=== PATIENT | female | born 1950 | race Caucasian/White ===

== ENCOUNTER 2022-09-24 15:40 | Emergency (ER) | payer OTHER, BC ==
--- OUTSIDE RECORDS SUMMARY | 2022-09-24 15:47 | XMS REPORT | Continuity of Care Document ---
:[address] [facility] t Address [address] [place] [address] [place] [id number] Care Team Providers Name Role Phone Asked, No Pcp Primary Care Physician Unavailable Lupis Mitchell Attending Clinician Unavailable LUPIS BECKMAN Attending Clinician Unavailable RADIOLOGY Attending Clinician Unavailable Radiology Attending Clinician Unavailable Doctor Unassigned, [place] Attending Clinician Unavailable Joel Donald Attending Clinician Unavailable Pancho Thompson MD Attending Clinician [phone] Katia Palomino RN Attending Clinician Unavailable Unknown, Attending Attending Clinician Unavailable Only, Ang Db Test Attending Clinician Unavailable JUAN SHAFER Attending Clinician Unavailable Lupis Beckman MD Attending Clinician Only, Adc Test Attending Clinician Unavailable Pob, Adc Lab Main Attending Clinician Unavailable Lab, Adc Fam Pob I Attending Clinician Unavailable Finn Owusu Attending Clinician FINN MAKI Attending Clinician Unavailable Pcp, Patient Does Not Have A Attending Clinician Gunner Marcos Admitting Clinician Unavailable LUPIS BECKMAN Admitting Clinician Unavailable GUNNER MARCOS Admitting Clinician Unavailable Joel Donald Admitting Clinician Unavailable Lupis Beckman MD Admitting Clinician Payers Payer Name Policy Type Policy Number Effective Date Expiration Date S ource MEDICARE PART A [id number] 2010 \\T\\ B 00:00:00 BCBS FED SELECT [id number] 2002 00:00:00 Problems Condition Condition Condition Status Onset Resolution Last Treating Co mments Source Name Details Category Date Date Treatment Clinician Date No known No known Disease Metho di active active st problems problems Hospit a l Allergies, Adverse Reactions, Alerts Allergy Allergy Status Severity Reaction(s) Onset Inactive Treating Comm ents Source Name Type Date Date Clinician pregabal DA Active NM RASH [facility] in 12-27 Clear 00:00: [place] 00 [facility] morphine DA Active U UNKNOWN 2021-0 [facility] 12-27 Clear 00:00: [place] 00 [facility] Pregabal Propensi Active Unknown - 2020-0 Uni vers in ty to See comments 3-10 ity of adverse 00:00: [place] reaction 00 [facility] Morphine Propensi Active Unknown - 2020-0 Uni vers ty to See comments 3-10 ity of adverse 00:00: [place] reaction 00 [facility] PREGABAL DRUG Active Unknown-Cmnt 2020-0 Un [facility]ilibeth IN INGREDI 3-10 ity of 00:00: [place] 00 [facility] [place] MORPHINE DRUG Active Unknown-Cmnt 2020-0 Un lilibeth INGREDI 3-10 ity of 00:00: [place] [address] [facility] NO KNOWN Drug Active Univers ALLERGIE Class ity of S [facility] Family History Family Member Diagnosis Comments Start Date Stop Date Source Natural father Cancer [facility] Natural father Diabetes [facility] Natural father Heart disease [facility] Natural mother Cancer [facility] Natural sister Blood Clots [facility] Natural sister Diabetes [facility] Social History Social Habit Start Date Stop Date Quantity Comments Source Gender identity 2021-12-19 Identifies as [facility] ist 16:32:01 female gender Hospital (finding) History of tobacco 1971-04-08 Cigarette Smoker [facility] use 00:00:00 Hospital Exposure to Not sure University of SARS-CoV-2 (event) [facility] Sexual orientation [facility] Hospital Tobacco use and 2020-11-11 2020-11-11 Smokeless tobacco Me thodist exposure 00:00:00 00:00:00 non-user Hospital Cigarettes smoked 2020-11-11 2020-11-[address] current (pack per 00:00:00 00:00:00 Hospita l day) - Reported Cigarette 2020-11-11 2020-11-11 [facility] pack-years 00:00:00 00:00:00 Hospital Alcohol intake 2020-11-11 2020-11-11 Current drinker Metho dist 00:00:00 00:00:00 of alcohol Hospital (finding) History of Social 2020-11-11 2020-11-[address] [facility] st function 00:00:00 00:00:00 Hospital Tobacco Comment 2020-11-11 2020-11-11 quit a few times Met hodist 00:00:00 00:00:00 last start Hospital Sex Assigned At [birth year] F [facility]ism 00:00:00 00:00:00 Hospital Smoking Status Start Date Stop Date Source Unknown if ever smoked [facility] Smokes tobacco daily 2020-11-11 00:00:00 [facility] Medications Ordered Filled Start Stop Current Ordering Indication Dosage Frequency Signature Comments Components Source Medication Medication Date Date Medication? Clinician (SIG) Name Name diclofenac Yes TAKE 1 Metho di (VOLTAREN) 8-24 TABLET(75 st 75 MG EC 00:00: MG) BY Hospita tablet 00 MOUTH l TWICE DAILY diclofenac Yes TAKE 1 Metho di (VOLTAREN) 8-24 TABLET(75 st 75 MG EC 00:00: MG) BY Hospita tablet 00 MOUTH l TWICE DAILY diclofenac Yes TAKE 1 Metho di (VOLTAREN) 8-24 TABLET(75 st 75 MG EC 00:00: MG) BY Hospita tablet 00 MOUTH l TWICE DAILY diclofenac 2021- No TAKE 1 Meth augie (VOLTAREN) 2-15 08-24 TABLET(75 st 75 MG EC 00:00: 00:00 MG) BY Hospit a tablet 00 :00 MOUTH l TWICE DAILY diclofenac 2021- No TAKE 1 Meth augie (VOLTAREN) 2-15 08-24 TABLET(75 st 75 MG EC 00:00: 00:00 MG) BY Hospit a tablet 00 :00 MOUTH l TWICE DAILY diclofenac 2021- No TAKE 1 Meth augie (VOLTAREN) 2-15 08-24 TABLET(75 st 75 MG EC 00:00: 00:00 MG) BY Hospit a tablet 00 :00 MOUTH l TWICE DAILY diclofenac 2020-04- No TAKE 1 Meth augie (VOLTAREN) 04-23-15 TABLET(75 st 75 MG EC 00:00: 00:00 MG) BY Hospit a tablet 00 :00 MOUTH l TWICE DAILY diclofenac 2020-04- No TAKE 1 Meth augie (VOLTAREN) 04-23-15 TABLET(75 st 75 MG EC 00:00: 00:00 MG) BY Hospit a tablet 00 :00 MOUTH l TWICE DAILY diclofenac 2020- No 75mg Q.5D Take 1 Meth augie (VOLTAREN) 11-11 tablet (75 st 75 MG EC 00:00: 00:00 mg total) Hos foster tablet 00 :00 by mouth 2 l (two) times a day for 30 days. diclofenac No 75mg Q.5D Take 1 Meth augie (VOLTAREN) 11-11 tablet (75 st 75 MG EC 00:00: 00:00 mg total) Hos foster tablet 00 :00 by mouth 2 l (two) times a day for 30 days. tiZANidine Yes 2mg Take 2 mg Un l[facility] 2 mg 3-25 by mouth ity of capsule 19:06: every 6 [place] 30 (six) Medical hours as Branch needed for Muscle Spasms. traZODone Yes 50mg Take 50 mg Un [facility] 50 mg 3-25 by mouth ity of tablet 19:06: at [place] 30 bedtime. Medical Branch pantoprazol Yes 40mg Take 40 mg Univers e 40 mg EC 3-25 by mouth ity o f tablet 19:06: daily. [place] 30 Medical Branch DULoxetine Yes 1{capsu Take 1 Un l[facility] 30 mg CDRS 3-25 le} capsule by ity of 19:06: mouth [place] 30 every Medical morning. Branch fexofenadin Yes 180mg Take 180 U nivers e 180 mg 3-25 mg by ity of tablet 19:06: mouth [place] 30 daily. Medical Branch furosemide Yes 20mg Take 20 mg U nivers 20 mg 3-25 by mouth ity of tablet 19:06: once daily [place] 30 as needed Medical for Other Branch (edema). gabapentin Yes 600mg Take 600 Un [facility] 600 mg 3-25 mg by ity of tablet 19:06: mouth [place] 30 every Medical morning. Branch gabapentin Yes 1200mg Take 1,200 Univers 600 mg 3-25 mg by ity of tablet 19:06: mouth 2 [place] 30 (two) Medical times Branch daily. 1 tab Qam; 2 600mg tabs afternoon; 2 600mg tabs QHS ferrous Yes 325mg Take 325 Unive rs sulfate 3-25 mg by ity of (IRON) 325 19:06: mouth [place] mg (65 mg 30 daily. Medical iron) Branch tablet vitamin Yes 1{capsu Take 1 Unive rs D3-folic 3-25 le} capsule by ity o f acid 500 19:06: mouth [place] unit- 1 mg 30 daily. Medical Tab Branch foLIC acid Yes 1mg Take 1 mg Un [place] 1 mg tablet 3-25 by mouth ity of 19:06: daily. [place] [address] Medical Branch MAGNESIUM Yes 400mg Take 400 Uni vers OXIDE ORAL 3-25 mg by ity of 19:06: mouth 2 [place] 30 (two) Medical times Branch daily. OXYBUTYNIN Yes 15mg Take 15 mg U nivers CHLORIDE 3-25 by mouth ity of ORAL 19:06: daily. [place] [address] Medical Branch teriparatid Yes 20ug inject 20 U nivers e (FORTEO) 3-25 mcg under ity of 20 mcg/dose 19:06: the skin [place] - 600 30 daily. Medical mcg/2.4 mL Branch injection tiZANidine Yes 2mg Take 2 mg Un [place] 2 mg 3-25 by mouth ity of capsule 19:06: every 6 [place] 30 (six) Medical hours as Branch needed for Muscle Spasms. traZODone Yes 50mg Take 50 mg Un [place] 50 mg 3-25 by mouth ity of tablet 19:06: at [place] 30 bedtime. Medical Branch pantoprazol Yes 40mg Take 40 mg Univers e 40 mg EC 3-25 by mouth ity o f tablet 19:06: daily. [place] [address] Medical Branch DULoxetine Yes 1{capsu Take 1 Un l[place] 30 mg CDRS 3-25 le} capsule by ity of 19:06: mouth [place] 30 every Medical morning. Branch fexofenadin Yes 180mg Take 180 U nivers e 180 mg 3-25 mg by ity of tablet 19:06: mouth [place] 30 daily. Medical Branch furosemide Yes 20mg Take 20 mg U nivers 20 mg 3-25 by mouth ity of tablet 19:06: once daily [place] 30 as needed Medical for Other Branch (edema). gabapentin Yes 600mg Take 600 Un [place] 600 mg 3-25 mg by ity of tablet 19:06: mouth [place] 30 every Medical morning. Branch gabapentin Yes 1200mg Take 1,200 Univers 600 mg 3-25 mg by ity of tablet 19:06: mouth 2 [place] 30 (two) Medical times Branch daily. 1 tab Qam; 2 600mg tabs afternoon; 2 600mg tabs QHS ferrous Yes 325mg Take 325 Unive rs sulfate 3-25 mg by ity of (IRON) 325 19:06: mouth [place] mg (65 mg 30 daily. Medical iron) Branch tablet vitamin Yes 1{capsu Take 1 Unive rs D3-folic 3-25 le} capsule by ity o f acid 500 19:06: mouth [place] unit- 1 mg 30 daily. Medical Tab Branch foLIC acid Yes 1mg Take 1 mg Un [place] 1 mg tablet 3-25 by mouth ity of 19:06: daily. [place] 30 Medical Branch MAGNESIUM Yes 400mg Take 400 Uni vers OXIDE ORAL 3-25 mg by ity of 19:06: mouth 2 [place] 30 (two) Medical times Branch daily. OXYBUTYNIN Yes 15mg Take 15 mg U nivers CHLORIDE 3-25 by mouth ity of ORAL 19:06: daily. [place] 30 Medical Branch teriparatid Yes 20ug inject 20 U nivers e (FORTEO) 3-25 mcg under ity of 20 mcg/dose 19:06: the skin [place] - 600 30 daily. Medical mcg/2.4 mL Branch injection tiZANidine Yes 2mg Take 2 mg Un [place] 2 mg 3-25 by mouth ity of capsule 19:06: every 6 [place] 30 (six) Medical hours as Branch needed for Muscle Spasms. traZODone Yes 50mg Take 50 mg Un [place] 50 mg 3-25 by mouth ity of tablet 19:06: at [place] 30 bedtime. Medical Branch pantoprazol Yes 40mg Take 40 mg Univers e 40 mg EC 3-25 by mouth ity o f tablet 19:06: daily. [place] [address] Medical Branch DULoxetine Yes 1{capsu Take 1 Un [place] 30 mg CDRS 3-25 le} capsule by ity of 19:06: mouth [place] 30 every Medical morning. Branch fexofenadin Yes 180mg Take 180 U nivers e 180 mg 3-25 mg by ity of tablet 19:06: mouth [place] 30 daily. Medical Branch furosemide Yes 20mg Take 20 mg U nivers 20 mg 3-25 by mouth ity of tablet 19:06: once daily [place] 30 as needed Medical for Other Branch (edema). gabapentin Yes 600mg Take 600 Un [place] 600 mg 3-25 mg by ity of tablet 19:06: mouth [place] 30 every Medical morning. Branch gabapentin Yes 1200mg Take 1,200 Univers 600 mg 3-25 mg by ity of tablet 19:06: mouth 2 [place] 30 (two) Medical times Branch daily. 1 tab Qam; 2 600mg tabs afternoon; 2 600mg tabs QHS ferrous Yes 325mg Take 325 Unive rs sulfate 3-25 mg by ity of (IRON) 325 19:06: mouth [place] mg (65 mg 30 daily. Medical iron) Branch tablet vitamin Yes 1{capsu Take 1 Unive rs D3-folic 3-25 le} capsule by ity o f acid 500 19:06: mouth [place] unit- 1 mg 30 daily. Medical Tab Branch foLIC acid Yes 1mg Take 1 mg Un [place] 1 mg tablet 3-25 by mouth ity of 19:06: daily. [place] [address] Medical Branch MAGNESIUM Yes 400mg Take 400 Uni vers OXIDE ORAL 3-25 mg by ity of 19:06: mouth 2 [place] 30 (two) Medical times Branch daily. OXYBUTYNIN Yes 15mg Take 15 mg U nivers CHLORIDE 3-25 by mouth ity of ORAL 19:06: daily. [place] [address] Medical Branch teriparatid Yes 20ug inject 20 U nivers e (FORTEO) 3-25 mcg under ity of 20 mcg/dose 19:06: the skin [place] - 600 30 daily. Medical mcg/2.4 mL Branch injection tiZANidine Yes 2mg Take 2 mg Un [place] 2 mg 3-25 by mouth ity of capsule 19:06: every 6 [place] 30 (six) Medical hours as Branch needed for Muscle Spasms. traZODone Yes 50mg Take 50 mg Un [place] 50 mg 3-25 by mouth ity of tablet 19:06: at [place] 30 bedtime. Medical Branch pantoprazol Yes 40mg Take 40 mg Univers e 40 mg EC 3-25 by mouth ity o f tablet 19:06: daily. [place] 30 Medical Branch DULoxetine Yes 1{capsu Take 1 Un [place] 30 mg CDRS 3-25 le} capsule by ity of 19:06: mouth [place] 30 every Medical morning. Branch fexofenadin Yes 180mg Take 180 U nivers e 180 mg 3-25 mg by ity of tablet 19:06: mouth [place] 30 daily. Medical Branch furosemide Yes 20mg Take 20 mg U nivers 20 mg 3-25 by mouth ity of tablet 19:06: once daily [place] 30 as needed Medical for Other Branch (edema). gabapentin Yes 600mg Take 600 Un [place] 600 mg 3-25 mg by ity of tablet 19:06: mouth [place] 30 every Medical morning. Branch gabapentin Yes 1200mg Take 1,200 Univers 600 mg 3-25 mg by ity of tablet 19:06: mouth 2 [place] 30 (two) Medical times Branch daily. 1 tab Qam; 2 600mg tabs afternoon; 2 600mg tabs QHS ferrous Yes 325mg Take 325 Unive rs sulfate 3-25 mg by ity of (IRON) 325 19:06: mouth [place] mg (65 mg 30 daily. Medical iron) Branch tablet vitamin Yes 1{capsu Take 1 Unive rs D3-folic 3-25 le} capsule by ity o f acid 500 19:06: mouth [place] unit- 1 mg 30 daily. Medical Tab Branch foLIC acid 2021-0 Yes 1mg Take 1 mg Un [place] 1 mg tablet 3-25 by mouth ity of 19:06: daily. [place] 30 Medical Branch MAGNESIUM Yes 400mg Take 400 Uni vers OXIDE ORAL 3-25 mg by ity of 19:06: mouth 2 [place] 30 (two) Medical times Branch daily. OXYBUTYNIN Yes 15mg Take 15 mg U nivers CHLORIDE 3-25 by mouth ity of ORAL 19:06: daily. [place] 30 Medical Branch teriparatid Yes 20ug inject 20 U nivers e (FORTEO) 3-25 mcg under ity of 20 mcg/dose 19:06: the skin [place] - 600 30 daily. Medical mcg/2.4 mL Branch injection tiZANidine Yes 2mg Take 2 mg Un [place] 2 mg 3-25 by mouth ity of capsule 19:06: every 6 [place] 30 (six) Medical hours as Branch needed for Muscle Spasms. traZODone Yes 50mg Take 50 mg Un [place] 50 mg 3-25 by mouth ity of tablet 19:06: at [place] 30 bedtime. Medical Branch pantoprazol Yes 40mg Take 40 mg Univers e 40 mg EC 3-25 by mouth ity o f tablet 19:06: daily. [place] 30 Medical Branch DULoxetine Yes 1{capsu Take 1 Un [facility] 30 mg CDRS 3-25 le} capsule by ity of 19:06: mouth [place] 30 every Medical morning. Branch fexofenadin Yes 180mg Take 180 U nivers e 180 mg 3-25 mg by ity of tablet 19:06: mouth [place] 30 daily. Medical Branch furosemide Yes 20mg Take 20 mg U nivers 20 mg 3-25 by mouth ity of tablet 19:06: once daily [place] 30 as needed Medical for Other Branch (edema). gabapentin Yes 600mg Take 600 Un [place] 600 mg 3-25 mg by ity of tablet 19:06: mouth [place] 30 every Medical morning. Branch gabapentin Yes 1200mg Take 1,200 Univers 600 mg 3-25 mg by ity of tablet 19:06: mouth 2 [place] 30 (two) Medical times Branch daily. 1 tab Qam; 2 600mg tabs afternoon; 2 600mg tabs QHS ferrous Yes 325mg Take 325 Unive rs sulfate 3-25 mg by ity of (IRON) 325 19:06: mouth [place] mg (65 mg 30 daily. Medical iron) Branch tablet vitamin Yes 1{capsu Take 1 Unive rs D3-folic 3-25 le} capsule by ity o f acid 500 19:06: mouth [place] unit- 1 mg 30 daily. Medical Tab Branch foLIC acid Yes 1mg Take 1 mg Un [place] 1 mg tablet 3-25 by mouth ity of 19:06: daily. [place] 30 Medical Branch MAGNESIUM Yes 400mg Take 400 Uni vers OXIDE ORAL 3-25 mg by ity of 19:06: mouth 2 [place] 30 (two) Medical times Branch daily. OXYBUTYNIN Yes 15mg Take 15 mg U nivers CHLORIDE 3-25 by mouth ity of ORAL 19:06: daily. [place] 30 Medical Branch teriparatid Yes 20ug inject 20 U nivers e (FORTEO) 3-25 mcg under ity of 20 mcg/dose 19:06: the skin [place] - 600 30 daily. Medical mcg/2.4 mL Branch injection tiZANidine Yes 2mg Take 2 mg Un [place] 2 mg 3-25 by mouth ity of capsule 19:06: every 6 [place] 30 (six) Medical hours as Branch needed for Muscle Spasms. traZODone Yes 50mg Take 50 mg [facility] [place] 50 mg 3-25 by mouth ity of tablet 19:06: at [place] 30 bedtime. Medical Branch pantoprazol Yes 40mg Take 40 mg Univers e 40 mg EC 3-25 by mouth ity o f tablet 19:06: daily. [place] 30 Medical Branch DULoxetine Yes 1{capsu Take 1 Un [place] 30 mg CDRS 3-25 le} capsule by ity of 19:06: mouth [place] 30 every Medical morning. Branch fexofenadin Yes 180mg Take 180 U nivers e 180 mg 3-25 mg by ity of tablet 19:06: mouth [place] 30 daily. Medical Branch furosemide Yes 20mg Take 20 mg U nivers 20 mg 3-25 by mouth ity of tablet 19:06: once daily [place] 30 as needed Medical for Other Branch (edema). gabapentin Yes 600mg Take 600 Un [place] 600 mg 3-25 mg by ity of tablet 19:06: mouth [place] 30 every Medical morning. Branch gabapentin 0 Yes 1200mg Take 1,200 Univers 600 mg 3-25 mg by ity of tablet 19:06: mouth 2 [place] 30 (two) Medical times Branch daily. 1 tab Qam; 2 600mg tabs afternoon; 2 600mg tabs QHS ferrous 0 Yes 325mg Take 325 Unive rs sulfate 3-25 mg by ity of (IRON) 325 19:06: mouth [place] mg (65 mg 30 daily. Medical iron) Branch tablet vitamin Yes 1{capsu Take 1 Unive rs D3-folic 3-25 le} capsule by ity o f acid 500 19:06: mouth [place] unit- 1 mg 30 daily. Medical Tab Branch foLIC acid Yes 1mg Take 1 mg Un [place] 1 mg tablet 3-25 by mouth ity of 19:06: daily. [place] [address] Medical Branch MAGNESIUM Yes 400mg Take 400 Uni vers OXIDE ORAL 3-25 mg by ity of 19:06: mouth 2 [place] 30 (two) Medical times Branch daily. OXYBUTYNIN Yes 15mg Take 15 mg U nivers CHLORIDE 3-25 by mouth ity of ORAL 19:06: daily. [place] [address] Medical Branch teriparatid Yes 20ug inject 20 U nivers e (FORTEO) 3-25 mcg under ity of 20 mcg/dose 19:06: the skin [place] - 600 30 daily. Medical mcg/2.4 mL Branch injection lactated Yes 1000mL at 75 Univer s ringers IV 3-25 mL/hr, ity of infusion 18:30: 1,000 mL, [place] 1,000 mL 00 IV Medical Infusion, Branch CONTINUOUS , Starting [place] 06/30/20 at 1330, Until Discontinu ed, Routine, PACU FENTanyl PF Yes 25ug 25 mcg, Uni vers (SUBLIMAZE 3-25 Slow IV ity of (PF)) 18:25: Push, [place] injection 08 Q5MIN PRN, Medi jorge 25 mcg 4 doses, Branch Starting [place] 06/30/20 at 1325, Until Discontinu ed, Routine, Pain (scale 4-6), PACU ondansetron Yes 4mg 4 mg, Slow Univers (ZOFRAN 3-25 IV Push, ity of (PF)) 18:25: PRN, 1 [place] injection 4 08 dose, Medical mg Starting Branch [place] 06/30/20 at 1325, Until Discontinu ed, Routine, Nausea and Vomiting (N/V), PACU tetracaine Yes PRN, Univers (PONTOCAINE -25 Starting ity of ) 0.5 % 18:05: [place] ophthalmic 00 06/30/20 at [facility] ica drops 1305, [place] Until Discontinu ed, Routine, Intra-op water for Yes PRN, Univers irrigation 06-30 Starting ity o f irrigation 18:05: [place] solution 06/30/[address] [facility] al 1305, [place] Until Discontinu ed, Routine, Intra-op NaCl 0.9% Yes PRN, Univers (NS) 06-30 Starting ity of injection 18:04: [place] 06/30/20 at [facility] 1304, Branch Until Discontinu ed, Routine, Intra-op neomycin-po Yes PRN, Univer s lymyxin-dex 06-30 Starting ity of amethasone 18:04: [place] (MAXITROL) 06/30/20 at [facility] 3.5 1304, [place] mg/g-10,000 Until unit/g-0.1 Discontinu % ed, ophthalmic Routine, ointment Intra-op gentamicin Yes PRN, Univers injection 06-30 Starting ity of 18:03: [place] 06/30/20 at [facility] 1303, [place] Until Discontinu ed, RADHA, Intra-op eye block 0 Yes PRN, Univers syringe 11 06-30 Starting ity o f mL 18:02: [place] 06/30/20 at [facility] 1302, Branch Until Discontinu ed, Intra-op EPINEPHrine 2020- Yes PRN, Univer s (PF) - Starting ity of 1:1,000 (1 18:02: [place] mg/mL) 00 06/30/20 at [facility] (ADRENALIN 1302, Branch (PF)) Until injection Discontinu ed, Routine, Intra-op DUOVISC Yes PRN, Univers (DUOVISC 06-30 Starting ity of VISCO 18:02: [place] ELASTIC) 3 00 06/30/20 at [facility] ical %-4 %(0.5 1302, Branch mL) 1 % Until (0.55 mL) Discontinu intraocular ed, injection Routine, Intra-op dexamethaso Yes PRN, Univ s ne 06-30 Starting ity of (DECADRON 18:02: [place] PHOSPHATE) 00 06/30/20 at [facility] ical injection 1302, Branch Until Discontinu ed, Routine, Intra-op ceFAZolin Yes PRN, Univers (ANCEF) 06-30 Starting ity of injection 18:01: [place] 00 06/30/20 at [facility] 1301, Branch Until Discontinu ed, RADHA, Intra-op balanced Yes PRN, Univers salt soln 06-30 Starting ity of no.2 irrig. 18:01: [place] (BSS) 00 06/30/20 at [facility] ophthalmic 1301, Branch solution Until Discontinu ed, Routine, Intra-op mydriatic 2020- No .5mL 0.5 mL, Univ ers #5 06-30 Right Eye, ity of ophthalmic 16:15: 16:10 ONCE, 1 [place] as solution 00 :00 dose, [place] Medica l 0.5 mL 06/30/20 at [place] syringe 1115, Routine, DSU Pre-op lactated 2020- No 1000mL at 42 Unive rs ringers IV 06-30 03-25 mL/hr, ity of infusion 16:15: 16:19 1,000 mL, [place] as 1,000 mL 00 :00 IV Medical Infusion, [place] ONCE, 1 dose, [place] 06/30/20 at 1115, Routine, DSU Pre-op tiZANidine Yes 2mg Take 2 mg Un [facility] 2 mg 25 by mouth ity of capsule 14:06: every 6 [place] 30 (six) Medical hours as Branch needed for Muscle Spasms. traZODone 2021-0 Yes 50mg Take 50 mg Un [place] 50 mg 3-25 by mouth ity of tablet 14:06: at [place] 30 bedtime. Medical Branch pantoprazol Yes 40mg Take 40 mg Univers e 40 mg EC 3-25 by mouth ity o f tablet 14:06: daily. [place] [address] Medical Branch DULoxetine Yes 1{capsu Take 1 Un [place] 30 mg CDRS 3-25 le} capsule by ity of 14:06: mouth [place] 30 every Medical morning. Branch fexofenadin Yes 180mg Take 180 U nivers e 180 mg 3-25 mg by ity of tablet 14:06: mouth [place] 30 daily. Medical Branch furosemide Yes 20mg Take 20 mg U nivers 20 mg 3-25 by mouth ity of tablet 14:06: once daily [place] 30 as needed Medical for Other Branch (edema). gabapentin Yes 600mg Take 600 Un [place] 600 mg 3-25 mg by ity of tablet 14:06: mouth [place] 30 every Medical morning. Branch gabapentin Yes 1200mg Take 1,200 Univers 600 mg 3-25 mg by ity of tablet 14:06: mouth 2 [place] 30 (two) Medical times Branch daily. 1 tab Qam; 2 600mg tabs afternoon; 2 600mg tabs QHS ferrous Yes 325mg Take 325 Unive rs sulfate 3-25 mg by ity of (IRON) 325 14:06: mouth [place] mg (65 mg 30 daily. Medical iron) Branch tablet vitamin Yes 1{capsu Take 1 Unive rs D3-folic 3-25 le} capsule by ity o f acid 500 14:06: mouth [place] unit- 1 mg 30 daily. Medical Tab Branch foLIC acid Yes 1mg Take 1 mg Un [place] 1 mg tablet 3-25 by mouth ity of 14:06: daily. [place] 30 Medical Branch MAGNESIUM Yes 400mg Take 400 Uni vers OXIDE ORAL 3-25 mg by ity of 14:06: mouth 2 [place] 30 (two) Medical times Branch daily. OXYBUTYNIN Yes 15mg Take 15 mg U nivers CHLORIDE 3-25 by mouth ity of ORAL 14:06: daily. [place] [address] Medical Branch teriparatid 2021-0 Yes 20ug inject 20 U nivers e (FORTEO) 3-25 mcg under ity of 20 mcg/dose 14:06: the skin [place] - 600 30 daily. Medical mcg/2.4 mL Branch injection tiZANidine Yes 2mg Take 2 mg Un [place] 2 mg 3-25 by mouth ity of capsule 14:06: every 6 [place] 30 (six) Medical hours as Branch needed for Muscle Spasms. traZODone Yes 50mg Take 50 mg Un [place] 50 mg 3-25 by mouth ity of tablet 14:06: at [place] 30 bedtime. Medical Branch pantoprazol Yes 40mg Take 40 mg Univers e 40 mg EC 3-25 by mouth ity o f tablet 14:06: daily. [place] 30 Medical Branch DULoxetine Yes 1{capsu Take 1 Un [place] 30 mg CDRS 3-25 le} capsule by ity of 14:06: mouth [place] 30 every Medical morning. Branch fexofenadin Yes 180mg Take 180 U nivers e 180 mg 3-25 mg by ity of tablet 14:06: mouth [place] 30 daily. Medical Branch furosemide Yes 20mg Take 20 mg U nivers 20 mg 3-25 by mouth ity of tablet 14:06: once daily [place] 30 as needed Medical for Other Branch (edema). gabapentin Yes 600mg Take 600 Un [place] 600 mg 3-25 mg by ity of tablet 14:06: mouth [place] 30 every Medical morning. Branch gabapentin Yes 1200mg Take 1,200 Univers 600 mg 3-25 mg by ity of tablet 14:06: mouth 2 [place] 30 (two) Medical times Branch daily. 1 tab Qam; 2 600mg tabs afternoon; 2 600mg tabs QHS ferrous Yes 325mg Take 325 Unive rs sulfate 3-25 mg by ity of (IRON) 325 14:06: mouth [place] mg (65 mg 30 daily. Medical iron) Branch tablet vitamin Yes 1{capsu Take 1 Unive rs D3-folic 3-25 le} capsule by ity o f acid 500 14:06: mouth [place] unit- 1 mg 30 daily. Medical Tab Branch foLIC acid Yes 1mg Take 1 mg Un lilibeth 1 mg tablet 3-25 by mouth ity of 14:06: daily. [place] [address] Medical Branch MAGNESIUM Yes 400mg Take 400 Uni vers OXIDE ORAL 3-25 mg by ity of 14:06: mouth 2 [place] 30 (two) Medical times Branch daily. OXYBUTYNIN Yes 15mg Take 15 mg U nivers CHLORIDE 3-25 by mouth ity of ORAL 14:06: daily. [place] [address] Medical Branch teriparatid Yes 20ug inject 20 U nivers e (FORTEO) 3-25 mcg under ity of 20 mcg/dose 14:06: the skin [place] - 600 30 daily. Medical mcg/2.4 mL Branch injection tiZANidine Yes 2mg Take 2 mg Un l[place] 2 mg 3-25 by mouth ity of capsule 14:06: every 6 [place] 30 (six) Medical hours as Branch needed for Muscle Spasms. traZODone Yes 50mg Take 50 mg Un [place] 50 mg 3-25 by mouth ity of tablet 14:06: at [place] 30 bedtime. Medical Branch pantoprazol Yes 40mg Take 40 mg [facility] e 40 mg EC 3-25 by mouth ity o f tablet 14:06: daily. [place] [address] Medical Branch DULoxetine Yes 1{capsu Take 1 Un lilib[place] 30 mg CDRS 3-25 le} capsule by ity of 14:06: mouth [place] 30 every Medical morning. Branch fexofenadin Yes 180mg Take 180 U nivers e 180 mg 3-25 mg by ity of tablet 14:06: mouth [place] 30 daily. Medical Branch furosemide Yes 20mg Take 20 mg U nivers 20 mg 3-25 by mouth ity of tablet 14:06: once daily [place] 30 as needed Medical for Other Branch (edema). gabapentin Yes 600mg Take 600 Un [place] 600 mg 3-25 mg by ity of tablet 14:06: mouth [place] 30 every Medical morning. Branch gabapentin Yes 1200mg Take 1,200 [facility] 600 mg 3-25 mg by ity of tablet 14:06: mouth 2 [place] 30 (two) Medical times Branch daily. 1 tab Qam; 2 600mg tabs afternoon; 2 600mg tabs QHS ferrous Yes 325mg Take 325 Unive rs sulfate 3-25 mg by ity of (IRON) 325 14:06: mouth [place] mg (65 mg 30 daily. Medical iron) Branch tablet vitamin Yes 1{capsu Take 1 Unive rs D3-folic 3-25 le} capsule by ity o f acid 500 14:06: mouth [place] unit- 1 mg 30 daily. Medical Tab Branch foLIC acid Yes 1mg Take 1 mg Un l[place] 1 mg tablet 3-25 by mouth ity of 14:06: daily. [place] 30 Medical Branch MAGNESIUM Yes 400mg Take 400 Uni vers OXIDE ORAL 3-25 mg by ity of 14:06: mouth 2 [place] 30 (two) Medical times Branch daily. OXYBUTYNIN Yes 15mg Take 15 mg U nivers CHLORIDE 3-25 by mouth ity of ORAL 14:06: daily. [place] [address] Medical Branch teriparatid Yes 20ug inject 20 U nivers e (FORTEO) 3-25 mcg under ity of 20 mcg/dose 14:06: the skin [place] - 600 30 daily. Medical mcg/2.4 mL Branch injection tiZANidine Yes 2mg Take 2 mg Un l[place] 2 mg 3-25 by mouth ity of capsule 14:06: every 6 [place] 30 (six) Medical hours as Branch needed for Muscle Spasms. traZODone Yes 50mg Take 50 mg [facility] [place] 50 mg 3-25 by mouth ity of tablet 14:06: at [place] 30 bedtime. Medical Branch pantoprazol Yes 40mg Take 40 mg [facility] e 40 mg EC 3-25 by mouth ity o f tablet 14:06: daily. [place] [address] Medical Branch DULoxetine Yes 1{capsu Take 1 Un l[facility] 30 mg CDRS 3-25 le} capsule by ity of 14:06: mouth [place] 30 every Medical morning. Branch fexofenadin Yes 180mg Take 180 U nivers e 180 mg 3-25 mg by ity of tablet 14:06: mouth [place] 30 daily. Medical Branch furosemide Yes 20mg Take 20 mg U nivers 20 mg 3-25 by mouth ity of tablet 14:06: once daily [place] 30 as needed Medical for Other Branch (edema). gabapentin Yes 600mg Take 600 Un [place] 600 mg 3-25 mg by ity of tablet 14:06: mouth [place] 30 every Medical morning. Branch gabapentin Yes 1200mg Take 1,200 [facility] 600 mg 3-25 mg by ity of tablet 14:06: mouth 2 [place] 30 (two) Medical times Branch daily. 1 tab Qam; 2 600mg tabs afternoon; 2 600mg tabs QHS ferrous Yes 325mg Take 325 Unive rs sulfate 3-25 mg by ity of (IRON) 325 14:06: mouth [place] mg (65 mg 30 daily. Medical iron) Branch tablet vitamin Yes 1{capsu Take 1 Unive rs D3-folic 3-25 le} capsule by ity o f acid 500 14:06: mouth [place] unit- 1 mg 30 daily. Medical Tab Branch foLIC acid Yes 1mg Take 1 mg Un l[place] 1 mg tablet 3-25 by mouth ity of 14:06: daily. [place] [address] Medical Branch MAGNESIUM Yes 400mg Take 400 Uni vers OXIDE ORAL 3-25 mg by ity of 14:06: mouth 2 [place] 30 (two) Medical times Branch daily. OXYBUTYNIN Yes 15mg Take 15 mg U nivers CHLORIDE 3-25 by mouth ity of ORAL 14:06: daily. [place] [address] Medical Branch teriparatid Yes 20ug inject 20 U nivers e (FORTEO) 3-25 mcg under ity of 20 mcg/dose 14:06: the skin [place] - 600 30 daily. Medical mcg/2.4 mL Branch injection tiZANidine Yes 2mg Take 2 mg Un [place] 2 mg 3-25 by mouth ity of capsule 14:06: every 6 [place] 30 (six) Medical hours as Branch needed for Muscle Spasms. traZODone Yes 50mg Take 50 mg Un [place] 50 mg 3-25 by mouth ity of tablet 14:06: at [place] 30 bedtime. Medical Branch pantoprazol Yes 40mg Take 40 mg [facility] e 40 mg EC 3-25 by mouth ity o f tablet 14:06: daily. [place] [address] Medical Branch DULoxetine Yes 1{capsu Take 1 Un l[place] 30 mg CDRS 3-25 le} capsule by ity of 14:06: mouth [place] 30 every Medical morning. Branch fexofenadin Yes 180mg Take 180 U nivers e 180 mg 3-25 mg by ity of tablet 14:06: mouth [place] 30 daily. Medical Branch furosemide Yes 20mg Take 20 mg U nivers 20 mg 3-25 by mouth ity of tablet 14:06: once daily [place] 30 as needed Medical for Other Branch (edema). gabapentin Yes 600mg Take 600 Un [place] 600 mg 3-25 mg by ity of tablet 14:06: mouth [place] 30 every Medical morning. Branch gabapentin Yes 1200mg Take 1,200 [facility] 600 mg 3-25 mg by ity of tablet 14:06: mouth 2 [place] 30 (two) Medical times Branch daily. 1 tab Qam; 2 600mg tabs afternoon; 2 600mg tabs QHS ferrous Yes 325mg Take 325 Unive rs sulfate 3-25 mg by ity of (IRON) 325 14:06: mouth [place] mg (65 mg 30 daily. Medical iron) Branch tablet vitamin Yes 1{capsu Take 1 Unive rs D3-folic 3-25 le} capsule by ity o f acid 500 14:06: mouth [place] unit- 1 mg 30 daily. Medical Tab Branch foLIC acid Yes 1mg Take 1 mg Un l[place] 1 mg tablet 3-25 by mouth ity of 14:06: daily. Medical Branch MAGNESIUM Yes 400mg Take 400 Uni vers OXIDE ORAL 3-25 mg by ity of 14:06: mouth 2 [place] 30 (two) Medical times Branch daily. OXYBUTYNIN Yes 15mg Take 15 mg U nivers CHLORIDE 3-25 by mouth ity of ORAL 14:06: daily. 30 Medical Branch teriparatid Yes 20ug inject 20 U nivers e (FORTEO) 3-25 mcg under ity of 20 mcg/dose 14:06: the skin [place] - 600 30 daily. Medical mcg/2.4 mL Branch injection tiZANidine Yes 2mg Take 2 mg Un [place] 2 mg 3-25 by mouth ity of capsule 14:06: every 6 [place] 30 (six) Medical hours as Branch needed for Muscle Spasms. traZODone Yes 50mg Take 50 mg Un [facility] 50 mg 3-25 by mouth ity of tablet 14:06: at [place] 30 bedtime. Medical Branch pantoprazol Yes 40mg Take 40 mg [facility] e 40 mg EC 3-25 by mouth ity o f tablet 14:06: daily. [place] 30 Medical Branch DULoxetine 0 Yes 1{capsu Take 1 Un l[place] 30 mg CDRS 3-25 le} capsule by ity of 14:06: mouth [place] 30 every Medical morning. Branch fexofenadin Yes 180mg Take 180 U nivers e 180 mg 3-25 mg by ity of tablet 14:06: mouth [place] 30 daily. Medical Branch furosemide Yes 20mg Take 20 mg U nivers 20 mg 3-25 by mouth ity of tablet 14:06: once daily [place] 30 as needed Medical for Other Branch (edema). gabapentin Yes 600mg Take 600 Un lilibeht 600 mg 3-25 mg by ity of tablet 14:06: mouth [place] 30 every Medical morning. Branch gabapentin Yes 1200mg Take 1,200 [facility] 600 mg 3-25 mg by ity of tablet 14:06: mouth 2 [place] 30 (two) Medical times Branch daily. 1 tab Qam; 2 600mg tabs afternoon; 2 600mg tabs QHS ferrous Yes 325mg Take 325 Unive rs sulfate 3-25 mg by ity of (IRON) 325 14:06: mouth [place] mg (65 mg 30 daily. Medical iron) Branch tablet vitamin Yes 1{capsu Take 1 Unive rs D3-folic 3-25 le} capsule by ity o f acid 500 14:06: mouth [place] unit- 1 mg 30 daily. Medical Tab Branch foLIC acid 0 Yes 1mg Take 1 mg Un [facility] 1 mg tablet 3-25 by mouth ity of 14:06: daily. [place] 30 Medical Branch MAGNESIUM 0 Yes 400mg Take 400 Uni vers OXIDE ORAL 3-25 mg by ity of 14:06: mouth 2 [place] 30 (two) Medical times Branch daily. OXYBUTYNIN 0 Yes 15mg Take 15 mg U nivers CHLORIDE 3-25 by mouth ity of ORAL 14:06: daily. [place] 30 Medical Branch teriparatid Yes 20ug inject 20 U nivers e (FORTEO) 3-25 mcg under ity of 20 mcg/dose 14:06: the skin [place] - 600 30 daily. Medical mcg/2.4 mL Branch injection tiZANidine Yes 2mg Take 2 mg Un l[place] 2 mg 3-25 by mouth ity of capsule 14:06: every 6 [place] 30 (six) Medical hours as Branch needed for Muscle Spasms. traZODone Yes 50mg Take 50 mg Un [place] 50 mg 3-25 by mouth ity of tablet 14:06: at [place] 30 bedtime. Medical Branch pantoprazol Yes 40mg Take 40 mg [facility] e 40 mg EC 3-25 by mouth ity o f tablet 14:06: daily. [place] 30 Medical Branch DULoxetine Yes 1{capsu Take 1 Un l[place] 30 mg CDRS 3-25 le} capsule by ity of 14:06: mouth [place] 30 every Medical morning. Branch fexofenadin Yes 180mg Take 180 U nivers e 180 mg 3-25 mg by ity of tablet 14:06: mouth [place] 30 daily. Medical Branch furosemide Yes 20mg Take 20 mg U nivers 20 mg 3-25 by mouth ity of tablet 14:06: once daily [place] 30 as needed Medical for Other Branch (edema). gabapentin Yes 600mg Take 600 Un [facility] 600 mg 3-25 mg by ity of tablet 14:06: mouth [place] 30 every Medical morning. Branch gabapentin Yes 1200mg Take 1,200 [facility] 600 mg 3-25 mg by ity of tablet 14:06: mouth 2 [place] 30 (two) Medical times Branch daily. 1 tab Qam; 2 600mg tabs afternoon; 2 600mg tabs QHS ferrous Yes 325mg Take 325 Unive rs sulfate 3-25 mg by ity of (IRON) 325 14:06: mouth [place] mg (65 mg 30 daily. Medical iron) Branch tablet vitamin Yes 1{capsu Take 1 Unive rs D3-folic 3-25 le} capsule by ity o f acid 500 14:06: mouth [place] unit- 1 mg 30 daily. Medical Tab Branch foLIC acid Yes 1mg Take 1 mg Un [facility] 1 mg tablet 3-25 by mouth ity of 14:06: daily. [place] 30 Medical Branch MAGNESIUM 0 Yes 400mg Take 400 Uni vers OXIDE ORAL 3-25 mg by ity of 14:06: mouth 2 [place] 30 (two) Medical times Branch daily. OXYBUTYNIN Yes 15mg Take 15 mg U nivers CHLORIDE 3-25 by mouth ity of ORAL 14:06: daily. [place] 30 Medical Branch teriparatid Yes 20ug inject 20 U nivers e (FORTEO) 3-25 mcg under ity of 20 mcg/dose 14:06: the skin [place] - 600 30 daily. Medical mcg/2.4 mL Branch injection tiZANidine Yes 2mg Take 2 mg Un [facility] 2 mg 3-25 by mouth ity of capsule 14:06: every 6 [place] 30 (six) Medical hours as Branch needed for Muscle Spasms. traZODone Yes 50mg Take 50 mg Un [facility] 50 mg 3-25 by mouth ity of tablet 14:06: at [place] 30 bedtime. Medical Branch pantoprazol Yes 40mg Take 40 mg [facility] e 40 mg EC 3-25 by mouth ity o f tablet 14:06: daily. [place] 30 Medical Branch DULoxetine Yes 1{capsu Take 1 Un [facility] 30 mg CDRS 3-25 le} capsule by ity of 14:06: mouth [place] 30 every Medical morning. Branch fexofenadin Yes 180mg Take 180 U nivers e 180 mg 3-25 mg by ity of tablet 14:06: mouth [place] 30 daily. Medical Branch furosemide Yes 20mg Take 20 mg U nivers 20 mg 3-25 by mouth ity of tablet 14:06: once daily [place] 30 as needed Medical for Other Branch (edema). gabapentin Yes 600mg Take 600 Un [facility] 600 mg 3-25 mg by ity of tablet 14:06: mouth [place] 30 every Medical morning. Branch gabapentin 0 Yes 1200mg Take 1,200 [facility] 600 mg 3-25 mg by ity of tablet 14:06: mouth 2 [place] 30 (two) Medical times Branch daily. 1 tab Qam; 2 600mg tabs afternoon; 2 600mg tabs QHS ferrous Yes 325mg Take 325 Unive rs sulfate 3-25 mg by ity of (IRON) 325 14:06: mouth [place] mg (65 mg 30 daily. Medical iron) Branch tablet vitamin Yes 1{capsu Take 1 Unive rs D3-folic 3-25 le} capsule by ity o f acid 500 14:06: mouth [place] unit- 1 mg 30 daily. Medical Tab Branch foLIC acid Yes 1mg Take 1 mg Un l[place] 1 mg tablet 3-25 by mouth ity of 14:06: daily. [place] 30 Medical Branch MAGNESIUM Yes 400mg Take 400 Uni vers OXIDE ORAL 3-25 mg by ity of 14:06: mouth 2 [place] 30 (two) Medical times Branch daily. OXYBUTYNIN Yes 15mg Take 15 mg U nivers CHLORIDE 3-25 by mouth ity of ORAL 14:06: daily. [place] 30 Medical Branch teriparatid Yes 20ug inject 20 U nivers e (FORTEO) 3-25 mcg under ity of 20 mcg/dose 14:06: the skin [place] - 600 30 daily. Medical mcg/2.4 mL Branch injection tiZANidine Yes 2mg Take 2 mg Un l[place] 2 mg 3-11 by mouth ity of capsule 17:30: every 6 [place] 39 (six) Medical hours as Branch needed for Muscle Spasms. traZODone Yes 50mg Take 50 mg Un [facility] 50 mg 3-11 by mouth ity of tablet 17:30: at [place] 39 bedtime. Medical Branch pantoprazol Yes 40mg Take 40 mg [facility] e 40 mg EC 3-11 by mouth ity o f tablet 17:30: daily. [place] 39 Medical Branch DULoxetine Yes 1{capsu Take 1 Un l[place] 30 mg CDRS 3-11 le} capsule by ity of 17:30: mouth [place] 39 every Medical morning. Branch fexofenadin Yes 180mg Take 180 U nivers e 180 mg 3-11 mg by ity of tablet 17:30: mouth [place] 39 daily. Medical Branch furosemide Yes 20mg Take 20 mg U nivers 20 mg 3-11 by mouth ity of tablet 17:30: once daily [place] [address] as needed Medical for Other Branch (edema). gabapentin Yes 600mg Take 600 Un [facility] 600 mg 3-11 mg by ity of tablet 17:30: mouth [place] 39 every Medical morning. Branch gabapentin Yes 1200mg Take 1,200 [facility] 600 mg 3-11 mg by ity of tablet 17:30: mouth 2 [place] 39 (two) Medical times Branch daily. 1 tab Qam; 2 600mg tabs afternoon; 2 600mg tabs QHS ferrous Yes 325mg Take 325 Unive rs sulfate 3-11 mg by ity of (IRON) 325 17:30: mouth [place] mg (65 mg 39 daily. Medical iron) Branch tablet vitamin Yes 1{capsu Take 1 Unive rs D3-folic 3-11 le} capsule by ity o f acid 500 17:30: mouth [place] unit- 1 mg 39 daily. Medical Tab Branch foLIC acid Yes 1mg Take 1 mg Un [facility] 1 mg tablet 3-11 by mouth ity of 17:30: daily. [place] [address] Medical Branch MAGNESIUM Yes 400mg Take 400 Uni vers OXIDE ORAL 3-11 mg by ity of 17:30: mouth 2 [place] [address] (two) Medical times Branch daily. OXYBUTYNIN Yes 15mg Take 15 mg U nivers CHLORIDE 3-11 by mouth ity of ORAL 17:30: daily. [place] [address] Medical Branch teriparatid Yes 20ug inject 20 U nivers e (FORTEO) 3-11 mcg under ity of 20 mcg/dose 17:30: the skin [place] - 600 39 daily. Medical mcg/2.4 mL Branch injection tiZANidine Yes 2mg Take 2 mg Un l[place] 2 mg 3-11 by mouth ity of capsule 17:30: every 6 [place] [address] (six) Medical hours as Branch needed for Muscle Spasms. traZODone 0 Yes 50mg Take 50 mg Un [facility] 50 mg 3-11 by mouth ity of tablet 17:30: at [place] [address] bedtime. Medical Branch pantoprazol 0 Yes 40mg Take 40 mg [facility] e 40 mg EC 3-11 by mouth ity o f tablet 17:30: daily. [place] [address] Medical Branch DULoxetine Yes 1{capsu Take 1 Un [facility] 30 mg CDRS 3-11 le} capsule by ity of 17:30: mouth [place] 39 every Medical morning. Branch fexofenadin Yes 180mg Take 180 U nivers e 180 mg 3-11 mg by ity of tablet 17:30: mouth [place] 39 daily. Medical Branch furosemide Yes 20mg Take 20 mg U nivers 20 mg 3-11 by mouth ity of tablet 17:30: once daily [place] [address] as needed Medical for Other Branch (edema). gabapentin Yes 600mg Take 600 Un [place] 600 mg 3-11 mg by ity of tablet 17:30: mouth [place] 39 every Medical morning. Branch gabapentin Yes 1200mg Take 1,200 [facility] 600 mg 3-11 mg by ity of tablet 17:30: mouth 2 [place] [address] (two) Medical times Branch daily. 1 tab Qam; 2 600mg tabs afternoon; 2 600mg tabs QHS ferrous Yes 325mg Take 325 Unive rs sulfate 3-11 mg by ity of (IRON) 325 17:30: mouth [place] mg (65 mg 39 daily. Medical iron) Branch tablet vitamin Yes 1{capsu Take 1 Unive rs D3-folic 3-11 le} capsule by ity o f acid 500 17:30: mouth [place] unit- 1 mg 39 daily. Medical Tab Branch foLIC acid Yes 1mg Take 1 mg Un [place] 1 mg tablet 3-11 by mouth ity of 17:30: daily. [place] [address] Medical Branch MAGNESIUM Yes 400mg Take 400 Uni vers OXIDE ORAL 3-11 mg by ity of 17:30: mouth 2 [place] [address] (two) Medical times Branch daily. OXYBUTYNIN Yes 15mg Take 15 mg U nivers CHLORIDE 3-11 by mouth ity of ORAL 17:30: daily. [place] [address] Medical Branch teriparatid Yes 20ug inject 20 U nivers e (FORTEO) 3-11 mcg under ity of 20 mcg/dose 17:30: the skin [place] - 600 39 daily. Medical mcg/2.4 mL Branch injection tiZANidine 2021-0 Yes 2mg Take 2 mg Un [facility] 2 mg 3-11 by mouth ity of capsule 17:30: every 6 [place] [address] (six) Medical hours as Branch needed for Muscle Spasms. traZODone Yes 50mg Take 50 mg Un [facility] 50 mg 3-11 by mouth ity of tablet 17:30: at [place] 39 bedtime. Medical Branch pantoprazol Yes 40mg Take 40 mg [facility] e 40 mg EC 3-11 by mouth ity o f tablet 17:30: daily. [place] [address] Medical Branch DULoxetine 0 Yes 1{capsu Take 1 Un [facility] 30 mg CDRS 3-11 le} capsule by ity of 17:30: mouth [place] 39 every Medical morning. Branch fexofenadin Yes 180mg Take 180 U nivers e 180 mg 3-11 mg by ity of tablet 17:30: mouth [place] 39 daily. Medical Branch furosemide Yes 20mg Take 20 mg U nivers 20 mg 3-11 by mouth ity of tablet 17:30: once daily [place] [address] as needed Medical for Other Branch (edema). gabapentin Yes 600mg Take 600 Un [facility] 600 mg 3-11 mg by ity of tablet 17:30: mouth [place] 39 every Medical morning. Branch gabapentin Yes 1200mg Take 1,200 [facility] 600 mg 3-11 mg by ity of tablet 17:30: mouth 2 [place] 39 (two) Medical times Branch daily. 1 tab Qam; 2 600mg tabs afternoon; 2 600mg tabs QHS ferrous Yes 325mg Take 325 Unive rs sulfate 3-11 mg by ity of (IRON) 325 17:30: mouth [place] mg (65 mg 39 daily. Medical iron) Branch tablet vitamin Yes 1{capsu Take 1 Unive rs D3-folic 3-11 le} capsule by ity o f acid 500 17:30: mouth [place] unit- 1 mg 39 daily. Medical Tab Branch foLIC acid 0 Yes 1mg Take 1 mg Un [place] 1 mg tablet 3-11 by mouth ity of 17:30: daily. [place] [address] Medical Branch MAGNESIUM 0 Yes 400mg Take 400 Uni vers OXIDE ORAL 3-11 mg by ity of 17:30: mouth 2 [place] 39 (two) Medical times Branch daily. OXYBUTYNIN Yes 15mg Take 15 mg U nivers CHLORIDE 11 by mouth ity of ORAL 17:30: daily. [place] 39 Medical Branch teriparatid Yes 20ug inject 20 U nivers e (FORTEO) 3-11 mcg under ity of 20 mcg/dose 17:30: the skin [place] - 600 39 daily. Medical mcg/2.4 mL Branch injection tetracaine Yes PRN, Univers (PONTOCAINE 06-16 Starting ity of ) 0.5 % 17:15: [facility] ophthalmic 00 06/16/20 at [facility] ica drops 1115, [place] Until Discontinu ed, Routine, Intra-op water for Yes PRN, Univers irrigation 06-16 Starting ity o f irrigation 17:14: [place] solution 00 06/16/20 at Medic al 1114, [place] Until Discontinu ed, Routine, Intra-op NaCl 0.9% Yes PRN, Univers (NS) 06-16 Starting ity of injection 17:14: Zeanida [place] 00 06/16/20 at [facility] 1114, Branch Until Discontinu ed, Routine, Intra-op neomycin-po Yes PRN, Univer s lymyxin-dex 06-16 Starting ity of amethasone 17:14: Zenaida [place] (MAXITROL) 00 06/16/20 at [facility] 3.5 1114, [place] mg/g-10,000 Until unit/g-0.1 Discontinu % ed, ophthalmic Routine, ointment Intra-op EPINEPHrine Yes PRN, Univer s (PF) 3-11 Starting ity of 1:1,000 (1 16:51: Z[place] mg/mL) 00 06/16/20 at [facility] (ADRENALIN 1051, Branch (PF)) Until injection Discontinu ed, Routine, Intra-op DUOVISC Yes PRN, Univers (DUOVISC 11 Starting ity of VISCO 16:51: [place] ELASTIC) 3 06/16/20 at [facility] %-4 %(0.5 1051, Branch mL) 1 % Until (0.55 mL) Discontinu intraocular ed, injection Routine, Intra-op eye block Yes PRN, Univers syringe 11 06-16 Starting ity o f mL 16:51: [place] 00 06/16/20 at [facility] Until Discontinu ed, Intra-op gentamicin Yes PRN, Univers injection 06-16 Starting ity of 16:51: [place] 00 06/16/20 at [facility] 1051, [place] Until Discontinu ed, RADHA, Intra-op dexamethaso Yes PRN, Univer s ne 06-16 Starting ity of (DECADRON 16:50: [place] PHOSPHATE) 00 06/16/20 at [facility] ical injection 1050, [place] Until Discontinu ed, Routine, Intra-op ceFAZolin Yes PRN, Univers (ANCEF) 06-16 Starting ity of injection 16:50: [place] 00 06/16/20 at [facility] 1050, [place] Until Discontinu ed, RADHA, Intra-op balanced Yes PRN, Univers salt soln 06-16 Starting ity of no.2 irrig. 16:50: Zenaida [place] (BSS) 06/16/20 at [facility] ophthalmic [address] solution Until Discontinu ed, Routine, Intra-op lactated 2020- No 1000mL at 42 Unive rs ringers IV 06-16 mL/hr, ity of infusion 15:15: 15:12 1,000 mL, J[place] as 1,000 mL 00 :00 IV Medical Infusion, [place] ONCE, 1 dose, [place] 06/16/20 at 0915, Routine, DSU Pre-op mydriatic 2020- No .5mL 0.5 mL, Univ ers #5 06-16 Left Eye, ity of ophthalmic 15:15: 15:01 ONCE, 1 [place] as solution 00 :00 dose, [place] Medica l 0.5 mL 06/16/20 at [place] syringe 0915, Routine Immunizations Ordered Filled Immunization Date Status Comments [facility] e Immunization Name Name SARS-COV-2 COVID-19 2020-07-16 Completed Unive rsity of PFIZER VACCINE 00:00:00 [facility] SARS-COV-2 COVID-19 2020-07-16 Completed Unive rsity of PFIZER VACCINE 00:00:00 [place] [facility] SARS-COV-2 COVID-19 2020-07-16 Completed Unive rsity of PFIZER VACCINE 00:00:00 [facility] Branch SARS-COV-2 COVID-19 2020-07-16 Completed Unive rsity of PFIZER VACCINE 00:00:00 [facility] SARS-COV-2 COVID-19 2020-07-16 Completed Unive rsity of PFIZER VACCINE 00:00:00 [facility] SARS-COV-2 COVID-19 2020-07-16 Completed Unive rsity of PFIZER VACCINE 00:00:00 [facility] SARS-COV-2 COVID-19 2020-07-16 Completed Unive rsity of PFIZER VACCINE 00:00:00 [facility] SARS-COV-2 COVID-19 2020-07-16 Completed Unive rsity of PFIZER VACCINE 00:00:00 [facility] SARS-COV-2 COVID-19 2020-07-16 Completed Unive rsity of PFIZER VACCINE 00:00:00 [facility] SARS-COV-2 COVID-19 2020-07-16 Completed Unive rsity of PFIZER VACCINE 00:00:00 [facility] SARS-COV-2 COVID-19 2020-07-16 Completed Unive rsity of PFIZER VACCINE 00:00:00 [facility] SARS-COV-2 COVID-19 2020-07-16 Completed Unive rsity of PFIZER VACCINE 00:00:00 [facility] SARS-COV-2 COVID-19 2020-07-16 Completed Unive rsity of PFIZER VACCINE 00:00:00 [facility] SARS-COV-2 COVID-19 2020-06-25 Completed Unive rsity of PFIZER VACCINE 00:00:00 [facility] SARS-COV-2 COVID-19 2020-06-25 Completed Unive rsity of PFIZER VACCINE 00:00:00 [facility] SARS-COV-2 COVID-19 2020-06-25 Completed Unive rsity of PFIZER VACCINE 00:00:00 [facility] SARS-COV-2 COVID-19 2020-06-25 Completed Unive rsity of PFIZER VACCINE 00:00:00 [facility] SARS-COV-2 COVID-19 2020-06-25 Completed Unive rsity of PFIZER VACCINE 00:00:00 [facility] SARS-COV-2 COVID-19 2020-06-25 Completed Unive rsity of PFIZER VACCINE 00:00:00 [facility] SARS-COV-2 COVID-19 2020-06-25 Completed Unive rsity of PFIZER VACCINE 00:00:00 [facility] SARS-COV-2 COVID-19 2020-06-25 Completed Unive rsity of PFIZER VACCINE 00:00:00 [facility] SARS-COV-2 COVID-19 2020-06-25 Completed Unive rsity of PFIZER VACCINE 00:00:00 [facility] SARS-COV-2 COVID-19 2020-06-25 Completed Unive rsity of PFIZER VACCINE 00:00:00 [facility] SARS-COV-2 COVID-19 2020-06-25 Completed Unive rsity of PFIZER VACCINE 00:00:00 [facility] SARS-COV-2 COVID-19 2020-06-25 Completed Unive rsity of PFIZER VACCINE 00:00:00 [facility] SARS-COV-2 COVID-19 2020-06-25 Completed Unive rsity of PFIZER VACCINE 00:00:00 [facility] SARS-COV-2 COVID-19 2020-06-25 Completed Unive rsity of PFIZER VACCINE 00:00:00 [facility] SARS-COV-2 COVID-19 2020-06-25 Completed Unive rsity of PFIZER VACCINE 00:00:00 [facility] Vital Signs Vital Name Observation Time Observation Value Comments Source Systolic blood 2020-06-30 18:35:00 154 mm[Hg] Univer sity of pressure [facility] Diastolic blood 2020-06-30 18:35:00 73 mm[Hg] Unive rsity of pressure [facility] Heart rate 2020-06-30 18:35:00 78 /min Universi ty of [facility] Body temperature 2020-06-30 18:35:00 36.67 Janna Univ ersity of [facility] Respiratory rate 2020-06-30 18:35:00 20 /min Univ ersity [facility] Oxygen saturation in 2020-06-30 18:35:00 97 /min University of Arterial blood by [facility] Pulse oximetry Branch Body height 2020-06-27 16:18:00 167.6 cm [facility] Body weight 2020-06-27 16:18:00 74.8 kg [facility] BMI 2020-06-27 16:18:00 26.63 kg/m2 [facility] Systolic blood 2020-06-16 17:08:00 143 mm[Hg] Univer sity of pressure [facility] Diastolic blood 2020-06-16 17:08:00 90 mm[Hg] Unive rsity of [facility] Heart rate 2020-06-16 17:08:00 73 /min [facility] Respiratory rate 2020-06-16 17:08:00 18 /min Univ [facility] Oxygen saturation in 2020-06-16 17:08:00 95 /min University of Arterial blood by [facility] Pulse oximetry Branch Body temperature 2020-06-16 16:59:00 36.44 Janna [facility] Body height 2020-06-15 17:00:00 167.6 cm [facility] Body weight 2020-06-15 17:00:00 74.844 kg [facility] BMI 2020-06-15 17:00:00 26.63 kg/m2 [facility] Heart rate 2020-01-29 12:00:00 94 /min [facility] Respiratory rate 2020-01-29 12:00:00 16 /min Univ [facility] Oxygen saturation in 2020-01-29 12:00:00 97 /min University of Arterial blood by [facility] Pulse oximetry Branch Procedures Procedure Date / Time Performing Clinician Source Performed ASSIGNMENT OF BENEFITS 2022-07-27 18:29:28 Doctor Unassigned[facility] [id number] 2022-01-01 00:00:00 EDMOND ALCANTARA [facility] [id number] 2022-01-01 00:00:00 ROCIO.Zakia Koenig [facility] NOTICE OF PRIVACY 2021-06-19 19:30:42 Doctor Unassigned, [facility] PRACTICES [facility] CONSENT/REFUSAL FOR 2021-06-19 19:30:18 Doctor Unassigned, [facility] ASSIGNMENT OF BENEFITS 2021-06-19 19:29:53 Doctor Unassigned, [facility] [place] [facility] XR ANKLE 3+ VW LEFT 2021-05-11 20:27:48 Gunner Marcos [facility] XR FOOT 3+ VW LEFT 2021-05-11 20:27:48 Gunner Marcos [facility] XR TOES 2 VW LEFT 2021-05-11 20:27:[address] [facility] CONSENT/REFUSAL FOR 2021-05-11 19:53:20 Doctor Tiffanysselda [facility]REATMENT [facility] DEXA AXIAL (HIP AND SPINE) 2020-11-04 18:52:24 Requisition, Cayden r [facility] XR CHEST 1 VW 2020-10-25 20:23:44 Requisition, Paper [facility] XR HAND 3+ VW RIGHT 2020-10-25 20:23:28 Requisition, Paper [facility]ive [facility] XR WRIST 3+ VW RIGHT 2020-10-25 20:23:13 Requisition, Paper [facility] [place] [facility] ASSIGNMENT OF BENEFITS 2020-10-25 19:18:16 Doctor Unassigned, [facility] [place] [facility] COVID-19 (ID NOW RAPID 2020-06-29 16:46:00 Lupis Beckman [facility] TESTING) [place] [facility] CONSENT/REFUSAL FOR 2020-06-29 16:22:24 Doctor Unasselda, [facility] [place] [facility] ASSIGNMENT OF BENEFITS 2020-06-29 16:22:00 Doctor Unassigned, Un [facility] [place] [facility] NOTICE OF PRIVACY 2020-06-29 16:21:32 Doctor Arden, [facility] PRACTICES [facility] CONSENT/REFUSAL FOR 2020-06-29 16:21:06 Doctor Arden [facility] CONSENT/REFUSAL FOR 2020-06-29 16:20:40 Doctor Arden, [facility]REATMENT [facility] ASSIGNMENT OF BENEFITS 2020-06-29 16:20:20 Doctor Unassigned, [facility] [place] [facility] PATIENT QUESTIONNAIRE 2020-06-16 06:01:00 Doctor Unassigned, [facility] ASSIGNMENT OF BENEFITS 2020-06-07 21:54:27 Doctor [facility]igned, [facility] NO SHOW OR MISSED 2020-02-09 20:00:51 Doctor Unassigned, [facility] APPOINTMENT POLICY [facility] ACKNOWLEDGEMENT Plan of Care Planned Activity Planned Date Details Comments Source Future Scheduled 2022-09-24 [facility] Test 04:47:39 malignant neoplasm of colon (procedure) [code = 691228096] Future Scheduled 2022-09-24 [facility] Test 04:47:39 malignant neoplasm of colon (procedure) [code = 838302771] Future Scheduled 2022-09-24 [facility] Test 04:47:39 malignant neoplasm of colon (procedure) [code = 817179768] Future Scheduled 2022-09-24 65+ PNEUMOCOCCAL [facility] Test 04:47:39 VACCINE (1 - PCV) [code = 65+ PNEUMOCOCCAL VACCINE (1 - PCV)] Future Scheduled 2022-09-24 Hepatitis C screening [facility] Test 04:47:39 (procedure) [code = 284780981] Future Scheduled 2022-09-24 BREAST CANCER [facility] Test 04:47:39 SCREENING [code = BREAST CANCER SCREENING] Future Scheduled 2022-09-24 [facility] Test 04:47:39 malignant neoplasm of colon (procedure) [code = 604772520] Future Scheduled 2022-09-24 [facility] Test 04:47:39 malignant neoplasm of colon (procedure) [code = 069547775] Future Scheduled 2022-09-24 SHINGLES [facility]ACCINES ([facility] 04:47:39 of 2) [code = SHINGLES VACCINES (1 of 2)] Future Scheduled 2022-09-24 COVID-19 VACCINE ([facility] - [facility] Test 04:47:39 Pfizer series) [code = COVID-19 VACCINE (3 - Pfizer series)] Future Scheduled 2022-09-24 INFLUENZA VACCINE [facility] Test 04:47:39 [code = INFLUENZA VACCINE] Future Scheduled 2022-01-03 HEPATITIS B VACCINES [facility] Test 12:59:45 (1 of 3 - 3-dose series) [code = HEPATITIS B VACCINES (1 of 3 - 3-dose series)] Future Scheduled 2022-01-03 65+ [facility]OCOCCAL [facility] Test 12:59:45 VACCINE (1 - PCV) [code = 65+ PNEUMOCOCCAL VACCINE (1 - PCV)] Future Scheduled 2022-01-03 Hepatitis C screening [facility] Test 12:59:45 (procedure) [code = 589955779] Future Scheduled 2022-01-03 BREAST CANCER [facility] Test 12:59:45 SCREENING [code = BREAST CANCER SCREENING] Future Scheduled 2022-01-03 COLONOSCOPY SCREENING [facility] Test 12:59:45 [code = COLONOSCOPY SCREENING] Future Scheduled 2022-01-03 SHINGLES VACCINES (1 [facility] Test 12:59:45 of 2) [code = SHINGLES VACCINES (1 of 2)] Future Scheduled 2022-01-03 COVID-19 VACCINE (3 - Me [facility] Test 12:59:45 Booster for Pfizer series) [code = COVID-19 VACCINE (3 - Booster for Pfizer series)] Future Scheduled 2022-01-03 INFLUENZA VACCINE [facility] Test 12:59:45 [code = INFLUENZA VACCINE] Future Scheduled 2021-12-27 HEPATITIS B VACCINES [facility] Test 20:22:43 (1 of 3 - 3-dose series) [code = HEPATITIS B VACCINES (1 of 3 - 3-dose series)] Future Scheduled 2021-12-27 65+ PNEUMOCOCCAL [facility] Test 20:22:43 VACCINE (1 - PCV) [code = 65+ PNEUMOCOCCAL VACCINE (1 - PCV)] Future Scheduled 2021-12-27 Hepatitis C screening [facility] Test 20:22:43 (procedure) [code = 148418767] Future Scheduled 2021-12-27 BREAST CANCER [facility] Test 20:22:43 SCREENING [code = BREAST CANCER SCREENING] Future Scheduled 2021-12-27 COLONOSCOPY SCREENING [facility] Test 20:22:43 [code = COLONOSCOPY SCREENING] Future Scheduled 2021-12-27 SHINGLES VACCINES (1 [facility] Test 20:22:43 of 2) [code = SHINGLES VACCINES (1 of 2)] Future Scheduled 2021-12-27 COVID-19 VACCINE (3 - [facility] Test 20:22:43 Booster for Pfizer series) [code = COVID-19 VACCINE (3 - Booster for Pfizer series)] Future Scheduled 2021-12-27 INFLUENZA VACCINE [facility] Test 20:22:43 [code = INFLUENZA VACCINE] Encounters Start End Encounter Admission Attending Care Care Encounter Source Date/Time Date/Time Type Type Clinicians Facility Department ID 2022-01-13 Inpatient EVGENY Mitchell [facility] [id number] [facility] 09:00:00 Lupis Lolita [facility] 2021-07-[address] [facility] [id number] Common 13:43:02 [facility] 2021-02-05 Outpatient R RK [facility] AUDREY [id number] Univers 07:00:12 LUPIS itsingh [facility] 2021-02-05 Outpatient R RK [facility] [id number] Univers 02:16:54 LUPIS ity [facility] 2022-07-27 2022-07-27 Outpatient R RADIOLOGY [facility] [id number] Univers 13:30:54 23:59:00 ity of [facility] 2022-07-27 2022-07-27 Hospital Radiology [facility] 1.2.840.114 [id number] Univers 13:30:54 23:59:00 Encounter [place] 350.1.13.10 ity of [place] 4.2.7.2.686 [facility] [id number] [facility] 800 Branch 2022-07-27 2022-07-27 Orders Doctor PARRISH 1.2.840.114 [id number] Univers 00:00:00 00:00:00 Only Unassigned, JES 350.1.13.[address] [facility] 4.2.7.2.686 [facility] [id number] [facility] 009 Branch 2021-12-27 2022-01-03 Inpatient Joel Sanders [facility] INTE.[id number] [facility] 21:50:00 11:41:00 05 [facility] 2021-11-16 2021-11-16 Manolo Thompson, 1.2.840.1 [id number] Methodi 00:00:00 00:00:[address] Ki 3.430.2.7 Hosp harinder .3.644961 l .8 2021-11-16 2021-11-16 Manolo Thompson, 1.2.840.1 [id number] Methodi 00:00:00 00:00:[address] Ki 3.430.2.7 Hosp harinder .3.713705 l .8 2021-08-19 2021-08-19 Manolo Thompson, 1.2.840.1 [id number] Methodi 00:00:00 00:00:[address] Ki 3.430.2.7 Hosp harinder .3.469573 l .8 2021-06-19 2021-06-19 Outpatient R RADIOLOGY [facility] [id number] Univers 14:33:47 23:59:00 ity of [facility] 2021-06-19 2021-06-19 Hospital Radiology [facility] 1.2.840.114 [id number] Univers 14:33:47 23:59:00 Encounter JOAN 350.1.13.[address] [facility] 4.2.7.2.686 [facility] [id number] [address] 2021-05-26 2021-05-26 Outpatient R [facility] [id number] Univers 00:00:00 00:00:00 ity of [facility] 2021-05-21 2021-05-21 Manolo Thompson, 1.2.840.1 [id number] Methodi 00:00:00 00:00:[address] Ki 3.430.2.7 Hosp harinder .3.250233 l .8 2021-05-12 2021-05-12 PARRISH Sosa 1.2.840.114 [id number] Univers 00:00:00 00:00:00 (Out) Katia ANDRE 350.1.13.10 it y of HOSPITAL 4.2.7.2.686 Jaskaran as [id number] [facility] 019 Branch 2021-05-11 2021-05-11 Hospital Unknown, [facility] 1.2.323.368 [id number] Univers 14:00:00 23:59:00 Encounter Attending JOAN 350.1.13.10 ity [facility] [place] [id number] [facility] 807 Branch 2021-05-11 2021-05-11 Laboratory Only, Ang Db Test [facility] 1.2.8 40.114 [id number] Univers 15:00:00 15:15:00 Only Unknown, Attending HEALTH 350.1.13.10 ity of [place] 4.2.7.2.686 Jaskaran as ANTON?BLEA [phone] [address] MEDICAL OFFICE BUILDING 2021-05-11 2021-05-11 Outpatient R SONI [facility] [id number] Univers 15:00:00 15:12:57 JUAN ity of [facility] 2021-05-11 2021-05-11 Orders Doctor PARRISH 1.2.840.114 [id number] Univers 00:00:00 00:00:00 Only Unassigned, JES 350.1.13.10 ity of [place] [facility] 4.2.7.2.686 Jaskaran as [phone] [facility] 009 Branch 2021-02-20 2021-02-20 Manolo Thompson, 1.2.840.1 [id number] Methodi 00:00:00 00:00:00 Pancho 00250.1.1 487 [facility] 3.430.2.7 Hosp harinder .3.529792 l .8 2021-01-05 2021-01-05 Hospital Radiology [facility] 1.2.840.114 [id number] Univers 13:47:27 23:59:00 Encounter Joan 350.1.13.10 ity [place] [id number] [facility] 800 Branch 2021-01-05 2021-01-05 Outpatient R RADIOLOGY [facility] [id number] Univers 00:00:00 00:00:00 ity of [facility] 2020-11-11 2020-11-11 Outpatient CAYLA, [facility] [id number] [place] 00:00:00 00:00:[address] PANCHO [address] 2020-11-11 2020-11-11 Outpatient CAYLA, [facility] [id number] [place] 00:00:00 00:00:00 PANCHO [address] 2020-11-04 2020-11-04 Hospital Unknown, [facility] 1.2.927.124 [id number] Univers 13:33:18 23:59:00 Encounter Attending [place] 350.1.13.10 ity of [place] 4.2.7.2.686 [facility] [id number] [facility] [address] 2020-11-04 2020-11-04 Outpatient R [facility] [id number] Univers 00:00:00 00:00:00 ity of [facility] 2020-10-25 2020-10-25 [facility] Radiology [facility] 1.2.840.114 [id number] Univers 14:22:37 23:59:00 Encounter [place] 350.1.13.10 ity of [place] 4.2.7.2.686 [facility] [id number] [facility] [address] 2020-10-25 2020-10-25 [facility] Radiology [facility] 1.2.840.114 [id number] Univers 14:22:09 23:59:00 Encounter [place] 350.1.13.10 ity of [place] 4.2.7.2.686 [facility] [id number] [facility] 807 Branch 2020-10-25 2020-10-25 [facility] Radiology [facility] 1.2.840.114 [id number] Univers 14:21:55 14:21:55 Encounter [place] 350.1.13.10 ity of [place] 4.2.7.2.686 [facility] [id number] [facility] 807 Branch 2020-10-25 2020-10-25 Outpatient R RADIOLOGY [facility] [id number] Univers 00:00:00 00:00:00 ity of [facility] 2020-10-25 2020-10-25 Orders Doctor PARRISH 1.2.840.114 [id number] Univers 00:00:00 00:00:00 Only Unassigned, JES 350.1.13.10 ity of [place] [facility] 4.2.7.2.686 Jaskaran as [phone] [facility] 009 Branch 2020-07-16 2020-07-16 Outpatient [facility] [id number] Univers 13:40:00 13:40:00 ity of [facility] 2020-06-30 2020-06-30 [facility] 1.2.840.114 [id number] Univers 10:58:00 13:52:00 Encounter Lupis Holt 350.1.13.10 it[place]2.[place] [id number] [address] 2020-06-29 2020-06-29 Laboratory Only, Adc Test [facility] 1.2.840. 114 [id number] Univers 11:19:11 11:34:11 Only Lupis Beckman 350.1.1 3.10 ity of [place] [id number] [facility] 353 Branch 2020-06-29 2020-06-29 Outpatient [facility] [id number] Univers 11:00:00 11:00:00 LUPIS ity of [facility] 2020-06-25 2020-06-25 Outpatient [facility] [id number] Univers 13:15:00 13:15:00 ity of [facility] 2020-06-16 2020-06-16 [facility] 1.2.840.114 [id number] Univers 08:43:00 11:28:00 Encounter Lupis [place] 350.1.13.10 ity [place] [phone] [place] [address] Branch 2020-06-16 2020-06-16 Orders Doctor SENIOR 1.2.840.114 [id number] Univers 00:00:00 00:00:00 Only UnassignedJES 350.1.13.10 ity of [place] [facility] 4.2.7.2.686 [place]aran as [phone] [address] 2020-06-15 2020-06-15 Laboratory Only, [facility] Test [facility] 1.2.840. 114 [id number] Univers 09:09:12 09:24:12 Only Lupis [place] 350.1.1 3.10 ity of [place].2.[place] [id number] [address] 2020-06-15 2020-06-15 Outpatient R RK [facility] [id number] Univers 09:00:00 09:00:00 LUPIS itsingh [facility] 2020-06-07 2020-06-07 Methods Time Analyst Jason, [facility] Lab Main [facility] 1.2.8 40.114 [id number] Univers 15:57:29 16:12:29 Visit Lupis Beckman Joan 350.1.1 3.10 ity [place] [phone] [facility] [address] Building 2020-06-07 2020-06-07 Outpatient R RK [facility] [id number] Univers 15:45:00 15:45:00 LUPIS itsingh [facility] 2020-06-07 2020-06-07 Orders Doctor SENIOR 1.2.840.114 [id number] Univers 00:00:00 00:00:00 Only Unassigned, JES 350.1.13.10 ity of [place] [facility] 4.2.7.2.686 Jaskaran as [phone] [address] 2020-03-28 2020-03-28 Laboratory Lab, Adc Fam Pob I [facility] 1.2. 840.114 [id number] Univers 15:56:07 16:16:07 Only Finn Maki 350.1.13.10 ity of [place] 4.2.7.2.686 Jaskaran as Professio [phone] [facility] [address] One 2020-03-28 2020-03-28 Outpatient R [facility] [id number] Univers 16:00:00 16:00:00 ity of [facility] 2020-03-07 2020-03-07 Laboratory Lab, Adc Fam Pob I [facility] 1.2. 840.114 [id number] Univers 12:44:49 13:04:49 Only Finn Maki Health 350.1.13.10 ity of [place] 4.2.7.2.686 Jaskaran as Professio [phone] Vt dical nal [address] One 2020-03-07 2020-03-07 Outpatient R TINY [facility] [id number] Univers 13:00:00 13:00:00 FINN ity of [facility] 2020-02-09 2020-02-09 Hospital Radiology [facility] 1.2.840.114 [id number] Univers 14:01:42 23:59:00 Encounter Joan 350.1.13.10 ity of [place] [id number] [facility] [address] 2020-02-09 2020-02-09 Outpatient R RADIOLOGY [facility] [id number] Univers 00:00:00 00:00:00 ity of [facility] 2020-02-09 2020-02-09 Orders Doctor PARRISH 1.2.840.114 [id number] Univers 00:00:00 00:00:00 Only Unassigned, JES 350.1.13.10 ity of [place] [facility] 4.2.7.2.686 Jaskaran as [phone] [facility] 009 Branch 2020-01-31 2020-01-31 Telephone Pcp, PARRISH 1.2.031.365 [id number] Univers 00:00:00 00:00:00 Patient JES 350.1.13.10 it y of [place] Not HOSPITAL [place].2.[place] [id number] [facility] 019 Branch 2020-01-29 2020-01-29 Laboratory Lab, [facility] I [facility] 1.2. 840.114 [id number] Univers 10:16:04 10:36:04 Only Finn Maki Health 350.1.13.10 ity of [place] 4.2.7.2.686 Jaskaran as Professio [phone] [facility] nal [address] One 2020-01-29 2020-01-29 Outpatient R TINY [facility] [id number] Univers 10:20:00 10:20:00 FINN mitchell of [facility] Results Test Description Test Time Test Comments Results Result Comments Source UA RFLX MICR CULT IF INDICATED 2022-01-01 22:08:00 Test Item Value Reference Range Interpretation Comme nts UA COLOR (test code = COLU) YELLOW YEL/STRAW UA APPEARANCE (test code = APPU) CLEAR CLEAR UA GLUCOSE DIPSTICK (test code = DGLUU) NEGATIVE NEGATIVE UA BILIRUBIN DIPSTICK (test code = BILU) NEGATIVE NEGATIVE UA KETONE DIPSTICK (test code = KETU) NEGATIVE NEGATIVE UA SPECIFIC GRAVITY (test code = SGU) 1.014 1.005-1.030 N UA BLOOD DIPSTICK (test code = MARÍA) NEGATIVE NEGATIVE UA PH DIPSTICK (test code = JHONNY) 6.0 5.0-7.0 N UA PROTEIN DIPSTICK (test code = PROU) NEGATIVE NEGATIVE UA UROBILINIOGEN DIPSTICK (test code = URO) 0.2 mg/dL 0.2-1.0 UA NITRITE DIPSTICK (test code = DORA) NEGATIVE NEGATIVE UA LEUKOCYTE ESTERASE DIPSTICK (test code = LEUU) TRACE NEGA TIVE A UA WBC (test code = WBCU) 4-9 WBC/HPF 0-3 A UA RBC (test code = RBCU) 0-3 RBC/HPF 0-3 UA WBC NO REFLEX (test code = WBCUCL) 4-9 WBC/HPF 0-3 A UA BACTERIA (test code = BACU) TRACE /HPF NONE SEEN UA SQUAMOUS CELLS (test code = SQU) 0-5 /HPF NONE SEEN UA MUCUS (test code = MUCU) 2+ /LPF NONE SEEN A Indication for culture: Dysuria/FrequencySpecimen Description: CLEAN CATCH GLUCOSE [id number] 21:25:00 Test Item Value Reference Range Interpretation Comments GLUCOSE BEDSIDE (test 96 MG/DL 70-110 N Perfor med by certified code = GLUBED) 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 [facility] BASIC METABOLIC [id number] 07:51:00 Test Item Value Reference Range Interpretation Comments SODIUM (test code = NA) 141 mEq/L 134-147 N POTASSIUM (test code = 3.6 mEq/L 3.4-5.0 N K) CHLORIDE (test code = 111 mEq/L 100-108 H CL) CARBON DIOXIDE (test 19 mEq/l 21-33 L code = CO2) ANION GAP (test code = 14 0-20 N GAP) GLUCOSE (test code = 92 mg/dL 70-110 N GLU) BLOOD UREA NITROGEN < 5 mg/dL 7-18 L (test code = BUN) GLOMERULAR FILTRATION 98.8 70-80 H Units of measure = RATE (test code = GFR) ml/mi n/1.73 m2 CREATININE (test code = 0.6 mg/dL 0.6-1.3 N CREAT) CALCIUM (test code = 9.2 mg/dL 8.0-10.5 N CA) CBC W/AUTO [id number] 06:52:00 Test Item Value Reference Range Interpretation Comments WHITE BLOOD CELL (test code = 10.6 x10 3/uL 4.5-11.0 N WBC) RED BLOOD CELL (test code = 4.51 x10 6/uL 3.54-5.02 N RBC) HEMOGLOBIN (test code = HGB) 14.2 g/dL 11.0-15.0 N HEMATOCRIT (test code = HCT) 42.4 % 33.0-45.0 N MEAN CELL VOLUME (test code = 94.0 fL 81.0-99.0 N MCV) MEAN CELL HGB (test code = MCH) 31.5 pg 27.0-33.0 N MEAN CELL HGB CONCETRATION 33.5 g/dL 33.0-37.0 N (test code = MCHC) RED CELL DISTRIBUTION WIDTH CV 14.2 % 11.5-14.5 N (test code = RDW) RED CELL DISTRIBUTION WIDTH SD 49.2 fL 37.0-54.0 N (test code = RDW-SD) PLATELET COUNT (test code = 309 x10 3/uL 150-400 N PLT) MEAN PLATELET VOLUME (test code 8.9 fL 7.0-9.0 N = MPV) NEUTROPHIL % (test code = NT%) 55.5 % 56.0-77.0 L IMMATURE GRANULOCYTE % (test 0.5 % 0.0-2.0 N code = IG%) LYMPHOCYTE % (test code = LY%) 32.0 % 14.0-32.0 N MONOCYTE % (test code = MO%) 10.3 % 4.8-9.0 H EOSINOPHIL % (test code = EO%) 1.0 % 0.3-3.7 N BASOPHIL % (test code = BA%) 0.7 % 0.0-2.0 N NUCLEATED RBC % (test code = 0.0 % 0-0 N NRBC%) NEUTROPHIL # (test code = NT#) 5.90 x10 3/uL 2.0-7.6 N IMMATURE GRANULOCYTE # (test 0.05 x10 3/uL 0.00-0.03 H code = IG#) LYMPHOCYTE # (test code = LY#) 3.39 x10 3/uL 1.0-3.8 N MONOCYTE # (test code = MO#) 1.09 x10 3/uL 0.1-0.8 H EOSINOPHIL # (test code = EO#) 0.11 x10 3/uL 0.0-0.2 N BASOPHIL # (test code = BA#) 0.07 x10 3/uL 0.0-0.2 N NUCLEATED RBC # (test code = 0.00 x10 3/uL 0.0-0.1 N NRBC#) MANUAL DIFF REQUIRED (test code NO = MDIFF) BASIC METABOLIC [id number] 07:59:00 Test Item Value Reference Range Interpretation Comments SODIUM (test code = NA) 140 mEq/L 134-147 N POTASSIUM (test code = 3.7 mEq/L 3.4-5.0 N K) CHLORIDE (test code = 108 mEq/L 100-108 N CL) CARBON DIOXIDE (test 20 mEq/l 21-33 L code = CO2) ANION GAP (test code = 15 0-20 N GAP) GLUCOSE (test code = 104 mg/dL 70-110 N GLU) BLOOD UREA NITROGEN < 5 mg/dL 7-18 L (test code = BUN) GLOMERULAR FILTRATION 98.8 70-80 H Units of measure = RATE (test code = GFR) ml/mi n/1.73 m2 CREATININE (test code = 0.6 mg/dL 0.6-1.3 N CREAT) CALCIUM (test code = 9.1 mg/dL 8.0-10.5 N CA) CBC W/AUTO [id number] 07:34:00 Test Item Value Reference Range Interpretation Comments WHITE BLOOD CELL (test code = 9.2 x10 3/uL 4.5-11.0 N WBC) RED BLOOD CELL (test code = 4.31 x10 6/uL 3.54-5.02 N RBC) HEMOGLOBIN (test code = HGB) 13.8 g/dL 11.0-15.0 N HEMATOCRIT (test code = HCT) 40.5 % 33.0-45.0 N MEAN CELL VOLUME (test code = 94.0 fL 81.0-99.0 N MCV) MEAN CELL HGB (test code = MCH) 32.0 pg 27.0-33.0 N MEAN CELL HGB CONCETRATION 34.1 g/dL 33.0-37.0 N (test code = MCHC) RED CELL DISTRIBUTION WIDTH CV 14.1 % 11.5-14.5 N (test code = RDW) RED CELL DISTRIBUTION WIDTH SD 48.4 fL 37.0-54.0 N (test code = RDW-SD) PLATELET COUNT (test code = 287 x10 3/uL 150-400 N PLT) MEAN PLATELET VOLUME (test code 8.9 fL 7.0-9.0 N = MPV) NEUTROPHIL % (test code = NT%) 63.9 % 56.0-77.0 N IMMATURE GRANULOCYTE % (test 0.4 % 0.0-2.0 N code = IG%) LYMPHOCYTE % (test code = LY%) 23.1 % 14.0-32.0 N MONOCYTE % (test code = MO%) 12.0 % 4.8-9.0 H EOSINOPHIL % (test code = EO%) 0.2 % 0.3-3.7 L BASOPHIL % (test code = BA%) 0.4 % 0.0-2.0 N NUCLEATED RBC % (test code = 0.0 % 0-0 N NRBC%) NEUTROPHIL # (test code = NT#) 5.90 x10 3/uL 2.0-7.6 N IMMATURE GRANULOCYTE # (test 0.04 x10 3/uL 0.00-0.03 H code = IG#) LYMPHOCYTE # (test code = LY#) 2.13 x10 3/uL 1.0-3.8 N MONOCYTE # (test code = MO#) 1.11 x10 3/uL 0.1-0.8 H EOSINOPHIL # (test code = EO#) 0.02 x10 3/uL 0.0-0.2 N BASOPHIL # (test code = BA#) 0.04 x10 3/uL 0.0-0.2 N NUCLEATED RBC # (test code = 0.00 x10 3/uL 0.0-0.1 N NRBC#) MANUAL DIFF REQUIRED (test code NO = MDIFF) BASIC METABOLIC [id number] 07:46:00 Test Item Value Reference Range Interpretation Comments SODIUM (test code = NA) 134 mEq/L 134-147 N POTASSIUM (test code = 3.8 mEq/L 3.4-5.0 N K) CHLORIDE (test code = 106 mEq/L 100-108 N CL) CARBON DIOXIDE (test 23 mEq/l 21-33 N code = CO2) ANION GAP (test code = 9 0-20 N GAP) GLUCOSE (test code = 124 mg/dL 70-110 H GLU) BLOOD UREA NITROGEN 5 mg/dL 7-18 L (test code = BUN) GLOMERULAR FILTRATION 82.7 70-80 H Units of measure = RATE (test code = GFR) ml/mi n/1.73 m2 CREATININE (test code = 0.7 mg/dL 0.6-1.3 N CREAT) CALCIUM (test code = 9.6 mg/dL 8.0-10.5 N CA) CBC W/AUTO [id number] 07:24:00 Test Item Value Reference Range Interpretation Comments WHITE BLOOD CELL (test code = 11.0 x10 3/uL 4.5-11.0 N WBC) RED BLOOD CELL (test code = 4.18 x10 6/uL 3.54-5.02 N RBC) HEMOGLOBIN (test code = HGB) 13.4 g/dL 11.0-15.0 N HEMATOCRIT (test code = HCT) 39.3 % 33.0-45.0 N MEAN CELL VOLUME (test code = 94.0 fL 81.0-99.0 N MCV) MEAN CELL HGB (test code = MCH) 32.1 pg 27.0-33.0 N MEAN CELL HGB CONCETRATION 34.1 g/dL 33.0-37.0 N (test code = MCHC) RED CELL DISTRIBUTION WIDTH CV 14.4 % 11.5-14.5 N (test code = RDW) RED CELL DISTRIBUTION WIDTH SD 50.0 fL 37.0-54.0 N (test code = RDW-SD) PLATELET COUNT (test code = 307 x10 3/uL 150-400 N PLT) MEAN PLATELET VOLUME (test code 9.6 fL 7.0-9.0 H = MPV) NEUTROPHIL % (test code = NT%) 71.8 % 56.0-77.0 N IMMATURE GRANULOCYTE % (test 0.4 % 0.0-2.0 N code = IG%) LYMPHOCYTE % (test code = LY%) 18.4 % 14.0-32.0 N MONOCYTE % (test code = MO%) 9.0 % 4.8-9.0 N EOSINOPHIL % (test code = EO%) 0.1 % 0.3-3.7 L BASOPHIL % (test code = BA%) 0.3 % 0.0-2.0 N NUCLEATED RBC % (test code = 0.0 % 0-0 N NRBC%) NEUTROPHIL # (test code = NT#) 7.91 x10 3/uL 2.0-7.6 H IMMATURE GRANULOCYTE # (test 0.04 x10 3/uL 0.00-0.03 H code = IG#) LYMPHOCYTE # (test code = LY#) 2.03 x10 3/uL 1.0-3.8 N MONOCYTE # (test code = MO#) 0.99 x10 3/uL 0.1-0.8 H EOSINOPHIL # (test code = EO#) 0.01 x10 3/uL 0.0-0.2 N BASOPHIL # (test code = BA#) 0.03 x10 3/uL 0.0-0.2 N NUCLEATED RBC # (test code = 0.00 x10 3/uL 0.0-0.1 N NRBC#) MANUAL DIFF REQUIRED (test code NO = MDIFF) BASIC METABOLIC [id number] 09:07:00 Test Item Value Reference Range Interpretation Comments SODIUM (test code = NA) 139 mEq/L 134-147 N POTASSIUM (test code = 3.6 mEq/L 3.4-5.0 N K) CHLORIDE (test code = 106 mEq/L 100-108 N CL) CARBON DIOXIDE (test 25 mEq/l 21-33 N code = CO2) ANION GAP (test code = 11 0-20 N GAP) GLUCOSE (test code = 115 mg/dL 70-110 H GLU) BLOOD UREA NITROGEN 7 mg/dL 7-18 N (test code = BUN) GLOMERULAR FILTRATION 70.9 70-80 N Units of measure = RATE (test code = GFR) ml/mi n/1.73 m2 CREATININE (test code = 0.8 mg/dL 0.6-1.3 N CREAT) CALCIUM (test code = 9.4 mg/dL 8.0-10.5 N CA) LIPID PROFILE (CORONARY RISK)2021-12-28 09:07:00 Test Item Value Reference Range Interpretation Comments TRIGLYCERIDES (test 59 mg/dL 40-150 N code = TRIG) CHOLESTEROL (test 163 mg/dL <200 code = CHOL) CHOLESTEROL/HDL 1.97 RATIO 3.27-4.44 L RISK ASSOCIA VICKY WITH RATIO (test code = CHOL/HDL RATIOS: RISK CHOLHDL) MALE FEMALE1/2 AVERAGE 3.43 3.27AVERAG E 4.97 4.442X AVERAGE 9.55 7.053X AVERAGE 23.39 11.04 NOTE THAT THE REFERENCE VALUE IS RELATEDTO RISK LEVELS RECOMMENDED BY THE NATL.HEART, BYRON G, AND BLOOD INST. HDL CHOLESTEROL 82.9 mg/dL 39-96 N (test code = HDL) LIPOPROTEIN LDL 58.4 mg/dL 0-100 N <100 OPTIMAL 100-129 (test code = LDL) NEAR OPTIM AL/ABOVE [id number] 89 HIGH>EK=945 ELIZABETH Y HIGH*Guidelines provided by the National Choles terol EducationProgra m Adult Treatment Panel III CBC W/AUTO [id number] 07:23:00 Test Item Value Reference Range Interpretation Comments WHITE BLOOD CELL (test code = 13.2 x10 3/uL 4.5-11.0 H WBC) RED BLOOD CELL (test code = 4.07 x10 6/uL 3.54-5.02 N RBC) HEMOGLOBIN (test code = HGB) 13.1 g/dL 11.0-15.0 N HEMATOCRIT (test code = HCT) 39.0 % 33.0-45.0 N MEAN CELL VOLUME (test code = 95.8 fL 81.0-99.0 N MCV) MEAN CELL HGB (test code = 32.2 pg 27.0-33.0 N MCH) MEAN CELL HGB CONCETRATION 33.6 g/dL 33.0-37.0 N (test code = MCHC) RED CELL DISTRIBUTION WIDTH CV 14.6 % 11.5-14.5 H (test code = RDW) RED CELL DISTRIBUTION WIDTH SD 51.6 fL 37.0-54.0 N (test code = RDW-SD) PLATELET COUNT (test code = 310 x10 3/uL 150-400 N PLT) MEAN PLATELET VOLUME (test 9.1 fL 7.0-9.0 H code = MPV) NEUTROPHIL % (test code = NT%) 78.5 % 56.0-77.0 H IMMATURE GRANULOCYTE % (test 0.5 % 0.0-2.0 N code = IG%) LYMPHOCYTE % (test code = LY%) 11.7 % 14.0-32.0 L MONOCYTE % (test code = MO%) 9.1 % 4.8-9.0 H EOSINOPHIL % (test code = EO%) 0.0 % 0.3-3.7 L BASOPHIL % (test code = BA%) 0.2 % 0.0-2.0 N NUCLEATED RBC % (test code = 0.0 % 0-0 N NRBC%) NEUTROPHIL # (test code = NT#) 10.33 x10 3/uL 2.0-7.6 H IMMATURE GRANULOCYTE # (test 0.06 x10 3/uL 0.00-0.03 H code = IG#) LYMPHOCYTE # (test code = LY#) 1.54 x10 3/uL 1.0-3.8 N MONOCYTE # (test code = MO#) 1.20 x10 3/uL 0.1-0.8 H EOSINOPHIL # (test code = EO#) 0.00 x10 3/uL 0.0-0.2 N BASOPHIL # (test code = BA#) 0.03 x10 3/uL 0.0-0.2 N NUCLEATED RBC # (test code = 0.00 x10 3/uL 0.0-0.1 N NRBC#) MANUAL DIFF REQUIRED (test NO code = MDIFF) - MRI BRAIN W/O [id number] 00:00:00 [facility]ANDAR DAY[place]Name: MIKKI TALLEY : 1950 Sex: F FAX: Cj Deng MD [phone] [place]: St: [facility] FAX: Gunner Abbasi MD [phone] Name: MIKKI TALLEY [facility] : 1950 Age/S: 71/F [address] [place] [address] Unit #: [id number] Loc: G[address] [place] [address]Cxvu: Cj Irizarry MD Acct: [id number] Dis Date: Status: ADM IN PHONE #: [phone] Exam Date: 1018 FAX #: [phone] Reason: ACUTE RIGHT MCA STROKE EXAMS: CPT CODE: [id number] MRI BRAIN W/O CONT 51935 PROCEDURE INFORMATION: Exam: MR Head Without Contrast Exam date and time: 12/28/2021 10:03 AM Age: 71 years old Clinical indication: Other: Acute right mca stroke TECHNIQUE: Imaging protocol: Magnetic resonance imaging of the head without contrast. COMPARISON: CT HEAD/BRAIN W/O CONT 12/27/2021 8:02 PM FINDINGS: Assessment limited by motion artifacts. Brain: Moderate-sized acute infarct in the right parietal lobe. No hemorrhagic transformation. Multiple small acute infarcts in bilateralcaudate heads, dorsal right lentiform nucleus, and right periatrial white matter. Cerebral ventricles: Unremarkable for age. Bones/joints: Unremarkable. Paranasal sinuses: Not adequately visualized for assessment. Mastoid air cells: Not adequately visualized for assessment. Soft tissues: Unremarkable. IMPRESSION: Moderate-sized acute infarct in the right parietal lobe. No hemorrhagic transformation.Multiple small acute infarcts in bilateral caudate heads, dorsal right lentiform nucleus, and right periatrial white matter. at 1108 Reported and signed by: Asuncion Connolly M.D. CC: Cj Irizarry MD; Gunner Marcos MD Technologist: Dennis Whyte, RT(R)(CT)(MR) Trnscrd Date/Time/By: 12/28/2021 (1106) : By: [email or web address] Orig Print D/T: S: 12/28/2021 (6848) PAGE 1 Signed Report TSH REFLEX TO [id number] 23:37:00 Test Item Value Reference Range Interpretation Comments TSH REFLEX TO FT4 (test code = 1.84 IU/mL 0.42-5.47 N TSHREFLEX) HGBA1C%2021-12-27 23:35:00 Test Item Value Reference Range Interpretation Comments HGBA1C% (test code = HGBA1C%) 5.2 %A1C 4.8-6.0 N BASIC METABOLIC [id number] 20:18:00 Test Item Value Reference Range Interpretation Comments SODIUM (test code = NA) 142 mEq/L 134-147 N POTASSIUM (test code = 4.0 mEq/L 3.4-5.0 N K) CHLORIDE (test code = 106 mEq/L 100-108 N CL) CARBON DIOXIDE (test 28 mEq/l 21-33 N code = CO2) ANION GAP (test code = 12 0-20 N GAP) GLUCOSE (test code = 99 mg/dL 70-110 N GLU) BLOOD UREA NITROGEN 8 mg/dL 7-18 N (test code = BUN) GLOMERULAR FILTRATION 70.9 70-80 N Units of measure = RATE (test code = GFR) ml/mi n/1.73 m2 CREATININE (test code = 0.8 mg/dL 0.6-1.3 N CREAT) CALCIUM (test code = 9.8 mg/dL 8.0-10.5 N CA) TROP-I HIGH [id number] 20:18:00 Test Item Value Reference Range Interpretation Comments TROP-I HIGH 7 ng/L 0-34 N CAUTION: Units of the SENSITIVITY (test current te st methodology code = TROPIHS) (ng/L) diffe rfrom the prior test methodolog y (ng/mL) by a factor of 1000. 99th Percentile Upper Reference Limit (URL): Females: 34 ng/LMales: 54 n g/L In order to distinguish acute elevations of h igh sensitivitytrop onin from other clinical conditions, the FourthUnive rsal Definition of M yocardial Infarction stre ssesclinical assessment and the demonstration o f a rise and/orfall in s erial troponin result s above the URL. These resu lts were obtained using Siemens [employer] IM TnI Hreagent. Results from di fferent methodologies s hould not becompared to o ne another as quantitative results and URLs mayvary by method. PROTHROMBIN [id number] 20:11:00 Test Item Value Reference Range Interpretation Comments PROTHROMBIN TIME 12.1 SECONDS 9.3-12.9 N PATIENT (test code = PTP) INTERNATIONAL NORMAL 1.1 0.8-1.2 N TARGET INR BY RATIO (test code = INDICATIO N Indication INR) INR1. Prophylax is of venous thrombos is 2.0 - 3.0 (orthoped ic surgery), Proph ylaxis of venous throm bosis (other than hig h-risk surgery), Treat ment of Deep Vein Thrombosis/Pulm onary Embolism, Preve ntion of systemic emb olism - Tissue heart va lves, Acute Myocardia l Infarction (to prevent systemic emboli sm), Valvular heart disease, Atrial Fibrillation, Bileaflet mecha nical valve in aortic position.2. Mec hanical prosthetic valv es (high risk), 2. 5 - 3.5 Presence of Lup us Anticoagulant o r Antiphospholipi d Antibodies, Pre vention of systemic emb olism - Acute Myocardia l Infarction (to prevent recurrent infar ct). COMMENTS: Code Neuro: Call with results if INR greater than 1.7 or PT greaterComment: than 15COMMENTS: Code Neuro: Call with results if PTT greater than 40THROMBOPLASTIN TIME [id number] 20:11:00 Test Item Value Reference Range Interpretation Comments THROMBOPLASTIN TIME 37.8 Seconds 25.0-39.5 N Therape utic Range: PARTIAL (test code = 50.4 - 88.3 Seconds PTT) Effective 07/22/2018 COMMENTS: Code Neuro: Call with results if INR greater than 1.7 or PT greaterComment: than 15COMMENTS: Code Neuro: Call with results if PTT greater than 40GLUCOSE [id number] 20:09:00 Test Item Value Reference Range Interpretation Comments GLUCOSE BEDSIDE (test 82 MG/DL 70-110 N Perfor med by certified code = GLUBED) 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 [facility] CBC W/O [id number] 20:03:00 Test Item Value Reference Range Interpretation Comments WHITE BLOOD CELL (test code = 11.6 x10 3/uL 4.5-11.0 H WBC) RED BLOOD CELL (test code = 4.39 x10 6/uL 3.54-5.02 N RBC) HEMOGLOBIN (test code = HGB) 14.1 g/dL 11.0-15.0 N HEMATOCRIT (test code = HCT) 41.9 % 33.0-45.0 N MEAN CELL VOLUME (test code = 95.4 fL 81.0-99.0 N MCV) MEAN CELL HGB (test code = MCH) 32.1 pg 27.0-33.0 N MEAN CELL HGB CONCETRATION 33.7 g/dL 33.0-37.0 N (test code = MCHC) RED CELL DISTRIBUTION WIDTH CV 14.6 % 11.5-14.5 H (test code = RDW) RED CELL DISTRIBUTION WIDTH SD 51.5 fL 37.0-54.0 N (test code = RDW-SD) PLATELET COUNT (test code = 306 x10 3/uL 150-400 N PLT) MEAN PLATELET VOLUME (test code 8.3 fL 7.0-9.0 N = MPV) COMMENTS: Code Neuro: Call with results if platelet count is less than Comment: 100,000/mm3- CT HEAD/BRAIN W/O [id number] 00:00:00 [facility] A[facility]ANDAR DAY[place]Name: MIKKI TALLEY : 1950 Sex: F Name: MIKKI TALLEY [facility] : 1950 Age/S: 71 / F [address] [place] [address] Unit #: [id number] Loc: [place] [address] Phys: Marcio Luke MD Acct: [id number] Dis Date: Status: REG ER PHONE #: [phone] Exam Date: 12/27/20212004 FAX #: [phone] Reason: Left sided weakness Report Has Been Amended EXAMS: CPT CODE: [id number] CT HEAD/BRAIN W/O CONT 36831 Addendum - 12/27/2021 SIGNED 12/27/2021 ADDENDUM: [id number] CT/CTHDBRWO Findings were discussed with Marcio Luke at 12/27/2021 8:24 PM CDT. at 2023 Reported and signed by: Yonathan Kaplan M.D. Report PROCEDURE INFORMATION: Exam: CT Head Without Contrast Exam date and time: 12/27/2021 8:02 PM Age: 71 years old Clinical indication: Stroke-like symptoms; Lt upper extremity and lt lower extremity weakness; Additional info: Left sided weakness TECHNIQUE: Imaging protocol: Computed tomography of the head without contrast. Radiation optimization: All CT scans at this facility use at least one of these dose optimization techniques: automated exposure control; mA and/or kV adjustment per patient size (includes targeted exams where dose is matched to clinical indication); or iterative reconstruction. Other technique: STROKE PROTOCOL was implemented. COMPARISON: No relevant prior studies available. FINDINGS: Brain: Loss of the ellis-white interface in the right parietal lobe. No acute intracranial hemorrhage. There are areas of low attenuation in the supratentorial white matter that are non- specific, but favor microvascular ischemic changes. No mass effect or midline shift. Cerebral ventricles: No acute hydrocephalus. Paranasal sinuses: Mild mucosal thickening. No fluid levels. Mastoid air cells: No mastoid effusion. Bones/joints: No acute fracture or destructive osseous lesion. Soft tissues: No soft tissue swelling or hematoma. IMPRESSION: Acute/subacute infarction in the right parietal lobe. ASSESSMENT: PAGE 1 Signed Report (CONTINUED) Name: BONNY ConnollyMIKKI [facility] : 1950 Age/S: 71 / F [address] [place] [address] Unit #: [id number] Loc: [place] [address] Phys: Marcio Luke MD Acct: [id number] Dis Date: Status: REG ER PHONE #:[phone] Exam Date: 12/27/20212004 FAX #: [phone] Reason: Left sided weakness Report Has Been Amended EXAMS: CPT CODE: [id number] CT HEAD/BRAIN W/O CONT 23712 (Continued) ASPECTS ([place] Stroke Program Early CT Score) is 9. at 2020 Reported and signed by: Yonathan Kaplan M.D. CC: Marcio Luke MD Technologist:Kathrin Stanley, RT(R)(CT) CTDI: DLP: Trnscb Date/Time: 12/27/2021 (2020) [email or web address] Orig Print D/T: S: 0 12/27/2021 (2020) PAGE 2 Signed Report- XR CHEST 1 [id number] 00:00:00 [facility] 1950 Sex: F FAX: Marcio Luke MD [place]: St: REG Name: MIKKI TALLEY [facility] : 1950 Age/S: 71/F [address] [place] [address] Unit #: [id number] Loc: [place] [address] Phys: Marcio Luke MD Acct: [id number] Dis Date: Status: REG ER PHONE #: [phone] Exam Date: 12/27/20212009 FAX #: [phone] Reason:stroke EXAMS: CPT CODE: [id number] XR CHEST 1 V 77547 PROCEDURE INFORMATION: Exam: XR Chest Exam dateand time: 12/27/2021 8:10 PM Age: 71 years old Clinical indication: Other: Stroke; () TECHNIQUE: Imaging protocol: Radiologic exam of the chest. Views: 1 view. COMPARISON: CTA HEAD 12/27/2021 8:04 PM FINDINGS: Lungs: The lungs are hyperlucent which may be due to technique or reflect COPD. Limited visualization left lower lung due to elevated diaphragm. Possible airspace disease left lung base. Pleural spaces: No appreciable pleural effusion or pneumothorax. Heart/Mediastinum: Heart size upper normal. Possible hiatal hernia. Diaphragm: Mild elevation left hemidiaphragm. Bones/joints: Negative acute.IMPRESSION: Dependent atelectasis left lung base. at 2032 Reported and signed by: Jed Irizarry M.D. CC: Marcio Luke MD Technologist: Archana Patel, RT(R) Trnscrd Date/Time/By: 12/27/2021 (2032) : By: [email or web address] Orig Print D/T: S: 12/27/2021 (2033) PAGE 1 Signed Report- CT ANGIO [id number] 00:00:00 [facility] : 1950 Sex: F Name: MIKKI TALLEY [facility] : 1950 Age/S: 71 / F [address] [place] [address] Unit #: [id number] Loc: [place] [address] Phys: Marcio Luke MD Acct: [id number] Dis Date: Status: REG ER PHONE #: [phone] Exam Date: 12/27/20212007 FAX #: [phone] Reason: Left sided weakness EXAMS: CPT CODE: [id number] CT ANGIO HEAD [address]09 PROCEDURE INFORMATION: Exam: CTA Head With Contrast, Arteriography Exam date and time: 12/27/2021 8:04 PM Age: 71 years old Clinical indication: Stroke-like symptoms; Lt upper extremity and lt lower extremity weakness; Additional info: Left sided weakness TECHNIQUE: Imaging protocol: Computed tomographic angiography of the head with contrast. Exam focused on the arteries. 3D rendering (Not supervised by radiologist): MIP and/or 3D reconstructed images were created by the technologist. Radiation optimization: All CT scans at this facility use at least one ofthese dose optimization techniques: automated exposure control; mA and/or kV adjustment per patient size (includes targeted exams where dose is matched to clinical indication); or iterative reconstruction. Contrast material: ISO 300; Contrast volume: 100 ml; Contrast route: INTRAVENOUS (IV); COMPARISON: CT HEAD/BRAIN W/O CONT 12/27/2021 8:02 PM FINDINGS: ANTERIOR CIRCULATION: Right internal carotid ar jesus: There is mild nonstenotic calcified plaque of the right internal carotid artery. There is no stenosis, dissection or aneurysm. Right middle cerebral artery: There is a calcified thrombus within adistal M4 segment of the posterior superior right middle cerebral artery on axial image 127 of series 2. This correlates with the area of acute to subacute right parietal cortical infarct previously reported. There is no proximal large vessel occlusion detected. Right anterior cerebral artery: No occlusion or significant stenosis. No aneurysm. Left internal carotid artery: There is calcified nonstenotic plaque of the left internal carotid artery. There is no dissection, aneurysm or significant luminal stenosis. Left middle cerebral artery: No occlusion or significant stenosis. No aneurysm. Left anterior cerebral artery: No occlusion or significant stenosis. No aneurysm. POSTERIOR CIRCULATION: Right vertebral artery: No occlusion or significant stenosis. No aneurysm. Left vertebral artery: No occlusion or significant stenosis. No aneurysm. PAGE 1 Signed Report (CONTINUED) Name: MIKKI TALLEY [facility] : 1950 Age/S: 71 / F [address] [place], [place] [address] Unit #: [id number] Loc: [place] [address] Phys: Marcio Luke MD Acct: [id number] Dis Date: Status: [facility] PHONE #: [phone] Exam Date: 12/27/20212007 FAX #: [phone] Reason: Left sided weakness EXAMS: CPT CODE: [id number] CT ANGIO HEAD 66936 (Continued) Basilar artery: No occlusion or significant stenosis. No aneurysm. Right posterior cerebral artery: No occlusion or significant stenosis. No aneurysm. Left posteriorcerebral artery: No occlusion or significant stenosis. No aneurysm. Brain: See "Right middle cerebral artery" finding. No hemorrhage or mass effect. Acute to subacute right parietal infarct present. Cerebral ventricles: No ventriculomegaly. Bones/joints: Unremarkable. No acute fracture. Soft tissues: Unremarkable. IMPRESSION: There is a calcified thrombus within a distal M4 segment of the posterior superior right middle cerebral artery territory on axial image 127 of series 2. This correlates with the area of acute to subacute right parietal cortical infarct previously reported. There is no proximal large vessel occlusion detected. PROCEDURE INFORMATION: Exam: CTA Neck With Contrast Exam date and time: 12/27/2021 8:04 PM Age: 71 years old Clinical indication: Stroke-like symptoms; Lt upper extremity and lt lower extremity weakness; Additional info: Left sided weakness TECHNIQUE: Imaging protocol: Computed tomographic angiography of the neck with contrast. 3D rendering (Not supervised by radiologist): MIP and/or 3D reconstructed images were created by the technologist. Radiation optimization: All CT scans at this facility use at least one of these dose optimization techniques: automated exposure control; mA and/or kV adjustment per patient size (includes targeted exams where dose is matched to clinical indication); or iterative reconstruction. Contrast material: ISO 300; Contrast volume: 100 ml; Contrast route: INTRAVENOUS (IV); COMPARISON: CT HEAD/BRAIN W/O CONT 12/27/2021 8:02 PM FINDINGS: Right common carotid artery: No stenosis. No dissection or occlusion. Rightinternal carotid artery: There is 40% stenosis of the right internal carotid artery origin due to calcified plaque. Right external carotid artery: No occlusion or stenosis of the origin. PAGE 2 Signed Report (CONTINUED) Name: MIKKI TALLEY [facility] : 1950 Age/S: 71 / F [address] Unit #: [id number] Loc: [place] [address] Phys: Marcio Luke MD Acct: [id number] DisDate: Status: REG ER PHONE #: [phone] Exam Date: 12/27/20212007 FAX #: [phone] Reason: Left sided weakness EXAMS: CPT CODE: [id number] CT ANGIO HEAD [address]290 (Continued) Left common carotid artery: There is 25% stenosis of the left common carotid artery origin due to noncalcified atherosclerotic plaque. Left internal carotid artery: The left internal carotid artery is widely patent. Left external carotid artery: No occlusion or stenosis of the origin. Right vertebral artery: There is mild christy nosis of the right vertebral artery origin due to calcified plaque. Left vertebral artery: The left vertebral artery is patent. Brachiocephalic artery: There is calcified plaque of the brachiocephalic artery with less than 25% luminal stenosis. Left subclavian artery: There is 40% stenosis of the proximal left subclavian artery due to calcified plaque. Aorta: The imaged thoracic aorta demonstrates nonstenotic calcified plaque. Oropharynx: There are calcifications of the palatine tonsils consistent with remote inflammatory process. Soft tissues: There is calcific density in the posterior paraspinal soft tissues, consistent with remote injury. Bones/joints: There is no acute osseous fracture or dislocation. There is mild spinal canal stenosis at C5-C6 due to a disc osteophyte bulge complex. IMPRESSION: 1. 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 2. There is 40% stenosis of the right internal carotid artery origin due to calcified plaque. 3. The left int ernal carotid artery is widely patent. 4. There is 25% stenosis of the left common carotid artery origin due to noncalcified atherosclerotic plaque. THIS REPORT CONTAINS FINDINGS THAT MAY BE CRITICAL TO PATIENT CARE. The findings were verbally communicated via telephone conference with Dr Zarate at 8:42 PM CDT on 12/27/2021. The findings were acknowledged and understood. REFERENCES: NASCET CRITERIA.The degree of stenosis in the cervical segment of the internal carotid artery is based on NASCET criteria. Normal is no stenosis. Mild is less than 50% stenosis. Moderate is 50-69% stenosis. Severe is 70% to 99% stenosis. Total occlusion is no detectable patent lumen. PAGE 3 Signed Report (CONTINUED) Name: MIKKI TALLEY [facility] : 1950 Age/S: 71 / F [address] [place] [address] Unit #: [id number] Loc: [place] [address] Phys: Marcio Luke MD Acct: [id number] Dis Date: Status: [facility] ER PHONE #: [phone] Exam Date: 12/27/20212007 FAX #: [phone] Reason: Left sided weakness EXAMS: CPT CODE: [id number] CT ANGIO HEAD 55565 (Continued) at 2044 Reported and signed by: Edgard Dinero D.O. CC: Marcio Luke MDTechnologist:Kathrin Stanley, RT(R)(CT) CTDI: DLP: Trnscb Date/Time: 12/27/2021 (2043) [id number] Orig Print D/T: S: 12/27/2021 (2043) PAGE 4 Signed Report- CT ANGIO [id number] 00:00:00 [facility] 1950 Sex: F Name: MIKKI TALLEY [facility] : 1950 Age/S: 71 / F [address] [place] [address] Unit #: [id number] Loc: [place] [address] Phys: Marcio Luke MD Acct: [id number] Dis Date: Status: REG ER PHONE #: [phone] Exam Date: 12/27/20212007 FAX #: [phone] Reason: Left sided weakness EXAMS: CPT CODE: [id number] CT ANGIO NECK 87016 PROCEDURE INFORMATION: Exam: CTA Head With Contrast, Arteriography Exam date and time: 12/27/2021 8:04 PM Age: 71 years old Clinical indication: Stroke-like symptoms; Lt upper extremity and lt lower extremity weakness; Additional info: Left sided weakness TECHNIQUE: Imaging protocol: Computed tomographic angiography of the head with contrast. Exam focused on the arteries. 3D rendering (Not supervised by radiologist): MIP and/or 3D reconstructed images were created by the technologist. Radiation optimization: All CT scans at this facility use at least one of these dose optimization techniques: automated exposure control; mA and/or kV adjustment per patientsize (includes targeted exams where dose is matched to clinical indication); or iterative reconstruction. Contrast material: ISO 300; Contrast volume: 100 ml; Contrast route: INTRAVENOUS (IV); COMPARISON: CT HEAD/BRAIN W/O CONT 12/27/2021 8:02 PM FINDINGS: ANTERIOR CIRCULATION: Right internal carotid ar jesus: There is mild nonstenotic calcified plaque of the right internal carotid artery. There is no stenosis, dissection or aneurysm. Right middle cerebral artery: There is a calcified thrombus within a distal M4 segment of the posterior superior right middle cerebral artery on axial image 127 of series 2. This correlates with the area of acute to subacute right parietal cortical infarct previously reported. There is no proximal large vessel occlusion detected. Right anterior cerebral artery: No occlusion or significant stenosis. No aneurysm. Left internal carotid artery: There is calcified nonstenotic plaque of the left internal carotid artery. There is no dissection, aneurysm or significant luminal stenosis. Left middle cerebral artery: No occlusion or significant stenosis. No aneurysm. Left anterior cerebral artery: No occlusion or significant stenosis. No aneurysm. POSTERIOR CIRCULATION: Right vertebral artery: No occlusion or significant stenosis. No aneurysm. Left vertebral artery: No occlusion or significant stenosis. No aneurysm. PAGE 1 Signed Report (CONTINUED) Name: MIKKI TALLEY [facility] : 1950 Age/S: 71 / F [address] [place] [address] Blvd Unit #: [id number] Loc: [place] [address] Phys: Marcio Luke MD Acct: [id number] Dis Date: Status: REG PHONE #: [phone] Exam Date: 12/27/20212007 FAX #: [phone] Reason: Left sided weakness EXAMS: CPT CODE: [id number] CT ANGIO NECK 49015 (Continued) Basilar artery: No occlusion or significant stenosis. No aneurysm. Right posterior cerebral artery: No occlusion or significant stenosis. No aneurysm. Left posteriorcerebral artery: No occlusion or significant stenosis. No aneurysm. Brain: See "Right middle cerebral artery" finding. No hemorrhage or mass effect. Acute to subacute right parietal infarct present. Cerebral ventricles: No ventriculomegaly. Bones/joints: Unremarkable. No acute fracture. Soft tissues: U nremarkable. IMPRESSION: There is a calcified thrombus within a distal M4 segment of the posterior superior right middle cerebral artery territory on axial image 127 of series 2. This correlates with the area of acute to subacute right parietal cortical infarct previously reported. There is no proximal large vessel occlusion detected. PROCEDURE INFORMATION: Exam: CTA Neck With Contrast Exam date and time: 12/27/2021 8:04 PM Age: 71 years old Clinical indication: Stroke-like symptoms; Lt upper extremity and lt lower extremity weakness; Additional info: Left sided weakness TECHNIQUE: Imaging protocol: Computed tomographic angiography of the neck with contrast. 3D rendering (Not supervised by radiologist): MIP and/or 3D reconstructed images were created by the technologist. Radiation optimization: All CT scans at this facility use at least one of these dose optimization techniques: automated exposure control; mA and/or kV adjustment per patient size (includes targeted exams where dose is matched to clinical indication); or iterative reconstruction. Contrast material: YOE440; Contrast volume: 100 ml; Contrast route: INTRAVENOUS (IV); COMPARISON: CT HEAD/BRAIN W/O CONT 12/27/2021 8:02 PM FINDINGS: Right common carotid artery: No stenosis. No dissection or occlusion. Right internal carotid artery: There is 40% stenosis of the right internal carotid artery origin due to calcified plaque. Right external carotid artery: No occlusion or stenosis of the origin. PAGE 2 SignedReport (CONTINUED) Name: MAYANKMIKKI [facility] : 1950 Age/S: 71 / F [address] [place] [address] Unit #: [id number] Loc: [place] [address] Phys: Marcio Luke MD Acct: [id number] Dis Date: Status: [facility] ER PHONE #: [phone] Exam Date: 12/27/20212007 FAX #: [phone] Reason:Left sided weakness EXAMS: CPT CODE: [id number] CT ANGIO NECK 06183 (Continued) Left common carotid artery: There is 25% stenosis of the left common carotid artery origin due to noncalcified atherosclerotic plaque. Left internal carotid artery: The left internal carotid artery is widely patent. Left external carotid artery: No occlusion or stenosis of the origin. Right vertebral artery: There is mildstenosis of the right vertebral artery origin due to calcified plaque. Left vertebral artery: The left vertebral artery is patent. Brachiocephalic artery: There is calcified plaque of the brachiocephalic artery with less than 25% luminal stenosis. Left subclavian artery: There is 40% stenosis of the proximal left subclavian artery due to calcified plaque. Aorta: The imaged thoracic aorta demonstratesnonstenotic calcified plaque. Oropharynx: There are calcifications of the palatine tonsils consistent with remote inflammatory process. Soft tissues: There is calcific density in the posterior paraspinal soft tissues, consistent with remote injury. Bones/joints: There is no acute osseous fracture or dislocation. There is mild spinal canal stenosis at C5-C6 due to a disc osteophyte bulge complex. IMPRE SSION: 1. 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 2. There is 40% stenosis of the right internal carotid artery origin due to calcified plaque. 3. The leftinternal carotid artery is widely patent. 4. There is 25% stenosis of the left common carotid arteryorigin due to noncalcified atherosclerotic plaque. THIS REPORT CONTAINS FINDINGS THAT MAY BE CRITICAL TO PATIENT CARE. The findings were verbally communicated via telephone conference with Dr Zarate at 8:42 PM CDT on 12/27/2021. The findings were acknowledged and understood. REFERENCES: NASCET CRITERIA. The degree of stenosis in the cervical segment of the internal carotid artery is based on NASCET zelda montes. Normal is no stenosis. Mild is less than 50% stenosis. Moderate is 50- 69% stenosis. Severeis 70% to 99% stenosis. Total occlusion is no detectable patent lumen. PAGE 3 Signed Report (CONTINUED) Name: MIKKI TALLEY [facility] : 1950 Age/S: 71 / F [address] [place] [address] Unit #: [id number] Loc: [place] [address] Phys: Marcio Luke MD Acct: [id number] Dis Date: Status: [facility] ER PHONE #: [phone] Exam Date: 12/27/20212007 FAX #: [phone] Reason: Left sided weakness EXAMS: CPT CODE: [id number] CT ANGIO NECK 82185 (Continued) at 2044 Reported and signed by: Edgard Dinero D.O. CC: Marcio Luke MD Technologist:Kathrin Stanley, RT(R)(CT) CTDI: DLP: Trnscb Date/Time: 12/27/2021 (2043) [email or web address] Print D/T: S: 12/27/2021 (2043) PAGE 4 Signed ReportDEXA AXIAL (HIP AND SPINE)2020-11-04 19:33:51 Osteopenia.EXAM: DEXA AXIAL (HIP AND SPINE) HISTORY: 70 years ?Female; osteoporosis screening. COMPARISON: DXA ?None available. TECHNIQUE: Bone densitometry of the lumbar spine and right hip was performed on [employer] system. ? ? FINDINGS: Left Femoral Neck: T score -2.2. ?Bone mineral density: 0.737 g/cm^2. Left Total Hip: T score -1.4. ?Bone mineral density: 0.828 g/cm^2. Right Femoral Neck: T-score -1.6. ?Bone mineral density: 0.815 g/cm^2. Right Total Femur: T-score -1.1. ?Bone mineral density: 0.870 g/cm^2. [facility], Radiant Results Inft User - 11/04/2020 2:34 PM CDT EXAM: DEXA AXIAL (HIP AND SPINE)HISTORY: 70 years Female; osteoporosis screening.COMPARISON: DXA None available. TECHNIQUE: Bone densitometry of the lumbar spine and right hip was performed on [employer] ([employer]) system. FINDINGS:Left Femoral Neck: T score -2.2. Bone mineral density: 0.737 g/cm^2.Left Total Hip: T score -1.4. Bone mineral density: 0.828 g/cm^2.Right Femoral Neck: T-score -1.6. Bone mineral density: 0.815 g/cm^2.Right Total Femur: T-score -1.1. Bone mineral density: 0.870 g/cm^2. IMPRESSIONOsteopenia.[facility] 1 VW 2020-10-26 06:59:56 Mildly elevated left diaphragm with left lower lobe scarring. RL 4728 CHEST SINGLE VIEW CLINICAL HISTORY: Short of breath. Cough. ORDERING LETICIA SICIAN: ?RADIOLOGY TECHNIQUE: Frontal view of chest COMPARISON: None available. FINDINGS: The cardiac silhouette is within normal limits. ?Mildly elevated leftdiaphragm with left lower lobe scarring. Thoracolumbar fusion. [facility], Radiant Results Inft User - 10/26/2020 2:00 AM CDT CHEST SINGLE VIEWCLINICAL HISTORY: Short of breath. Cough.ORDERING PHYSICIAN: RADIOLOGYTECHNIQUE: Frontal view of chestCOMPARISON: None available.FINDINGS:The cardiac silhouette is within normal limits. Mildly elevated leftdiaphragm with left lower lobe scarring. Thoracolumbar fusion. IMPRESSIONMildly elevated left diaphragm with left lower lobe scarring.RL 4728 [facility] W[facility]ST 3+ VW [id number] 20:43:43Impression: 1. ?No acute osseous abnormality of the right wrist is identified. RL: 2831 ORDERING PHYSICIAN: GUNNER MARCOS THREE VIEWS OF RIGHT WRIST. DATE: ?10/25/2020 CLINICAL INDICATIONS: ?Right wrist pain and trauma. COMPARISON: ?None. FINDINGS: ?Three views of the right wrist demonstrate no evidence for acutefracture, subluxationor destructive osseous lesion. ?No significant softtissue swelling or radiopaque foreign body is identified. [facility], Radiant Results Inft User - 10/25/2020 3:44 PM CDT ORDERING PHYSICIAN: GUNNER MRACOSTHREE VIEWS OF RIGHT WRIST.DATE: 10/25/2020LINICAL INDICATIONS: Right wrist pain and trauma.COMPARISON: None.FINDINGS: Three views of the right wrist demonstrate no evidence for acutefracture, subluxation or destructive osseous lesion. No significant softtissue swelling or radiopaque foreign body is identified.IMPRESSIONImpression:1. No acute osseous abnormality of the right wrist is identified.RL: 2831 [facility] HAND 3+ VW [id number] 20:42:56Impression: 1. Osteoarthritic changes are present at the interphalangeal joints withoutevidence for acute osseous abnormality. RL: 2831 ORDERING PHYSICIAN: GUNNER MARCOS THREE VIEWS RIGHT HAND. DATE: 10/25/2020 CLINICAL INDICATIONS: Right hand pain. COMPARISON: None. FINDINGS: ?Three views of the right hand demonstrate no evidence for acutefracture, subluxation or destructive osseous lesion. No osseous erosions orperiarticular calcifications are identified. Osteoarthritic changes areidentified at the interphalangeal joints. No signi ficant soft tissueswelling or radiopaque foreign body is identified. [facility], Radiant Results Inft User- 10/25/2020 3:44 PM CDT ORDERING PHYSICIAN: GUNNER MARCOSTHREE VIEWS RIGHT HAND.DATE: 10/25/2020LINICAL INDICATIONS: Right hand pain.COMPARISON: None.FINDINGS: Three views of the right hand demonstrate no evidence for acutefracture, subluxation or destructive osseous lesion. No osseous erosions orperiarticular calcifications are identified. Osteoarthritic changes areidentified at the interphalangeal joints. No significant soft tissueswelling or radiopaque foreign body is identified.IMPRESSIONImpression: 1. Osteoarthritic changes are present at the interphalangeal joints withoutevidence for acute osseous abnormality.RL: 2831 [facility] (ID NOW RAPID TESTING)2020-06-29 17:13:09 Test Item Value Reference Range Interpretation Comments SARS-CoV-2 Rapid ID NOW Not Detected Not Detected (test code = 99452-9) FLORENCIA (test code = FLORENCIA) ID NOW COVID-19 Assay is an isothermal nucleic acid amplification test intended for the qualitative detection of nucleic acid from SARS-CoV-2 viral RNA in nasopharyngeal (BROACHING MACHINE REPAIRER) specimens. It is used under Emergency Use Authorization (EUA) by FDA. The limit of detection (LOD) of the assay is 125 Genome Equivalents/mL. A positive result is indicative of the presence of SARS-CoV-2 RNA. ?Clinical correlation with patient history and other diagnostic information is necessary to determine patient infection status. A negative (Not Detected) result does not preclude SARS-CoV-2 infection. In patients with clinical symptoms and other tests that are consistent with SARS-CoV-2 infection, negative results should be treated as presumptive negative and a new specimen should be tested with alternative PCR molecular test. Invalid: Please collect a new specimen for repeat patient testing if clinically indicated. Lab Interpretation Normal (test code = 87510-9) [facility] Notes Date/Time Note Provider Source 2022-01-06 19:37:00-00:00 [id number] [place] [address] PATIENT NAME: MIKKI TALLEY ADMIT DATE: 2 ACCOUNT NO: [id number] ROOM NO: G.604 AGE: 72 REPORT TYPE: 360 - QUERY RESPONSE DOCUMENT SEX: F ADMITTING PHYSICIAN:Joel Donald MD ATTENDING PHYSICIAN:Joel Donald MD Provider Query QUERY TEXT: Condition General 360MD Query related questions should be directed to:Manpreet bhavanajacob [facility] Coding Query Helpline Based on your medical judgement, can you provide the known or suspected condition that represents the clin ical indicators below (Metabolic Encephalopathy, tox ic metabolic encephalopathy, Delirium or Other mor e appropriate diagnosis)? The patient's Clinical Indicators include: Altered mental status/confusion/lethargy-Neurolo gy Consultation Note 12/28/2021 (6) right MCA stroke-HISTORY and PHYSICAL 12/27/2021 (2) CVA- EMBOLIC-ED PHYSICIAN RECORD 12/27/2021 (1) Options provided: -- Respond - Create new note now -- Dismiss - Not applicable / Not valid -- Dismiss - Clinically unable to determine / Un known -- Assign to another provider QUERY RESPONSE: Patient had altered mental status on admission b ecause of an acute stroke. Query created by: Shania Huerta on 01/06/2022 5 :50 AM Electronically Signed by Joel Donald MD on 04/29 at 1937 PATIENT NAME: MIKKI TALLEY 20042022-01-04 09:20:00-00:00 [facility] ([facility]) Hospitalist Discharge Summary REPORT#:[id number] REPORT STATUS: Signed DATE:01/04/22 TIME: 919 PATIENT: MIKKI TALLEY UNIT #: [id number] ROOM/BED: 604-1 : 51 AGE: 72 SEX: F ATTEND: Joel Donald MD ADM AUTHOR: Joel Donald MD * ALL edits or amendments must be made on the el ectronic/computer document * General Information Discharge date: 01/03/22 Discharge diagnosis: CVA Hospital course: She is 71 yr old female with hx of obesity, 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 She was in her usual health until she woke up, noted to be more confused, belligerent than her baseline and left arm weakness was noted. On admission to the ER a CT scan of the brain was p erformed and showed a acute/ subacute infarction in the right parietal lobe.M RI obtained and showed a Moderate-sized acute infarct in the right pariet al lobe. No hemorrhagic transformation. Multiple sma ll acute infarcts in bilateral caudate heads, dorsal right lentiform nucleus, and right periatrial wh ite matter. Neurology recommended ASA daily and echo with jacobsen er monitoring for 30 days as an outpt. Echo showed normal EF grade 1 diasstolic dysfunction. Neurology was consulted. Rehab was consulted. Psych was consulted to help increase apetite and pt was placed on remeron. Pt was then transferred to re hab on 01/03. Med Rec Med Rec Discharge meds: Stop taking the following medications: GABAPENTIN (NEURONTIN) 600 MG TAB tiZANidine (ZANAFLEX) 2 MG TAB 2 MILLIGRAM ORAL EVERY 6 HOURS NEEDED. as ne eded for ALLERGIC REACTION DULoxetine DR (CYMBALTA) 30 MG CAP.DR 30 MILLIGRAM ORAL DAILY. GABAPENTIN (NEURONTIN) 600 MG TAB 600 MILLIGRAM ORAL TWICE DAILY. Oxybutynin Chloride (DITROPAN XL) 10 MG TAB.SR.2 4H [address] MILLIGRAM ORAL [address]ILY. D[address] (CYMBALTA) 30 MG CAP.DR 30 MILLIGRAM ORAL DAILY. traZODone (DESYREL) 50 MG TAB 50 MILLIGRAM ORAL BEDTIME. Continue taking these medications: PANTOPRAZOLE DR (PROTONIX) 40 MG TAB.DR 40 MILLIGRAM ORAL DAILY. Start taking the following new medications: NICOTINE (NICODERM 21 MG) 21 MG/24 HOUR PATCH 21 MILLIGRAM TRANSDERMAL DAILY. Days = 7 No Refills CLOPIDOGREL (PLAVIX) 75 MG TAB 75 MILLIGRAM ORAL DAILY. Days = 30 Qty = 30 No Refills ENOXAPARIN (LOVENOX) 40 MG/0.4 ML DISP.SYRIN 40 MILLIGRAM SUBCUTANEOUS EVERY 24 HOURS. Days = 30 No Refills ATORVASTATIN (LIPITOR) 40 MG TAB 40 MILLIGRAM ORAL 2100 Days = 30 No Refills ASPIRIN (ASPIRIN) 81 MG TAB.CHEW 81 MILLIGRAM ORAL DAILY. Days = 30 Qty = [address] (CYMBALTA) 30 MG CAP.DR 30 MILLIGRAM ORAL DAILY. Days = 30 Qty = 30 No Refills MIRTAZAPINE (REMERON) 15 MG TAB 7.5 MILLIGRAM ORAL BEDTIME. Days = 30 Qty = 15 No Refills FOLIC ACID (FOLIC ACID) 1 MG TAB 1 MILLIGRAM ORAL DAILY. Days = 30 Qty = 30 No Refills THIAMINE (VITAMIN B-1) 100 MG TAB 100 MILLIGRAM ORAL DAILY. Days = 30 Qty = 30 No Refills Objective Head/Eyes: atraumatic, clear cornea, EOMI, PERRL A Neck: supple/no meningismus Cardiovascular: normal heart sounds, reg ular rate rhythm, no gallop, no murmur , no rub Respiratory: aerating well, clear to auscultatio n Abdomen: non-tender, normal bowel sounds, soft, no distention Extremities: no clubbing, no cyanosis, no edema Musculoskeletal: normal inspection, painless ran ge of motion Neuro/ITALIAN TEACHER: alert, oriented X 3, CNII-XII intact Skin: dry, intact Discharge Instructions PCP Discharge to: Inpatient Rehab Facility Additional Discharge Routines: Add. instructions Additional instructions: must f/u with all consultants and PCP Follow-up Appointments Consulting provider 1: Provider 1: Anthony Murcia MD Specialty: GI Consulting provider 2: Provider 2: Phong Rivers MD Specialty: CARDIO Consulting provider 3: Provider 3: Jamel Balderas MD Specialty: PSYCH Consulting provider 4: Provider 4: Gamaliel Melchor MD Specialty: NEURO Electronically Signed by Joel Donald MD on 12/08 12/28 at 0924 RPT #:[id number] END OF REPORT 2022-01-03 09:33:00-00:00 [facility] Hospitalist Progress Note REPORT#:[id number] REPORT STATUS: Signed DATE:01/03/22 TIME: 932 PATIENT: MIKKI TALLEY UNIT #: [id number] ROOM/BED: [place] [address] : 51 AGE: 71 SEX: F ATTEND: Joel Donald MD ADM AUTHOR: Joel Donald MD * ALL edits or amendments must be made on the [employer] document * Subjective Chief complaint: eating some. no cp no sob. Objective General VS/I O: Vital Signs: Date Time Temp Pulse Resp B/P B/P Pulse O2 O2 F low FiO2 Mean Ox Delivery Rate 01/03 0726 97.7 64 18 153/73 0.0 96 Room air 01/03 0534 97.5 73 17 114/73 0.0 96 Room air 01/03 0019 97.5 87 20 127/75 0.0 96 Room air 01/02 1931 98.1 94 15 123/62 0.0 98 Room air 01/02 1626 95 124/82 98 01/02 1504 99 17 131/82 100 97 01/02 1246 96 18 129/66 92 99 01/02 1115 98.2 65 19 146/64 0.0 98 Room air 01/02 1101 90 18 140/62 89 01/02 1051 80 27 130/63 90 24 hour I O ending at 0700: 01/03 0700 01/02 1900 Intake Total Output Total Balance Number 2 Bowel Movements Number 2 Incontinent Voids Number Voids 2 PATIENT WEIGHT: Weight (lb): Weight (oz): Weight (kg): 82.500 Physical Exam General appearance: alert, awake Head/Eyes: atraumatic, clear cornea, EOMI, PERRL A Neck: supple/no meningismus Cardiovascular: normal heart sounds, reg ular rate rhythm, no gallop, no murmur , no rub Respiratory: aerating well, clear to auscultatio n Abdomen: non-tender, normal bowel sounds, soft, no distention Extremities: no clubbing, no cyanosis, no edema Musculoskeletal: normal inspection, painless ran ge of motion Neuro/ITALIAN TEACHER: alert, oriented X 3, CNII-XII intact Skin: dry, intact Results Radiology data: Current Medications Sig/Leigh Start time Last Medication Dose Route Stop Time Status Admin Clopidogrel Bisulfate 75 MG DAILY 01/03 09 AC 01/03 PO 02/02 0859 0918 Duloxetine HCl 30 MG DAILY 01/03 09 AC 01/03 PO 02/02 0859 0918 Mirtazapine 7.5 MG BEDTIME 01/02 2100 AC 01/02 PO 02/01 Folic Acid 1 MG DAILY 01/02 09 AC 01/03 PO 02/01 0859 0918 Thiamine HCl 100 MG DAILY 01/02 09 AC 01/03 PO 02/01 0859 0918 Acetaminophen 650 MG Q4H PRN PRN 01/01 1515 AC 01/01 PO 01/31 1514 1538 Aspirin 81 MG DAILY 01/01 09 AC 01/03 PO 01/31 0859 0918 Atorvastatin Calcium 40 MG 2100 12/31 2100 AC 0 01/02 PO 01/30 2059 2131 Hydrocodone Bitart/ 1 TAB Q6H PRN PRN 12/31 210 0 AC 01/02 Acetaminophen PO 01/05 205 1630 Trazodone HCl 50 MG BEDTIME 12/31 2100 DC 01/01 PO 01/30 2059 2122 Famotidine 20 MG Q12HR 12/29 2100 AC 01/03 IV 01/28 2059 09 Acetaminophen 650 MG Q4H PRN PRN 12/28 1545 AC 12/29 RECTAL 01/27 1544 2122 Hydromorphone HCl 0.5 MG Q4H PRN 12/28 1545 DC IV 01/02 1544 Nicotine 21 MG DAILY 12/28 0615 CKD 01/03 TRANSDERM 01/27 0614 0918 Enoxaparin Sodium 40 MG Q24H 12/27 2300 AC 12/08 7 SUBQ 01/26 2259 221 Hydralazine HCl 10 MG Q6H PRN PRN 12/27 2299 AC 12/27 IV 01/26 2259 231 Ondansetron HCl 4 MG Q4H PRN PRN 12/27 2299 AC 12/30 IV 01/26 2259 153 Potassium Chloride/ 1,000 ML .[id number] 12/27 230 0 DCr 01/03 Dextrose/Sod Cl IV 01/26 2259 0210 Diagnosis, Assessment Plan Free Text DxA P Notes Free text DxA P notes: Right parietal lobe stroke Neurology seen PT/OT/ST on aspirin/lipitor 40mg po qhs LDL 58.4 failed swallow test if not any better, may need a NG tube--tried NG tube last night but unable to get it will try dibohff tube echo negative may need a KAI 01/01 -passed swallow test. T EE scheduled for today. rehab transfer. PM R to see. Not eating 01/02 - pt can swallow physic ally, but behaviorially not eating...will ask psych to see and GI if PEG is indicated. Nutrition to follow. Leukocytosis no fever seen [facility] 01/01- resolved check labs in am 01/01- to rehab when bed available after KAI toda y. 01/02 - difficult to dc to re hab if pt is not eating....will ask psych to see why patient is not wanting to ea t (behavior) and see if GI thinks a PEG would be of benefit. 01/03 - pt is actually eating some and started on remeron by PSYCH which will also help with apetitie. to rehab today and cont inue monitoring PO intake at rehab Electronically Signed by Joel Donald MD on 12/08 11/27 at 0936 RPT #:[id number] END OF REPORT 2022-01-03 07:45:00-00:00 [facility] REPORT#:[id number] REPORT STATUS: Signed DATE:01/03/22 TIME: 0745 PATIENT: MIKKI TALLEY UNIT #: [id number] ROOM/BED: [place] [address] : 51 AGE: 71 SEX: F ATTEND: Joel Donald MD ADM AUTHOR: Nain Mahajan MD * ALL edits or amendments must be made on the [employer] document * Subjective Comments: in bed, eyes open, firmly closes eyes when appro ached Objective General VS/I O: Last Documented: Result Date Time Pulse Ox 94 01/03 1000 B/P 167/73 01/03 1000 B/P Mean 105 01/03 1000 Pulse 79 01/03 1000 Resp 21 01/03 1000 O2 Delivery Room air 01/03 0726 Temp 36.5 01/03 0726 O2 Flow Rate 2 12/28 0800 24 hour I O ending at 0700: 01/03 0700 01/02 1900 Intake Total Output Total Balance Number 2 Bowel Movements Number 2 Incontinent Voids Number Voids 2 PATIENT WEIGHT: Weight (lb): Weight (oz): Weight (kg): 82.500 Medications: Active Meds + DC'd Last 24 Hrs Clopidogrel Bisulfate (Plavix) 75 MG DAILY PO (D CD) Duloxetine HCl (CYMBALTA) 30 MG DAILY PO (DCD) Mirtazapine (REMERON) 7.5 MG BEDTIME PO (DCD) Folic Acid (FOLIC ACID) 1 MG DAILY PO (DCD) Thiamine HCl (THIAMINE HCL) 100 MG DAILY PO (DC D) Acetaminophen (TYLENOL) 650 MG Q4H PRN PRN PO (D CD) Aspirin (ASPIRIN) 81 MG DAILY PO (DCD) Atorvastatin Calcium (LIPITOR) 40 MG 2100 PO (DC D) Hydrocodone Bitart/Acetaminophen (NORCO 5/325) 1 TAB Q6H PRN PRN PO (DCD ) Famotidine (PEPCID) 20 MG Q12HR IV (DCD) Acetaminophen (TYLENOL) 650 MG Q4H PRN PRN RECTA L (DCD) Nicotine (NICODERM) 21 MG DAILY TRANSDERM (DCD) Enoxaparin Sodium (lovENOX) 40 MG Q24H SUBQ (DCD ) Hydralazine HCl (APRESOLINE) 10 MG Q6H PRN PRN I V (DCD) Ondansetron HCl (ZOFRAN) 4 MG Q4H PRN PRN IV (DC D) Potassium Chloride/Dextrose/Sod Cl (D5 0.45%NS + KCl 20mEq 1,000mL) 1,000 ML .[id number] IV (DC) Physical Exam General appearance: altered mental status HEENT: atraumatic, normocephalic Neck: decreased range of motion Cardiovascular: normal heart sounds, regular rat e rhythm Respiratory: clear to auscultation, no distress Abdomen: non-tender, soft Extremities: decreased range of motion Neuro/ITALIAN TEACHER: alert, oriented X 3 Skin: dry, intact Psychiatry: abnl judgment/insight Diagnosis, Assessment Plan Free Text A P: Assessment CVA poor po intake abnormal behaviour GERD Plan: - acid suppressive therapy for GERD - diet as tolerated + nutritional supplements - continue to encourage po intake Electronically Signed by Nain Mahajan MD on 01/03 at 1642 RPT #:[id number] END OF REPORT 2022-01-02 14:24:00-00:00 [id number] [place] [address] PATIENT NAME: MIKKI TALLEY ADMIT DATE: 2 ACCOUNT NO: [id number] ROOM NO: G.604 AGE: 71 REPORT TYPE: eTRANSESOPHAGEAL ECHO REPORT SEX: F ADMITTING PHYSICIAN:Joel Donald MD ATTENDING PHYSICIAN:Joel Donald MD *[place] [address] Transesophageal Echocardiogram Patient: Mikki Talley Study Date: 01/01/2022 BP: 178 / 75 Location: [facility] URN: [id number] 2003 : 1950 Age: 71 Height: 64 in / 162.6 cm Gender: F Weight: 180 .6 lb / 82.1 kg BMI/BSA: 31.1 kg/m 2 / 1.87 m 2 *Ordering Physician: * Phong Rivers MD *Interpreting Physician: * Phong Rivers MD *Assistant Professor Of Religion: * Aggie Foley Indications: CVA. Study data: Consent: The risks, benefits, and al ternatives to the procedure were explained to the patient and info rmed consent was obtained. Procedure: Initial setup: The patient was brought to the laboratory in the fasting state.Intravenous acce ss was obtained. Surface ECG leads and pulse oximetric signals were monit ored. Sedation. Moderate sedation was administered by cardiology staff. T ransesophageal echocardiography was performed. Topical anesthes ia was obtained using viscous lidocaine. A transesophageal probe (SN: [id number]) was inserted by the attending client specialist without difficulty. L ocation: Procedure room. Patient status: Inpatient. Patient room nu mber: CVPREP 05. Study status: Routine. Study completion: The pat ient tolerated the procedure well. There were no complications. Findings PATIENT NAME: MIKKI TALLEY 2003 Left ventricle: The cavity size is normal. Wall thickness is normal. Systolic function is normal. The estimated eject ion fraction is 55-60%. Wall motion is normal; there are no regional wal l motion abnormalities. Right ventricle: The cavity size is normal. Syst olic function is normal. Left atrium: The atrium is normal in size. The a ppendage is of normal size. Emptying velocity is normal. There is no e vidence of a thrombus in the atrial cavity or appendage. No spontaneou s echo contrast is observed. Right atrium: The atrium is normal in size. Ther e is no evidence of a thrombus in the atrial cavity or appendage. Aorta: Aortic root: The aortic root is normal in size. There is 1.0 cm (thick) atheromatous plaque in t he aortic arch. There is no evidence for aneurysm. There is no evidence f or dissection. Aortic valve: The valve is structurally normal. The valve is trileaflet. Cusp separation is normal. There is no evidence of stenosis. There is no regurgitation. Mitral valve: The valve is structurally normal. There is no evidence of a vegetation. There is no evidence o f stenosis. There is mild regurgitation. Tricuspid valve: The valve is structurally candice l. There is no evidence of a vegetation. There is no regurgitat ion. Pulmonic valve: No thickening. Cusp separation i s normal. There is no evidence of a vegetation. There is no regurgi tation. Pericardium: There is no pericardial effusion. Pulmonary arteries: Main pulmonary artery: The artery is of normal s ize. Systemic veins: Inferior vena cava: The vessel is normal in size . Superior vena cava: The vessel is normal in size . Conclusions Summary: 1. Left ventricle: The cavity size is normal. Wa ll thickness is normal. Systolic function is normal. The estimated ejec tion fraction is 55-60%. Wall motion is normal; there are no reg ional wall motion abnormalities. 2. Left atrium: There is no evidence of a thromb us in the atrial cavity or appendage. No spontaneous echo contrast is o bserved. 3. Right atrium: There is no evidence of a throm bus in the atrial cavity or appendage. 4. Aorta: There is 1.0 cm (thick) atheromatous p laque in the aortic arch. Prepared and electronically signed by Phong Rivers MD 01/02/2022 14:24 PATIENT NAME: MIKKI TALLEY 2003 Electronically Signed by Phong Rivers MD on at 1424 PATIENT NAME: MIKKI TALLEY 20032022-01-02 13:21:00-00:00 [facility] Rehab Progress Note REPORT#:[id number] REPORT STATUS: Signed DATE:01/02/22 TIME: 1321 PATIENT: MIKKI TALLEY UNIT #: [id number] ROOM/BED: [place] [address] : 51 AGE: 72 SEX: F ATTEND: Joel Donald MD ADM AUTHOR: Natalia Mahajan PA-C * ALL edits or amendments must be made on the [employer] document * See Addendum Subjective Chief complaint: Pt seen and examiend with her sister Radha garcia at the bedside. She did not sleep and was up all night due to her sister snoring per the pt. She does not want to eat. Per nurse and sister she has been agitated. Objective General VS: Vital Signs: Date Time Temp Pulse Resp B/P B/P Pulse O2 O2 F low FiO2 Mean Ox Delivery Rate 01/02 1115 98.2 65 19 146/64 0.0 98 Room air 01/02 0756 97.9 72 18 167/57 0.0 96 Room air 01/02 0300 98.2 58 20 128/62 0.0 96 Room air 01/01 2330 98.4 73 20 123/88 99.2 96 Room air 01/01 1904 98.4 84 20 133/83 99.5 98 Room air 01/01 1501 68 18 159/69 99 97 01/01 1454 69 17 125/72 92 94 01/01 1400 77 17 100 PATIENT WEIGHT: Weight (lb): Weight (oz): Weight (kg): 82.500 Medications: Active Meds + DC'd Last 24 Hrs Clopidogrel Bisulfate (Plavix) 75 MG DAILY PO Folic Acid (FOLIC ACID) 1 MG DAILY PO Thiamine HCl (THIAMINE HCL) 100 MG DAILY PO Acetaminophen (TYLENOL) 650 MG Q4H PRN PRN PO Aspirin (ASPIRIN) 81 MG DAILY PO Atorvastatin Calcium (LIPITOR) 40 MG 2100 PO Hydrocodone Bitart/Acetaminophen (NORCO 5/325) 1 TAB Q6H PRN PRN PO Trazodone HCl (DESYREL) 50 MG BEDTIME PO Famotidine (PEPCID) 20 MG Q12HR IV Acetaminophen (TYLENOL) 650 MG Q4H PRN PRN RECTA L Hydromorphone HCl (DILAUDID) 0.5 MG Q4H PRN IV Nicotine (NICODERM) 21 MG DAILY TRANSDERM (CKD) Enoxaparin Sodium (lovENOX) 40 MG Q24H SUBQ Hydralazine HCl (APRESOLINE) 10 MG Q6H PRN PRN I V Ondansetron HCl (ZOFRAN) 4 MG Q4H PRN PRN IV Potassium Chloride/Dextrose/Sod Cl (D5 0.45%NS + KCl 20mEq 1,000mL) 1,000 ML .[id number] IV Functional Progress Functional progress: One on one supervision with cueing and assistanc e provided to ensure proper performance of all activities: Yes Precautions: Fall Safety addressed through use of: Verbal Cues Tactile Cues Observed precautions for: Falls ASPIRATION N AND V ACTIVITIES PERFORMED: Rolling Right: Supervision or Set-up Rolling Left: Supervision or Set-up Scooting up in bed: Supervision or Set-up Supine to/from sitting: Supervision or Set-up Sit to Stand: Supervision or Set-up Functional Exercises: UE Mobility Balance: Fair Safety Awareness: Poor Effects of Treatment: Impro. postural alignment Cardio tolerance improved Circulation improved Comments: PT COMPLETED SIT-STAND X3 W/ SPV, PT C/O HEADACHE, NOTIFIED RN. ASSISTED PT SUPINE TO BED, BED ALARM ON, ALL NEEDS IN REACH. Document Pain/Education: Yes Review OT Plan of Care: Yes Document OT charges: FT/THERAP. ACTIVITY [id number] If this is the patient's last treatment, this e ntry serves as the discharge summary: Y Start Time: 834 Stop Time: 45 Treatment time ( minutes): 0:10 Completed by: Priyanka Geiger . Occupational Therapy: Plan of Care OT Problem List: 1 Impaired Strength/ROM 2 Impaired Coordination 3 Impaired Balance 4 Impaired Safety Awareness 5 Impaired Functional Mobil 6 Pain 7 Impaired ADL HVAC TECHNICIAN GOALS 1. One on one supervision with cueing and assistance provided to ensure proper performance of all activities. Yes Precautions: Fall CONFUSION IMPULSIVE Safety addressed through use of: Verbal Cues Tactile Cues Weightbearing Restrictions: No Restriction ACTIVITIES PERFORMED: Bed Mobility - Rolling: Minimal Assistance Bed Mobility - Supine to Sit: Moderate Assistan ce Bed Mobility - Sit to Supine: Moderate Assistan ce Scooting: Moderate Assistance Sit to Stand: Moderate Assistance Static Sitting: Supervision or Set-up Dynamic Sitting: Minimal Assistance Static Standing: Moderate Assistance Dynamic Standing: Maximal Assistance Functional Ambulation: Moderate Assistance Distance in Feet: 0 - 49 Feet Durable Medical Equipment Currently Utilized: Hospital Bed Effects of Treatment: Gait quality improved Function Improved Balance Improved Post TX Precautions: In Bed, rails Up Bed Alarm Derrick Helper Light in Reach Family/Sitter at Bedside Nursing Notified O2 on Pulse OX in Place Functional Mob.Cmt: Patient was in bed, agreeab le to therapy. Family at bedside. Patient complained of headache. Demonstrated Mod A during bed mobility, wily rosas cues on hand placement on task facilitation for safety. Sit<>stand using RW to transfer from bed<>BSC, required cues/ feedback on hand placement to use RW - neglect on L side. Took a few steps towards the head of the bed with Mod A , assisted patient back to bed and left with all needs within reach. PT charges: FT/Therap. Activity 62243 If this is the patient's last treatment, this e ntry serves as the discharge summary: Y Start time: 1420 Stop time: 1500 Treatment Time : ( minutes) 0:40 Completed by: Rona Monson . Physical Therapy: Plan of Care Short Term Goals TARGET DATE GOAL MET Microphone Boom Operator Goals TARGET DATE GOAL MET . Physical Exam General appearance: alert, awake HEENT: anicteric, mucosal membranes moist, scler a clear Neck: supple Cardiovascular: regular rate rhythm, S1/S2 Respiratory: aerating well, clear bilaterally Abdomen: bowel sounds present, non-distended, so ft, non-tender Skin: dry, intact, no rash Musculoskeletal - general: Musculoskeletal - general: joints normal, no at rophy Neuro/ITALIAN TEACHER: abnormal speech, disoriented, left he miparesis, down going toes, Results Findings/Data: Laboratory Tests: 01/01 01/01 2144 2111 Chemistry POC Glucose (70 - 110 MG/DL) 96 Urines Urine Color (YEL/STRAW) YELLOW Urine Appearance (CLEAR) CLEAR Urine pH (5.0 - 7.0) 6.0 Ur Specific [place] (1.005 - 1.030) 1.014 Urine Protein (NEGATIVE) NEGATIVE Urine Glucose (UA) (NEGATIVE) NEGATIVE Urine Ketones (NEGATIVE) NEGATIVE Urine Blood (NEGATIVE) NEGATIVE Urine Nitrite (NEGATIVE) NEGATIVE Urine Bilirubin (NEGATIVE) NEGATIVE Urine Urobilinogen (0.2 - 1.0 mg/dL) 0.2 Ur Leukocyte Esterase (NEGATIVE) TRACE H Urine RBC (0 - 3 RBC/HPF) 0-3 Urine WBC (0 - 3 WBC/HPF) 4-9 H Ur Squamous Epith Cells (NONE SEEN /HPF) 0-5 Urine Bacteria (NONE SEEN /HPF) TRACE Urine Mucus (NONE SEEN /LPF) 2+ H Diagnosis, Assessment Plan Problem List/A P: 1. CVA (cerebral vascular accident) 2. Left arm weakness 3. Hyperesthesia 4. Altered mental status 5. Tobacco abuse 6. Alcohol abuse Free Text A P: Discussed with the pt and her 2 sisters at the [facility]. She will benefit from IRF as DC plan. PT and family wanting her closer to home which is in [facility]. Discussed with the Case Adenike de la cruz about looking into closer IRFs. 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 01/02: Pt seen. Not eating, but seems more due to choice and does not like the food. Pt is agitated. may benefit from Fluoxieti ne for depression and stroke recovery. Started on [place]raz[place] ne for bedtime. Plan is for her to DC to [facility] rehab once medically cleared. Rehab attestation: Face to face exam completed. Treatment plan disc ussed with patient and sister Eveline Electronically Signed by Natalia Mahajan PA-C on at 1325 Addendum 1: 01/09/222011 by Natalia Mahajan PA-C Advanced Care Plan for patients age > 65 *Advanced Care Plan Discussed: [ ]Yes who, living will, POA, and code status [ ] No explain why] *Surrogate Decision Maker: [X ]Yes who , Discussed with two sisters at the bedside. Full code. [ ] No explain why Electronically Signed by Natalia Mahajan PA-C on at 2012 RPT #:[id number] END OF REPORT 2022-01-02 11:25:00-00:00 [facility] ([facility] Neurology Progress Note REPORT#:[id number] REPORT STATUS: Signed DATE:01/02/22 TIME: 112 PATIENT: MIKKI TALLEY UNIT #: [id number] ROOM/BED: [place] [address] : 51 AGE: 71 SEX: F ATTEND: Joel Donald MD ADM AUTHOR: Gamaliel Melchor MD * ALL edits or amendments must be made on the [employer] document * Subjective HPI: I reviewed the results of th e patient's transesophageal echocardiogram with the patient and family. Large amount of atherosclero tic disease in the ascending aortic arch likely explanation for the patient's embolic appearing infarct. Recommending dual antiplatelet therapy, high int ensity statin, and follow-up with cardiology for 30-day Holter monitor. Neuro logy will sign off. Please call with questions or concerns. , Gamaliel Melchor MD neurology at 1125 RPT #:[id number] END OF REPORT 2022-01-02 11:23:00-00:[address] [facility] ([facility] Consultation Note REPORT#:[id number] REPORT STATUS: Signed DATE:01/02/22 TIME: 112 PATIENT: MIKKI TALLEY UNIT #: [id number] ROOM/BED: [place] [address] : 51 AGE: 71 SEX: F ATTEND: Joel Donald MD ADM AUTHOR: John Oconnell * ALL edits or amendments must be made on the [employer] document * John Oconnell 01/02/22 1123: History of Present Illness HPI: Patient is a 71 year old female with a PMHx of H TN, GERD, scoliosis who was transferred to the hospital for an acute right MCA stroke. GI consulted for poor appetite/po intake. Patient is awake and alert, but does not engage much and does not want to answer ques tions. Information obtained from nurse, family, and chart review. Per family, erlin hinkle was npo early on in the hospitalization due to failing her swallow evaluation. There were plans for NGT placement, however, patient ultimately passed her swallow ev al, and was started on a chopped diet. She has been refusing to eat since then. Prior t o the hospitalization, family reports that patient ate ok. Per sister, patient is normally a picky eater and she may not like the food that she is being give n or the diet that she is on. Patient denies any abdominal pain, nausea, or vo miting. History - Adult longitudinal Past medical history: Reports: Alcoholism/subst abuse, GERD/gastritis, Chronic pain. Additional medical history: Scoliosis, fibromyalgia, Past surgical history: Reports: Hysterectomy, Spine surgery. Family history: Reports: Dementia/Alzheimer' s dis (Father/mother), Diabetes, Stroke/TIA (Mother) . Additional family history: Pancreatic cancer- Mother CHF, DM- Father Alcohol use: Alcohol use (H/O) Smoking status for patients 13 years old or olde r: Current every day smoker Date last smoked: 12/27/21 Packs per day: 1 Years smoked: 45 Pack years: 45 Medications: Home Medications: Medication Dose/Rte/Freq Days Qty Entered Last Max Daily Dose Reviewed GABAPENTIN (NEURONTIN) 600 MG PO BID 12/28/21 0 12/28/21 Strength: 600 MG TAB 208 228 Oxybutynin Chloride 15 MG PO DAILY 12/28/21 (DITROPAN XL) 224 228 Strength: 10 MG TAB.SR.24H DULoxetine (CYMBALTA) 30 MG PO DAILY 2 12/28/21 Strength: 30 MG 226 228 traZODone (DESYREL) 50 MG PO BEDTIME 12/28/21 0 12/28/21 Strength: 50 MG TAB 227 228 GABAPENTIN (NEURONTIN) 12/27/21 12/27/21 Strength: 600 MG TAB 2036 2039 tiZANidine (ZANAFLEX) 2 MG PO 12/27/21 2 Strength: 2 MG TAB Q6H PRN PRN 2038 2039 ALLERGIC REACTION DULoxetine (CYMBALTA) 30 MG PO DAILY 2 12/27/21 Strength: 30 MG RAÚL. 2038 2039 PANTOPRAZOLE 40 MG PO DAILY 12/27/21 (PROTONIX) 2038 2039 Strength: 40 MG TAB Allergies: Coded Allergies: pregabalin (From LYRICA) (Mild, RASH 12/27/21) morphine (UNKNOWN 12/27/21) Objective Physical Exam VS/I O: Last Documented: Result Date Time Pulse Ox 98 01/02 1115 B/P 146/64 01/02 1115 B/P Mean 0.0 01/02 1115 O2 Delivery Room air 01/02 1115 Temp 98.2 01/02 1115 Pulse 65 01/02 1115 Resp 19 01/02 1115 O2 Flow Rate 2 12/28 0800 24 hour I O ending at 0700: 01/02 0700 01/01 1900 Intake Total 150 Output Total Balance 150 Intake, Oral 150 Number Voids 2 PATIENT WEIGHT: Weight (lb): Weight (oz): Weight (kg): 82.500 Medications: Active Meds + DC'd Last 24 Hrs Clopidogrel Bisulfate (Plavix) 75 MG DAILY PO Folic Acid (FOLIC ACID) 1 MG DAILY PO Thiamine HCl (THIAMINE HCL) 100 MG DAILY PO Acetaminophen (TYLENOL) 650 MG Q4H PRN PRN PO Aspirin (ASPIRIN) 81 MG DAILY PO Atorvastatin Calcium (LIPITOR) 40 MG 2100 PO Hydrocodone Bitart/Acetaminophen (NORCO 5/325) 1 TAB Q6H PRN PRN PO Trazodone HCl (DESYREL) 50 MG BEDTIME PO Famotidine (PEPCID) 20 MG Q12HR IV Acetaminophen (TYLENOL) 650 MG Q4H PRN PRN RECTA L Hydromorphone HCl (DILAUDID) 0.5 MG Q4H PRN IV Nicotine (NICODERM) 21 MG DAILY TRANSDERM (CKD) Enoxaparin Sodium (lovENOX) 40 MG Q24H SUBQ Hydralazine HCl (APRESOLINE) 10 MG Q6H PRN PRN I V Ondansetron HCl (ZOFRAN) 4 MG Q4H PRN PRN IV Potassium Chloride/Dextrose/Sod Cl (D5 0.45%NS + KCl 20mEq 1,000mL) 1,000 ML .[id number] IV General appearance: awake HEENT: atraumatic, normocephalic Neck: decreased range of motion Cardiovascular: normal heart sounds, regular rat e rhythm Respiratory: clear to auscultation, no distress Abdomen: non-tender, soft Extremities: decreased range of motion Neuro/ITALIAN TEACHER: alert, oriented X 3 Skin: dry, intact Psychiatry: abnl judgment/insight Results Findings/Data: Laboratory Tests 01/01 2111 Chemistry POC Glucose (70 - 110 MG/DL) 96 Laboratory Tests 01/02 2144 Urines Urine Color (YEL/STRAW) YELLOW Urine Appearance (CLEAR) CLEAR Urine pH (5.0 - 7.0) 6.0 Ur Specific [place] (1.005 - 1.030) 1.014 Urine Protein (NEGATIVE) NEGATIVE Urine Glucose (UA) (NEGATIVE) NEGATIVE Urine Ketones (NEGATIVE) NEGATIVE Urine Blood (NEGATIVE) NEGATIVE Urine Nitrite (NEGATIVE) NEGATIVE Urine Bilirubin (NEGATIVE) NEGATIVE Urine Urobilinogen (0.2 - 1.0 mg/dL) 0.2 Ur Leukocyte Esterase (NEGATIVE) TRACE H Urine RBC (0 - 3 RBC/HPF) 0-3 Urine WBC (0 - 3 WBC/HPF) 4-9 H Ur Squamous Epith Cells (NONE SEEN /HPF) 0-5 Urine Bacteria (NONE SEEN /HPF) TRACE Urine Mucus (NONE SEEN /LPF) 2+ H Diagnosis, Assessment Plan Free Text DxA P Notes Free Text DxA P Notes: Assessment CVA poor po intake Plan: - pain/emesis control - acid suppressive therapy for GERD - appreciate speech therapy and dietitian recomm endations - diet as tolerated + nutritional supplements - continue to encourage po intake - discussed with family, steff eaton reassess and make further recommendations based on patient's oral intake. Nain Mahajan 01/03/22 1653: Attestations Physician Attestation Agree w/findings plan: Agree with the findings and plan as documented Mello ESCALERA; Electronically Signed by John Oconnell on at 1601 Electronically Signed by Nain Mahajan MD on 01/03 at 1653 RPT #:[id number] END OF REPORT 2022-01-02 09:36:00-00:00 [facility] Hospitalist Progress Note REPORT#:[id number] REPORT STATUS: Signed DATE:01/02/22 TIME: 935 PATIENT: MIKKI TALLEY UNIT #: [id number] ROOM/BED: [place] [address] : 51 AGE: 71 SEX: F ATTEND: Joel Donald MD ADM AUTHOR: Joel Donald MD * ALL edits or amendments must be made on the [employer] document * Subjective Chief complaint: pt is alert, but refuses to eat. Famiy at bedside is very frustrated that pt is not eating. pt says she is e ating, but is not eating enough...just a few bites. Objective General VS/I O: Vital Signs: Date Time Temp Pulse Resp B/P B/P Pulse O2 O2 F low FiO2 Mean Ox Delivery Rate 01/02 0756 97.9 72 18 167/57 0.0 96 Room air 01/02 0300 98.2 58 20 128/62 0.0 96 Room air 01/01 2330 98.4 73 20 123/88 99.2 96 Room air 01/01 1904 98.4 84 20 133/83 99.5 98 Room air 01/01 1501 68 18 159/69 99 97 01/01 1454 69 17 125/72 92 94 01/01 1400 77 17 100 01/01 1300 77 22 99 01/01 1000 62 22 94 24 hour I O ending at 0700: 01/02 0700 01/01 1900 Intake Total 150 Output Total Balance 150 Intake, Oral 150 Number Voids 2 PATIENT WEIGHT: Weight (lb): Weight (oz): Weight (kg): 82.500 Physical Exam General appearance: alert, awake Head/Eyes: atraumatic, clear cornea, EOMI, PERRL A Neck: supple/no meningismus Cardiovascular: normal heart sounds, reg ular rate rhythm, no gallop, no murmur , no rub Respiratory: aerating well, clear to auscultatio n Abdomen: non-tender, normal bowel sounds, soft, no distention Extremities: no clubbing, no cyanosis, no edema Musculoskeletal: normal inspection, painless ran ge of motion Neuro/ITALIAN TEACHER: alert, oriented X 3, CNII-XII intact Skin: dry, intact Results Radiology data: Laboratory Tests 01/01/22 0345: [Embedded Image Not Available] Current Medications Sig/Leigh Start time Last Medication Dose Route Stop Time Status Admin Folic Acid 1 MG DAILY 01/02 900 AC PO 02/01 859 Thiamine HCl 100 MG DAILY 01/02 900 AC PO 02/01 0859 Acetaminophen 650 MG Q4H PRN PRN 01/01 1515 AC 01/01 PO 01/31 1514 1538 Benzocaine/Butamben/ 0 .STK-MED ONE 01/01 1133 DC 01/01 Tetracaine HCl MM 1152 Aspirin 81 MG DAILY 01/01 0900 AC PO 01/31 0859 Atorvastatin Calcium 40 MG 2100 12/31 2100 AC 0 01/01 PO 01/30 Hydrocodone Bitart/ 1 TAB Q6H PRN PRN 12/31 210 0 AC 01/01 Acetaminophen PO 01/05 Trazodone HCl 50 MG BEDTIME 12/31 2100 AC 01/01 PO 01/30 Famotidine 20 MG Q12HR 12/29 2100 AC 01/01 IV 01/28 Acetaminophen 650 MG Q4H PRN PRN 12/28 1545 AC 12/29 RECTAL 01/27 1544 2122 Hydromorphone HCl 0.5 MG Q4H PRN 12/28 1545 AC IV 01/02 1544 Nicotine 21 MG DAILY 12/28 0615 CKD 01/01 TRANSDERM 01/27 0614 0838 Enoxaparin Sodium 40 MG Q24H 12/27 2300 AC 12/08 6 SUBQ 01/26 2259 212 Hydralazine HCl 10 MG Q6H PRN PRN 12/27 2300 AC 12/27 IV 01/26 2259 2318 Ondansetron HCl 4 MG Q4H PRN PRN 12/27 2300 AC 12/30 IV 01/26 2259 1532 Potassium Chloride/ 1,000 ML .[id number] 12/27 230 0 AC 01/01 Dextrose/Sod Cl IV 01/26 225 0846 Laboratory Tests: 01/01 01/01 2144 2111 Chemistry POC Glucose (70 - 110 MG/DL) 96 Urines Urine Color (YEL/STRAW) YELLOW Urine Appearance (CLEAR) CLEAR Urine pH (5.0 - 7.0) 6.0 Ur Specific [place] (1.005 - 1.030) 1.014 Urine Protein (NEGATIVE) NEGATIVE Urine Glucose (UA) (NEGATIVE) NEGATIVE Urine Ketones (NEGATIVE) NEGATIVE Urine Blood (NEGATIVE) NEGATIVE Urine Nitrite (NEGATIVE) NEGATIVE Urine Bilirubin (NEGATIVE) NEGATIVE Urine Urobilinogen (0.2 - 1.0 mg/dL) 0.2 Ur Leukocyte Esterase (NEGATIVE) TRACE H Urine RBC (0 - 3 RBC/HPF) 0-3 Urine WBC (0 - 3 WBC/HPF) 4-9 H Ur Squamous Epith Cells (NONE SEEN /HPF) 0-5 Urine Bacteria (NONE SEEN /HPF) TRACE Urine Mucus (NONE SEEN /LPF) 2+ H Diagnosis, Assessment Plan Free Text DxA P Notes Free text DxA P notes: Right parietal lobe stroke Neurology seen PT/OT/ST on aspirin/lipitor 40mg po qhs LDL 58.4 failed swallow test if not any better, may need a NG tube--tried NG tube last night but unable to get it will try dibohff tube echo negative may need a KAI 01/01 -passed swallow test. T EE scheduled for today. rehab transfer. PM R to see. Not eating 01/02 - pt can swallow physic ally, but behaviorially not eating...will ask psych to see and GI if PEG is indicated. Nutrition to follow. Leukocytosis no fever seen continue to mohitor 01/01- resolved check labs in am 01/01- to rehab when bed available after KAI toda y. 01/02 - difficult to dc to re hab if pt is not eating....will ask psych to see why patient is not wanting to ea t (behavior) and see if GI thinks a PEG would be of benefit. Electronically Signed by Joel Donald MD on 12/08 10/27 at 0940 RPT #:[id number] END OF REPORT 2022-01-01 12:53:00-00:[address] [facility] ([facility] Acute Rehab Consult REPORT#:[id number] REPORT STATUS: Signed DATE:01/01/22 TIME: 1253 PATIENT: MIKKI TALLEY UNIT #: [id number] ROOM/BED: [place] [address] : 51 AGE: 72 SEX: F ATTEND: Joel Donald MD ADM AUTHOR: Natalia Mahajan PA-C * ALL edits or amendments must be made on the el [employer]/computer document * See Addendum History of Present Illness HPI Reason for consult: evaluation of Rehab needs PCP: PCP: Gunner Marcos MD Requesting clinician: Dr. 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 She was in her usual health until she woke up, noted to be more confused, belligerent than her baseline and left arm weakness was noted. On admission to the ER a CT scan of the brain was p erformed and showed a acute/ subacute infarction in the right parietal lobe.M RI obtained and showed a Moderate-sized acute infarct in the right pariet al lobe. No hemorrhagic transformation. Multiple sma ll acute infarcts in bilateral caudate heads, dorsal right lentiform nucleus, and right periatrial wh ite matter. Neurology recommended ASA daily and echo with jacobsen er monitoring for 30 days as an outpt. Echo showed normal EF grade 1 diasstolic dysfunc tion. She is pending a KAI. Functional Status PT evaluation: 1. One on one supervision with cueing and karina tance provided to ensure proper performance of all activities. Yes Precautions: Fall CONFUSION IMPULSIVE Safety addressed through use of: Verbal Cues Tactile Cues Weightbearing Restrictions: No Restriction ACTIVITIES PERFORMED: Bed Mobility - Rolling: Maximal Assistance Bed Mobility - Supine to Sit: Maximal Assistanc e Bed Mobility - Sit to Supine: Maximal Assistanc e Scooting: Maximal Assistance Pivot Transfer: Not Tested Trunk control: Minimal Assistance Sit to Stand: Moderate Assistance Static Sitting: Minimal Assistance Dynamic Sitting: Minimal Assistance Static Standing: Moderate Assistance Dynamic Standing: Moderate Assistance Functional Ambulation: Not Tested Functional Exercises: BED MOBS SIT TO STANDS Durable Medical Equipment Currently Utilized: [facility] Bed Effects of Treatment: Gait quality improved Function Improved Balance Improved Post TX Precautions: In Bed, rails Up Bed Alarm Derrick Helper Light in Reach Family/Sitter at Bedside Nursing Notified O2 on Pulse OX in Place Review Plan of Care: Yes Functional Mob.Cmt: MAX ASSIST WITH BED MOBS.SI TTING ON EOB WITH MIN ASSIST.SIT TO STANDS WITH MOD ASSIST.PT NOT FOLLOWING VERBAL OR TACTILE CUES DURING STANDING.WOULD NOT HOLD ONTO L HANDLE OR STAND ERECT.FAMILY MEMBER IN THE ROOM, PT charges: FT/Therap. Activity 23356 If this is the patient's last treatment, this e ntry Start time: 1415 Stop time: 1440 Treatment Time : ( minutes) 0:25 Completed by: Kofi Lopes Conference/Supervising PT: Yes Supervising Therapist: Gianluca Lee Physical Therapy: Plan of Care PT Problem List: 1 Impaired Functional Mobil 4 Impaired Strength/ROM 3 Impaired Balance 5 Impaired Activity Chava. 7 Impaired Safety Awareness 6 Impaired ADL 8 Impaired Gait 9 Pain OT evaluation: 3. Patient positioned for comfort and privacy. 4. Exposed skin inspected before and after proc edure. 5. Patient checked for lines, tubes, dressing, incisions, and other medical devices for safe mobility and/or positioning. 6. Patient verbalizes awareness and willingness to participate as applicable. SUPERVISION: 1. One on one supervision with cueing and karina tance provided to ensure proper performance of all activities: Yes ACTIVITIES PERFORMED: Grooming and Hygiene: Yes Toileting: Yes Upper Extremity Dressing: Yes Lower Extremity Dressing: Yes [facility] Activity: Yes Precautions: Fall Requires verbal cues to direct task: Yes Reason: Impulsiveness Positions Used: Sitting on edge of bed FUNCTIONAL BALANCE DURING ACTIVITY: Fair TREATMENT OUTCOMES: Progress demonstrated toward desired goals: Yes Comments: PT SIT EOB COMPLETED ADL TRAINING. PT'S ADL REQ TOTAL A TO SPV. Document OT charges: SELF/HOME MGT/ADL [id number] If this is the patient's last treatment, this e ntry serves as the discharge summary: Y Start Time: 1008 Stop Time: 1040 Treatment time ( minutes): 0:32 Completed by: Priyanka Geiger - GROOMING/HYGIENE: Washing hands/face: Supervision or Set-up ----- Toileting: Dependent Safety awareness demonstrated ----- ----- Upper Extremity Dressing: Minimal Assistance ----- Lower Extremity Dressing: Dependent ----- . Occupational Therapy: Plan of Care ST evaluation: Swallow Addressed: Yes Hearing: No difficulty Cognitive Status/Alertness: OX4 - P/PL/T/Situat ion Precautions: Aspiration Fall Language Spoken: Kyrgyz Handoff to Nursing Staff: Bed Alarm international accounting manager Baldwin Within Reach Family Present Bed in Lowest Position Handoff to Nurse Rehabilitation Potential: Guarded Therapist recommended discharge needs: PostAcu te Speech Specific Discharge Plan: Post Acute ST S ervices Document ST Charges: [place] [address] If this is the patient's last treatment, this e ntry serves as the discharge summary: Y Time Started: 1351 Time Finished: 1411 Helen [place] e(min): 0:20 Completed by: Betzaida Hawk Items determined to be OUTSIDE the Functional L imits are as follows: Patient/nursing observations: PT ALERT, APPROPRIATE, OX4. PT REPOSITIONED TO UPRIGHT IN BED. FAMILY PRESENT IN ROOM. Oral Care Status: Good Method of Intake: NPO Current Consistency: NPO SWALLOWING PO Trials Cmt PT PRESENTED PO TRIALS OF THIN BY SPOON/CUP/STR AW, PUREE, AND REGULAR SOLID. PT WITH NO OVERT S/SX OF PEN/ASP AT BEDS COLE ACROSS CONSISTENCIES, VOICE CLEAR AND DRY, NO C/O OF GLOBUS SENSATION OR DIFFICULTY. PT WITH SENSTIVE GAG REFLEX AT BASELINE HOWEVER DID NOT INTERFERE WITH PO TRIALS TODAY. PT SITTING UPRIGHT AT MIDLINE INDEPENDEN TLY. ST EDUCATED PT ON SAFE SWALLOW/FEEDING STRATEGIES INCLUDING SITTING UP RIGHT DURING MEALS, TAKING SMALL BITES/SIPS, AND EATING SLOWLY. RECOMMEND CHOPPED DIET WITH THIN LIQUIDS WITH SUPERVISION TO ENSURE DIET TOLERAN CE AND IMPLEMENTATION OF SWALLOW STRATEGIES. ST SPOKE WITH NURSE OC NG FINDINGS AT BEDSIDE. ST TO F/U CLOSELY TO ENSURE DIET TOLERANCE. RECOMMENDATIONS: 1. CHOPPED/THIN W/ SUPERVISION 2. SKILLED ST FOR DYSPHAGIA MANAGEMENT/DIET CHAVA ERANCE TREATMENT RECOMMENDATIONS Feeding Recommendations: Supervision Diet Recommendations: IDDSI 6 Soft Bite Sized IDDSI 0 Thin Liquids Plan of care: Speech Therapy History Past medical history: Reports: Alcoholism/subst abuse, GERD/gastritis, Chronic pain. Additional medical history: Scoliosis, fibromyalgia, Past surgical history: Reports: Hysterectomy, Spine surgery. Family history: Reports: Dementia/Alzheimer' s dis (Father/mother), Diabetes, Stroke/TIA (Mother) . Additional family history: Pancreatic cancer- Mother CHF, DM- Father Alcohol use: Alcohol use (H/O) Smoking status for patients 13 years old or olde r: Current every day smoker Date last smoked: 12/27/21 Packs per day: 1 Years smoked: 45 Pack years: 45 Medications: Home Medications: Medication Dose/Rte/Freq Days Qty Entered Last Max Daily Dose Reviewed GABAPENTIN (NEURONTIN) 600 MG PO BID 12/28/21 0 12/28/21 Strength: 600 MG TAB 208 228 Oxybutynin Chloride 15 MG PO DAILY 12/28/21 (DITROPAN XL) 224 228 Strength: 10 MG TAB.SR.24H DULoxetine DR (CYMBALTA) 30 MG PO DAILY 2 12/28/21 Strength: 30 MG CAP.DR 226 228 traZODone (DESYREL) 50 MG PO BEDTIME 12/28/21 0 12/28/21 Strength: 50 MG TAB 227 228 GABAPENTIN (NEURONTIN) 12/27/21 12/27/21 Strength: 600 MG TAB 2036 2039 tiZANidine (ZANAFLEX) 2 MG PO 12/27/21 12/27/21 Strength: 2 MG TAB Q6H PRN PRN 2038 [address] (CYMBALTA) 30 MG PO DAILY 2 12/27/21 Strength: 30 MG CAP.DR [address] 40 MG PO DAILY 12/27/21 2 (PROTONIX) 2038 2039 Strength: 40 MG TAB. Current Hospital Medications: Autonomic Drugs Sig/Leigh Start time Last Medication Dose Route Stop Time Status Admin Nicotine 21 MG DAILY 12/28 614 CKD 01/01 (NICODERM) TRANSDERM 01/27 0614 0838 Blood Formation,Coagulation Sig/Leigh Start time Last Medication Dose Route Stop Time Status Admin Enoxaparin Sodium 40 MG Q24H 12/27 230 AC 12/08 5 (lovENOX) SUBQ 01/26 Cardiovascular Drugs Sig/Leigh Start time Last Medication Dose Route Stop Time Status Admin Atorvastatin Calcium 40 MG 2100 12/31 2099 AC 12/31 (LIPITOR) PO 01/30 Atorvastatin Calcium 40 MG 12/30 2100 DC (LIPITOR) FEED-TUBE 01/29 2059 Hydralazine HCl 10 MG Q6H PRN PRN 12/27 2300 AC 12/27 (APRESOLINE) IV 01/26 2259 2318 Central Nervous System Agents Sig/Leigh Start time Last Medication Dose Route Stop Time Status Admin Aspirin 81 MG DAILY 01/01 09 AC (ASPIRIN) PO 01/31 0859 Hydrocodone Bitart/ 1 TAB Q6H PRN PRN 12/31 210 0 AC 12/31 Acetaminophen PO 01/05 (NORCO 5/325) Trazodone HCl 50 MG BEDTIME 12/31 2100 AC 12/31 (DESYREL) PO 01/30 Aspirin 81 MG DAILY 12/31 09 DC (ASPIRIN) FEED-TUBE 01/30 0859 Hydrocodone Bitart/ 1 TAB Q6H PRN PRN 12/30 171 5 DC Acetaminophen FEED-TUBE 01/04 1714 (NORCO 5/325) Acetaminophen 650 MG Q4H PRN PRN 12/28 1545 AC 12/29 (TYLENOL) RECTAL 01/27 1544 2122 Hydromorphone HCl 0.5 MG Q4H PRN 12/28 1545 AC (DILAUDID) IV 01/02 1544 Electrolytic, Caloric, And Ken Sig/Leigh Start time Last Medication Dose Route Stop Time Status Admin Potassium Chloride/ 1,000 ML .[id number] 12/27 230 0 AC 01/01 Dextrose/Sod Cl IV 01/26 2259 0846 (D5 0.45%NS + KCl 20mEq 1,000mL) Gastrointestinal Drugs Sig/Leigh Start time Last Medication Dose Route Stop Time Status Admin Famotidine 20 MG Q12HR 12/29 2100 AC 01/01 (PEPCID) IV 01/28 2059 0838 Ondansetron HCl 4 MG Q4H PRN PRN 12/27 2300 AC 12/30 (ZOFRAN) IV 01/26 2259 153 Skin And Mucous Membrane Agent Sig/Leigh Start time Last Medication Dose Route Stop Time Status Admin Benzocaine/Butamben/ 0 .STK-MED ONE 01/01 1133 DC 01/01 Tetracaine HCl MM 1152 (CETACAINE) Allergies: Coded Allergies: pregabalin (From LYRICA) (Mild, RASH 12/27/21) morphine (UNKNOWN 12/27/21) Objective Physical Exam VS: Last Documented: Result Date Time Pulse Ox 96 01/01 0721 B/P 150/70 01/01 0721 B/P Mean 0.0 01/01 0721 O2 Delivery Room air 01/01 07 Temp 98.1 01/01 0721 Pulse 66 01/01 0721 Resp 18 01/01 0721 O2 Flow Rate 2 12/28 0800 PATIENT WEIGHT: Weight (lb): Weight (oz): Weight (kg): 82.500 General appearance: alert, awake HEENT: anicteric, mucosal membranes moist, scler a clear Neck: supple Cardiovascular: regular rate rhythm, S1/S2 Respiratory: aerating well, clear bilaterally Abdomen: bowel sounds present, non-distended, so ft, non-tender Skin: dry, intact, no rash Musculoskeletal - general: Musculoskeletal - general: joints normal, no at rophy Neuro/ITALIAN TEACHER: abnormal speech, disoriented, left he miparesis, down going toes, Results Findings/Data: Laboratory Tests: 01/01 0345 Chemistry Sodium (134 - 147 mEq/L) 141 Potassium (3.4 - 5.0 mEq/L) 3.6 Chloride (100 - 108 mEq/L) 111 H Carbon Dioxide (21 - 33 mEq/l) 19 L Anion Gap (0 - 20) 14 BUN (7 - 18 mg/dL) < 5 L Creatinine (0.6 - 1.3 mg/dL) 0.6 Glomerular Filtr Rate (70 - 80) 98.8 H Glucose (70 - 110 mg/dL) 92 Calcium (8.0 - 10.5 mg/dL) 9.2 Hematology WBC (4.5 - 11.0 x10 3/uL) 10.6 RBC (3.54 - 5.02 x10 6/uL) 4.51 Hgb (11.0 - 15.0 g/dL) 14.2 Hct (33.0 - 45.0 %) 42.4 MCV (81.0 - 99.0 fL) 94.0 MCH (27.0 - 33.0 pg) 31.5 MCHC (33.0 - 37.0 g/dL) 33.5 RDW (11.5 - 14.5 %) 14.2 Plt Count (150 - 400 x10 3/uL) 309 MPV (7.0 - 9.0 fL) 8.9 Neut % (Auto) (56.0 - 77.0 %) 55.5 L Lymph % (Auto) (14.0 - 32.0 %) 32.0 [place] % (Auto) (4.8 - 9.0 %) 10.3 H Eos % (Auto) (0.3 - 3.7 %) 1.0 Baso % (Auto) (0.0 - 2.0 %) 0.7 Neut # (Auto) (2.0 - 7.6 x10 3/uL) 5.90 Lymph # (Auto) (1.0 - 3.8 x10 3/uL) 3.39 [place] # (Auto) (0.1 - 0.8 x10 3/uL) 1.09 H Eos # (Auto) (0.0 - 0.2 x10 3/uL) 0.11 Baso # (Auto) (0.0 - 0.2 x10 3/uL) 0.07 Abs Immat Gran (auto) (0.00 - 0.03 x10 3/uL) 0. 05 H Add Manual Diff NO Immature Gran % (0.0 - 2.0 %) 0.5 Nucleated RBC % (0 - 0 %) 0.0 Nucleated RBCs # (Man) (0.0 - 0.1 x10 3/uL) 0.0 0 Diagnosis, Assessment Plan Problem List/A P: 1. CVA (cerebral vascular accident) 2. Left arm weakness 3. Hyperesthesia 4. Altered mental status 5. Tobacco abuse 6. Alcohol abuse Free Text A P: Discussed with the pt and her 2 sisters at the [facility]. She will benefit from IRF as DC plan. PT and family wanting her closer to home which is in [facility]. Discussed with the Case Adenike de la cruz about looking into closer IRFs. 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 Will follow and make further recommendations bas ed on rehab progress. Electronically Signed by Natalia Mahajan PA-C on at 1321 Addendum 1: 01/09/22 2011 by Natalia Mahajan PA-C Documentation of Current Medications in the [facility] Record : I attest that the foregoing medication list in [facility] medical record is true, accurate, and complete to the best of my knowled ge. Advanced Care Plan for patients age > 65 *Advanced Care Plan Discussed: [ ]Yes who, living will, POA, and code status [ ] No explain why] *Surrogate Decision Maker: [X ]Yes who , Discussed with two sisters at the bedside. Full code. [ ] No explain why Electronically Signed by Natalia Mahajan PA-C on at 2012 RPT #:[id number] END OF REPORT 2022-01-01 10:56:00-00:00 [facility]L [facility]) Hospitalist Progress Note REPORT#:[id number] REPORT STATUS: Signed DATE:01/01/22 TIME: 1056 PATIENT: MIKKI TALLEY UNIT #: [id number] ROOM/BED: [place] [address] : 51 AGE: 71 SEX: F ATTEND: Joel Donald MD ADM AUTHOR: Joel Donald MD * ALL edits or amendments must be made on the [employer] document * Subjective Chief complaint: pt is doing much better now. alert. walking with a walker. passed swallow test. no cp .no sob. awaiting KAI. Objective General VS/I O: Vital Signs: Date Time Temp Pulse Resp B/P B/P Pulse O2 O2 F low FiO2 Mean Ox Delivery Rate 01/01 0721 98.1 66 18 150/70 0.0 96 Room air 01/01 0600 58 18 94 01/01 0500 59 17 95 01/01 0400 74 25 95 01/01 0324 98.4 72 22 183/76 0.0 96 Room air 01/01 0300 59 14 183/77 111 96 01/01 0201 61 15 175/74 106 95 01/01 0155 68 20 148/67 97 96 01/01 0101 62 168/72 103 96 01/01 0000 75 158/74 106 96 12/31 2337 98.4 78 20 147/80 0.0 98 12/31 2300 79 147/70 100 12/31 2230 70 28 141/69 99 12/31 2200 71 39 12/31 2100 68 27 12/31 2000 78 27 12/31 1914 98.4 68 26 158/80 0.0 96 Nasal cannula 12/31 1900 64 16 12/31 1617 98.4 67 18 158/80 0.0 96 Room air 12/31 1130 97.3 58 18 148/65 0.0 97 24 hour I O ending at 0700: 01/01 0700 12/31 1900 Intake Total 150 Output Total 200 Balance -50 Intake, Oral 150 Output, Drainage Output, Urine 200 PATIENT WEIGHT: Weight (lb): Weight (oz): Weight (kg): 82.500 Physical Exam General appearance: alert, awake, oriented Head/Eyes: atraumatic, clear cornea, EOMI, PERRL A Neck: supple/no meningismus Cardiovascular: normal heart sounds, reg ular rate rhythm, no gallop, no murmur , no rub Respiratory: aerating well, clear to auscultatio n Abdomen: non-tender, normal bowel sounds, soft, no distention Extremities: no clubbing, no cyanosis, no edema Musculoskeletal: normal inspection, painless ran ge of motion Neuro/ITALIAN TEACHER: alert, oriented X 3, CNII-XII intact Skin: dry, intact Results Radiology data: Laboratory Tests 01/01/22 0345: [Embedded Image Not Available] Current Medications Sig/Leigh Start time Last Medication Dose Route Stop Time Status Admin Aspirin 81 MG DAILY 01/01 0900 AC PO 01/31 0859 Atorvastatin Calcium 40 MG 2100 12/31 2099 AC 12/31 PO 01/30 Hydrocodone Bitart/ 1 TAB Q6H PRN PRN 12/31 210 0 AC 12/31 Acetaminophen PO 01/05 Trazodone HCl 50 MG BEDTIME 12/31 2099 AC 12/31 PO 01/30 Aspirin 81 MG DAILY 12/31 899 DC FEED-TUBE 01/30 0859 Atorvastatin Calcium 40 MG 2100 12/30 2099 DC FEED-TUBE 01/29 2059 Hydrocodone Bitart/ 1 TAB Q6H PRN PRN 12/30 171 5 DC Acetaminophen FEED-TUBE 01/04 1714 Famotidine 20 MG Q12HR 12/29 2100 AC 01/01 IV 01/28 2059 0838 Acetaminophen 650 MG Q4H PRN PRN 12/28 1545 AC 12/29 RECTAL 01/27 1544 2122 Hydromorphone HCl 0.5 MG Q4H PRN 12/28 1545 AC IV 01/02 1544 Nicotine 21 MG DAILY 12/28 0615 CKD 01/01 TRANSDERM 01/27 06 0838 Enoxaparin Sodium 40 MG Q24H 12/27 2300 AC 12/08 5 SUBQ 01/26 2259 2224 Hydralazine HCl 10 MG Q6H PRN PRN 12/27 2300 AC 12/27 IV 01/26 2259 2318 Ondansetron HCl 4 MG Q4H PRN PRN 12/27 2300 AC 12/30 IV 01/26 2259 1532 Potassium Chloride/ 1,000 ML .[id number] 12/27 230 0 AC 01/01 Dextrose/Sod Cl IV 01/26 2259 0846 Laboratory Tests: 01/01 345 Chemistry Sodium (134 - 147 mEq/L) 141 Potassium (3.4 - 5.0 mEq/L) 3.6 Chloride (100 - 108 mEq/L) 111 H Carbon Dioxide (21 - 33 mEq/l) 19 L Anion Gap (0 - 20) 14 BUN (7 - 18 mg/dL) < 5 L Creatinine (0.6 - 1.3 mg/dL) 0.6 Glomerular Filtr Rate (70 - 80) 98.8 H Glucose (70 - 110 mg/dL) 92 Calcium (8.0 - 10.5 mg/dL) 9.2 Hematology WBC (4.5 - 11.0 x10 3/uL) 10.6 RBC (3.54 - 5.02 x10 6/uL) 4.51 Hgb (11.0 - 15.0 g/dL) 14.2 Hct (33.0 - 45.0 %) 42.4 MCV (81.0 - 99.0 fL) 94.0 MCH (27.0 - 33.0 pg) 31.5 MCHC (33.0 - 37.0 g/dL) 33.5 RDW (11.5 - 14.5 %) 14.2 Plt Count (150 - 400 x10 3/uL) 309 MPV (7.0 - 9.0 fL) 8.9 Neut % (Auto) (56.0 - 77.0 %) 55.5 L Lymph % (Auto) (14.0 - 32.0 %) 32.0 Hyde % (Auto) (4.8 - 9.0 %) 10.3 H Eos % (Auto) (0.3 - 3.7 %) 1.0 Baso % (Auto) (0.0 - 2.0 %) 0.7 Neut # (Auto) (2.0 - 7.6 x10 3/uL) 5.90 Lymph # (Auto) (1.0 - 3.8 x10 3/uL) 3.39 Hyde # (Auto) (0.1 - 0.8 x10 3/uL) 1.09 H Eos # (Auto) (0.0 - 0.2 x10 3/uL) 0.11 Baso # (Auto) (0.0 - 0.2 x10 3/uL) 0.07 Abs Immat Gran (auto) (0.00 - 0.03 x10 3/uL) 0. 05 H Add Manual Diff NO Immature Gran % (0.0 - 2.0 %) 0.5 Nucleated RBC % (0 - 0 %) 0.0 Nucleated RBCs # (Man) (0.0 - 0.1 x10 3/uL) 0.0 0 Diagnosis, Assessment Plan Free Text DxA P Notes Free text DxA P notes: Right parietal lobe stroke Neurology seen PT/OT/ST on aspirin/lipitor 40mg po qhs LDL 58.4 failed swallow test if not any better, may need a NG tube--tried NG tube last night but unable to get it will try dibohff tube echo negative may need a KAI 01/01 -passed swallow test. T EE scheduled for today. rehab transfer. PM R to see. Leukocytosis no fever seen [facility]- resolved check labs in am 01/01- to rehab when bed available after KAI rina y. Electronically Signed by Joel Donald MD on 12/08 09/27 at 1059 RPT #:[id number] END OF REPORT 2021-12-31 23:25:00-00:00 [facility] Hospitalist Progress Note REPORT#:[id number] REPORT STATUS: Signed DATE:12/31/21 TIME: 2324 PATIENT: MIKKI TALLEY UNIT #: [id number] ROOM/BED: [place] [address] : 51 AGE: 71 SEX: F ATTEND: Jose Buitrago MD ADM AUTHOR: Camila Buitrago MD * ALL edits or amendments must be made on the [employer]/computer document * Subjective Chief complaint: no acute complaints. Objective General VS/I O: Vital Signs: Date Time Temp Pulse Resp B/P B/P Pulse O2 O2 F low FiO2 Mean Ox Delivery Rate 12/31 1914 98.4 68 26 158/80 0.0 96 Nasal cannula 12/31 1617 98.4 67 18 158/80 0.0 96 Room air 12/31 1130 97.3 58 18 148/65 0.0 97 12/31 0755 97.5 77 18 140/65 0.0 97 12/31 0610 157/68 12/31 0601 85 18 119 97 12/31 0500 64 16 94 12/31 0432 97.5 75 17 106/69 0.0 95 Room air 12/31 0401 80 16 106/69 80 95 09/25 0300 58 92 12/31 0204 161/74 12/31 0200 65 17 95 12/31 0104 97.7 58 18 160/74 0.0 94 Room air 12/31 0100 60 22 94 12/31 0000 63 17 160/74 106 95 12/31 0000 97.7 58 18 160/74 102 94 24 hour I O ending at 0700: 12/31 0700 12/30 1900 Intake Total 900.00 Output Total Balance 900.00 Intake, IV 900.00 Number 4 2 Incontinent Voids PATIENT WEIGHT: Weight (lb): Weight (oz): Weight (kg): 82.500 Medications: Active Meds + DC'd Last 24 Hrs Aspirin (ASPIRIN) 81 MG DAILY PO Atorvastatin Calcium (LIPITOR) 40 MG 2100 PO Hydrocodone Bitart/Acetaminophen (NORCO 5/325) 1 TAB Q6H PRN PRN PO Trazodone HCl (DESYREL) 50 MG BEDTIME PO Aspirin (ASPIRIN) 81 MG DAILY FEED-TUBE (DC) Atorvastatin Calcium (LIPITOR) 40 MG 2100 FEED-T UBE (DC) Hydrocodone Bitart/Acetaminophen (NORCO 5/325) 1 TAB Q6H PRN PRN FEED-TUBE (DC) Flumazenil (ROMAZICON) 0.2 MG ASDIR PRN IV (DC) Naloxone HCl (NARCAN) 0.4 MG ASDIR PRN IV (DC) Famotidine (PEPCID) 20 MG Q12HR IV Acetaminophen (TYLENOL) 650 MG Q4H PRN PRN RECTA L Hydromorphone HCl (DILAUDID) 0.5 MG Q4H PRN IV Nicotine (NICODERM) 21 MG DAILY TRANSDERM (CKD) Enoxaparin Sodium (lovENOX) 40 MG Q24H SUBQ Hydralazine HCl (APRESOLINE) 10 MG Q6H PRN PRN I V Ondansetron HCl (ZOFRAN) 4 MG Q4H PRN PRN IV Potassium Chloride/Dextrose/Sod Cl (D5 0.45%NS + KCl 20mEq 1,000mL) 1,000 ML .[id number] IV Physical Exam General appearance: no acute distress Head/Eyes: atraumatic, clear cornea, EOMI, PERRL A Neck: supple/no meningismus Cardiovascular: normal heart sounds, reg ular rate rhythm, no gallop, no murmur , no rub Respiratory: aerating well, clear to auscultatio n Abdomen: non-tender, normal bowel sounds, soft, no distention Extremities: no clubbing, no cyanosis, no edema Musculoskeletal: normal inspection, painless ran ge of motion Neuro/ITALIAN TEACHER: alert, oriented X 3, CNII-XII intact Skin: dry, intact Diagnosis, Assessment Plan Free Text DxA P Notes Free text DxA P notes: Right parietal lobe stroke Neurology seen PT/OT/ST on aspirin/lipitor 40mg po qhs LDL 58.4 failed swallow test if not any better, may need a NG tube--tried NG tube last night but unable to get it will try dibohff tube echo negative may need a KAI Leukocytosis no fever seen continue to mohitor check labs in am patient more of a SNF candidate than IRF at this time. Electronically Signed by Camila Buitrago MD on 0 12/31/21 at 2327 RPT #:[id number] END OF REPORT 2021-12-31 00:02:00-00:00 [facility] Hospitalist Progress Note REPORT#:[id number] REPORT STATUS: Signed DATE:12/31/21 TIME: 1 PATIENT: MIKKI TALLEY UNIT #: [id number] ROOM/BED: [place] [address] : 51 AGE: 71 SEX: F ATTEND: Cj Irizarry MD ADM AUTHOR: Camila Buitrago MD * ALL edits or amendments must be made on the [employer]/computer document * Subjective Chief complaint: late entry progress note for 12/30/2021 no acute complaints Objective General VS/I O: Vital Signs: Date Time Temp Pulse Resp B/P B/P Pulse O2 O2 F low FiO2 Mean Ox Delivery Rate 12/30 2300 64 96 12/30 2200 76 97 12/30 2100 69 26 96 12/31 2011 67 19 150/68 98 96 12/30 1903 98.4 64 15 163/78 0.0 97 Room air 12/30 1900 61 16 97 12/30 1800 67 23 163/78 112 97 12/30 1732 66 14 158/76 109 97 12/30 1701 67 18 92 12/30 1601 64 20 94 12/30 1500 58 136/78 99 96 12/30 1401 69 26 96 12/30 1301 89 20 97 12/30 1200 65 23 146/69 99 94 12/30 1122 98.1 62 15 163/75 0.0 93 12/30 1055 63 22 163/75 108 95 12/30 0901 70 17 94 12/30 0831 77 20 145/68 98 92 12/30 0800 69 7 185/84 121 94 12/30 0737 97.9 72 15 148/68 0.0 95 12/30 0701 66 21 93 12/30 0450 98.2 71 12 152/70 0.0 96 Room air 12/30 0019 97.3 70 12 158/70 0.0 94 Room air 24 hour I O ending at 0700: 12/31 0700 12/30 1900 Intake Total Output Total Balance Number 3 2 Incontinent Voids PATIENT WEIGHT: Weight (lb): Weight (oz): Weight (kg): 82.500 Medications: Active Meds + DC'd Last 24 Hrs Aspirin (ASPIRIN) 81 MG DAILY FEED-TUBE Atorvastatin Calcium (LIPITOR) 40 MG 2100 FEED-T UBE Hydrocodone Bitart/Acetaminophen (NORCO 5/325) 1 TAB Q6H PRN PRN FEED-TUBE Flumazenil (ROMAZICON) 0.2 MG ASDIR PRN IV Naloxone HCl (NARCAN) 0.4 MG ASDIR PRN IV Atorvastatin Calcium (LIPITOR) 40 MG 2100 PO (DC ) Famotidine (PEPCID) 20 MG Q12HR IV Acetaminophen (TYLENOL) 650 MG Q4H PRN PRN RECTA L Hydromorphone HCl (DILAUDID) 0.5 MG Q4H PRN IV Aspirin (ASPIRIN) 81 MG DAILY PO (DC) Nicotine (NICODERM) 21 MG DAILY TRANSDERM (CKD) Enoxaparin Sodium (lovENOX) 40 MG Q24H SUBQ Hydralazine HCl (APRESOLINE) 10 MG Q6H PRN PRN I V Hydrocodone Bitart/Acetaminophen (NORCO 5/325) 1 TAB Q6H PRN PRN PO (DC) Ondansetron HCl (ZOFRAN) 4 MG Q4H PRN PRN IV Potassium Chloride/Dextrose/Sod Cl (D5 0.45%NS + KCl 20mEq 1,000mL) 1,000 ML .[id number] IV Physical Exam General appearance: no acute distress Head/Eyes: atraumatic, clear cornea, EOMI, PERRL A Neck: supple/no meningismus Cardiovascular: normal heart sounds, reg ular rate rhythm, no gallop, no murmur , no rub Respiratory: aerating well, clear to auscultatio n Abdomen: non-tender, normal bowel sounds, soft, no distention Extremities: no clubbing, no cyanosis, no edema Musculoskeletal: normal inspection, painless ran ge of motion Neuro/ITALIAN TEACHER: alert, oriented X 3, CNII-XII intact Skin: dry, intact Results Findings/Data: Laboratory Tests 12/30 0510 Chemistry Sodium (134 - 147 mEq/L) 140 Potassium (3.4 - 5.0 mEq/L) 3.7 Chloride (100 - 108 mEq/L) 108 Carbon Dioxide (21 - 33 mEq/l) 20 L Anion Gap (0 - 20) 15 BUN (7 - 18 mg/dL) < 5 L Creatinine (0.6 - 1.3 mg/dL) 0.6 Glomerular Filtr Rate (70 - 80) 98.8 H Glucose (70 - 110 mg/dL) 104 Calcium (8.0 - 10.5 mg/dL) 9.1 Laboratory Tests 12/30 0510 Hematology WBC (4.5 - 11.0 x10 3/uL) 9.2 RBC (3.54 - 5.02 x10 6/uL) 4.31 Hgb (11.0 - 15.0 g/dL) 13.8 Hct (33.0 - 45.0 %) 40.5 MCV (81.0 - 99.0 fL) 94.0 MCH (27.0 - 33.0 pg) 32.0 MCHC (33.0 - 37.0 g/dL) 34.1 RDW (11.5 - 14.5 %) 14.1 Plt Count (150 - 400 x10 3/uL) 287 MPV (7.0 - 9.0 fL) 8.9 Neut % (Auto) (56.0 - 77.0 %) 63.9 Lymph % (Auto) (14.0 - 32.0 %) 23.1 Hyde % (Auto) (4.8 - 9.0 %) 12.0 H Eos % (Auto) (0.3 - 3.7 %) 0.2 L Baso % (Auto) (0.0 - 2.0 %) 0.4 Neut # (Auto) (2.0 - 7.6 x10 3/uL) 5.90 Lymph # (Auto) (1.0 - 3.8 x10 3/uL) 2.13 Hyde # (Auto) (0.1 - 0.8 x10 3/uL) 1.11 H Eos # (Auto) (0.0 - 0.2 x10 3/uL) 0.02 Baso # (Auto) (0.0 - 0.2 x10 3/uL) 0.04 Abs Immat Gran (auto) (0.00 - 0.03 x10 3/uL) 0. 04 H Add Manual Diff NO Immature Gran % (0.0 - 2.0 %) 0.4 Nucleated RBC % (0 - 0 %) 0.0 Nucleated RBCs # (Man) (0.0 - 0.1 x10 3/uL) 0.0 0 Diagnosis, Assessment Plan Free Text DxA P Notes Free text DxA P notes: Right parietal lobe stroke Neurology seen PT/OT/ST on aspirin/lipitor 40mg po qhs LDL 58.4 failed swallow test if not any better, may need a NG tube echo negative may need a KAI Leukocytosis no fever seen continue to [facility] check labs in am patient more of a SNF candidate than IRF at this time. Electronically Signed by Camila Buitrago MD on 0 12/31/21 at 0953 RPT #:[id number] END OF REPORT 2021-12-30 17:24:00-00:[address] [facility] ([facility] Cardiology Consultation REPORT#:[id number] REPORT STATUS: Signed DATE:12/30/21 TIME: 1723 PATIENT: MIKKI TALLEY UNIT #: [id number] ROOM/BED: [place] [address] : 51 AGE: 72 SEX: F ATTEND: Joel Donald MD ADM AUTHOR: Phong Rivers MD * ALL edits or amendments must be made on the [employer] document * History - Adult longitudinal Past medical history: Reports: Alcoholism/subst abuse, GERD/gastritis, Chronic pain. Additional medical history: Scoliosis, fibromyalgia, Past surgical history: Reports: Hysterectomy, Spine surgery. Family history: Reports: Dementia/Alzheimer' s dis (Father/mother), Diabetes, Stroke/TIA (Mother) . Additional family history: Pancreatic cancer- Mother CHF, DM- Father Alcohol use: Alcohol use (H/O) Smoking status for patients 13 years old or olde r: Current every day smoker Date last smoked: 12/27/21 Packs per day: 1 Years smoked: 45 Pack years: 45 Allergies: Coded Allergies: pregabalin (From LYRICA) (Mild, RASH 12/27/21) morphine (UNKNOWN 12/27/21) Objective Physical Exam General appearance: no acute distress Electronically Signed by Phong Rivers MD on at 1258 RPT #:[id number] END OF REPORT 2021-12-30 17:23:00-00:00 [facility] ([facility]) Clinical Note REPORT#:[id number] REPORT STATUS: Signed DATE:12/30/21 TIME: 172 PATIENT: MIKKI TALLEY UNIT #: [id number] ROOM/BED: [place] [address] : 51 AGE: 71 SEX: F ATTEND: Cj Irizarry MD ADM AUTHOR: Phong Rivers MD * ALL edits or amendments must be made on the [employer] document * Clinical Note Note: KAI SATURDAY Electronically Signed by Phong Rivers MD on at 1723 RPT #:[id number] END OF REPORT 2021-12-29 15:22:00-00:00 [facility] ([facility]) Hospitalist Progress Note REPORT#:[id number] REPORT STATUS: Signed DATE:12/29/21 TIME: 152 PATIENT: MIKKI TALLEY UNIT #: [id number] ROOM/BED: [place] [address] : 51 AGE: 71 SEX: F ATTEND: Cj Irizarry MD ADM AUTHOR: Camila Buitrago MD * ALL edits or amendments must be made on the el [employer]/computer document * Subjective Chief complaint: She is very agitated today. She failed a swallow test again. She is in the bed naked. Sister at the bedside. Objective General VS/I O: Vital Signs: Date Time Temp Pulse Resp B/P B/P Pulse O2 O2 F low FiO2 Mean Ox Delivery Rate 12/29 1149 98.2 72 26 164/79 0.0 93 Room air 12/29 0705 98.6 73 21 139/65 0.0 97 12/29 0632 79 19 91 12/29 0600 78 25 175/79 114 95 12/29 0541 65 24 95 12/29 0500 77 28 157/74 106 92 12/29 0403 97.5 82 16 157/82 0.0 95 Room air 12/29 0400 81 157/82 111 92 12/29 0300 86 149/69 99 93 12/29 0257 82 94 12/29 0200 80 143/67 97 92 12/29 0149 81 91 12/29 0100 81 162/77 111 93 12/29 0031 98.1 79 14 151/75 0.0 93 Room air 12/29 0000 93 36 151/75 106 92 12/28 2338 143/78 101 12/28 2300 94 24 94 12/28 2033 84 169/80 115 92 12/28 1616 75 161/74 107 95 12/28 1616 98.1 77 18 161/74 0.0 96 Room air 24 hour I O ending at 0700: 12/29 0700 12/28 1900 Intake Total Output Total Balance Number 3 1 Incontinent Voids PATIENT WEIGHT: Weight (lb): Weight (oz): Weight (kg): 82.500 Medications: Active Meds + DC'd Last 24 Hrs Atorvastatin Calcium (LIPITOR) 40 MG 2100 PO Acetaminophen (TYLENOL) 650 MG Q4H PRN PRN RECTA L Hydromorphone HCl (DILAUDID) 0.5 MG Q4H PRN IV Aspirin (ASPIRIN) 81 MG DAILY PO Nicotine (NICODERM) 21 MG DAILY TRANSDERM (CKD) Acetaminophen (TYLENOL) 650 MG Q4H PRN PRN PO (D C) Enoxaparin Sodium (lovENOX) 40 MG Q24H SUBQ Hydralazine HCl (APRESOLINE) 10 MG Q6H PRN PRN I V Hydrocodone Bitart/Acetaminophen (NORCO 5/325) 1 TAB Q6H PRN PRN PO Ondansetron HCl (ZOFRAN) 4 MG Q4H PRN PRN IV Potassium Chloride/Dextrose/Sod Cl (D5 0.45%NS + KCl 20mEq 1,000mL) 1,000 ML .[id number] IV Acetaminophen (TYLENOL) 650 MG Q4H PRN PRN PO (D C) Ondansetron HCl (ZOFRAN) 4 MG Q6H PRN PRN IV (DC ) Sodium Chloride (SODIUM CHLORIDE 0.9%) 1,000 ML .Q10H IV (DC) Physical Exam General appearance: no acute distress Head/Eyes: atraumatic, clear cornea, EOMI, PERRL A Neck: supple/no meningismus Cardiovascular: normal heart sounds, reg ular rate rhythm, no gallop, no murmur , no rub Respiratory: aerating well, clear to auscultatio n Abdomen: non-tender, normal bowel sounds, soft, no distention Extremities: no clubbing, no cyanosis, no edema Musculoskeletal: normal inspection, painless ran ge of motion Neuro/ITALIAN TEACHER: alert, oriented X 3, CNII-XII intact Skin: dry, intact Results Findings/Data: Laboratory Tests 12/29 436 Chemistry Sodium (134 - 147 mEq/L) 134 Potassium (3.4 - 5.0 mEq/L) 3.8 Chloride (100 - 108 mEq/L) 106 Carbon Dioxide (21 - 33 mEq/l) 23 Anion Gap (0 - 20) 9 BUN (7 - 18 mg/dL) 5 L Creatinine (0.6 - 1.3 mg/dL) 0.7 Glomerular Filtr Rate (70 - 80) 82.7 H Glucose (70 - 110 mg/dL) 124 H Calcium (8.0 - 10.5 mg/dL) 9.6 Laboratory Tests 12/29 436 Hematology WBC (4.5 - 11.0 x10 3/uL) 11.0 RBC (3.54 - 5.02 x10 6/uL) 4.18 Hgb (11.0 - 15.0 g/dL) 13.4 Hct (33.0 - 45.0 %) 39.3 MCV (81.0 - 99.0 fL) 94.0 MCH (27.0 - 33.0 pg) 32.1 MCHC (33.0 - 37.0 g/dL) 34.1 RDW (11.5 - 14.5 %) 14.4 Plt Count (150 - 400 x10 3/uL) 307 MPV (7.0 - 9.0 fL) 9.6 H Neut % (Auto) (56.0 - 77.0 %) 71.8 Lymph % (Auto) (14.0 - 32.0 %) 18.4 Hyde % (Auto) (4.8 - 9.0 %) 9.0 Eos % (Auto) (0.3 - 3.7 %) 0.1 L Baso % (Auto) (0.0 - 2.0 %) 0.3 Neut # (Auto) (2.0 - 7.6 x10 3/uL) 7.91 H Lymph # (Auto) (1.0 - 3.8 x10 3/uL) 2.03 Hyde # (Auto) (0.1 - 0.8 x10 3/uL) 0.99 H Eos # (Auto) (0.0 - 0.2 x10 3/uL) 0.01 Baso # (Auto) (0.0 - 0.2 x10 3/uL) 0.03 Abs Immat Gran (auto) (0.00 - 0.03 x10 3/uL) 0. 04 H Add Manual Diff NO Immature Gran % (0.0 - 2.0 %) 0.4 Nucleated RBC % (0 - 0 %) 0.0 Nucleated RBCs # (Man) (0.0 - 0.1 x10 3/uL) 0.0 0 Microbiology Date/Time Procedure - Status Source Growth 12/28 2199 MRSA DNA Surveillance Screen - COMP NASAL Diagnosis, Assessment Plan Free Text DxA P Notes Free text DxA P notes: Right parietal lobe stroke Neurology seen PT/OT/ST on aspirin/lipitor 40mg po qhs LDL 58.4 failed swallow test if not any better, may need a NG tube echo negative Leukocytosis no fever [facility] in am patient more of a SNF candidate than IRF at this time. Electronically Signed by Camila Buitrago MD on 0 12/29/21 at 1525 RPT #:[id number] END OF REPORT 2021-12-29 10:51:00-00:00 [facility] Neurology Progress Note REPORT#:[id number] REPORT STATUS: Signed DATE:12/29/21 TIME: 1051 PATIENT: MIKKI TALLEY UNIT #: [id number] ROOM/BED: [place] [address] : 51 AGE: 71 SEX: F ATTEND: Cj Irizarry MD ADM AUTHOR: Adriana Sexton * ALL edits or amendments must be made on the [employer]/computer document * Adriana Sexton 12/29/21 1051: Subjective Chief complaint: Left arm and hand weakness HPI: Patient is confused, irritable and restless. Sis ter at bedside. Review of Systems Free Text ROS Notes Free Text ROS Notes: A 12 point review of systems was reviewed with t he patient and negative other than noted in HPI. Objective General VS: Last Documented: Result Date Time Pulse Ox 97 12/29 0705 B/P 139/65 12/29 0705 B/P Mean 0.0 12/29 0705 Temp 98.6 12/29 0705 Pulse 73 12/29 0705 Resp 21 12/29 0705 O2 Delivery Room air 12/29 0403 O2 Flow Rate 2 12/28 0800 PATIENT WEIGHT: Weight (lb): Weight (oz): Weight (kg): 82.500 Medications Current Home Medications GABAPENTIN (NEURONTIN) 600 MG PO BID Oxybutynin Chloride (DITROPAN XL) 15 MG PO DAILY DULoxetine DR (CYMBALTA) 30 MG PO DAILY traZODone (DESYREL) 50 MG PO BEDTIME GABAPENTIN (NEURONTIN) tiZANidine (ZANAFLEX) 2 MG PO Q6H PRN PRN ALLERG IC REACTION DULoxetine DR (CYMBALTA) 30 MG PO DAILY PANTOPRAZOLE DR (PROTONIX) 40 MG PO DAILY Active Meds + DC'd Last 24 Hrs Atorvastatin Calcium (LIPITOR) 40 MG 2100 PO Acetaminophen (TYLENOL) 650 MG Q4H PRN PRN RECTA L Hydromorphone HCl (DILAUDID) 0.5 MG Q4H PRN IV Aspirin (ASPIRIN) 300 MG ONCE ONE RECTAL (DC) Aspirin (ASPIRIN) 81 MG DAILY PO Nicotine (NICODERM) 21 MG DAILY TRANSDERM (CKD) Acetaminophen (TYLENOL) 650 MG Q4H PRN PRN PO (D C) Enoxaparin Sodium (lovENOX) 40 MG Q24H SUBQ Hydralazine HCl (APRESOLINE) 10 MG Q6H PRN PRN I V Hydrocodone Bitart/Acetaminophen (NORCO 5/325) 1 TAB Q6H PRN PRN PO Ondansetron HCl (ZOFRAN) 4 MG Q4H PRN PRN IV Potassium Chloride/Dextrose/Sod Cl (D5 0.45%NS + KCl 20mEq 1,000mL) 1,000 ML .[id number] IV Acetaminophen (TYLENOL) 650 MG Q4H PRN PRN PO (D C) Ondansetron HCl (ZOFRAN) 4 MG Q6H PRN PRN IV (DC ) Sodium Chloride (SODIUM CHLORIDE 0.9%) 1,000 ML .Q10H IV (DC) Dietitian nutrition assessment The data set between the solid lines has been im ported from the dietitian's assessment. BMI Calculated: 31.2 Nutrition related diagnosis: Nutrition diagnosis details: Nutrition problem: Nutrition etiology: Nutrition signs and symptoms: Nutrition prescription: Dietitian name: Assessment completed: Physical Exam Neuro comment: Neuro Exam: Limited due to altered mental status /confusion/irritability Mental Status: Oriented to person Language: no aphasia, mild dysarthria Coordination: No ataxia or tremor noted to right arm. Left arm weakness. Cranial Nerves: Limited to observation III, IV, : EOM intact, No gaze preference, Left visual field deficit present. V, VII: Normal facial expression, No facial pare sis or Nasolabial fold flattening. VIII:Hearing is intact to speech IX, X: Not tested XI, XII: Not tested Motor: Normal Tone and muscle bulk in all extrem ities and movement in all extremities except left arm. AG RUE, LLE, RLE, no drift, normal tone, full ROM, but does not participate with strength testing. Sensory: Hypersensation to Light touch Gait /Station: Deferred Treatment Prophylaxis IV Thrombolytic Therapy Exclusion criteria: LKW > 4.5 hrs of Unknown Diagnosis, Assessment Plan Free Text A P: Patient is a 71-year-old female with a past [facility] history of HTN, GERD, chronic pain, Scoliosis, multiple back surgeries , Osteoporosis, fibromyalgia, and left upper extremity ashutosh ropathy after having a cervical spine injection who is transfered from OSH for acute right MCA strok e. Neurology is consulted for further work up and management. Acute right MCA stroke Right parietal lobe acute infarct Left arm/hand weakness Homonymous hemianopsia Hyperesthesia Altered mental status HTN Chronic back pain -MRI Brain: Right parietal stroke and several sm all areas of acute ischemia, neurologist reviewed -Frequent Neuro-checks (q4h) -Permissive HTN for 24 hrs -Baseline EKG and CXR -Trans-thoracic echocardiogram -Continuous cardiac telemetry to monitor for arr hythmia -HgbA1C: 5.2, Lipid panel: LDL 58 -Aspirin 81 mg daily -Atorvastatin 40mg daily (Long-term goal LDL <70 mg/dl) -Stroke education and prevention counseling -PT/OT/ST eval -Consult Nutrition Intern and Case Manageme nt to help initiate discharge planning 12/29 -PT/OT/ST -Recommend Holter monitoring 30 days as outpatie nt -Echo EF 55-60% -Continue ASA/Atorvastatin -Recommend KAI -Cardiology consulted -PT/OT/ST Prophylaxis: SCD s (DVT), LMWH Disp: Neurology will follow. Plan of care, and MRI results neurologist discussed with patient's sisters. Neurologist examined the patient, personally rev iewed all pertinent data including imaging and formulated the plan of car e together with the Nurse practitioner. NADER distinctive service time: 30 m inutes. NADER and Physician shared Service Time: 5 minutes discussing Diagno sis, Exam and Plan of Care. Adriana Sexton APRN-BROACHING MACHINE REPAIRER for Gamaliel Melchor MD [facility] Hospitalist. Gamaliel Melchor 12/29/21 1420: Attestations Physician Attestation Agree w/findings plan: No significant changes. The patient remains rest less, irritable, with diminished movement on the left. She is intermittently confused and combative. I reviewed results of MRI with patient and famil y indicating likely embolic phenomenon. Recommending tra nsesophageal echocardiogram with cardiology consult and 30-day Holter monitor at discharge. Would continue rectal aspirin for now until the patient passes swallow evaluation. I have personally seen and e xamined this patient and agree with the findings and plan noted in the note above. ,Gamaliel Melchor MD at 1421 at 9278 RPT #:[id number] END OF REPORT 2021-12-28 23:22:00-00:00 [facility]) Hospitalist Progress Note REPORT#:[id number] REPORT STATUS: Signed DATE:12/28/21 TIME: 2321 PATIENT: MIKKI TALLEY UNIT #: [id number] ROOM/BED: [place] [address] : 51 AGE: 71 SEX: F ATTEND: Cj Irizarry MD ADM AUTHOR: Camila Buitrago MD * ALL edits or amendments must be made on the [employer]/computer document * Subjective Chief complaint: Acute Right parietal lobe stroke Objective General VS/I O: Vital Signs: Date Time Temp Pulse Resp B/P B/P Pulse O2 O2 F low FiO2 Mean Ox Delivery Rate 12/28 161 75 161/74 107 95 12/28 1616 98.1 77 18 161/74 0.0 96 Room air 12/28 1306 87 124/85 100 92 12/28 1108 97.5 84 20 145/76 98.9 94 Room air 12/28 0805 80 25 146/72 102 93 12/28 0805 98.1 78 20 146/72 0.0 94 Room air 12/28 0800 Nasal 2 cannula 12/28 0700 139/63 91 12/28 0601 103 133/68 85 93 12/28 0501 93 169/81 116 94 12/28 0441 95 14 151/73 0.0 93 12/28 0400 97 151/73 105 92 12/28 0300 99 142/72 98 12/28 0200 88 22 148/65 93 94 12/28 0140 Nasal 2 cannula 12/28 0100 86 22 163/77 110 93 12/28 0001 98.9 96 18 155/64 92 94 12/27 2345 99 163/67 102 93 24 hour I O ending at 0700: 12/28 0700 12/27 1900 Intake Total 875.00 Output Total Balance 875.00 Intake, IV 875.00 Number 2 Incontinent Voids Patient 182 lb Weight Weight Bed scale Measurement Method PATIENT WEIGHT: Weight (lb): Weight (oz): Weight (kg): 82.500 Medications: Active Meds + DC'd Last 24 Hrs Acetaminophen (TYLENOL) 650 MG Q4H PRN PRN RECTA L Hydromorphone HCl (DILAUDID) 0.5 MG Q4H PRN IV Aspirin (ASPIRIN) 300 MG ONCE ONE RECTAL (DC) Aspirin (ASPIRIN) 81 MG DAILY PO Nicotine (NICODERM) 21 MG DAILY TRANSDERM (CKD) Acetaminophen (TYLENOL) 650 MG Q4H PRN PRN PO (D C) Enoxaparin Sodium (lovENOX) 40 MG Q24H SUBQ Hydralazine HCl (APRESOLINE) 10 MG Q6H PRN PRN I V Hydrocodone Bitart/Acetaminophen (NORCO 5/325) 1 TAB Q6H PRN PRN PO Ondansetron HCl (ZOFRAN) 4 MG Q4H PRN PRN IV Potassium Chloride/Dextrose/Sod Cl (D5 0.45%NS + KCl 20mEq 1,000mL) 1,000 ML .[id number] IV Acetaminophen (TYLENOL) 650 MG Q4H PRN PRN PO (D C) Ondansetron HCl (ZOFRAN) 4 MG Q6H PRN PRN IV (D C) Sodium Chloride (SODIUM CHLORIDE 0.9%) 1,000 ML .Q10H IV (DC) Physical Exam General appearance: alert, awake, oriented, no a cute distress Head/Eyes: atraumatic, clear cornea, EOMI, PERRL A Neck: supple/no meningismus Cardiovascular: normal heart sounds, reg ular rate rhythm, no gallop, no murmur , no rub Respiratory: aerating well, clear to auscultatio n Abdomen: non-tender, normal bowel sounds, soft, no distention Extremities: no clubbing, no cyanosis, no edema Musculoskeletal: normal inspection, painless ran ge of motion Neuro/ITALIAN TEACHER: alert, oriented X 3, CNII-XII intact Skin: dry, intact Results Findings/Data: Laboratory Tests 12/28 499 Chemistry Sodium (134 - 147 mEq/L) 139 Potassium (3.4 - 5.0 mEq/L) 3.6 Chloride (100 - 108 mEq/L) 106 Carbon Dioxide (21 - 33 mEq/l) 25 Anion Gap (0 - 20) 11 BUN (7 - 18 mg/dL) 7 Creatinine (0.6 - 1.3 mg/dL) 0.8 Glomerular Filtr Rate (70 - 80) 70.9 Glucose (70 - 110 mg/dL) 115 H Calcium (8.0 - 10.5 mg/dL) 9.4 Triglycerides (40 - 150 mg/dL) 59 Cholesterol (<200 mg/dL) 163 LDL Cholesterol Measurd (0 - 100 mg/dL) 58.4 HDL Cholesterol (39 - 96 mg/dL) 82.9 Cholesterol/HDL Ratio (3.27 - 4.44 RATIO) 1.97 L Laboratory Tests 12/28 050 Hematology WBC (4.5 - 11.0 x10 3/uL) 13.2 H RBC (3.54 - 5.02 x10 6/uL) 4.07 Hgb (11.0 - 15.0 g/dL) 13.1 Hct (33.0 - 45.0 %) 39.0 MCV (81.0 - 99.0 fL) 95.8 MCH (27.0 - 33.0 pg) 32.2 MCHC (33.0 - 37.0 g/dL) 33.6 RDW (11.5 - 14.5 %) 14.6 H Plt Count (150 - 400 x10 3/uL) 310 MPV (7.0 - 9.0 fL) 9.1 H Neut % (Auto) (56.0 - 77.0 %) 78.5 H Lymph % (Auto) (14.0 - 32.0 %) 11.7 L Hyde % (Auto) (4.8 - 9.0 %) 9.1 H Eos % (Auto) (0.3 - 3.7 %) 0.0 L Baso % (Auto) (0.0 - 2.0 %) 0.2 Neut # (Auto) (2.0 - 7.6 x10 3/uL) 10.33 H Lymph # (Auto) (1.0 - 3.8 x10 3/uL) 1.54 Hyde # (Auto) (0.1 - 0.8 x10 3/uL) 1.20 H Eos # (Auto) (0.0 - 0.2 x10 3/uL) 0.00 Baso # (Auto) (0.0 - 0.2 x10 3/uL) 0.03 Abs Immat Gran (auto) (0.00 - 0.03 x10 3/uL) 0. 06 H Add Manual Diff NO Immature Gran % (0.0 - 2.0 %) 0.5 Nucleated RBC % (0 - 0 %) 0.0 Nucleated RBCs # (Man) (0.0 - 0.1 x10 3/uL) 0.0 0 Radiology data: Recent Impressions: MAGNETIC RESONANCE IMAGING - MRI BRAIN W/O CONT 12/28 1018 Report Impression - Status: SIGNED Entered: 12/28/2021 1109 IMPRESSION: Moderate-sized acute infarct in the right pariet al lobe. No hemorrhagic transformation. Multiple small acute infarcts in bilateral caudate heads, dorsal right lentiform nucleus, and right periatrial white matter. Impression By: [email or web address] - Savannah Li Diagnosis, Assessment Plan Free Text DxA P Notes Free text DxA P notes: Right parietal lobe stroke Neurology seen PT/OT/ST on aspirin/lipitor 40mg po qhs LDL 58.4 Leukocytosis no fever seen continue to [facility] check labs in am Electronically Signed by Camila Buitrago MD on 0 12/28/21 at 2326 RPT #:[id number] END OF REPORT 2021-12-28 17:51:00-00:00 [id number] [place] [id number] PATIENT NAME: MIKKI TALLEY ADMIT DATE: 2 ACCOUNT NO: [id number] ROOM NO: G.604 AGE: 71 REPORT TYPE: eECHOCARDIOGRAM REPORT SEX: F ADMITTING PHYSICIAN:Cj Irizarry MD ATTENDING PHYSICIAN:Cj Irizarry MD *[address] [place] [address] Transthoracic Echocardiogram Patient: Mikki Talley Study Date: 12/28/2021 BP: Location: [facility] URN: [id number] 2003 : 1950 Age: 71 Height: 64 in / 162.6 cm Gender: F Weight: 181 lb / 82.3 kg BMI/BSA: 31.1 kg/m 2 / 1.96 m 2 *Ordering Physician: * Cj Irizarry *Interpreting Physician: * Breezy Manzo MD *Assistant Professor Of Religion: Landy Lorenz [facility] Indications: Acute stroke. Study data: Transthoracic echocardiogram. Proced ure: Transthoracic echocardiography was performed. The study was te chnically limited due to poor patient compliance. Complete 2D, complete s pectral Doppler, and color Doppler. Location: Bedside. Patient room n umber: 604. Findings Left ventricle: The cavity size is normal. Wall thickness is normal. Systolic function is normal. The estimated eject ion fraction is 55-60%. Wall motion is normal; there are no regional wal l motion abnormalities. Doppler parameters are consistent with abnormal left ventricular relaxation (grade 1 diastolic dysfunction). Right ventricle: The cavity size is normal. Syst olic function is normal. PATIENT NAME: MIKKI TALLEY 2003 Left atrium: The atrium is normal in size. Right atrium: The atrium is normal in size. Aorta: Aortic root: The aortic root is normal in size. Aortic valve: The valve is structurally normal. The valve is trileaflet. There is no evidence of stenosis. Th ere is no regurgitation. Mitral valve: The valve is structurally normal. There is no evidence of stenosis. There is no regurgitation. Tricuspid valve: The valve is structurally candice l. There is no regurgitation. Pulmonic valve: The valve is structurally normal . There is no regurgitation. Pericardium: There is no pericardial effusion. Pulmonary arteries: The main pulmonary artery is normal-sized. Systemic veins: Inferior vena cava: The vessel is normal in size . Measurements Left ventricle Value Ref HUGO, LAX 3.6 cm 3.8 - 5.2 ESD, LAX 2.6 cm 2.2 - 3.5 ESD/bsa, LAX 1.3 cm/m 2 1.3 - 2.1 FS, LAX 28 % 27 - 45 PW, ED 1.1 cm 0.6 - 0.9 IVS/PW, ED 1.04 --------- EF 55 % 54 - 74 E', lat yohan, TDI 11.0 cm/sec >=10.0 E/e', lat yohan, 7 --------- TDI E', med yohan, TDI 8.0 cm/sec >=7.0 E/e', med yohan, 10 --------- TDI E', avg, TDI 9.5 cm/sec --------- E/e', avg, TDI 9 <=14 LVOT Value Ref Diam, S 2.17 cm --------- Area 3.7 cm 2 --------- Peak alisa, S 1.34 m/sec --------- Mean alisa, S 0.92 m/sec --------- VTI, S 25.9 cm --------- Peak grad, S 7 mm Hg --------- Mean grad, S 4 mm Hg --------- SV 96 ml --------- Qs 8.39 L/min --------- Qs/bsa 4.3 L/(min-m 2) --------- SV/bsa 49 ml/m 2 --------- Ventricular septum Value Ref IVS, ED 1.2 cm 0.6 - 0.9 PATIENT NAME: MIKKI TALLEY 2003 Right ventricle Value Ref HUGO, LAX 2.2 cm --------- Pressure, S 20 mm Hg --------- Left atrium Value Ref AP dim, ES 3.41 cm 2.70 - 3.80 Vol/bsa, ES, 1-p 23 ml/m 2 11 - 40 A4C Vol, ES, 2-p 52 ml --------- Vol/bsa, ES, 2-p 27 ml/m 2 16 - 34 Vol/bsa, ES, A/L 25 ml/m 2 16 - 34 Right atrium Value Ref Area, ES 13 cm 2 10 - 18 Aortic valve Value Ref Peak v, S 1.78 m/sec --------- Mean v, S 1.2 m/sec --------- VTI, S 31.9 cm --------- Mean grad, S 6.5 mm Hg --------- Peak grad, S 12.6 mm Hg --------- LVOT/AV, VTI 0.81 --------- ratio NADEGE, VTI 3.01 cm 2 --------- LVOT/AV, Vpeak 0.75 --------- ratio NADEGE, Vmax 2.80 cm 2 --------- Mitral valve Value Ref Peak E 0.1 m/sec --------- Peak A 1.1 m/sec --------- Mean v, D 0.81 m/sec --------- VTI leaflet 20.1 cm --------- coapt Decel time 123 ms --------- PHT 21 ms --------- Mean grad, D 3.0 mm Hg --------- Peak grad, D 7.7 mm Hg --------- Peak E/A ratio 0.74 --------- MVA, PHT 10.4 cm 2 --------- Pulmonic valve Value Ref AZ v, ED 0.87 m/sec --------- Tricuspid valve Value Ref TR peak v 2.06 m/sec <=2.8 Peak RV-RA grad, 17 mm Hg --------- S Aortic root Value Ref Root diam 3.1 cm <4.1 Ascending aorta Value Ref PATIENT NAME: MIKKI TALLEY 2003 AAo AP diam, S 3.0 cm --------- AAo AP diam/bsa, 1.5 cm/m 2 --------- S Pulmonary artery Value Ref Pressure, S 13.7 mm Hg --------- Systemic veins Value Ref Estimated CVP 3 mm Hg --------- Conclusions Summary: Left ventricle: The cavity size is norm al. Wall thickness is normal. Systolic function is normal. The estimat ed ejection fraction is 55-60%. Wall motion is normal; there are no brittanie onal wall motion abnormalities. Doppler parameters are consistent with abnormal left ventricular relaxation (grade 1 diastolic dysfun ction). Prepared and electronically signed by Breezy Manzo MD 12/28/2021 17:51 Electronically Signed by Breezy Manzo MD on 0 12/28/21 at 1751 PATIENT NAME: MIKKI TALLEY 20042021-12-28 09:49:00-00:00 [facility] REPORT#:[id number] REPORT STATUS: Signed DATE:12/28/21 TIME: 948 PATIENT: MIKKI TALLEY UNIT #: [id number] ROOM/BED: [place] [address] : 51 AGE: 71 SEX: F ATTEND: Cj Irizarry MD ADM AUTHOR: Adriana Sexton * ALL edits or amendments must be made on the [employer]/computer document * Adriana Sexton 12/28/21 0949: History of Present Illness HPI Requesting clinician: Cj Irizarry MD Reason for consult: Acute right MCA stroke Chief complaint: Left arm and hand weakness PCP: PCP: Gunner Marcos MD HPI: Patient is a 71-year-old female with a past medi jorge history of HTN, GERD, chronic pain, Scoliosis, multiple back surgeries , Osteoporosis, fibromyalgia, and left upper extremity ashutosh ropathy after having a cervical spine injection who is transfered from [facility] for acute right MCA strok e. Patient is confused and sleepy, most of the history obtained from her si ster at bedside. Per sister, patient woke up yesterday morning with i ncreased agitaion, and noticed to have confusion, nausea, vomiting , left arm and hand weakness. Denies fever, chills, BRANTLEY, seizure like activity or slurred speech. Neurology is consulted for further work up and management of stroke. History - Adult longitudinal Past medical history: Reports: Alcoholism/subst abuse, GERD/gastritis, Chronic pain. Additional medical history: Scoliosis, fibromyalgia, Past surgical history: Reports: Hysterectomy, Spine surgery. Family history: Reports: Dementia/Alzheimer' s dis (Father/mother), Diabetes, Stroke/TIA (Mother) . Additional family history: Pancreatic cancer- Mother CHF, DM- Father Alcohol use: Alcohol use (H/O) Smoking status for patients 13 years old or olde r: Current every day smoker Date last smoked: 12/27/21 Packs per day: 1 Years smoked: 45 Pack years: 45 Allergies: Coded Allergies: pregabalin (From LYRICA) (Mild, RASH 12/27/21) morphine (UNKNOWN 12/27/21) Review of Systems Constitutional: Reports: generalized weakness. Denies: fatigue, fever. Skin: Reports: bruising. Respiratory: Denies: KAPOOR (dyspnea on exertion), productive co ugh (sputum), SOB. Cardiovascular: Denies: KAPOOR (dyspnea on exertion), palpitations. GI: Reports: nausea, vomiting. Denies: abdominal jacques n, constipation, diarrhea. : Denies: flank pain, frequency, hematuria, urinar y retention. Neuro: Reports: bladder incontinence, bowel incontinenc e, confusion, focal weakness, numbness, generalized weakne ss. Denies: headache, lightheaded, seizure, slurred speech, vision change. Psych: Reports: agitation, confusion. Objective General VS: Last Documented: Result Date Time Pulse Ox 94 12/28 804 B/P 146/72 12/28 804 B/P Mean 0.0 12/28 804 O2 Delivery Room air 12/28 804 Temp 98.1 12/28 804 Pulse 78 12/28 08 Resp 20 12/28 804 O2 Flow Rate 2 12/28 08 PATIENT WEIGHT: Weight (lb): Weight (oz): Weight (kg): 82.500 Medications Current Home Medications GABAPENTIN (NEURONTIN) 600 MG PO BID Oxybutynin Chloride (DITROPAN XL) 15 MG PO DAILY DULoxetine DR (CYMBALTA) 30 MG PO DAILY traZODone (DESYREL) 50 MG PO BEDTIME GABAPENTIN (NEURONTIN) tiZANidine (ZANAFLEX) 2 MG PO Q6H PRN PRN ALLERG IC REACTION DULoxetine DR (CYMBALTA) 30 MG PO DAILY PANTOPRAZOLE DR (PROTONIX) 40 MG PO DAILY Active Meds + DC'd Last 24 Hrs Aspirin (ASPIRIN) 81 MG DAILY PO Nicotine (NICODERM) 21 MG DAILY TRANSDERM (CKD) Acetaminophen (TYLENOL) 650 MG Q4H PRN PRN PO Enoxaparin Sodium (lovENOX) 40 MG Q24H SUBQ Hydralazine HCl (APRESOLINE) 10 MG Q6H PRN PRN I V Hydrocodone Bitart/Acetaminophen (NORCO 5/325) 1 TAB Q6H PRN PRN PO Ondansetron HCl (ZOFRAN) 4 MG Q4H PRN PRN IV Potassium Chloride/Dextrose/Sod Cl (D5 0.45%NS + KCl 20mEq 1,000mL) 1,000 ML .[id number] IV Fentanyl Citrate (SUBLIMAZE) 100 MCG X1ED STA IV (DC) Acetaminophen (TYLENOL) 650 MG Q4H PRN PRN PO Ondansetron HCl (ZOFRAN) 4 MG Q6H PRN PRN IV Sodium Chloride (SODIUM CHLORIDE 0.9%) 1,000 ML .Q10H IV Iopamidol (ISOVUE-300 100ML) 100 ML .STK-MED ONE IV (DC) Dietitian nutrition assessment The data set between the solid lines has been im ported from the dietitian's assessment. BMI Calculated: 31.2 Nutrition related diagnosis: Nutrition diagnosis details: Nutrition problem: Nutrition etiology: Nutrition signs and symptoms: Nutrition prescription: Dietitian name: Assessment completed: Physical Exam Neuro comment: Neuro Exam: Limited due to altered mental status /confusion/lethargy Mental Status: Oriented to person Language: Fluent, no aphasia or dysarthria Coordination: No ataxia or tremor noted to right arm. Left arm weakness Cranial Nerves: Limited to observation III, IV, : EOM intact, No gaze preference, Left visual field deficit present. V, VII: Normal facial expression,No facial pares is or Nasolabial fold flattening. VIII:Hearing is intact to speech IX, X: Not tested XI, XII: Not tested Motor: Normal Tone and muscle bulk in all extrem ities and movement in all extremities except left arm. AG RUE, LLE, RLE, no drift, normal tone, full ROM, but does not participate with strength testing. Sensory: Hypersensation to Light touch Gait /Station: Deferred Treatment Prophylaxis IV Thrombolytic Therapy Exclusion criteria: LKW > 4.5 hrs of Unknown Diagnosis, Assessment Plan Free Text DxA P Notes Free text DxA P notes: Patient is a 71-year-old female with a past medi jorge history of HTN, GERD, chronic pain, Scoliosis, multiple back surgeries , Osteoporosis, fibromyalgia, and left upper extremity asuhtosh ropathy after having a cervical spine injection who is transfered from [facility] for acute right MCA strok e. Neurology is consulted for further work up and management. Acute right MCA stroke Left arm/hand wakness Homonymous hemianopsia Hyperesthesia Altered mental status HTN Chronic back pain -MRI Brain: Right parietal stroke and several sm all areas of acute ischemia, neurologist reviewed -Frequent Neuro-checks (q4h) -Permissive HTN for 24 hrs -Baseline EKG and CXR -Trans-thoracic echocardiogram -Continuous cardiac telemetry to monitor for arr hythmia -HgbA1C: 5.2, Lipid panel: LDL 58 -Aspirin 81 mg daily -Atorvastatin 40mg daily (Long-term goal LDL <70 mg/dl) -Stroke education and prevention counseling -PT/OT/ST eval -Consult Nutrition Intern and Case Manageme nt to help initiate discharge planning Prophylaxis: SCD s (DVT), LMWH Disp: Neurology will follow. Plan of care discus sed with patient's sister. Neurologist examined the patient, personally rev iewed all pertinent data including imaging and formulated the plan of car e together with the Nurse practitioner. NADER distinctive service time: 25 m inutes. NADER and Physician shared Service Time: 5 minutes discussing Diagno sis, Exam and Plan of Care. Adriana Sexton APRN-BROACHING MACHINE REPAIRER for Gamaliel Melchor MD [facility] Neurology Hospitalist. Gamaliel Melchor 12/28/21 1442: Attestations Physician Attestation Agree w/findings plan: 71-year-old patient with recently discov ered subacute appearing embolic stroke of indeterminate etiology presenting for stroke evaluation. Patient's exam is notable for left-sided weakness, confusion, irri tability, and left homonymous hemianopsia. MRI reviewed with right parietal st roke as well as several small areas of acute ischemia. Suspect central source. Proceeding with stroke work- up. I have personally seen and e xamined this patient and agree with the findings and plan noted in the note above. ,Gamaliel Melchor MD at 1443 at 1635 RPT #:[id number] END OF REPORT 2021-12-27 22:30:00-00:00 [id number] [address] PATIENT NAME: MIKKI TALLEY ADMIT DATE: 2 ACCOUNT NO: [id number] ROOM NO: G.604 AGE: 72 REPORT TYPE: HISTORY AND PHYSICAL SEX: F ADMITTING PHYSICIAN:Joel Donald MD ATTENDING PHYSICIAN:Joel Donald MD ADMISSION DATE: 12/27/2021 21:50:00 CHIEF COMPLAINT: Left-sided weakness, who was tr ansferred from [place], [place] for acute stroke. HISTORY OF PRESENT ILLNESS: This is a 71 -year-old white female with history of obesity, chronic low back pa in with back surgery in 2019, osteoporosis, tobacco abuse, essential hypertensio n and urinary incontinence. According to her sister who does not live with her, but other sister is the younger sister named, Carlos Eduardo, who has the power of research attorney and lives with the patient, she was in her usual health until today when she woke up, noted to be more confused, belligerent than her baseline grumpiness. This left arm w eakness was noted, but the patient did not complain about it. At baseline, she can conv erse and uses no device for ambulation, but usually can ambulate in her house. She still has low back pain rated about 6 on a scale of 10. According to ER note, the patient initially presented with nausea, vomit ing and loose stool x1 and had generalized weakness and mental confusion and had a CAT scan of the h ead that showed a right MCA stroke and transferred here for evaluation. Ther e is no report of fever, chills, cough, shortness of breath, chest pain o r slurred speech. REVIEW OF SYSTEMS: A 12-point review of systems per her sister were reviewed and negative. PAST SURGICAL HISTORY: Include back surgery 2 ye ars ago in 2019. MEDICATIONS: Include Neurontin 600, Alfred aflex, Cymbalta, Protonix and aspirin. ALLERGIES: MORPHINE AND LYRICA. FAMILY HISTORY: Father with congestive h eart failure and diabetes. Mother with diabetes and stroke and had pancreatic cancer. SOCIAL HISTORY: She smoked a pack a day for 30 y ears and used to drink, but quit 2 years ago, also and denies IV angely g use. She is for 1 year and her used to have Popset er's. She is living with her youngest sister named, Carlos Eduardo, who has power of research attorney. She does not h ave living will and does not know her code status. PHYSICAL EXAMINATION: VITAL SIGNS: Temperature 99.0, blood pressure 15 6/72, pulse 76, respirations 16, 94% saturation, 82.5 kilograms and 31.2 body mass index. GENERAL: The patient is alert, chronically ill s leeping, resting or somnolent and is arousable and does follow my commands and obese. PATIENT NAME: MIKKI TALLEY 2003 HEENT: Pupils equal and reactive to light. Oral cavity, oropharynx deferred. NECK: Without JVD, lymphadenopathy or thyromegal y. CHEST: Clear to auscultate bilaterally. CARDIOVASCULAR: Distant heart sound, regular rhy thm, no murmurs, gallops or rubs. ABDOMEN: Obese, normoactive bowel sounds, nondis tended and nontender with no hepatosplenomegaly, no guarding or rebound. EXTREMITIES: Without clubbing, cyanosis or edema . RECTAL: Deferred. NEUROLOGIC: Left arm with 4/5 strength. Left leg with minimal weakness. LABORATORY DATA: Show white cell count 11.6 and hemoglobin 14.1. Troponins negative. Creatinine 0.8. CAT scan of th e head showing acute or subacute right parietal lobe stroke. CT of head and nec k showing 40% left proximal subclavian stenosis and 40% right internal carotid stenosis . Chest x-ray showing left basilar atelectasis. ASSESSMENT: 1. Acute to subacute right parietal stroke with left arm weakness. 2. History of essential hypertension, under fair control. 3. Chronic low back pain. PLAN: We will continue with aspirin and hold all of her home medication due to drowsiness and consult Neuro logy and order for MRI of the brain, echocardiogram, continue with neuro check an d check lipid profile and also start her on Lipitor 40 mg daily. Dictated By: Cj Irizarry MD Date Dictated: 12/27/2021 22:30:34 Date Transcribed: 12/28/2021 00:57:02 PMV/FABRICIO/HELLEN Receipt ID: [id number] CC: Giovani Melchor Authenticated by Cj Irizarry MD On 01/05/2022 05:04:22 PM Electronically Signed by Cj Irizarry MD on 12/09 at 0504 PATIENT NAME: MIKKI TALLEY 20042021-12-27 20:03:00-00:[address] [facility] ([facility]) EMERGENCY PROVIDER REPORT REPORT#:[id number] REPORT STATUS: Signed DATE:12/27/21 TIME: 2002 PATIENT: MIKKI TALLEY UNIT #: [id number] ROOM/BED: [place] [address] AGE: 71 SEX: F PCP PHYS: Gunner Marcos MD SERVICE AUTHOR: Marcio Luke MD * ALL edits or amendments must be made on the el [employer]/computer document * HPI-Stroke/CVA Free Text HPI Notes Free Text HPI Notes 71 yo female with history of chronic pain, GERD, left upper extremity neuropathy after having a cervical spin e injection, multiple spinal surgeries, transferred from [facility] with d iagnosis of a right sided CVA. Patient woke up with increased agitation, and seems clumsy with her l eft hand with sensation loss, there is more pronounced ally n her baseline. Patient has intermittent neuropathy symptoms in her left upper e xtremity, but she seems not to have any strength or sensation in her arm this morning. Patient start ed complaining of pain and nausea symptoms which prompted family to call fo r EMS. She had a CT scan done that suggested an acute right-sided infarct, how ever facility did not have CT angiogram available or MRI. Patient accepted for transfer by Dr. Zarate. General Initial Greet Date/Time 12/27/211942 Transferred From Outlying facility ([facility]) )( Stroke Notification Alert Advance Notification by EMS? Yes Date Alert Received 12/27/21 Presentation Chief Complaint: Left Side Weakness, arm, Numbne ss, arm )( Last Known Well )( Time 0230 Date 12/26/21 Hx Obtained From Family )( Progression since Onset Unchanged Review of Systems ROS Statements All systems rev neg except as marked. Focused Review of Systems GI Reports: Nausea, Vomiting. Neurologic Reports: Focal weakness. PMH-Stroke/CVA Stated Complaint CVA- EMBOLIC Allergies Coded Allergies: pregabalin (From LYRICA) (Mild, RASH 12/27/21) morphine (UNKNOWN 12/27/21) Home Medications Reported Medications GABAPENTIN (NEURONTIN) 600 MG PO BID Oxybutynin Chloride (DITROPAN XL) 15 MG PO DAILY DULoxetine DR (CYMBALTA) 30 MG PO DAILY traZODone (DESYREL) 50 MG PO BEDTIME GABAPENTIN (NEURONTIN) tiZANidine (ZANAFLEX) 2 MG PO Q6H PRN PRN ALLERG IC REACTION DULoxetine DR (CYMBALTA) 30 MG PO DAILY PANTOPRAZOLE DR (PROTONIX) 40 MG PO DAILY Review of Nursing Notes Rev avail, and agree Smoking status for patients 13 years old or olde r: Never Smoker Physical Exam Vital Signs Vital Signs First Documented: Result Date Time Pulse Ox 94 12/27 1937 B/P 156/72 12/27 1937 B/P Mean 100 12/27 1937 O2 Delivery Room air 12/27 1937 Temp 37.2 12/27 1937 Pulse 76 12/27 1937 Resp 12/27 Last Documented: Result Date Time Pulse Ox 93 12/27 2144 B/P 177/76 12/27 2144 B/P Mean 109 12/27 2144 Pulse 82 12/27 2144 O2 Delivery Room air 12/27 1937 Temp 37.2 12/27 1937 Resp 12/27 Review of Vital Signs Reviewed, Vital signs norm al Free Text PE Notes Free Text PE Notes Constitutional: Patient aggitated, moaning in pa in, following commands, but continuing to pull off oxygen Head: Normocephalic and Atraumatic Eyes: Pupils are round and e qual. No conjunctival injection, no scleral icterus. Grossly normal ocular movements ENT: No facial swelling or bruising. MMM . Grossly normal dentition and tongue. Normal external appearance of nose and ears. Neck: No nuchal rigidity, no neck swelling Resp: Normal work of breathing, lungs clear to a uscultation bilaterally, no wheezing/ronchi/rales. No chest wall tenderness CV: Regular rhythm and rate, normal hear t sounds without a murmur, extremities are warm and well perfused Abd: Soft and Non-distended. Nontender to palpat ion. Normal bowel sounds. No mass or hernia felt. Extremities: No lower extremity edema. Moving al l extremities without much discomfort Skin: Extremely sensitive to light touch diffuse ly. no rash or open wounds. Normal appearance of the skin Neuro: No facial droop. Normal speech. Left arm held into chest and without movements. Extremiteis are sensitive to light to uch. Psych: Unable to assess Interpretation Diagnostics Lab Results Interpretation Results Laboratory Tests 12/27/211953: [Embedded Image Not Available] Laboratory Tests: 12/27 Chemistry Sodium (134 - 147 mEq/L) 142 Potassium (3.4 - 5.0 mEq/L) 4.0 Chloride (100 - 108 mEq/L) 106 Carbon Dioxide (21 - 33 mEq/l) 28 Anion Gap (0 - 20) 12 BUN (7 - 18 mg/dL) 8 Creatinine (0.6 - 1.3 mg/dL) 0.8 Glomerular Filtr Rate (70 - 80) 70.9 Glucose (70 - 110 mg/dL) 99 POC Glucose (70 - 110 MG/DL) 82 Hemoglobin A1c (4.8 - 6.0 %A1C) 5.2 Calcium (8.0 - 10.5 mg/dL) 9.8 Troponin I High Sens (0 - 34 ng/L) 7 TSH (0.42 - 5.47 IU/mL) 1.84 Coagulation INR (0.8 - 1.2) 1.1 PTT (Liseth) (25.0 - 39.5 Seconds) 37.8 PT Patient/Control Mix (9.3 - 12.9 SECONDS) 12. 1 Hematology WBC (4.5 - 11.0 x10 3/uL) 11.6 H RBC (3.54 - 5.02 x10 6/uL) 4.39 Hgb (11.0 - 15.0 g/dL) 14.1 Hct (33.0 - 45.0 %) 41.9 MCV (81.0 - 99.0 fL) 95.4 MCH (27.0 - 33.0 pg) 32.1 MCHC (33.0 - 37.0 g/dL) 33.7 RDW (11.5 - 14.5 %) 14.6 H Plt Count (150 - 400 x10 3/uL) 306 MPV (7.0 - 9.0 fL) 8.3 Recent Impressions: CAT SCAN - CT HEAD/BRAIN W/O CONT 12/27 2004 Report Impression - Status: SIGNED Entered: 12/27/20212020 IMPRESSION: Acute/subacute infarction in the right parietal lobe. ASSESSMENT: ASPECTS (Laila Stroke Program Early CT Score) is 9. Impression By: [email or web address] - Yonathan Kaplan M.D. CAT SCAN - CT ANGIO NECK 12/28 2007 Report Impression - Status: SIGNED Entered: 12/27/20212043 IMPRESSION: 1. There is 40% stenosis of the proximal left cali bclavian artery due to calcified plaque. 2. There is 40% stenosis of the right internal c arotid artery origin due to calcified plaque. 3. The left internal carotid artery is widely pa tent. 4. There is 25% stenosis of the left common phan tid artery origin due to noncalcified atherosclerotic plaque. THIS REPORT CONTAINS FINDINGS THAT MAY BE CRITIC AL TO PATIENT CARE. The findings were verbally communicated via tele phone conference with Dr Zarate at 8:42 PM CDT on 12/27/2021. Th e findings were acknowledged and understood. REFERENCES: NASCET CRITERIA. The degree of stenosis in the c ervical segment of the internal carotid artery is based on NASCET c riteria. Normal is no stenosis. Mild is less than 50% stenosis. Mod erate is 50-69% stenosis. Severe is 70% to 99% stenosis. Total o cclusion is no detectable patent lumen. Impression By: [email or web address] Lluvia Dinero D.O. CAT SCAN - CT ANGIO HEAD 12/28 2007 Report Impression - Status: SIGNED Entered: 12/27/20212043 IMPRESSION: 1. There is 40% stenosis of the proximal left cali bclavian artery due to calcified plaque. 2. There is 40% stenosis of the right internal c arotid artery origin due to calcified plaque. 3. The left internal carotid artery is widely pa tent. 4. There is 25% stenosis of the left common phan tid artery origin due to noncalcified atherosclerotic plaque. THIS REPORT CONTAINS FINDINGS THAT MAY BE CRITIC AL TO PATIENT CARE. The findings were verbally communicated via tele phone conference with Dr Zarate at 8:42 PM CDT on 12/27/2021. Th e findings were acknowledged and understood. REFERENCES: NASCET CRITERIA. The degree of stenosis in the c ervical segment of the internal carotid artery is based on NASCET c riteria. Normal is no stenosis. Mild is less than 50% stenosis. Mod erate is 50-69% stenosis. Severe is 70% to 99% stenosis. Total o cclusion is no detectable patent lumen. Impression By: [email or web address] Lluvia Dinero D.O. RADIOLOGY - XR CHEST 1 V 12/27 2009 Report Impression - Status: SIGNED Entered: 12/27/20212033 IMPRESSION: Dependent atelectasis left lung base. Impression By: Chuy Irizarry M.D. Lab Imaging Statement Laboratory radiographic studies reviewed and con sidered in the medical decision-making. ECG #1 Interpretation Text/Dict Note Normal sinus rhythm with a rate of 82 bpm. Candice l intervals and normal axis. No ST segment elevations or depressions, no T wa ve inversions. Normal EKG. Date 12/27/21 Time 2019 MDM-Stroke/CVA Free Text MDM Notes Free Text MDM Notes 71-year-old female transferred from outside [facility] with CVA with left upper extremity weakness and numbness. Patient has chr onic neuropathy, but symptoms seem more pronounced today with mental status ch anges and nausea symptoms. Patient is not a candidate for tPA due to timing of onset of symptoms. Neuro interventionalist believes that patient has comp leted stroke and would be a candidate for interventional procedure at this time but did request that we get a CT angiogram of the head and neck and admit pa tient to stroke unit. Stroke Thrombolytic Therapy IV Thrombolytic Rec'd at Outside Hospital? No Administered IV Thrombolytic? No, exclusion torreyt nestor Neurologist Contacted IV thrombolytic not recom Exclusion Criteria LKW > 4.5 hrs of Unknown ED Course Medication(s) Ordered Medication(s) Ordered: Central Nervous System Agents Sig/Leigh Start time Last Medication Dose Route Stop Time Status Admin Acetaminophen 650 MG Q4H PRN PRN 12/27 2199 AC PO 12/28 2048 Diagnostic Agents Sig/Leigh Start time Last Medication Dose Route Stop Time Status Admin Iopamidol 100 ML .STK-MED ONE 12/27 2010 DC IV 12/27 Electrolytic, Caloric, And Ken Sig/Leigh Start time Last Medication Dose Route Stop Time Status Admin Sodium Chloride 1,000 ML .Q10H 12/27 2199 AC IV 12/28 2048 2247 Gastrointestinal Drugs Sig/Leigh Start time Last Medication Dose Route Stop Time Status Admin Ondansetron HCl 4 MG Q6H PRN PRN 12/27 2199 AC 12/27 IV 12/28 2048 2248 Patient Discharge Departure Vital Signs/Condition Vital Signs First Documented: Result Date Time Pulse Ox 94 12/27 1937 B/P 156/72 12/27 1937 B/P Mean 100 12/27 1937 O2 Delivery Room air 12/27 1937 Temp 37.2 12/27 1937 Pulse 76 12/27 1937 Resp 16 12/27 1937 Last Documented: Result Date Time Pulse Ox 93 12/27 2144 B/P 177/76 12/27 2144 B/P Mean 109 12/27 2144 Pulse 82 12/27 2144 O2 Delivery Room air 12/27 1937 Temp 37.2 12/27 1937 Resp 16 12/27 1937 All vital signs available at the time of this en try have been reviewed. Condition Guarded Clinical Impression Clinical Impression Primary Impression: CVA (cerebral vascular accid ent) Secondary Impressions: Altered mental st atus, Hyperesthesia, Left arm weakness Disposition Decision Admit Admit Physician Name Cj Irizarry MD )( Admission Accepts Yes )( Accepted Time 1954 )( Accepted Date 12/27/21 Discharge/Care Plan Admit Note I have spoken with the patie nt and/or caregivers. I have explained the patient's condition, diagnoses and amarilis atment plan based on the information available to me at this time. I have answered the patient's and/ or caregiver's questions and addressed any concerns. The patient and/or careg lilibeth have as good an understanding of the patient 's diagnosis, condition and treatment plan as can be expected at this point. The patient has been stabilized within the capability of the emergency department. The patient wi ll be transported for further care and management or will be moved to an observation or inpatient service. I have communicated with the staff or medical p ractitioner taking over this patient's care. Electronically Signed by Marcio Luke MD on at 0249 RPT #:[id number] END OF REPORT
[2022-09-24 16:37] LABS: Absolute Lymphocytes (CBC) 2.5 K/uL (0.7-4.9); Hematocrit 39.3 % (36.0-45.0); Lymphocytes % 22.2 % (15.3-44.8); MCV 91.1 fL (80-100); MPV 6.2 fL (7.6-11.3); RBC Red Blood Cell Count 4.31 M/uL (3.86-4.86)
[2022-09-24 16:46] LABS: Protime INR 1.15
[2022-09-24 16:47] LABS: SARS-CoV-2 Antigen Rapid Res Negative (Negative)
[2022-09-24 16:56] LABS: Albumin 3.2 g/dL (3.4-5.0); Bilirubin Total 0.4 mg/dL (0.2-1.0); Potassium 3.6 mEq/L (3.5-5.1); Protein, Total 7.5 g/dL (6.4-8.2)
--- NOTE | 2022-09-24 17:43 | RAD REPORT ---
EXAM DESCRIPTION: CT - Head Brain Wo Cont - 09/24/2022 5:20 pm CLINICAL HISTORY: CONFUSED COMPARISON: No comparisons TECHNIQUE: Noncontrast head CT images ad were obtained without IV contrast. Multiplanar reformats we re generated and reviewed. All CT scans are performed using dose optimization technique as appropriate and may include automated exposure control or mA/KV adjustment according to patient size. FINDINGS: No intracranial hemorrhage, mass, or edema. Partially empty sella is incidentally noted. M idline structures are otherwise unremarkable. Diffuse parenchymal volume loss with mild prominence of the ventricular caliber. Mild periventricular hypodensities, nonspecific but suggestive of chronic small vessel ischemic changes. Right parietal encephalomalacia compatible with sequelae of remote ischemia. No evidence of acute inf arct. No abnormal extra-axial fluid collections. Mastoid air cells and visualized portions of the paranasal sinuses are clear. No acute bony findings. IMPRESSION: No evidence of an acute intracranial process. Chronic findings as above.
--- NOTE | 2022-09-24 17:49 | RAD REPORT ---
EXAM DESCRIPTION: [place] Single View09/24/2022 4:49 pm CLINICAL HISTORY: COUGH COMPARISON: No comparisons TECHNIQUE: Portable AP view of the chest. FINDINGS: The lungs are clear. Elevation of the left hemidiaphragm. Bilateral basilar streaky opacit ies, suggestive atelectasis or scarring. No pneumothorax or effusion. The cardiomediastinal contours are unremarkable. IMPRESSION: No acute cardiopulmonary process. Elevation of the left hemidiaphragm and bibasilar ate lectasis are noted.
[2022-09-24 18:13] LABS: Specific Gravity 1.028 (1.005-1.030); Urine Bacteria <20 /HPF (<20); Urine Bilirubin NEGATIVE (Negative); Urine Blood Negative (Negative); Urine Clarity Turbid (Clear); Urine Color Yellow (Yellow); Urine Glucose NEGATIVE (Negative); Urine Mucus Slight /HPF (None Seen); Urine Protein 1+ (Negative); Urine Urobilinogen 1+ (Normal); Urine pH 6.5 (5.0-7.0)
[2022-09-24] MEDS ORDERED: NA CHLORIDE 0.9% 1,000 ML ONE (18:51)
--- NOTE | 2022-09-24 19:09 | EDPHYS ---
Physician Documentation [facility] Name: Mikki Nobles Age: 72 yrs Sex: Female : 1950 Arrival Date: 09/24/2022 Time: 15:40 Bed 7 Private MD: Gunner Olsen ED Physician Rosa Oconnell HPI: 09/24 16:59 This 72 yrs old Female presents to ER via Wheelchair with complaints of Cough, kb confusion, Decreased Appetite. 16:59 The patient or guardian reports cough, that is intermittent, described as moderate. kb Onset: The symptoms/episode began/occurred 4 day(s) ago. Severity of symptoms: At their worst the symptoms were moderate, in the emergency department the symptoms are unchanged. Modifying factors: The symptoms are alleviated by nothing, the symptoms are aggravated by nothing. Associated signs and symptoms: The patient has no apparent associated signs or symptoms. The patient has not experienced similar symptoms in the past. The patient has not recently seen a physician. Family reports pt has had a cough, fatigue and decreased appetite for 4 days. States she sometimes seems "zoned out.". Historical: - Allergies: 16:14 Morphine; iw 16:14 Lyrica; iw - Home Meds: 16:19 atorvastatin 40 mg oral tablet daily [Active]; mirtazapine 7.5 mg Oral tablet nightly iw [Active]; hydroxychloroquine 200 mg oral tablet 2 times per day [Active]; potassium chloride 20 mEq Oral tablet, extended release daily [Active]; gabapentin 600 mg oral tablet 1 tab in morning, 2 tabs at noon, 2 tabs at night [Active]; folic acid 1 mg Oral tablet daily [Active]; montelukast 10 mg oral tablet daily [Active]; lisinopril 5 mg Oral tablet daily [Active]; duloxetine 30 mg oral capsule,delayed release (e.c.) daily [Active]; 16:24 pantoprazole 40 mg oral granules delayed release for susp packet daily [Active]; iw aspirin 81 mg Oral capsule daily [Active]; Prolia 60 mg/mL subcutaneous Syringe every 6 months [Active]; oxybutynin chloride 15 mg Oral Tablet, Extended Release 24 hr daily [Active]; - PMHx: 16:24 Hypertensive disorder; Hypercholesterolemia; CVA; Osteoporosis; iw - PSHx: 16:27 hysterectomy; Tonsillectomy; cataracts; back; ankle; iw - Immunization history:: Adult Immunizations up to date. - Social history:: Smoking status: Patient reports the use of cigarette tobacco products, smokes one pack cigarettes per day. ROS: 16:57 Constitutional: Negative for fever, chills, and weight loss. kb 16:57 Constitutional: Positive for fatigue. 16:57 Respiratory: Positive for cough, Negative for dyspnea on exertion, hemoptysis, orthopnea, pleurisy, shortness of breath, sputum production, wheezing. 16:57 All other systems are negative. Exam: 16:57 Constitutional: This is a well developed, well nourished patient who is awake, alert, kb and in no acute distress. Head/Face: Normocephalic, atraumatic. ENT: Moist Mucous membranes Cardiovascular: Regular rate and rhythm with a normal S1 and S2. No gallops, murmurs, or rubs. No pulse deficits. Respiratory: Respirations even and unlabored. No increased work of breathing. Talking in full sentences Abdomen/GI: Soft, non-tender. No distention Skin: Warm, dry with normal turgor. Normal color. MS/ Extremity: Pulses equal, no cyanosis. Neurovascular intact. Full, normal range of motion. Neuro: Awake and alert, GCS 15, oriented to person, place, time, and situation. Moves all extremities. Normal gait. 16:57 ECG was reviewed by the Attending Physician. Vital Signs: 16:14 BP 159 / 96; Pulse 94; Resp 18; Temp 98.8(O); Pulse Ox 96% on R/A; Weight 81.65 kg; iw Height 5 ft. 6 in. ; Pain 5/10; 18:03 BP 151 / 84; Pulse 83; Resp 19 S; Pulse Ox 96% on R/A; kc6 18:58 BP 148 / 76; Pulse 85; Resp 17 S; Pulse Ox 94% on R/A; kc6 19:20 BP 148 / 76; Pulse 91; Resp 18; Pulse Ox 95% ; as6 16:14 Body Mass Index 29.05 (81.65 kg, 167.64 cm) iw 16:14 Pain Scale: Adult iw MDM: 15:48 Patient medically screened. kb 16:58 Differential Diagnosis: Bronchitis Influenza Upper Respiratory Infection Pneumonia kb Other covid, uti, electrolyte imbalance, generalized weakness. Data reviewed: vital signs, nurses notes. 19:09 Historians other than the Patient: Daughter/Son: daughter. Counseling: I had a detailed kb discussion with the patient and/or guardian regarding: the historical points, exam findings, and any diagnostic results supporting the discharge/admit diagnosis, lab results, radiology results, the need for outpatient follow up, a family practitioner, to return to the emergency department if symptoms worsen or persist or if there are any questions or concerns that arise at home. ED course: Discussed all results with pt and family. Pt states she is feeling better and ready to go home. Daughter will make follow up appt with Dr Olsen. 09/24 16:06 Order name: Blood Culture Adult (2) kb 09/24 16:06 Order name: CBC with Diff; Complete Time: 16:49 kb 09/24 16:06 Order name: CMP; Complete Time: 17:01 kb 09/24 16:06 Order name: Lactate w/ 2H reflex if indic.; Complete Time: 17:01 kb 09/24 16:06 Order name: Protime (+inr); Complete Time: 16:49 kb 09/24 16:06 Order name: Ptt, Activated; Complete Time: 16:49 kb 09/24 16:06 Order name: Urinalysis w/ reflexes; Complete Time: 18:17 kb 09/24 16:06 Order name: Flu; Complete Time: 17:01 kb 09/24 16:06 Order name: SARS RAPID; Complete Time: 16:49 kb 09/24 16:06 Order name: Chest Single View XRAY; Complete Time: 18:17 kb 09/24 17:02 Order name: CT Head Brain wo Cont; Complete Time: 17:45 kb 09/24 16:06 Order name: EKG; Complete Time: 16:07 kb 09/24 16:06 Order name: Accucheck; Complete Time: 16:31 kb 09/24 16:06 Order name: Cardiac monitoring; Complete Time: 16:31 kb 09/24 16:06 Order name: EKG - Nurse/Tech; Complete Time: 16:31 kb 09/24 16:06 Order name: IV Saline Lock - Large Bore; Complete Time: 16:31 kb 09/24 16:06 Order name: Labs collected and sent; Complete Time: 16:31 kb 09/24 16:06 Order name: O2 Per Protocol; Complete Time: 16:07 kb 09/24 16:06 Order name: O2 Sat Monitoring; Complete Time: 16:07 kb 09/24 16:06 Order name: Vital Signs; Complete Time: 16:31 kb EC:57 Rate is 84 beats/min. Rhythm is regular. QRS [place] is Normal. [place] interval is normal at kb 150 msec. QRS interval is normal at 78 msec. QT interval is normal at 465 msec. Administered Medications: 18:45 Drug: NS 0.9% IV 1000 ml Route: IV; Rate: 1000 ml; Site: left antecubital; kc6 19:20 Follow up: Response: No adverse reaction; IV Status: Completed infusion; IV Intake: as6 1000ml Disposition Summary: 09/24/22 19:08 Discharge Ordered Location: Home kb Condition: Stable kb Diagnosis - Acute upper respiratory infection, unspecified kb Followup: kb - With: Emergency Department - When: As needed - Reason: Worsening of condition Followup: kb - With: Private Physician - When: 2 - 3 days - Reason: Recheck today's complaints, Continuance of care, Re-evaluation by your physician Discharge Instructions: - Discharge Summary Sheet kb - Upper Respiratory Infection, Adult, [id number] kb - Viral Respiratory Infection, [id number] kb Forms: - Medication Reconciliation Form kb - Thank You Letter kb - Antibiotic Education kb - Prescription Opioid Use kb Signatures: Dispatcher [employer] Amanda Garg FNP-C FNP-Radha Spencer RN RN iw Celia Cardoso RN RN kc6 Asim Arredondo RN as6
--- NOTE | 2022-09-24 19:09 | ER ---
Nurse's Notes [facility] Name: Mikki Nobles Age: 72 yrs Sex: Female : 1950 Arrival Date: 09/24/2022 Time: 15:40 Bed 7 Private MD: Gunner Olsen Diagnosis: Acute upper respiratory infection, unspecified Presentation: 09/24 16:14 Risk Assessment: Do you want to hurt yourself or someone else? Patient reports no iw desire to harm self or others. 16:14 Acuity: CHRISTEL 3 iw 16:17 Chief complaint: Friend and/or Co-Worker states: four days of not eating, sleeping a iw lot, confusion, slow to respond, cough, not drinking much. Coronavirus screen: Client presents with at least one sign or symptom that may indicate coronavirus-19. Ebola Screen: Patient negative for fever greater than or equal to 101.5 degrees Fahrenheit, and additional compatible Ebola Virus Disease symptoms Patient denies exposure to infectious person. Patient denies travel to an Ebola-affected area in the 21 days before illness onset. No symptoms or risks identified at this time. Initial Sepsis Screen: Does the patient meet any 2 criteria? Altered Mental Status. Does the patient have a suspected source of infection? No. Patient's initial sepsis screen is negative. 16:17 Method Of Arrival: Wheelchair iw 16:19 Onset of symptoms was September 21, 2022. iw Historical: - Allergies: 16:14 Morphine; iw 16:14 Lyrica; iw - Home Meds: 16:19 atorvastatin 40 mg oral tablet daily [Active]; mirtazapine 7.5 mg Oral tablet nightly iw [Active]; hydroxychloroquine 200 mg oral tablet 2 times per day [Active]; potassium chloride 20 mEq Oral tablet, extended release daily [Active]; gabapentin 600 mg oral tablet 1 tab in morning, 2 tabs at noon, 2 tabs at night [Active]; folic acid 1 mg Oral tablet daily [Active]; montelukast 10 mg oral tablet daily [Active]; lisinopril 5 mg Oral tablet daily [Active]; duloxetine 30 mg oral capsule,delayed release (e.c.) daily [Active]; 16:24 pantoprazole 40 mg oral granules delayed release for susp packet daily [Active]; iw aspirin 81 mg Oral capsule daily [Active]; Prolia 60 mg/mL subcutaneous Syringe every 6 months [Active]; oxybutynin chloride 15 mg Oral Tablet, Extended Release 24 hr daily [Active]; - PMHx: 16:24 Hypertensive disorder; Hypercholesterolemia; CVA; Osteoporosis; iw - PSHx: 16:27 hysterectomy; Tonsillectomy; cataracts; back; ankle; iw - Immunization history:: Adult Immunizations up to date. - Social history:: Smoking status: Patient reports the use of cigarette tobacco products, smokes one pack cigarettes per day. Screenin:00 [facility] ED Fall Risk Assessment (Adult) History of falling in the last 3 months, kc6 including since admission No falls in past 3 months (0 pts) Confusion or Disorientation No (0 pts) Intoxicated or Sedated No (0 pts) Impaired Gait No (0 pts) Mobility Assist Device Used No (0 pt) Altered Elimination No (0 pt) Score/Fall Risk Level 0 - 2 = Low Risk Oriented to surroundings, Maintained a safe environment, Educated pt \T\ family on fall prevention, incl call for assistance when getting out of bed, Assessed \T\ reinforced patient's understanding of fall precautions, Hourly rounding (assess needs \T\ fall precautionary measures) done. Abuse screen: Denies threats or abuse. Denies injuries from another. Nutritional screening: No deficits noted. Tuberculosis screening: No symptoms or risk factors identified. Assessment: 16:00 General: Appears in no apparent distress. comfortable, ill, Behavior is calm, kc6 cooperative, appropriate for age. Pain: Denies pain. Neuro: Level of Consciousness is awake, alert, obeys commands, Oriented to person, place, time, situation, Appropriate for age. Cardiovascular: Capillary refill < 3 seconds. Respiratory: Reports cough that is Airway is patent Trachea midline Respiratory effort is even, unlabored, Respiratory pattern is regular, symmetrical. GI: Reports anorexia. : No signs and/or symptoms were reported regarding the genitourinary system. EENT: No signs and/or symptoms were reported regarding the EENT system. Derm: No signs and/or symptoms reported regarding the dermatologic system. Skin is intact, Skin is pink, warm \T\ dry. Musculoskeletal: No signs and/or symptoms reported regarding the musculoskeletal system. Circulation, motion, and sensation intact. Capillary refill < 3 seconds, Range of motion: intact in all extremities. 17:00 Reassessment: Patient appears in no apparent distress at this time. No changes from kc6 previously documented assessment. Patient and/or family updated on plan of care and expected duration. Pain level reassessed. Patient is alert, oriented x 3, equal unlabored respirations, skin warm/dry/pink. 18:00 Reassessment: Patient appears in no apparent distress at this time. No changes from kc6 previously documented assessment. Patient and/or family updated on plan of care and expected duration. Pain level reassessed. Patient is alert, oriented x 3, equal unlabored respirations, skin warm/dry/pink. 19:20 General: discharge pending fluid completion . as6 Vital Signs: 16:14 BP 159 / 96; Pulse 94; Resp 18; Temp 98.8(O); Pulse Ox 96% on R/A; Weight 81.65 kg; iw Height 5 ft. 6 in. ; Pain 5/10; 18:03 BP 151 / 84; Pulse 83; Resp 19 S; Pulse Ox 96% on R/A; kc6 18:58 BP 148 / 76; Pulse 85; Resp 17 S; Pulse Ox 94% on R/A; kc6 19:20 BP 148 / 76; Pulse 91; Resp 18; Pulse Ox 95% ; as6 16:14 Body Mass Index 29.05 (81.65 kg, 167.64 cm) iw 16:14 Pain Scale: Adult iw ED Course: 15:41 Patient arrived in ED. am2 15:42 Gunner Olsen is Private Physician. am2 15:48 Amanda Melchor FNP-C [facility]. kb 15:48 Rosa Oconnell MD is Attending Physician. kb 16:00 Celia Cardoso, NUNO is Primary Nurse. kc6 16:00 Patient has correct armband on for positive identification. Bed in low position. Call kc6 light in reach. Side rails up X2. Adult w/ patient. 16:14 Triage completed. iw 16:19 Arm band placed on. iw 16:31 Inserted saline lock: 20 gauge in left antecubital area, using aseptic technique. Blood kc6 collected. 16:37 EKG done, by ED staff, reviewed by Amanda PHILLIPS. em1 16:50 Chest Single View XRAY In Process Unspecified. EDMS 17:21 CT Head Brain wo Cont In Process Unspecified. EDMS 17:59 Urinalysis w/ reflexes Sent. kc6 19:43 No provider procedures requiring assistance completed. IV discontinued, intact, as6 bleeding controlled, No redness/swelling at site. Pressure dressing applied. Administered Medications: 18:45 Drug: NS 0.9% IV 1000 ml Route: IV; Rate: 1000 ml; Site: left antecubital; kc6 19:20 Follow up: Response: No adverse reaction; IV Status: Completed infusion; IV Intake: as6 1000ml Medication: 19:20 VIS not applicable for this client. as6 Intake: 19:20 IV: 1000ml; Total: 1000ml. as6 Outcome: 19:08 Discharge ordered by . kb 19:43 Discharged to home via wheelchair, with family. as6 19:43 Condition: stable 19:43 Discharge instructions given to patient, Instructed on discharge instructions, follow up and referral plans. Demonstrated understanding of instructions, follow-up care. 19:44 Patient left the ED. as6 Signatures: Dispatcher [employer] EDMS Amanda Melchor, AUTOMOTIVE DRIVABILITY TECHNICIAN-C AUTOMOTIVE DRIVABILITY TECHNICIAN-CkRadha Martinez, RN Manfred Boyle em1 Lily Cheng am2 Asim Arredondo RN RN as6 Celia Cardoso RN RN kc6
[2022-09-24 20:22] VITALS: TEMP 98.8
[2022-09-24 20:24] VITALS: BP 148/76
[2022-09-24 20:26] VITALS: O2SAT 95
--- NOTE | 2022-09-26 19:15 | EKG ---
Test Date: 2022-09-24 Test Time: 16:34:10 Restaurant Crew: TONY MEASUREMENT RESULTS: Intervals: Rate: 84 CT: 150 QRSD: 78 QT: 394 QTc: 465 [place]: P: 71 CT: 150 QRS: 60 T: 70 INTERPRETIVE STATEMENTS: Normal sinus rhythm Anterior infarct, age undetermined Abnormal ECG Compared to ECG 07/07/2021 11:34:16 Sinus tachycardia no longer present Myocardial infarct finding still present Electronically Signed On 09-26-22 19:11:04 CDT by Froilan Collado
== END 2022-09-24 19:44 | disposition home or self-care (01) ==
LOC: ER 15:40
DX: J06.9 Acute upper respiratory infection, unspecified (principal); I10 Essential (primary) hypertension; E78.00 Pure hypercholesterolemia, unspecified; F17.210 Nicotine dependence, cigarettes, uncomplicated; Z20.822 Contact with and (suspected) exposure to COVID-19; Z86.73 Personal history of transient ischemic attack (TIA), and cerebral infarction without residual deficits; Z79.82 Long term (current) use of aspirin; Z88.5 Allergy status to narcotic agent; Z88.8 Allergy status to other drugs, medicaments and biological substances
CPT/HCPCS: 93005; 87040 ×2; 85025; 81001; 36415; 85610; 83605; 85730; 80053; 87804 ×2; 70450; 71045; 96360; 99284; 87811; J7030

== ENCOUNTER 2022-10-15 16:35 | Emergency (ER) | payer OTHER, BC ==
--- OUTSIDE RECORDS SUMMARY | 2022-10-15 16:41 | XMS REPORT | Continuity of Care Document ---
:1950 Author Organization [facility] t Address [address] [place] [address] [place] [id number] Care Team Providers Name Role Phone Asked, No Pcp Primary Care Physician Unavailable Lupis Mitchell Attending Clinician Unavailable LUPIS BECKMAN Attending Clinician Unavailable RADIOLOGY Attending Clinician Unavailable Radiology Attending Clinician Unavailable Doctor Unassigned, [place] Attending Clinician Unavailable Joel Donald Attending Clinician Unavailable aPncho Thompson MD Attending Clinician [phone] Katia Palomino RN Attending Clinician Unavailable Unknown, [...] Patient Does Not Have A Attending Clinician [phone] Gunner Marcos Admitting Clinician Unavailable LUPIS BECKMAN Admitting Clinician Unavailable GUNNER MARCOS Admitting Clinician Unavailable Joel Donald Admitting Clinician Unavailable Lupis Beckman MD Admitting Clinician Payers Payer Name Policy Type Policy Number Effective Date Expiration Date S ource MEDICARE PART A [id number] 2010 \\T\\ B 00:00:00 BCBS FED SELECT [id number] 2002 00:00:00 Problems Condition Condition Condition Status Onset Resolution Last Treating Co mments Source Name Details Category Date Date Treatment Clinician Date No known No known Disease Metho di active active st problems problems Hospit a l Allergies, Adverse Reactions, Alerts Allergy Allergy Status Severity Reaction(s) Onset Inactive Treating Comm ents Source Name Type Date Date Clinician pregabal DA Active [place] [facility] in 12-27 Clear 00:00: [place] 00 [facility] morphine DA Active U UNKNOWN 2021-0 [facility] 12-27 Clear 00:00: [place] 00 [facility] Pregabal Propensi Active Unknown - 2020-0 Uni vers in ty to See comments 3-10 ity of adverse 00:00: [place] reaction 00 [facility] Morphine Propensi Active Unknown - 2020-0 Uni vers ty to See comments 3-10 ity of adverse 00:00: [place] reaction 00 [facility] PREGABAL DRUG Active Unknown-Cmnt 2020-0 Un lilibeth IN INGREDI 3-10 ity of 00:00: [place] 00 Medical [place] MORPHINE DRUG Active Unknown-Cmnt 2020-0 Un lilibeth INGREDI 3-10 ity of 00:00: [place] 00 [facility] NO KNOWN Drug Active Univers ALLERGIE Class ity of S [facility] Family History Family Member Diagnosis Comments Start Date Stop Date Source Natural father Cancer [facility] Natural father Diabetes [facility] Natural father Heart disease [facility] Natural mother Cancer [facility] Natural sister Blood Clots [facility] Natural sister Diabetes [facility] Social History Social Habit Start Date Stop Date Quantity Comments Source Gender identity 2021-12-19 Identifies as [facility] 16:32:01 female gender Hospital (finding) History of tobacco 1971-04-08 Cigarette Smoker [facility] use 00:00:00 Hospital Exposure to Not sure University of SARS-CoV-2 (event) [facility] Sexual orientation [facility] Hospital Tobacco use and 2020-11-11 2020-11-11 Smokeless tobacco [facility] exposure 00:00:00 00:00:00 non-user Hospital Cigarettes smoked 2020-11-11 2020-11-[address] current (pack per 00:00:00 00:00:00 Hospita l day) - Reported Cigarette 2020-11-11 2020-11-11 [facility] pack-years 00:00:00 00:00:00 Hospital Alcohol intake 2020-11-11 2020-11-11 Current drinker Metho dist 00:00:00 00:00:00 of alcohol Hospital (finding) History of Social 2020-11-11 2020-11-[address] [facility] [address] function 00:00:00 00:00:00 Hospital Tobacco Comment 2020-11-11 2020-11-11 quit a few times [facility] 00:00:00 00:00:00 last start Hospital Sex Assigned At [birth year] F [facility] 00:00:00 00:00:00 Hospital Smoking Status Start Date Stop Date Source Unknown if ever smoked [facility] Smokes tobacco daily 2020-11-11 00:00:00 [facility] Medications Ordered Filled Start Stop [...] 2021- No TAKE 1 Meth augie (VOLTAREN) 2-20 11- TABLET(75 st 75 MG EC 00:00: 00:00 MG) BY Hospit a tablet 00 :00 MOUTH l TWICE DAILY diclofenac 2021- No TAKE 1 Meth augie (VOLTAREN) 2-15 -24 TABLET(75 st 75 MG EC 00:00: 00:00 MG) BY Hospit a tablet 00 :00 MOUTH l TWICE DAILY diclofenac 2020-04- No TAKE 1 Meth augie (VOLTAREN) 04-23- TABLET(75 st 75 MG EC 00:00: 00:00 MG) BY Hospit a tablet 00 :00 MOUTH l TWICE DAILY diclofenac 2020-04- No TAKE 1 Meth augie (VOLTAREN) 04-23 TABLET([address] 75 MG EC 00:00: 00:00 MG) BY Hospit a tablet 00 :00 MOUTH l TWICE DAILY diclofenac 2020- No 75mg Q.5D Take 1 Meth augie (VOLTAREN) 11-11 tablet (75 st 75 MG EC 00:00: 00:00 mg total) Hos foster tablet 00 :00 by mouth 2 l (two) times a day for 30 days. diclofenac 2020- No 75mg Q.5D Take 1 Meth augie (VOLTAREN) 11-11 tablet (75 st 75 MG EC 00:00: 00:00 mg total) Hos foster tablet 00 :00 by mouth 2 l (two) times a day for 30 days. tiZANidine Yes 2mg Take 2 mg Un lilib[facility] 2 mg 3-25 by mouth ity of capsule 19:06: every 6 [place] 30 (six) Medical hours as Branch needed for Muscle Spasms. traZODone Yes 50mg Take 50 mg Un [facility] 50 mg 3-25 by mouth ity of tablet 19:06: at [place] 30 bedtime. Medical Branch pantoprazol Yes 40mg Take 40 mg Univers e 40 mg EC 3-25 by mouth ity o f tablet 19:06: daily. [place] 30 Medical Branch DULoxetine 0 Yes 1{capsu Take 1 Un lilibeth 30 mg CDRS 3-25 le} capsule by ity of 19:06: mouth [place] 30 every Medical morning. Branch fexofenadin Yes [...] 3-25 by mouth ity of 19:06: daily. [place] [address] Medical Branch MAGNESIUM Yes 400mg Take 400 Uni vers OXIDE ORAL 3-25 mg by ity of 19:06: mouth 2 [place] 30 (two) Medical times Branch daily. OXYBUTYNIN Yes 15mg Take 15 mg U nivers CHLORIDE 3-25 by mouth ity of ORAL 19:06: daily. [place] 30 Medical Branch teriparatid Yes 20ug inject 20 U nivers e (FORTEO) 3-25 mcg under ity of 20 mcg/dose 19:06: the skin [place] - 600 30 daily. Medical mcg/2.4 mL Branch injection tiZANidine Yes 2mg Take 2 mg Un l[place] 2 mg 3-25 by mouth ity of capsule 19:06: every 6 [place] 30 (six) Medical hours as Branch needed for Muscle Spasms. traZODone Yes 50mg Take 50 mg Un [place] 50 mg 3-25 by mouth ity of tablet 19:06: at [place] 30 bedtime. Medical Branch pantoprazol Yes 40mg Take 40 mg Univers e 40 mg EC 3-25 by mouth ity o f tablet 19:06: daily. [place] [address] Medical Branch DULoxetine Yes 1{capsu Take 1 [...] 3-25 by mouth ity of 19:06: daily. [place] 30 Medical Branch MAGNESIUM Yes 400mg Take 400 Uni vers OXIDE ORAL 3-25 mg by ity of 19:06: mouth 2 [place] 30 (two) Medical times Branch daily. OXYBUTYNIN Yes 15mg Take 15 mg U nivers CHLORIDE 3-25 by mouth ity of ORAL 19:06: daily. [place] 30 Medical Branch teriparatid Yes 20ug inject [...] 3-25 by mouth ity of 19:06: daily. [place] [address] Medical Branch MAGNESIUM Yes 400mg Take 400 Uni vers OXIDE ORAL 3-25 mg by ity of 19:06: mouth 2 [place] 30 (two) Medical times Branch daily. OXYBUTYNIN Yes 15mg Take 15 mg U nivers CHLORIDE 3-25 by mouth ity of ORAL 19:06: daily. [place] [address] Medical Branch teriparatid Yes 20ug inject 20 [...] by mouth ity of tablet 19:06: at [place] 30 bedtime. Medical Branch pantoprazol Yes 40mg Take 40 mg Univers e 40 mg EC 3-25 by mouth ity o f tablet 19:06: daily. [place] [address] Medical Branch DULoxetine Yes 1{capsu Take 1 [...] 3-25 by mouth ity of 19:06: daily. [place] 30 Medical Branch MAGNESIUM Yes 400mg Take 400 Uni vers OXIDE ORAL 3-25 mg by ity of 19:06: mouth 2 [place] 30 (two) Medical times Branch daily. OXYBUTYNIN Yes 15mg Take 15 mg U nivers CHLORIDE 3-25 by mouth ity of ORAL 19:06: daily. [place] 30 Medical Branch teriparatid Yes 20ug inject [...] mouth ity o f tablet 19:06: daily. [place] 30 Medical Branch DULoxetine Yes 1{capsu Take [...] 3-25 by mouth ity of 19:06: daily. [place] [address] Medical Branch MAGNESIUM Yes 400mg Take 400 Uni vers OXIDE ORAL 3-25 mg by ity of 19:06: mouth 2 [place] 30 (two) Medical times Branch daily. OXYBUTYNIN Yes 15mg Take 15 mg U nivers CHLORIDE 3-25 by mouth ity of ORAL 19:06: daily. [place] [address] Medical Branch teriparatid Yes 20ug inject 20 U nivers e (FORTEO) 3-25 mcg under ity of 20 mcg/dose 19:06: the skin [place] - 600 30 daily. Medical mcg/2.4 mL Branch injection tiZANidine Yes 2mg Take 2 mg Un lilib[place] 2 mg 3-25 by mouth ity of capsule 19:06: every 6 [place] 30 (six) Medical hours as Branch needed for Muscle Spasms. traZODone Yes 50mg Take 50 mg Un l[place] 50 mg 3-25 by mouth ity of tablet 19:06: at [place] 30 bedtime. Medical Branch pantoprazol Yes 40mg Take 40 mg Univers e 40 mg EC 3-25 by mouth ity o f tablet 19:06: daily. [place] [address] Medical Branch DULoxetine Yes 1{capsu Take 1 [...] 3-25 by mouth ity of 19:06: daily. [place] [address] Medical Branch MAGNESIUM Yes 400mg Take 400 Uni vers OXIDE ORAL 3-25 mg by ity of 19:06: mouth 2 [place] 30 (two) Medical times Branch daily. OXYBUTYNIN Yes 15mg Take 15 mg U nivers CHLORIDE 3-25 by mouth ity of ORAL 19:06: daily. [place] 30 Medical Branch teriparatid Yes 20ug inject [...] Until Discontinu ed, Routine, PACU FENTanyl PF 0 Yes 25ug 25 mcg, Uni vers (SUBLIMAZE 3-25 Slow IV ity of (PF)) 18:25: Push, [place] injection 08 Q5MIN PRN, Medi jorge 25 mcg 4 doses, Branch Starting Zenaida 06/30/20 at 1325, Until Discontinu ed, Routine, Pain (scale 4-6), PACU ondansetron 0 Yes 4mg 4 mg, Slow Univers (ZOFRAN 3-25 IV Push, ity of (PF)) 18:25: PRN, 1 [place] injection 4 08 dose, Medical mg Starting Branch Z[place] 06/30/20 at 1325, Until Discontinu ed, Routine, Nausea and Vomiting (N/V), PACU tetracaine 0 Yes PRN, Univers (PONTOCAINE 3-25 Starting ity of ) 0.5 % 18:05: [facility] ophthalmic 06/30/20 at [facility] ica drops 1305, [place] Until Discontinu ed, Routine, Intra-op water for Yes PRN, Univers irrigation 3-25 Starting ity o f irrigation 18:05: [facility] solution 06/30/20 at [facility] al 1305, [place] Until Discontinu ed, Routine, Intra-op NaCl 0.9% Yes PRN, Univers (NS) 3-25 Starting ity of injection 18:04: [facility] 06/30/[address] [facility] 1304, [place] Until Discontinu ed, Routine, Intra-op neomycin-po 0 Yes PRN, Univer s lymyxin-dex 3-25 Starting ity of amethasone 18:04: [facility] (MAXITROL) 06/30/20 at [facility] ica 3.5 1304, [place] mg/g-10,000 Until unit/g-0.1 Discontinu % ed, ophthalmic Routine, ointment Intra-op gentamicin 0 Yes PRN, Univers injection 3-25 Starting ity of 18:03: [facility] 06/30/[address] [facility] 1303, [place] Until Discontinu ed, RADHA, Intra-op eye block Yes PRN, Univers syringe 11 06-30 Starting ity o f mL 18:02: [facility] 06/30/[address] Until Discontinu ed, Intra-op EPINEPHrine Yes PRN, Univer s (PF) 06-30 Starting ity of 1:1,000 (1 18:02: [facility] mg/mL) 00 06/30/[address] [facility] (ADRENALIN 1302, [place] (PF)) Until injection Discontinu ed, Routine, Intra-op DUOVISC Yes PRN, Univers (DUOVISC 06-30 Starting ity of VISCO 18:02: [facility] ELASTIC) 3 06/30/20 at [facility] ical %-4 %(0.5 1302, [place] mL) 1 % Until (0.55 mL) Discontinu intraocular ed, injection Routine, Intra-op dexamethaso Yes PRN, Univer s ne 06-30 Starting ity of (DECADRON 18:02: [facility] PHOSPHATE) 06/30/20 at [facility] ical injection [facility] Until Discontinu ed, Routine, Intra-op ceFAZolin Yes PRN, Univers (ANCEF) 06-30 Starting ity of injection 18:01: [facility] 06/30/[address] Until Discontinu ed, RADHA, Intra-op balanced Yes PRN, Univers salt soln 06-30 Starting ity of no.2 irrig. 18:01: [facility] (BSS) 00 06/30/[address] [facility] ophthalmic [address] [place] [address] solution Until Discontinu ed, Routine, Intra-op mydriatic 2020- No .5mL 0.5 mL, Univ ers #5 06-30 Right Eye, ity of ophthalmic 16:15: 16:10 ONCE, 1 [place] as solution 00 :00 dose, [place] Medica l 0.5 mL 06/30/20 at [place] syringe 1115, Routine, DSU Pre-op lactated 2020- No 1000mL at 42 Unive rs ringers IV 06-30 03-25 mL/hr, ity of infusion 16:15: 16:19 1,000 mL, Jaskaran as 1,000 mL 00 :00 IV Medical Infusion, Branch ONCE, 1 dose, [place] 06/30/20 at 1115, [...] 3-25 by mouth ity of 14:06: daily. [place] 30 Medical Branch MAGNESIUM Yes 400mg Take 400 Uni vers OXIDE ORAL 3-25 mg by ity of 14:06: mouth 2 [place] 30 (two) Medical times Branch daily. OXYBUTYNIN Yes 15mg Take 15 mg U nivers CHLORIDE 3-25 by mouth ity of ORAL 14:06: daily. [place] [address] Medical Branch teriparatid Yes 20ug inject 20 U nivers e (FORTEO) 3-25 mcg under ity of 20 mcg/dose 14:06: the skin [place] - 600 30 daily. Medical mcg/2.4 mL Branch injection tiZANidine Yes 2mg Take 2 mg Un lilib[place] 2 mg 3-25 by mouth ity of capsule 14:06: every 6 [place] 30 (six) Medical hours as Branch needed for Muscle Spasms. traZODone Yes 50mg Take 50 mg Un [place] 50 mg 3-25 by mouth ity of tablet 14:06: at [place] 30 bedtime. Medical Branch pantoprazol Yes 40mg Take 40 mg Univers e 40 mg EC 3-25 by mouth ity o f tablet 14:06: daily. [place] [address] Medical Branch DULoxetine Yes 1{capsu Take 1 [...] mouth ity of tablet 14:06: once daily [place] 30 as needed Medical for Other Branch [...] 3-25 by mouth ity of 14:06: daily. [place] 30 Medical Branch MAGNESIUM Yes 400mg Take [...] mouth ity o f tablet 14:06: daily. [place] 30 Medical Branch DULoxetine Yes 1{capsu Take [...] by ity of tablet 14:06: mouth 2 [place] 30 (two) Medical times Branch daily. 1 [...] 3-25 by mouth ity of 14:06: daily. [place] [address] Medical Branch MAGNESIUM Yes 400mg Take 400 Uni vers OXIDE ORAL 3-25 mg by ity of 14:06: mouth 2 [place] 30 (two) Medical times Branch daily. OXYBUTYNIN Yes 15mg Take 15 mg U nivers CHLORIDE 3-25 by mouth ity of ORAL 14:06: daily. [place] [address] Medical Branch teriparatid Yes 20ug inject 20 U nivers e (FORTEO) 3-25 mcg under ity of 20 mcg/dose 14:06: the skin [place] - 600 30 daily. Medical mcg/2.4 mL Branch injection tiZANidine Yes 2mg Take 2 mg Un l[place] 2 mg 3-25 by mouth ity of capsule 14:06: every 6 [place] 30 (six) Medical hours as Branch needed for Muscle Spasms. traZODone Yes 50mg Take 50 mg Un [place] 50 mg 3-25 by mouth ity of tablet 14:06: at [place] [address] bedtime. Medical Branch pantoprazol Yes 40mg Take 40 mg Univers e 40 mg EC 3-25 by mouth ity o f tablet 14:06: daily. [place] [address] Medical Branch DULoxetine Yes 1{capsu Take 1 [...] 3-25 by mouth ity of 14:06: daily. [place] 30 Medical Branch MAGNESIUM Yes 400mg Take 400 Uni vers OXIDE ORAL 3-25 mg by ity of 14:06: mouth 2 [place] 30 (two) Medical times Branch daily. OXYBUTYNIN Yes 15mg Take 15 mg U nivers CHLORIDE 3-25 by mouth ity of ORAL 14:06: daily. [place] 30 Medical Branch teriparatid Yes 20ug inject 20 U nivers e (FORTEO) 3-25 mcg under ity of 20 mcg/dose 14:06: the skin [place] - 600 30 daily. Medical mcg/2.4 mL Branch injection tiZANidine Yes 2mg Take 2 mg Un l[place] 2 mg 3-25 by mouth ity of capsule 14:06: every 6 [place] 30 (six) Medical hours as Branch needed for Muscle Spasms. traZODone Yes 50mg Take 50 mg Un [place] 50 mg 3-25 by mouth ity of tablet 14:06: at [place] 30 bedtime. Medical Branch pantoprazol Yes 40mg Take 40 mg Univers e 40 mg EC 3-25 by mouth ity o f tablet 14:06: daily. [place] [address] Medical Branch DULoxetine Yes 1{capsu Take 1 [...] 3-25 by mouth ity of 14:06: daily. [place] 30 Medical Branch MAGNESIUM Yes 400mg Take 400 Uni vers OXIDE ORAL 3-25 mg by ity of 14:06: mouth 2 [place] 30 (two) Medical times Branch daily. OXYBUTYNIN Yes 15mg Take 15 mg U nivers CHLORIDE 3-25 by mouth ity of ORAL 14:06: daily. [place] 30 Medical Branch teriparatid Yes 20ug inject [...] mouth ity o f tablet 14:06: daily. [place] 30 Medical Branch DULoxetine Yes 1{capsu Take [...] 3-25 by mouth ity of 14:06: daily. [place] 30 Medical Branch MAGNESIUM 0 Yes 400mg Take 400 Uni vers OXIDE ORAL 3-25 mg by ity of 14:06: mouth 2 [place] 30 (two) Medical times Branch daily. OXYBUTYNIN Yes 15mg Take 15 mg U nivers CHLORIDE 3-25 by mouth ity of ORAL 14:06: daily. [place] [address] Medical Branch teriparatid Yes 20ug inject 20 U nivers e (FORTEO) 3-25 mcg under ity of 20 mcg/dose 14:06: the skin [place] - 600 30 daily. Medical mcg/2.4 mL Branch injection tiZANidine Yes 2mg Take 2 mg Un l[place] 2 mg 3-25 by mouth ity of capsule 14:06: every 6 [place] 30 (six) Medical hours as Branch needed for Muscle Spasms. traZODone Yes 50mg Take 50 mg Un [place] 50 mg 3-25 by mouth ity of tablet 14:06: at [place] 30 bedtime. Medical Branch pantoprazol Yes 40mg Take 40 mg Univers e 40 mg EC 3-25 by mouth ity o f tablet 14:06: daily. [place] [address] Medical Branch DULoxetine Yes 1{capsu Take 1 [...] 3-25 by mouth ity of 14:06: daily. [place] 30 Medical Branch MAGNESIUM Yes 400mg Take 400 Uni vers OXIDE ORAL 3-25 mg by ity of 14:06: mouth 2 [place] 30 (two) Medical times Branch daily. OXYBUTYNIN Yes 15mg Take 15 mg U nivers CHLORIDE 3-25 by mouth ity of ORAL 14:06: daily. [place] [address] Medical Branch teriparatid Yes 20ug inject 20 U nivers e (FORTEO) 3-25 mcg under ity of 20 mcg/dose 14:06: the skin [place] - 600 30 daily. Medical mcg/2.4 mL Branch injection tiZANidine Yes 2mg Take 2 mg Un l[place] 2 mg 3-25 by mouth ity of capsule 14:06: every 6 [place] 30 (six) Medical hours as Branch needed for Muscle Spasms. traZODone Yes 50mg Take 50 mg Un l[place] 50 mg 3-25 by mouth ity of tablet 14:06: at [place] 30 bedtime. Medical Branch pantoprazol Yes 40mg Take 40 mg Univers e 40 mg EC 3-25 by mouth ity o f tablet 14:06: daily. [place] 30 Medical Branch DULoxetine Yes 1{capsu Take [...] mouth ity of tablet 14:06: once daily [place] 30 as needed Medical for Other Branch (edema). gabapentin Yes 600mg Take 600 Un [place] 600 mg 3-25 mg by ity of tablet 14:06: mouth [place] 30 every Medical morning. Branch gabapentin Yes 1200mg Take 1,200 Univers 600 mg 3-25 mg by ity of tablet 14:06: mouth 2 [place] 30 (two) Medical times Branch daily. 1 [...] 3-25 by mouth ity of 14:06: daily. [place] [address] Medical Branch MAGNESIUM Yes 400mg Take 400 Uni vers OXIDE ORAL 3-25 mg by ity of 14:06: mouth 2 [place] 30 (two) Medical times Branch daily. OXYBUTYNIN Yes 15mg Take 15 mg U nivers CHLORIDE 3-25 by mouth ity of ORAL 14:06: daily. [place] [address] Medical Branch teriparatid Yes 20ug inject 20 U nivers e (FORTEO) 3-25 mcg under ity of 20 mcg/dose 14:06: the skin [place] - 600 30 daily. Medical mcg/2.4 mL Branch injection tiZANidine Yes 2mg Take 2 mg Un l[place] 2 mg 3-11 by mouth ity of capsule 17:30: every 6 [place] [address] (six) Medical hours as Branch needed for Muscle Spasms. traZODone Yes 50mg Take 50 mg Un l[place] 50 mg 3-11 by mouth ity of tablet 17:30: at [place] [address] bedtime. Medical Branch pantoprazol Yes 40mg Take 40 mg Univers e 40 mg EC 3-11 by mouth ity o f tablet 17:30: daily. [place] [address] Medical Branch DULoxetine Yes 1{capsu Take 1 [...] mouth ity of tablet 17:30: once daily [place] [address] as needed Medical for Other Branch (edema). gabapentin Yes 600mg Take 600 Un [place] 600 mg 3-11 mg by ity of tablet 17:30: mouth [place] 39 every Medical morning. Branch gabapentin Yes 1200mg Take 1,200 Univers 600 mg 3-11 mg by ity of tablet 17:30: mouth 2 [place] [address] (two) Medical times Branch daily. 1 tab [...] 3-11 by mouth ity of 17:30: daily. [place] [address] Medical Branch MAGNESIUM Yes 400mg Take 400 Uni vers OXIDE ORAL 3-11 mg by ity of 17:30: mouth 2 [place] [address] (two) Medical times Branch daily. OXYBUTYNIN Yes 15mg Take 15 mg U nivers CHLORIDE 3-11 by mouth ity of ORAL 17:30: daily. [place] [address] Medical Branch teriparatid Yes 20ug inject 20 U nivers e (FORTEO) 3-11 mcg under ity of 20 mcg/dose 17:30: the skin [place] - 600 39 daily. Medical mcg/2.4 mL Branch injection tiZANidine Yes 2mg Take 2 mg Un l[place] 2 mg 3-11 by mouth ity of capsule 17:30: every 6 [place] [address] (six) Medical hours as Branch needed for Muscle Spasms. traZODone Yes 50mg Take 50 mg Un l[place] 50 mg 3-11 by mouth ity of tablet 17:30: at [place] 39 bedtime. Medical Branch pantoprazol Yes 40mg Take 40 mg Univers e 40 mg EC 3-11 by mouth ity o f tablet 17:30: daily. [place] [address] Medical Branch DULoxetine Yes 1{capsu Take 1 [...] mouth ity of tablet 17:30: once daily [place] [address] as needed Medical for Other Branch (edema). gabapentin Yes 600mg Take 600 Un illibeth 600 mg 3-11 mg by ity of tablet 17:30: mouth [place] 39 every Medical morning. Branch gabapentin Yes 1200mg Take 1,200 Univers 600 mg 3-11 mg by ity of tablet 17:30: mouth 2 [place] 39 (two) Medical times Branch daily. 1 [...] 3-11 by mouth ity of 17:30: daily. [place] [address] Medical Branch MAGNESIUM 0 Yes 400mg Take 400 Uni vers OXIDE ORAL 3-11 mg by ity of 17:30: mouth 2 [place] 39 (two) Medical times Branch daily. OXYBUTYNIN 0 Yes 15mg Take 15 mg U nivers CHLORIDE 3-11 by mouth ity of ORAL 17:30: daily. [place] [address] Medical Branch teriparatid Yes 20ug inject 20 U nivers e (FORTEO) 3-11 mcg under ity of 20 mcg/dose 17:30: the skin [place] - 600 39 daily. Medical mcg/2.4 mL Branch injection tiZANidine Yes 2mg Take 2 mg Un l[place] 2 mg 3-11 by mouth ity of capsule 17:30: every 6 [place] [address] (six) Medical hours as Branch needed for Muscle Spasms. traZODone Yes 50mg Take 50 mg Un [place] 50 mg 3-11 by mouth ity of tablet 17:30: at [place] bedtime. Medical Branch pantoprazol Yes 40mg Take 40 mg Univers e 40 mg EC 3-11 by mouth ity o f tablet 17:30: daily. [place] [address] Medical Branch DULoxetine Yes 1{capsu Take 1 [...] mouth ity of tablet 17:30: once daily [place] as needed Medical for Other Branch (edema). gabapentin Yes 600mg Take 600 Un l[place] 600 mg 3-11 mg by ity of tablet 17:30: mouth [place] 39 every Medical morning. Branch gabapentin Yes 1200mg Take 1,200 Univers 600 mg 3-11 mg by ity of tablet 17:30: mouth 2 [place] 39 (two) Medical times Branch daily. 1 [...] mouth [place] unit- [address] [facility] Tab Branch foLIC acid Yes 1mg Take 1 mg Un lilibeth 1 mg tablet 3-11 by mouth ity of 17:30: daily. [address] MAGNESIUM Yes 400mg Take 400 Uni vers OXIDE ORAL 3-11 mg by ity of 17:30: mouth 2 [place] 39 (two) Medical times [place] daily. OXYBUTYNIN Yes 15mg Take 15 mg U nivers CHLORIDE 3-11 by mouth ity of ORAL 17:30: daily. [address] teriparatid Yes 20ug inject 20 U nivers e (FORTEO) 3-11 mcg under ity of 20 mcg/dose 17:30: the skin [place] - 600 39 daily. Medical mcg/2.4 mL Branch injection tetracaine Yes PRN, Univers (PONTOCAINE 3-11 Starting ity of ) 0.5 % 17:15: [place] ophthalmic 06/16/20 at [facility] ical drops 1115, [place] Until Discontinu ed, Routine, Intra-op water for Yes PRN, Univers irrigation 3-11 Starting ity o f irrigation 17:14: [place] solution 06/16/20 at Medic al 1114, [place] Until Discontinu ed, Routine, Intra-op NaCl 0.9% Yes PRN, Univers (NS) 3-11 Starting ity of injection 17:14: [place] 06/16/20 at Medical 1114, [place] Until Discontinu ed, Routine, Intra-op neomycin-po Yes PRN, Univer s lymyxin-dex 3-11 Starting ity of amethasone 17:14: Z[place] (MAXITROL) 00 06/16/20 at [facility] ical 3.5 1114, [place] mg/g-10,000 Until unit/g-0.1 Discontinu % ed, ophthalmic Routine, ointment Intra-op EPINEPHrine Yes PRN, Univer s (PF) 3-11 Starting ity of 1:1,000 (1 16:51: [place] mg/mL) 06/16/[address] [facility] (ADRENALIN 1051, Branch (PF)) Until injection Discontinu ed, Routine, Intra-op DUOVISC 0 Yes PRN, Univers (DUOVISC 06-16 Starting ity of VISCO 16:51: Zenaida [place] ELASTIC) 3 06/16/20 at [facility] ical %-4 %(0.5 1050, Branch mL) 1 % Until (0.55 mL) Discontinu intraocular ed, injection Routine, Intra-op eye block 0 Yes PRN, Univers syringe 11 06-16 Starting ity o f mL 16:51: Zenaida [place] 00 06/16/20 at [place] [id number], Branch Until Discontinu ed, Intra-op gentamicin Yes PRN, Univers injection 06-16 Starting ity of 16:51: Zenaida [place] 06/16/20 at [place] [id number], Branch Until Discontinu ed, RADHA, Intra-op dexamethaso Yes PRN, Univer s ne 06-16 Starting ity of (DECADRON 16:50: Zenaida [place] PHOSPHATE) 06/16/20 at [facility] ical injection 1050, Branch Until Discontinu ed, Routine, Intra-op ceFAZolin Yes PRN, Univers (ANCEF) 06-16 Starting ity of injection 16:50: Zenaida [place] 00 06/16/20 at [place] [id number], Branch Until Discontinu ed, RADHA, Intra-op balanced Yes PRN, Univers salt soln 06-16 Starting ity of no.2 irrig. 16:50: Zenaida [place] (BSS) 00 06/16/[address] [facility] ophthalmic 1050, Branch solution Until Discontinu ed, Routine, Intra-op lactated 2020- No 1000mL at 42 Unive rs ringers IV 06-1611 mL/hr, ity of infusion 15:15: 15:12 1,000 mL, Jaskaran as 1,000 mL 00 :00 IV Medical Infusion, Branch ONCE, 1 dose, Zenaida 06/16/20 at 0915, Routine, DSU Pre-op mydriatic 2020- No .5mL 0.5 mL, Univ ers #5 06-16 Left Eye, ity of ophthalmic 15:15: 15:01 ONCE, 1 Jaskaran as solution 00 :00 dose, Zenaida Medica l 0.5 mL 06/16/20 at Branch syringe 0915, Routine Immunizations Ordered Filled Immunization Date Status Comments [facility] e Immunization Name Name SARS-COV-2 COVID-19 2020-07-16 Completed Unive rsity of PFIZER VACCINE 00:00:00 [facility] SARS-COV-2 COVID-19 2020-07-16 Completed Unive rsity of PFIZER VACCINE 00:00:00 [facility] SARS-COV-2 COVID-19 2020-07-16 Completed Unive rsity of PFIZER VACCINE 00:00:00 [facility] SARS-COV-2 COVID-19 2020-07-16 Completed Unive rsity of PFIZER VACCINE 00:00:00 [facility] SARS-COV-2 COVID-19 2020-07-16 Completed Unive rsity of PFIZER VACCINE 00:00:00 [facility] SARS-COV-2 COVID-19 2020-07-16 Completed Unive rsity of PFIZER VACCINE 00:00:00 [facility] SARS-COV-2 COVID-19 2020-07-16 Completed Unive rsity of PFIZER VACCINE 00:00:00 [facility] SARS-COV-2 COVID-19 2020-07-16 Completed Unive rsity of PFIZER VACCINE 00:00:00 [facility] SARS-COV-2 COVID-19 2020-07-16 Completed Unive rsity of PFIZER VACCINE 00:00:00 [facility] SARS-COV-2 COVID-19 2020-07-16 Completed Unive rsity of PFIZER VACCINE 00:00:00 [facility] SARS-COV-2 COVID-19 2020-07-16 Completed Unive rsity of PFIZER VACCINE 00:00:00 [facility] SARS-COV-2 COVID-19 2020-07-16 Completed Unive rsity of PFIZER VACCINE 00:00:00 [facility] SARS-COV-2 COVID-19 2020-07-16 Completed Unive rsity of PFIZER VACCINE 00:00:00 [facility] SARS-COV-2 COVID-19 2020-06-25 Completed Unive rsity of PFIZER VACCINE 00:00:00 [facility] SARS-COV-2 COVID-19 2020-06-25 Completed Unive rsity of PFIZER VACCINE 00:00:00 [facility] SARS-COV-2 COVID-19 2020-06-25 Completed Unive rsity of PFIZER VACCINE 00:00:00 [facility] SARS-COV-2 COVID-19 2020-06-25 Completed Unive rsity of PFIZER VACCINE 00:00:00 [facility] SARS-COV-2 COVID-19 2020-06-25 Completed Unive rsity of PFIZER VACCINE 00:00:00 [facility] SARS-COV-2 COVID-19 2020-06-25 Completed Unive rsity of PFIZER VACCINE 00:00:00 [facility] SARS-COV-2 COVID-19 2020-06-25 Completed Unive rsity of PFIZER VACCINE 00:00:00 [facility] SARS-COV-2 COVID-19 2020-06-25 Completed Unive rsity of PFIZER VACCINE 00:00:00 [facility] SARS-COV-2 COVID-19 2020-06-25 Completed Unive rsity of PFIZER VACCINE 00:00:00 [facility] SARS-COV-2 COVID-19 2020-06-25 Completed Unive rsity of PFIZER VACCINE 00:00:00 [facility] SARS-COV-2 COVID-19 2020-06-25 Completed Unive rsity of PFIZER VACCINE 00:00:00 [facility] SARS-COV-2 COVID-19 2020-06-25 Completed Unive rsity of PFIZER VACCINE 00:00:00 [facility] SARS-COV-2 COVID-19 2020-06-25 Completed Unive rsity of PFIZER VACCINE 00:00:00 [facility] SARS-COV-2 COVID-19 2020-06-25 Completed Unive rsity of PFIZER VACCINE 00:00:00 [facility] SARS-COV-2 COVID-19 2020-06-25 Completed Unive rsity of PFIZER VACCINE 00:00:00 [facility] Vital Signs Vital Name Observation Time Observation Value Comments Source Systolic blood 2020-06-30 18:35:00 154 mm[Hg] Univer sity of pressure [facility] Diastolic blood 2020-06-30 18:35:00 73 mm[Hg] Unive rsity of pressure [facility] Heart rate 2020-06-30 18:35:00 78 /min [facility] [place] [facility] Body temperature 2020-06-30 18:35:00 36.67 Janna [facility] [place] [facility] Respiratory rate 2020-06-30 18:35:00 20 /min Univ [facility] [place] [facility] Oxygen saturation in 2020-06-30 18:35:00 97 /min University of Arterial blood by [place] [employer] jorge Pulse oximetry Branch Body height 2020-06-27 16:18:00 167.6 cm [facility] [place] [facility] Body weight 2020-06-27 16:18:00 74.8 kg [facility] [place] [facility] BMI 2020-06-27 16:18:00 26.63 kg/m2 [facility] [place] [facility] Systolic blood 2020-06-16 17:08:00 143 mm[Hg] Univer sity of pressure [place] [facility] Diastolic blood 2020-06-16 17:08:00 90 mm[Hg] Unive rsity of pressure [place] [facility] Heart rate 2020-06-16 17:08:00 73 /min [facility] [place] [facility] Respiratory rate 2020-06-16 17:08:00 18 /min Univ [facility] [place] [facility] Oxygen saturation in 2020-06-16 17:08:00 95 /min University of Arterial blood by [facility] jorge Pulse oximetry Branch Body temperature 2020-06-16 16:59:00 36.44 Janna Univ [facility] [place] [facility] Body height 2020-06-15 17:00:00 167.6 cm [facility] [place] [facility] Body weight 2020-06-15 17:00:00 74.844 kg [facility] [place] [facility] BMI 2020-06-15 17:00:00 26.63 kg/m2 [facility] [place] [facility] Heart rate 2020-01-29 12:00:00 94 /min [facility] [place] [facility] Respiratory rate 2020-01-29 12:00:00 16 /min Univ [facility] [place] [facility] Oxygen saturation in 2020-01-29 12:00:00 97 /min University of Arterial blood by [facility] jorge Pulse oximetry Branch Procedures Procedure Date / Time Performing Clinician Source Performed ASSIGNMENT OF BENEFITS 2022-07-27 18:29:28 Doctor Unassigned, Un [facility] [id number] 2022-01-01 00:00:00 SHARLENEANTWAN [facility] [id number] 2022-01-01 00:00:00 ROCIO.Zakia [facility] NOTICE OF PRIVACY 2021-06-19 19:30:42 Doctor Arden, [facility] PRACTICES [facility] CONSENT/REFUSAL FOR 2021-06-19 19:30:18 Doctor [facility], [facility] DIAGNOSIS AND TREATMENT [facility] ASSIGNMENT OF BENEFITS 2021-06-19 19:29:53 [facility] XR ANKLE 3+ VW LEFT 2021-05-11 20:27:48 Gunner Marcos [facility] Medical Branch XR FOOT 3+ VW LEFT 2021-05-11 20:27:[address] [facility] Medical Branch XR TOES 2 VW LEFT 2021-05-11 20:27:48 Gunner Marcos [facility] Medical Branch CONSENT/REFUSAL FOR 2021-05-11 19:53:20 Doctor Arden, [facility] DIAGNOSIS AND TREATMENT [facility] DEXA AXIAL (HIP AND SPINE) 2020-11-04 18:52:24 Requisition, Cayden r [facility] Medical Branch XR CHEST 1 VW 2020-10-25 20:23:44 Requisition, Paper [facility] Medical Branch XR HAND 3+ VW RIGHT 2020-10-25 20:23:28 Requisition, Paper [facility] Medical Branch XR WRIST 3+ VW RIGHT 2020-10-25 20:23:13 Requisition, Paper [facility] ASSIGNMENT OF BENEFITS 2020-10-25 19:18:16 Doctor Unassigned, [facility] [place] [facility] COVID-19 (ID NOW RAPID 2020-06-29 16:46:00 Lupis Beckman [facility] TESTING) [place] [facility] CONSENT/REFUSAL FOR 2020-06-29 16:22:24 Doctor Arden, [facility] DIAGNOSIS AND TREATMENT [facility] ASSIGNMENT OF BENEFITS 2020-06-29 16:22:00 Doctor Unassigned, [facility] NOTICE OF PRIVACY 2020-06-29 16:21:32 Doctor Unassigned, [facility] PRACTICES [facility] CONSENT/REFUSAL FOR 2020-06-29 16:21:06 Doctor Unassigned, [facility] DIAGNOSIS AND TREATMENT [facility] CONSENT/REFUSAL FOR 2020-06-29 16:20:40 Doctor Unassigned, [facility] DIAGNOSIS AND TREATMENT [facility] ASSIGNMENT OF BENEFITS 2020-06-29 16:20:20 Doctor Unassigned, Un [facility] PATIENT QUESTIONNAIRE 2020-06-16 06:01:00 Doctor Unassigned, [facility] ASSIGNMENT OF BENEFITS 2020-06-07 21:54:27 Doctor Unassigned, [facility] NO SHOW OR MISSED 2020-02-09 20:00:51 Doctor Arden, [facility] APPOINTMENT POLICY [facility] ACKNOWLEDGEMENT Plan of Care Planned Activity Planned Date Details Comments Source Future Scheduled 2022-09-24 [facility] Test 04:47:39 malignant neoplasm of colon (procedure) [code = 460881099] Future Scheduled 2022-09-24 [facility] Test 04:47:39 malignant neoplasm of colon (procedure) [code = 765294837] Future Scheduled 2022-09-24 [facility] Test 04:47:39 malignant neoplasm of colon (procedure) [code = 874107753] Future Scheduled 2022-09-24 65+ PNEUMOCOCCAL [facility] Test 04:47:39 VACCINE (1 - PCV) [code = 65+ PNEUMOCOCCAL VACCINE (1 - PCV)] Future Scheduled 2022-09-24 Hepatitis C screening [facility] Test 04:47:39 (procedure) [code = 985981202] Future Scheduled 2022-09-24 BREAST CANCER [facility] Test 04:47:39 SCREENING [code = BREAST CANCER SCREENING] Future Scheduled 2022-09-24 [facility] Test 04:47:39 malignant neoplasm of colon (procedure) [code = 143767148] Future Scheduled 2022-09-24 [facility] Test 04:47:39 malignant neoplasm of colon (procedure) [code = 702277341] Future Scheduled 2022-09-24 SHINGLES VACCINES (1 [facility] 04:47:39 of 2) [code = SHINGLES VACCINES (1 of 2)] Future Scheduled 2022-09-24 COVID-19 [facility]ACCINE ([facility] 04:47:39 Pfizer series) [code = COVID-19 VACCINE (3 - Pfizer series)] Future Scheduled 2022-09-24 INFLUENZA VACCINE [facility] Test 04:47:39 [code = INFLUENZA VACCINE] Future Scheduled 2022-09-24 [facility] Test 04:47:39 malignant neoplasm of colon (procedure) [code = 935638784] Future Scheduled 2022-09-24 [facility] Test 04:47:39 malignant neoplasm of colon (procedure) [code = 398621747] Future Scheduled 2022-09-24 [facility] Test 04:47:39 malignant neoplasm of colon (procedure) [code = 834526157] Future Scheduled 2022-09-24 65+ [facility]AL [facility] 04:47:39 VACCINE (1 - PCV) [code = 65+ PNEUMOCOCCAL VACCINE (1 - PCV)] Future Scheduled 2022-09-24 Hepatitis C screening [facility] Test 04:47:39 (procedure) [code = 084829659] Future Scheduled 2022-09-24 [facility] CANCER [facility] Test 04:47:39 SCREENING [code = BREAST CANCER SCREENING] Future Scheduled 2022-09-24 [facility] Test 04:47:39 malignant neoplasm of colon (procedure) [code = 646829244] Future Scheduled 2022-09-24 [facility] Test 04:47:39 malignant neoplasm of colon (procedure) [code = 455642363] Future Scheduled 2022-09-24 SHINGLES VACCINES (1 [facility] Test 04:47:39 of 2) [code = SHINGLES VACCINES (1 of 2)] Future Scheduled 2022-09-24 COVID-19 VACCINE (3 - [facility] Test 04:47:39 Pfizer series) [code = COVID-19 VACCINE (3 - Pfizer series)] Future Scheduled 2022-09-24 INFLUENZA VACCINE [facility] Test 04:47:39 [code = INFLUENZA VACCINE] Future Scheduled 2022-01-03 HEPATITIS B VACCINES [facility] Test 12:59:45 (1 of 3 - 3-dose series) [code = HEPATITIS B VACCINES (1 of 3 - 3-dose series)] Future Scheduled 2022-01-03 65+ PNEUMOCOCCAL [facility] Test 12:59:45 VACCINE (1 - PCV) [code = 65+ PNEUMOCOCCAL VACCINE (1 - PCV)] Future Scheduled 2022-01-03 Hepatitis C screening [facility] Test 12:59:45 (procedure) [code = 335866862] Future Scheduled 2022-01-[address] [facility] Test 12:59:45 SCREENING [code = BREAST CANCER SCREENING] Future Scheduled 2022-01-03 COLONOSCOPY SCREENING [facility] Test 12:59:45 [code = COLONOSCOPY SCREENING] Future Scheduled 2022-01-03 SHINGLES VACCINES (1 [facility] Test 12:59:45 of 2) [code = SHINGLES VACCINES (1 of 2)] Future Scheduled 2022-01-03 COVID-19 VACCINE (3 - Me [facility] Test 12:59:45 Booster for Pfizer series) [code = COVID-19 VACCINE (3 - Booster for Pfizer series)] Future Scheduled 2022-01-03 INFLUENZA VACCINE Method [facility] Test 12:59:45 [code = INFLUENZA VACCINE] Future Scheduled 2021-12-27 HEPATITIS B VACCINES [facility] Test 20:22:43 (1 of 3 - 3-dose series) [code = HEPATITIS B VACCINES (1 of 3 - 3-dose series)] Future Scheduled 2021-12-27 65+ PNEUMOCOCCAL [facility] Test 20:22:43 VACCINE (1 - PCV) [code = 65+ PNEUMOCOCCAL VACCINE (1 - PCV)] Future Scheduled 2021-12-27 Hepatitis C screening [facility] Test 20:22:43 (procedure) [code = 225900590] Future Scheduled 2021-12-[address] [facility] Test 20:22:43 SCREENING [code = BREAST CANCER SCREENING] Future Scheduled 2021-12-27 COLONOSCOPY SCREENING [facility] Test 20:22:43 [code = COLONOSCOPY SCREENING] Future Scheduled 2021-12-27 SHINGLES VACCINES (1 [facility] Test 20:22:43 of 2) [code = SHINGLES VACCINES (1 of 2)] Future Scheduled 2021-12-27 COVID-19 VACCINE (3 - Me [facility] Test 20:22:43 Booster for Pfizer series) [code = COVID-19 VACCINE (3 - Booster for Pfizer series)] Future Scheduled 2021-12-27 INFLUENZA VACCINE [facility] Test 20:22:43 [code = INFLUENZA VACCINE] Encounters Start End Encounter Admission Attending Care Care Encounter Source Date/Time Date/Time Type Type Clinicians Facility Department ID 2022-01-13 Inpatient EVGENY Mitchell [facility] [id number] [facility] 09:00:00 Lupis Mchugh [facility] 2021-07-03 [facility] [id number] Common 13:43:02 [facility] 2021-02-05 Outpatient R RK, [facility] AUDREY [id number] Univers 07:00:12 LUPIS mitchell [facility] 2021-02-05 Outpatient R RK [facility] AUDREY [id number] Univers 02:16:54 [facility] 2022-07-27 2022-07-27 Outpatient R RADIOLOGY [facility] [id number] Univers 13:30:54 23:59:00 ity of [facility] 2022-07-27 2022-07-27 Hospital Radiology [facility] 1.2.840.114 [id number] Univers 13:30:54 23:59:00 Encounter [place] 350.1.13.10 ity of [place] 4.2.7.2.686 [facility] [phone] [facility] 800 Branch 2022-07-27 2022-07-27 Orders Doctor PARRISH 1.2.840.114 [id number] Univers 00:00:00 00:00:00 Only Unassigned, JES 350.1.13.10 ity of [place] [facility] 4.2.7.2.686 Jaskaran [id number] [facility] 009 Branch 2021-12-27 2022-01-03 Inpatient Joel Sanders [facility] INTE.02 G001 [id number] [facility] 21:50:00 11:41:00 05 [facility] 2021-11-16 2021-11-16 Manolo Thompson 1.2.840.1 [id number] Maria G 00:00:00 00:00:[address] Ki 3.430.2.7 Hosp harinder .3.719021 l .8 2021-11-16 2021-11-16 Manolo Thompson 1.2.840.1 [id number] Methodi 00:00:00 00:00:[address] Ki 3.430.2.7 Hosp harinder .3.795420 l .8 2021-08-19 2021-08-19 Manolo Thompson 1.2.840.1 [id number] Methodi 00:00:00 00:00:[address] Ki 3.430.2.7 Hosp harinder .3.424018 l .8 2021-06-19 2021-06-19 Outpatient R RADIOLOGY [facility] [id number] Univers 14:33:47 23:59:00 ity [facility] 2021-06-19 2021-06-19 Hospital Radiology [facility] 1.2.840.114 [id number] Univers 14:33:47 23:59:00 Encounter JOAN 350.1.13.10 ity [facility] 4.2.7.2.686 [facility] [id number] [facility] 800 [place] 2021-05-26 2021-05-26 Outpatient R [facility] [id number] Univers 00:00:00 00:00:00 ity [facility] 2021-05-21 2021-05-21 Manolo Thompson 1.2.840.1 [id number] Methodi 00:00:00 00:00:[address] Ki 3.430.2.7 Hosp harinder .3.402456 l .8 2021-05-12 2021-05-12 PARRISH Sosa 1.2.840.114 [id number] Univers 00:00:00 00:00:00 (Out) Katia ANDRE 350.1.13.10 it y [facility] 4.2.7.2.[address] [facility] [phone] [address] 2021-05-11 2021-05-11 Hospital Unknown, [facility] [id number] [id number] Univers 14:00:00 23:59:00 Encounter Attending JOAN 350.1.13.10 ity [facility] [place].2.[place] [id number] [facility] 807 Branch 2021-05-11 2021-05-11 Laboratory Only, Ang Db Test [facility] 1.2.8 40.114 [id number] Univers 15:00:00 15:15:00 Only Unknown, Attending HEALTH 350.1.13.10 ity of [facility] 4.2.7.2.686 Jaskaran as ANTON?BLEA [id number] Ar nicyevgeniy [address] MEDICAL OFFICE BUILDING 2021-05-11 2021-05-11 Outpatient R SONI [facility] [id number] Univers 15:00:00 15:12:57 RANIA ity of [facility] 2021-05-11 2021-05-11 Orders Doctor PARRISH 1.2.840.114 [id number] Univers 00:00:00 00:00:00 Only Unassigned, JES 350.1.13.10 ity [facility] 4.2.7.2.686 Jaskaran as [phone] [facility] 009 Branch 2021-02-20 2021-02-20 Refill Jay, 1.2.840.1 [id number] Methodi 00:00:00 00:00:00 Pancho 04246.1.1 487 [facility] 3.430.2.7 Hosp harinder .3.116000 l .8 2021-01-05 2021-01-05 Hospital Radiology [facility] 1.2.840.114 [id number] Univers 13:47:27 23:59:00 Encounter Joan 350.1.13.10 ity of [place] 4.2.7.2.686 [facility] [id number] [facility] 800 Branch 2021-01-05 2021-01-05 Outpatient R RADIOLOGY [facility] [id number] Univers 00:00:00 00:00:00 ity of [facility] 2020-11-11 2020-11-11 Outpatient BUNNY THOMPSONH [facility] [id number] [place] 00:00:00 00:00:[address] PANCHO [address] 2020-11-11 2020-11-11 Outpatient JAY, [facility] [id number] 957 [place] 00:00:00 00:00:[address] PAN[address] 2020-11-04 2020-11-04 Hospital Unknown, [facility] 1.2.127.714 [id number] Univers 13:33:18 23:59:00 Encounter Attending Joan 350.1.13.10 ity of [place] [id number] [facility] 800 Branch 2020-11-04 2020-11-04 Outpatient R [facility] [id number] Univers 00:00:00 00:00:00 ity of [facility] 2020-10-25 2020-10-25 [facility] Radiology [facility] 1.2.840.114 [id number] Univers 14:22:37 23:59:00 Encounter M[place] 350.1.13.10 ity of [place].686 [place] [id number] [facility] 807 Branch 2020-10-25 2020-10-25 [facility] Radiology [place] 1.2.840.114 [id number] Univers 14:22:09 23:59:00 Encounter [place] 350.1.13.10 ity of [place].2.686 [place] [id number] [facility] 807 Branch 2020-10-25 2020-10-25 [facility] Radiology [facility] 1.2.840.114 [id number] Univers 14:21:55 14:21:55 Encounter [place] 350.1.13.10 ity of [place] 4[place].2.686 [place] [id number] [facility] 807 Branch 2020-10-25 2020-10-25 Outpatient R RADIOLOGY [facility] [id number] Univers 00:00:00 00:00:00 ity of [facility] 2020-10-25 2020-10-25 Orders Doctor SENIOR 1.2.840.114 [id number] Univers 00:00:00 00:00:00 Only Unassigned, JES 350.1.13.10 ity of [facility] 4.2.7.2.686 Jaskaran as [id number] [facility] 009 Branch 2020-07-16 2020-07-16 Outpatient [facility] [id number] Univers 13:40:00 13:40:00 ity of [facility] 2020-06-30 2020-06-30 [facility] 1.2.840.114 [id number] Univers 10:58:00 13:52:00 Encounter Lupis Holt 350.1.13.10 ity [place].2.686 [place] [id number] [place] [id number] Branch 2020-06-29 2020-06-29 Laboratory Only, Adc Test [facility] 1.2.840. 114 [id number] Univers 11:19:11 11:34:11 Only Lupis Beckman 350.1.1 3.10 ity of [place].2.686 [place] [id number] [facility] 353 Branch 2020-06-29 2020-06-29 Outpatient R [facility] [id number] Univers 11:00:00 11:00:00 LUPIS ity of [facility] 2020-06-25 2020-06-25 Outpatient [facility] [id number] Univers 13:15:00 13:15:00 ity of [facility] 2020-06-16 2020-06-16 [facility] 1.2.840.114 [id number] Univers 08:43:00 11:28:00 Encounter Lupis Holt 350.1.13.10 [place] of [place].2.686 [place] [id number] [facility] 071 Branch 2020-06-16 2020-06-16 Orders Doctor SENIOR 1.2.840.114 [id number] Univers 00:00:00 00:00:00 Only Unassigned, JES 350.1.13.10 ity of [facility] 4.2.7.2.686 Jaskaran as [phone] [facility] 009 Branch 2020-06-15 2020-06-15 Laboratory Only, [facility] Test [facility] 1.2.840. 114 [id number] Univers 09:09:12 09:24:12 Only Lupis Beckman Joan 350.1.1 3.10 ity of [place].2.686 [place] [id number] [facility] 353 [place] 2020-06-15 2020-06-15 [id number] Univers 09:00:00 09:00:00 LUPIS itsingh [facility] 2020-06-07 2020-06-07 [employer]r [employer] Jason [facility] Main [facility] 1.2.8 40.114 [id number] Univers 15:57:29 16:12:29 Visit Lupis Beckman Joan 350.1.1 3.10 ity of [place] 4.2.7.2.686 [facility] [phone] [facility] [address] 2020-06-07 2020-06-07 Outpatient R RK [facility] [id number] Univers 15:45:00 15:45:00 LUPIS ity [facility] 2020-06-07 2020-06-07 Orders Doctor SENIOR 1.2.840.114 [id number] Univers 00:00:00 00:00:00 Only Unassigned, JES 350.1.13.10 ity of [place] [facility] 4.2.7.2.686 Jaskaran as [phone] [place] [address] [address] 2020-03-28 2020-03-28 Laboratory Lab, [facility] Fam [facility] I [facility] 1.2. 840.114 [id number] Univers 15:56:07 16:16:07 Only Glynn, Finn [facility] 350.1.13.10 ity of [place] 4.2.7.2.686 Jaskaran as Professio [phone] [facility] [address] One 2020-03-28 2020-03-28 Outpatient R [facility] [id number] Univers 16:00:00 16:00:00 ity of [facility] 2020-03-07 2020-03-07 Laboratory Lab, [facility] Fam [facility] I [facility] 1.2. 840.114 [id number] Univers 12:44:49 13:04:49 Only Finn [facility] 350.1.13.10 ity of [place] 4.2.7.2.686 Jaskaran as Professio [phone] Ar dical nal [address] [address] [facility] One 2020-03-07 2020-03-07 [facility] [id number] Univers 13:00:00 13:00:00 FINN ity of [facility] 2020-02-09 2020-02-09 Hospital Radiology [facility] 1.2.840.114 [id number] Univers 14:01:42 23:59:00 Encounter [place] 350.1.13.10 ity of [place] 4.2.7.2.686 [facility] [phone] [facility] [address] 2020-02-09 2020-02-09 Outpatient R RADIOLOGY [facility] [id number] Univers 00:00:00 00:00:00 ity of [facility] 2020-02-09 2020-02-09 Orders Doctor [place] 1.2.840.114 [id number] Univers 00:00:00 00:00:00 Only Unassigned, JES 350.1.13.10 ity of [place] [facility] 4.2.7.2.686 Jaskaran as [phone] [facility] [address] 2020-01-31 2020-01-31 Telephone Pcp, [place] 1.2.391.295 [id number] Univers 00:00:00 00:00:00 Patient JES 350.1.13.10 it y of Does Not HOSPITAL 4[place].2.[place] A [phone] [facility] [address] 2020-01-29 2020-01-29 Laboratory Lab, Adc Fam Pob I [facility] 1.2. 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 BASIC METABOLIC [id number] 07:51:00 Test Item Value Reference Range Interpretation [...] 9.2 mg/dL 8.0-10.5 N CA) CBC W/AUTO [id number] 06:52:00 Test Item Value Reference Range Interpretation [...] (test code NO = MDIFF) BASIC METABOLIC [id number] 07:59:00 Test Item Value Reference Range Interpretation [...] 9.1 mg/dL 8.0-10.5 N CA) CBC W/AUTO [id number] 07:34:00 Test Item Value Reference Range Interpretation [...] (test code NO = MDIFF) BASIC METABOLIC [id number] 07:46:00 Test Item Value Reference Range Interpretation [...] 9.6 mg/dL 8.0-10.5 N CA) CBC W/AUTO [id number] 07:24:00 Test Item Value Reference Range Interpretation [...] (test code NO = MDIFF) BASIC METABOLIC [id number] 09:07:00 Test Item Value Reference Range Interpretation [...] (test code = LDL) NEAR OPTIM AL/ABOVE [id number] 89 HIGH>KK=939 ELIZABETH Y HIGH*Guidelines provided by the National Choles terol EducationProgra Adult Treatment Panel III CBC W/AUTO [id number] 07:23:00 Test Item Value Reference Range Interpretation [...] code = MDIFF) - MRI BRAIN W/O [id number] 00:00:00 [facility] : 1950 Sex: F FAX: Cj Deng MD [phone] [place]: St: ADM FAX: Gunner Abbasi MD [phone] Name: MIKKI TALLEY [facility] : 1950 Age/S: 71/F [address] [place] [address] Unit #: [id number] Loc: [address] [address]Fhfg: Cj Irizarry MD Acct: [id number] Dis Date: Status: ADM IN PHONE #: [phone] Exam Date: 1018 FAX #: [phone] Reason: ACUTE RIGHT MCA STROKE EXAMS: CPT CODE: [id number] MRI BRAIN W/O CONT 65882 PROCEDURE INFORMATION: Exam: MR Head Without Contrast Exam date and time: 0:03 AM Age: 71 years old Clinical indication: Other: Acute right mca stroke TECHNIQUE: Imaging protocol: Magnetic resonance imaging of the head without contrast. COMPARISON: CT HEAD/BRAIN W/O CONT 12/27/2021 8:02 PM FINDINGS: Assessment limited by motion artifacts. Brain: Moderate-sized acute infarctin the right parietal lobe. No hemorrhagic transformation. [...] lentiform nucleus, and right periatrial white matter. [id number] Reported and signed by: Asuncion Connolly M.D. CC: Cj Irizarry MD; Gunner Marcos MD Technologist: Dennis Whyte RT(R)(CT)(MR) Trnscrd Date/Time/By: 12/28/2021 (8303) : By: [email or web address] Orig PrintD/T: S: 12/28/2021 (9672) PAGE 1 Signed Report TSH REFLEX TO [id number] 23:37:00 Test Item Value Reference Range Interpretation Comments TSH REFLEX TO FT4 (test code = 1.84 IU/mL 0.42-5.47 N TSHREFLEX) HGBA1C%2021-12-27 23:35:00 Test Item Value Reference Range Interpretation Comments HGBA1C% (test code = HGBA1C%) 5.2 %A1C 4.8-6.0 N BASIC METABOLIC [id number] 20:18:00 Test Item Value Reference Range Interpretation [...] 9.8 mg/dL 8.0-10.5 N CA) TROP-I HIGH [id number] 20:18:00 Test Item Value Reference Range Interpretation Comments TROP-I HIGH 7 ng/L 0-34 N CAUTION: Units of the SENSITIVITY (test current te st methodology code = TROPIHS) (ng/L) diffe rfrom the prior test methodolog y (ng/mL) by a factor of 1000. 99th Percentile Upper Reference Limit (URL): Females: 34 ng/LMales: 54 ng/L In order to distin [facility] acute elevations of h igh sensitivitytrop onin from other clinical conditions, the FourthUnive rsal Definition of M yocardial Infarction stre ssesclinical assessment and the demonstration o f a rise and/orfall in s erial troponin result s above the URL. These resu lts were obtained using Siemens [employer]ell[employer] IM TnI Hreagent. Results from di fferent methodologies s hould not becompared to o ne another as quantitative results and URLs mayvary by method. PROTHROMBIN [id number] 20:11:00 Test Item Value Reference Range Interpretation [...] results if PTT greater than 40THROMBOPLASTIN TIME [id number] 20:11:00 Test Item Value Reference Range Interpretation Comments THROMBOPLASTIN TIME 37.8 Seconds 25.0-39.5 N Therape utic Range: PARTIAL (test code = 50.4 - 88.3 Seconds PTT) Effective 07/22/2018 COMMENTS: Code Neuro: Call with results if INR greater than 1.7 or PT greaterComment: than 15COMMENTS: Code Neuro: Call with results if PTT greater than 40GLUCOSE [id number] 20:09:00 Test Item Value Reference Range Interpretation Comments GLUCOSE BEDSIDE (test 82 MG/DL 70-110 N Perfor med by certified code = GLUBED) sugar reprocess operator head at [facility] CBC W/O [id number] 20:03:00 Test Item Value Reference Range Interpretation [...] less than Comment: 100,000/mm3- CT HEAD/BRAIN W/O [id number] 00:00:00 [facility] : 1950 Sex: F Name: MIKKI TALLEY [facility] : 1950 Age/S: 71 / F [address] [place] [address] Unit #: [id number] Loc: [place] [address] Phys: Marcio Luke MD Acct: [id number] Dis Date: Status: REG ER PHONE #: [phone] Exam Date: 12/27/20212004 FAX #: [phone] Reason: Left sided weakness Report Has Been Amended EXAMS: CPT CODE: [id number] CT HEAD/BRAIN W/O CONT 14965 Addendum - 12/27/2021 SIGNED 12/27/2021 ADDENDUM: [id number] CT/CTHDBRWO Findings were discussed with Marcio Luke at 12/27/2021 8:24 PM CDT. at 2023 Reported and signed by: Yonathan Kaplan M.D. Report PROCEDURE INFORMATION: Exam: CT Head Without Contrast Exam date and time: 12/27/2021 8:02 PM Age: 71 years old Clinical indication: Stroke-like symptoms;Lt upper extremity and lt lower extremity weakness; [...] ASSESSMENT: PAGE 1 Signed Report (CONTINUED) Name: Fred TALLEY [facility] : 1950 Age/S: 71 / F [address] [place] [address] Unit #: [id number] Loc: [place] [address] Phys: Marcio Luke MD Acct: [id number] Dis Date: Status: REG ER PHONE #: [phone] Exam Date: 12/27/20212004 FAX #: [phone] Reason: Left sided weakness Report Has Been Amended EXAMS: CPT CODE: [id number] CT HEAD/BRAIN W/O CONT 66265 (Continued) ASPECTS (AlbertaStroke Program Early CT Score) is 9. at 2020 Reported and signed by: Yonathan Kaplan M.D. CC: Marcio Luke MD Technologist:Kathrin Stanley, RT(R)(CT) CTDI: DLP: Trnscb Date/Time: 12/27/2021 (2020) [email or web address] Orig Print D/T: S: 12/27/2021 (2020) PAGE 2 Signed Report- XR CHEST 1 [id number] 00:00:00 [facility] : 1950 Sex: F FAX: Marcio Luke MD [place]: St: REG Name: MIKKI TALLEY [facility] : 1950 Age/S: 71/F [address] [place] [address] Unit #: [id number] Loc: [place] [address] Phys: Marcio Luke MD Acct: [id number] Dis Date: Status: REG ER PHONE #: [phone] Exam Date: 12/27/20212009 FAX #: [phone] Reason: stroke EXAMS: CPT CODE: [id number] XR CHEST 1 V 26440 PROCEDURE INFORMATION: Exam: XR Chest Exam date and time: 12/27/2021 8:10 PM Age: 71 years [...] Irizarry M.D. CC: Marcio Luke MD Technologist: RT Juanpablo(R) Trnscrd Date/Time/By: 12/27/2021 (2032) : By: [email or web address] Orig Print D/T: S: 12/27/2021 (2033) PAGE 1 Signed Report- CT ANGIO [id number] 00:00:00 [facility] : 1950 Sex: F Name: MIKKI TALLEY [facility] : 1950 Age/S: 71 / F [address] [place] [address] Unit #: [id number] Loc: [place] [address] Phys: Marcio Luke MD Acct: [id number] Dis Date: Status: REG ER PHONE #: [phone] Exam Date: 12/27/20212007 FAX #: [phone] Reason: Left sided weakness EXAMS: CPT CODE: [id number] CT ANGIO HEAD 27510 PROCEDURE INFORMATION: Exam: CTA Head With Contrast, [...] aneurysm. PAGE 1 Signed Report (CONTINUED) Name: TALLEYMIKKI [facility] : 1950 Age/S: 71 / F [address] [place] [address] Blvd Unit #: [id number] Loc: [place] [address] Phys: Marcio Luke MD Acct: [id number] Dis Date: Status: REG ER PHONE #: [phone] Exam Date: 12/27/20212007 FAX #: [phone] Reason: Left sided weakness EXAMS: CPT CODE: [id number] CT ANGIO HEAD 48023 (Continued) Basilar artery: No occlusion or significant stenosis. No aneurysm. Right posterior cerebral artery: No occlusion or significant stenosis. No aneurysm. Left posterior cerebral artery: No occlusion or significant stenosis. No aneurysm. Brain: See "Right middle cerebralartery" finding. No hemorrhage or mass effect. Acute [...] 3D reconstructed images were created by the technologist.Radiation optimization: All CT scans at this facility use at least one of these dose optimization techniques: automated exposure control; mA and/or kV adjustment per patient size (includes targeted exams where dose is matched to clinical indication); or iterative reconstruction. Contrast material: RBH630; Contrast volume: 100 ml; Contrast route: INTRAVENOUS (IV); COMPARISON: CT HEAD/BRAIN W/O CONT 12/27/2021 8:02 PM FINDINGS: Right common carotid artery: No stenosis. No dissection or occlusion. Right internal carotid artery: There is 40% stenosis of the right internal carotid artery origin due to calcified plaque. Right external carotid artery: No occlusion or stenosis of the origin. PAGE 2 SignedReport (CONTINUED) Name: MAYANKMIKKI [facility] : 1950 Age/S: 71 / F [address] [place] [address] Blvd Unit #: [id number] Loc: [place] [address] Phys: Marcio Luke MD Acct: [id number] DisDate: Status: REG ER PHONE #: [phone] Exam Date: 12/27/20212007 FAX #: [phone] Reason: Left sided weakness EXAMS: CPT CODE: [id number] CT ANGIO HEAD 61509 (Continued) Left common carotid artery: There is [...] due to calcified plaque. 3. The left in ternal carotid artery is widely patent. 4. There is 25% stenosis of the left common carotid artery origin due to noncalcified atherosclerotic plaque. THIS REPORT CONTAINS FINDINGS THAT MAY BE CRITICAL TO PATIENT CARE. The findings were verbally communicated via telephone conference with Dr Zarate at8:42 PM CDT on 12/27/2021. The findings were acknowledged and understood. REFERENCES: NASCET CRITERIA. The degree of stenosis in the cervical segment of the internal carotid artery is based on NASCET criteria. Normal is no stenosis. Mild is less than 50% stenosis. Moderate is 50-69% stenosis. Severe is70% to 99% stenosis. Total occlusion is no detectable patent lumen. PAGE 3 Signed Report (CONTINUED)Name: MIKKI TALLEY [facility] : 1950 Age/S: 71 / F [address] [place] [address] Unit #: [id number] Loc: [place] [address] Phys: Marcio Luke MD Acct: [id number] Dis Date: Status: [facility] ER PHONE #: [phone] Exam Date: 12/27/20212007 FAX #: [phone] Reason: Left sided weakness EXAMS: CPT CODE: [id number] CT ANGIO HEAD 35896 (Continued) at 2043 Reported and signed by: Edgard Dinero D.O. CC: Marcio Albrecht Technologist:Kathrin Stanley RT(R)(CT) CTDI: DLP: Trnscb Date/Time: 12/27/2021 (2043) [email or web address] Print D/T: S: 12/27/2021 (2043) PAGE 4 Signed Report- CT ANGIO [id number] 00:00:00 [facility] : 1950 Sex: F Name: MIKKI TALLEY [facility] : 1950 Age/S: 71 / F [address] [place] [address] Unit #: [id number] Loc: [place] [address] Phys: Marcio Luke MD Acct: [id number] Dis Date: Status: [facility] ER PHONE #: [phone] Exam Date: 12/27/20212007 FAX #: [phone] Reason: Left sided weakness EXAMS: CPT CODE: [id number] CT ANGIO NECK [address]86 PROCEDURE INFORMATION: Exam: CTA Head With Contrast, [...] volume: 100 ml; Contrast route: INTRAVENOUS (IV); COMPARISON:CT HEAD/BRAIN W/O CONT 12/27/2021 8:02 PM FINDINGS: ANTERIOR CIRCULATION: Right internal carotid artery: There is mild nonstenotic calcified plaque of [...] Left internal carotid artery: There is calcified nonstenoticplaque of the left internal carotid artery. There [...] aneurysm. PAGE 1 Signed Report (CONTINUED) Name: TALLEYMIKKI [facility] : 1950 Age/S: 71 / F [address] [place] [address] Blvd Unit #: [id number] Loc: [place] [address] Phys: Marcio Luke MD Acct: [id number] Dis Date: Status: [facility] ER PHONE #: [phone] Exam Date: 12/27/20212007 FAX #: [phone] Reason: Left sided weakness EXAMS: CPT CODE: [id number] CT ANGIO NECK 00396 (Continued) Basilar artery: No occlusion or significant stenosis. No aneurysm. Right posterior cerebral artery: No occlusion or significant stenosis. No aneurysm. Left posterior cerebral artery: No occlusion or significant [...] 2 Signed Report (CONTINUED) Name: MIKKI TALLEY [facility] : 1950 Age/S: 71 / F [address] [place], [place] [address]vd Unit #: [id number] Loc: [place] [address] Phys: Marcio Luke MD Acct: [id number] Dis Date: Status: REG ER PHONE #: [phone] Exam Date: 12/27/20212007 FAX #: [phone] Reason: Left sided weakness EXAMS: CPT CODE: [id number] CT ANGIO NECK 44759 (Continued) Left common carotid artery: There is 25% stenosis of the left common carotid artery origin due to noncalcified atherosclerotic plaque. Left internal carotid artery: The left internal carotid artery is widely patent. Left external carotid artery: No occlusion or stenosis of the origin. Right vertebral artery: There is mild stenosis of the right vertebral artery origin due [...] left internal carotid artery is widely patent. 4. There [...] stenosis. Moderate is 50-69% stenosis. Severe is 70%to 99% stenosis. Total occlusion is no detectable patent lumen. PAGE 3 Signed Report (CONTINUED) Name: MIKKI TALLEY [facility] : 1950 Age/S: 71 / F [address] [place], [place] [address] Unit #: [id number] Loc: [place] [address] Phys: Marcio Luke MD Acct: [id number] Dis Date: Status: [facility] ER PHONE #: [phone] Exam Date: 12/27/20212007 FAX #: [phone] Reason: Left sided weakness EXAMS: CPT CODE: [id number] CT ANGIO NECK 13957 (Continued) at 2043 Reported and signed by: Edgard Dinero D.O. CC: Marcio Luke MD Technologist:Kathrin Stanley RT(R)(CT) CTDI: DLP: Trnscb Date/Time: 12/27/2021 (2043) [email or web address] Orig Print D/T: S: 12/27/2021 (2043) PAGE 4 Signed ReportDEXA AXIAL (HIP AND SPINE)2020-11-04 19:33:51 Osteopenia.EXAM: DEXA AXIAL (HIP AND SPINE) HISTORY: 70 years ?Female; osteoporosis screening. COMPARISON: DXA ?None available. TECHNIQUE: Bone densitometry of the lumbar spine and right hip was performed on [employer]) system. ? ? FINDINGS: Left Femoral Neck: T score -2.2. ?Bone mineral density: 0.737 g/cm^2. Left Total Hip: T score -1.4. ?Bone mineral density: 0.828 g/cm^2. Right Femoral Neck: T-score -1.6. ?Bone mineral density: 0.815 g/cm^2. Right Total Femur: T-score -1.1. ?Bone mineral density: 0.870 g/cm^2. [facility], Radiant Results Inft User - 11/04/2020 2:34 PM CDT EXAM: DEXA AXIAL (HIP AND SPINE)HISTORY: 70 years Female; osteoporosis screening.COMPARISON: DXA None available. TECHNIQUE: Bone densitometry of the lumbar spine and right hip was performed on [employer] ([employer]) system. FINDINGS:Left Femoral Neck: T score -2.2. Bone mineral density: 0.737 g/cm^2.Left Total Hip: T score -1.4. Bone mineral density: 0.828 g/cm^2.Right Femoral Neck: T-score -1.6. Bone mineral density: 0.815 g/cm^2.Right Total Femur: T-score -1.1. Bone mineral density: 0.870 g/cm^2. IMPRESSIONOsteopenia.[facility] 1 VW 2020-10-26 06:59:56 Mildly elevated left diaphragm with left lower lobe scarring. RL 4728 CHEST SINGLE VIEW CLINICAL HISTORY: Short of breath. Cough. ORDERING PHYS ICIAN: ?RADIOLOGY TECHNIQUE: Frontal view of chest COMPARISON: None available. FINDINGS: The cardiacsilhouette is within normal limits. ?Mildly elevated leftdiaphragm with left lower lobe scarring. Thoracolumbar fusion. [facility], Radiant Results Inft User - 10/26/2020 2:00 AM CDT CHEST SINGLE VIEWCLINICAL HISTORY: Short of breath. Cough.ORDERING PHYSICIAN: RADIOLOGYTECHNIQUE: Frontal view of chestCOMPARISON: None available.FINDINGS:The cardiacsilhouette is within normal limits. Mildly elevated leftdiaphragm with left lower lobe scarring. Thoracolumbar fusion. IMPRESSIONMildly elevated left diaphragm with left lower lobe scarring.RL 4728 [facility] W[facility]ST 3+ VW [id number] 20:43:43Impression: 1. ?No acute osseous abnormality of the right wrist is identified. RL: 2831 ORDERING PHYSICIAN: GUNNER MARCOS THREE VIEWS OF RIGHT WRIST. DATE: ?10/25/2020 CLINICAL INDICATIONS: ?Right wrist pain and trauma. COMPARISON: ?None. FINDINGS: ?Three views of the right wrist demonstrate no evidence for acutefracture, subluxationor destructive osseous lesion. ?No significant softtissue swelling or radiopaque foreign body is identified. [facility], Radiant Results Inft User - 10/25/2020 3:44 PM CDT ORDERING PHYSICIAN: GUNNER MARCOSTHREE VIEWS OF RIGHT WRIST.DATE: 10/25/2020LINICAL INDICATIONS: Right wrist pain and trauma.COMPARISON: None.FINDINGS: Three views of the right wrist demonstrate no evidence for acutefracture, subluxation or destructive osseous lesion. No significant softtissue swelling or radiopaque foreign body is identified.IMPRESSIONImpression:1. No acute osseous abnormality of the right wrist is identified.RL: 2831 [facility] HAND 3+ VW [id number] 20:42:56Impression: 1. Osteoarthritic changes are present at [...] joints withoutevidence for acute osseous abnormality.RL: 2831 [facility] CenterCOVID-19 (ID NOW RAPID TESTING)2020-06-29 17:13:09 Test Item Value Reference Range Interpretation Comments SARS-CoV-2 Rapid ID NOW Not Detected Not Detected (test code = 09394-3) FLORENCIA (test code = FLORENCIA) ID NOW COVID-19 Assay is an isothermal nucleic acid amplification test intended for the qualitative detection of nucleic acid from SARS-CoV-2 viral RNA in nasopharyngeal (METAL HANGING HELPER) specimens. It is used under Emergency Use [...] indicated. Lab Interpretation Normal (test code = 47277-3) [facility] Notes Date/Time Note Provider Source 2022-01-06 19:37:00-00:00 [id number] [address] PATIENT NAME: MIKKI TALLEY ADMIT DATE: ACCOUNT NO: [id number] ROOM NO: G.604 AGE: 72 REPORT TYPE: 360 - QUERY RESPONSE DOCUMENT SEX: F ADMITTING PHYSICIAN:Joel Donald MD ATTENDING PHYSICIAN:Joel Donald MD Provider Query QUERY TEXT: Condition General 360MD Query related questions should be directed to:Manpreet cespedes [facility] Coding Query Helpline Based on your medical judgement, can you provide the known or suspected condition that represents the [facility] indicators below (Metabolic Encephalopathy, tox ic metabolic [...] 1936 PATIENT NAME: MIKKI TALLEY 20042022-01-04 09:20:00-00:00 [facility] ([facility]) Hospitalist Discharge Summary REPORT#:[id number] REPORT STATUS: Signed DATE:01/04/22 TIME: 919 PATIENT: MIKKI TALLEY UNIT #: [id number] ROOM/BED: [place] [address] : [birth year] AGE: 72 SEX: F ATTEND: Joel Donald MD ADM AUTHOR: Joel Donald MD * ALL edits or amendments must be made on the [employer] document * General Information Discharge date: 01/03/22 Discharge diagnosis: CVA Hospital course: She is 71 yr old female with hx of obesity, desulfurizer hand jason low back pain with back surgery [...] normal inspection, painless ran ge of motion Neuro/SUSTAINABLE LANDSCAPE ARCHITECT: alert, oriented X 3, CNII-XII intact Skin: [...] MD on 12/08 12/28 at 0924 RPT #:[id number] END OF REPORT 2022-01-03 09:33:00-00:00 [facility] Hospitalist Progress Note REPORT#:[id number] REPORT STATUS: Signed DATE:01/03/22 TIME: 932 PATIENT: MIKKI TALLEY UNIT #: [id number] ROOM/BED: [place] [address] : [birth year] AGE: 71 SEX: F ATTEND: Joel Donald MD ADM AUTHOR: Joel Donald MD * ALL edits or amendments must be made on the [employer] document * Subjective Chief complaint: eating some. [...] normal inspection, painless ran ge of motion Neuro/SUSTAINABLE LANDSCAPE ARCHITECT: alert, oriented X 3, CNII-XII intact Skin: dry, intact Results Radiology data: Current Medications Sig/Leigh Start time Last Medication Dose Route Stop Time Status Admin Clopidogrel Bisulfate 75 MG DAILY 01/03 900 AC 01/03 PO 02/03 0859 917 Duloxetine HCl 30 MG DAILY 01/03 900 AC 01/03 PO 02/03 0859 18 Mirtazapine 7.5 MG BEDTIME 01/02 2100 AC 01/02 PO 02/01 2059 213 Folic Acid 1 MG DAILY 01/02 900 AC 01/03 PO 02/02 0859 18 Thiamine HCl 100 MG DAILY 01/02 09 [...] 210 0 AC 01/02 Acetaminophen PO 01/05 2059 1630 Trazodone HCl 50 MG BEDTIME 12/31 2100 DC 01/01 PO 01/30 2059 2122 Famotidine 20 MG Q12HR 12/29 2100 AC 01/03 IV 01/28 2059 09 Acetaminophen 650 MG Q4H PRN PRN 12/28 1545 AC 12/29 RECTAL 01/27 1544 2122 Hydromorphone HCl 0.5 MG Q4H PRN 12/28 1545 DC IV 01/02 1544 Nicotine 21 MG DAILY 12/28 614 CKD 01/03 TRANSDERM 01/27 614 0918 Enoxaparin Sodium 40 MG Q24H 12/27 2300 AC 12/08 7 SUBQ 01/26 2259 2211 Hydralazine HCl 10 MG Q6H PRN PRN 12/27 2300 AC 12/27 IV 01/26 2259 2318 Ondansetron HCl 4 MG Q4H PRN PRN 12/27 2300 AC 12/30 IV 01/26 2259 153 Potassium Chloride/ 1,000 ML .[id number] 12/27 230 0 DCr 01/03 Dextrose/Sod Cl [...] MD on 12/08 11/27 at 0936 RPT #:[id number] END OF REPORT 2022-01-03 07:45:00-00:00 [facility] Gastroenterology Progress Note REPORT#:[id number] REPORT STATUS: Signed DATE:01/03/22 TIME: 744 PATIENT: MIKKI TALLEY UNIT #: [id number] ROOM/BED: 604-1 : 51 AGE: 71 SEX: F ATTEND: Joel Donald MD ADM AUTHOR: Nain Mahajan MD * ALL edits or amendments must be made on the el [employer]/computer document * Subjective Comments: in bed, eyes open, firmly closes eyes when appro ached Objective General VS/I O: Last Documented: Result Date Time Pulse Ox 94 01/03 1000 B/P 167/73 01/03 1000 B/P Mean 105 01/03 1000 Pulse 79 01/03 1000 Resp 21 01/03 1000 O2 Delivery Room air 01/03 07 Temp 36.5 01/03 0726 O2 Flow Rate [...] HCl (THIAMINE HCL) 100 MG DAILY PO (DCD ) Acetaminophen (TYLENOL) 650 MG Q4H PRN PRN [...] 0.45%NS + KCl 20mEq 1,000mL) 1,000 ML .[id number] IV (DC) Physical Exam General appearance: altered mental status HEENT: atraumatic, normocephalic Neck: decreased range of motion Cardiovascular: normal heart sounds, regular rat e rhythm Respiratory: clear to auscultation, no distress Abdomen: non-tender, soft Extremities: decreased range of motion Neuro/SUSTAINABLE LANDSCAPE ARCHITECT: alert, oriented X 3 Skin: dry, intact Psychiatry: abnl judgment/insight Diagnosis, Assessment Plan Free Text A P: Assessment CVA poor po intake abnormal behaviour GERD Plan: - acid suppressive therapy for GERD - diet as tolerated + nutritional supplements - continue to encourage po intake Electronically Signed by Nain Mahajan MD on 01/03 at 1642 RPT #:[id number] END OF REPORT 2022-01-02 14:24:00-00:00 [id number] [place] [address] PATIENT NAME: MIKKI TALLEY ADMIT DATE: 2 ACCOUNT NO: [id number] ROOM NO: [facility] AGE: 71 REPORT TYPE: eTRANSESOPHAGEAL ECHO REPORT SEX: F ADMITTING PHYSICIAN:Joel Donald MD ATTENDING PHYSICIAN:Joel Donald MD *[place] [address] Transesophageal Echocardiogram Patient: Mikki Talley Study Date: 01/01/2022 BP: 178 / 75 Location: [facility] URN: [id number] 2003 : 1950 Age: 71 Height: 64 in / 162.6 cm Gender: F Weight: 180 .6 lb / 82.1 kg BMI/BSA: 31.1 kg/m 2 / 1.87 m 2 *Ordering Physician: * Phong Rivers MD *Interpreting Physician: * Phong Rivers MD *Rotating Field Assembler: * Aggie Foley Indications: CVA. Study data: [...] using viscous lidocaine. A transesophageal probe (SN: [id number]) was inserted by the attending clock repair technician without difficulty. L ocation: Procedure room. Patient status: Inpatient. Patient room nu mber: CVPREP 05. Study status: Routine. Study completion: The pat ient tolerated the procedure well. There were no complications. Findings PATIENT NAME: MIKKI TALLEY 2004 Left ventricle: The cavity size is normal. [...] MD 01/02/2022 14:24 PATIENT NAME: MIKKI TALLEY [address] Electronically Signed by Phong Rivers MD on at 1424 PATIENT NAME: MIKKI TALLEY 20042022-01-02 13:21:00-00:00 [facility] REPORT#:[id number] REPORT STATUS: Signed DATE:01/02/22 TIME: 1321 PATIENT: MIKKI TALLEY UNIT #: [id number] [place] [facility] [place] AGE: 72 SEX: F ATTEND: Joel Donald MD ADM AUTHOR: Natalia Mahajan PA-C * ALL edits or amendments must be made on the [employer]/computer document * See Addendum Subjective Chief complaint: [...] 0.45%NS + KCl 20mEq 1,000mL) 1,000 ML .[id number] IV Functional Progress Functional progress: One on [...] Care: Yes Document OT charges: FT/THERAP. ACTIVITY [id number] If this is the patient's last treatment, this e ntry serves as the discharge summary: Y Start Time: 834 Stop Time: 45 Treatment time ( minutes): 0:10 Completed by: Priyanka Geiger . Occupational Therapy: Plan of Care OT Problem List: 1 Impaired Strength/ROM 2 Impaired Coordination 3 Impaired Balance 4 Impaired Safety Awareness 5 Impaired Functional Mobil 6 Pain 7 Impaired ADL ALF GOALS 1. One on one supervision with [...] 49 Feet Durable Medical Equipment Currently Utilized: RW Hospital Bed Effects of Treatment: Gait quality improved Function Improved Balance Improved Post [place] Precautions: In Bed, rails Up Bed Alarm Railway Switch Operator Light in Reach Family/Sitter at Bedside Nursing [...] needs within reach. PT charges: FT/Therap. Activity 83296 If this is the patient's last treatment, this e ntry serves as the discharge summary: Y Start time: 1420 Stop time: 1500 Treatment Time : ( minutes) 0:40 Completed by: Rona Monson . Physical Therapy: Plan of Care Short Term Goals TARGET DATE GOAL MET Half-Way Goals TARGET DATE GOAL MET . Physical Exam General appearance: alert, awake HEENT: anicteric, mucosal membranes moist, scler a clear Neck: supple Cardiovascular: regular rate rhythm, S1/S2 Respiratory: aerating well, clear bilaterally Abdomen: bowel sounds present, non-distended, so ft, non-tender Skin: dry, intact, no rash Musculoskeletal - general: Musculoskeletal - general: joints normal, no at rophy Neuro/SUSTAINABLE LANDSCAPE ARCHITECT: abnormal speech, disoriented, left he miparesis, down going toes, Results Findings/Data: Laboratory Tests: 01/01 01/01 2144 2111 Chemistry POC Glucose (70 - 110 MG/DL) 96 Urines Urine Color (YEL/STRAW) YELLOW Urine Appearance (CLEAR) CLEAR Urine pH (5.0 - 7.0) 6.0 Ur Specific [place] (1.005 - 1.030) 1.014 Urine Protein (NEGATIVE) [...] pt and her 2 sisters at the [facility]. She will benefit from IRF as DC plan. PT and family wanting her closer to home which is in [facility]. Discussed with the Case Adenike de la cruz about looking into closer IRFs. PT/OT and EDUCATIONAL MANAGER . 01/02: Pt seen. Not eating, but seems more due to choice and does not like the food. Pt is agitated. may benefit from Fluoxieti ne for depression and stroke recovery. Started on Trazado ne for bedtime. Plan is for her to DC to [facility] rehab once medically cleared. Rehab attestation: [...] Natalia Mahajan PA-C on at 2012 RPT #:[id number] END OF REPORT 2022-01-02 11:25:00-00:00 [facility] ([facility] Neurology Progress Note REPORT#:[id number] REPORT STATUS: Signed DATE:01/02/22 TIME: 1125 PATIENT: MIKKI TALLEY UNIT #: [id number] ROOM/BED: [place] [address] : 52 AGE: 71 SEX: F ATTEND: Joel Donald MD ADM AUTHOR: Gamaliel Melchor MD * ALL edits or amendments must be made on the [employer] document * Subjective HPI: I reviewed the [...] Gamaliel Melchor MD neurology at 1125 RPT #:[id number] END OF REPORT 2022-01-02 11:23:00-00:00 HCACL [facility] ([facility]) GE Consultation Note REPORT#:[id number] REPORT STATUS: Signed DATE:01/02/22 TIME: 1123 PATIENT: MIKKI TALLEY UNIT #: [id number] ROOM/BED: [place] [address] : 51 AGE: 71 SEX: F ATTEND: Joel Donald MD ADM AUTHOR: John Oconnell * ALL edits or amendments must be made on the [employer] document * John Oconnell 01/02/22 1123: History [...] PO DAILY 2 12/28/21 Strength: 30 MG CAP. 226 228 traZODone (DESYREL) 50 MG PO BEDTIME 12/28/21 0 12/28/21 Strength: 50 MG TAB 227 228 GABAPENTIN (NEURONTIN) 12/27/21 12/27/21 Strength: 600 MG TAB 2036 2039 tiZANidine (ZANAFLEX) 2 MG PO 12/27/21 12/27/21 Strength: 2 MG TAB Q6H PRN PRN 2038 2039 ALLERGIC REACTION DULoxetine (CYMBALTA) 30 MG PO DAILY 12/27/21 Strength: 30 MG CAP. 2038 2039 PANTOPRAZOLE 40 MG PO DAILY 12/27/21 2 (PROTONIX) 2038 2039 Strength: 40 MG TAB. Allergies: Coded Allergies: pregabalin (From LYRICA) (Mild, RASH 12/27/21) morphine (UNKNOWN 12/27/21) Objective Physical Exam VS/I O: Last Documented: Result Date Time Pulse Ox 98 01/02 1115 B/P 146/64 09/27 1115 B/P Mean 0.0 01/02 111 O2 Delivery Room air 01/02 111 Temp 98.2 01/02 111 Pulse 65 01/02 1115 Resp 19 01/02 [...] 0.45%NS + KCl 20mEq 1,000mL) 1,000 ML .[id number] IV General appearance: awake HEENT: atraumatic, normocephalic Neck: decreased range of motion Cardiovascular: normal heart sounds, regular rat e rhythm Respiratory: clear to auscultation, no distress Abdomen: non-tender, soft Extremities: decreased range of motion Neuro/SUSTAINABLE LANDSCAPE ARCHITECT: alert, oriented X 3 Skin: dry, intact Psychiatry: abnl judgment/insight Results Findings/Data: Laboratory Tests 01/01 2111 Chemistry POC Glucose (70 - 110 MG/DL) 96 Laboratory Tests 01/02 2144 Urines Urine Color (YEL/STRAW) YELLOW Urine Appearance (CLEAR) CLEAR Urine pH (5.0 - 7.0) 6.0 Ur Specific [place] (1.005 - 1.030) 1.014 Urine Protein (NEGATIVE) [...] Mahajan MD on 01/03 at 1653 RPT #:[id number] END OF REPORT 2022-01-02 09:36:00-00:00 [facility] ([facility]) Hospitalist Progress Note REPORT#:[id number] REPORT STATUS: Signed DATE:01/02/22 TIME: 935 PATIENT: MIKKI TALLEY UNIT #: [id number] ROOM/BED: [place] [address] : 51 AGE: 71 SEX: F ATTEND: Joel Donald MD ADM AUTHOR: Joel Donald MD * ALL edits or amendments must be made on the [employer]/computer document * Subjective Chief complaint: pt is [...] normal inspection, painless ran ge of motion Neuro/SUSTAINABLE LANDSCAPE ARCHITECT: alert, oriented X 3, CNII-XII intact Skin: dry, intact Results Radiology data: Laboratory Tests 01/01/22 0345: [Embedded Image Not Available] Current Medications Sig/Leigh Start time Last Medication Dose Route Stop Time Status Admin Folic Acid 1 MG DAILY 01/02 900 AC PO 02/01 859 Thiamine HCl 100 MG DAILY 01/02 900 AC PO 02/01 859 Acetaminophen 650 MG Q4H PRN PRN 01/01 [...] HCl 50 MG BEDTIME 12/31 2100 AC 12/08 6 PO 01/30 Famotidine 20 MG Q12HR 12/29 2100 AC 01/01 IV 01/28 Acetaminophen 650 MG Q4H PRN PRN 12/28 1545 AC 12/29 RECTAL 01/27 1544 212 Hydromorphone HCl 0.5 MG Q4H PRN 12/28 [...] PRN 12/27 2300 AC 12/30 IV 01/26 225 1532 Potassium Chloride/ 1,000 ML .[id number] 12/27 230 0 AC 01/01 Dextrose/Sod Cl IV 01/26 2259 0846 Laboratory Tests: 01/01 01/01 2144 2111 Chemistry POC Glucose (70 - 110 MG/DL) 96 Urines Urine Color (YEL/STRAW) YELLOW Urine Appearance (CLEAR) CLEAR Urine pH (5.0 - 7.0) 6.0 Ur Specific [place] (1.005 - 1.030) 1.014 Urine Protein (NEGATIVE) [...] MD on 12/08 10/27 at 0940 RPT #:[id number] END OF REPORT 2022-01-01 12:53:00-00:00 [facility] Acute Rehab Consult REPORT#:[id number] REPORT STATUS: Signed DATE:01/01/22 TIME: 1253 PATIENT: MIKKI TALLEY UNIT #: [id number] ROOM/BED: [place] [address] : 51 AGE: 72 SEX: F ATTEND: Joel Donald MD ADM AUTHOR: Natalia Mahajan PA-C * ALL edits or amendments must be made on the el [employer]/computer document * See Addendum History of Present Illness HPI Reason for consult: evaluation of Rehab needs PCP: PCP: Gunner Marcos MD Requesting clinician: Dr. 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 jason low back pain with back surgery [...] TO STANDS Durable Medical Equipment Currently Utilized: Hospital Bed Effects of Treatment: Gait quality improved Function Improved Balance Improved Post [place] Precautions: In Bed, rails Up Bed Alarm Railway Switch Operator Light in Reach Family/Sitter at Bedside Nursing Notified O2 on Pulse OX in Place Review Plan of Care: Yes Functional Mob.Cmt: MAX ASSIST WITH BED MOBS.SI TTING ON EOB WITH MIN ASSIST.SIT TO STANDS WITH MOD ASSIST.PT NOT FOLLOWING VERBAL OR TACTILE CUES DURING STANDING.WOULD NOT HOLD ONTO L HANDLE OR STAND ERECT.FAMILY MEMBER IN THE ROOM, PT charges: FT/Therap. Activity 42599 If this is the patient's last treatment, this e ntry Start time: 1415 Stop time: 1440 Treatment Time : ( minutes) 0:25 Completed by: Kofi Lopes Conference/Supervising PT: Yes Supervising Therapist: Gianluca Lee do . Physical Therapy: Plan of Care PT Problem [...] Extremity Dressing: Yes Lower Extremity Dressing: Yes AMPA Activity: Yes Precautions: Fall Requires verbal cues to direct task: Yes Reason: Impulsiveness Positions Used: Sitting on edge of bed FUNCTIONAL BALANCE DURING ACTIVITY: Fair TREATMENT OUTCOMES: Progress demonstrated toward desired goals: Yes Comments: PT SIT EOB COMPLETED ADL TRAINING. PT'S ADL REQ TOTAL A TO SPV. Document OT charges: SELF/HOME MGT/ADL [id number] If this is the patient's last treatment, [...] Hearing: No difficulty Cognitive Status/Alertness: OX4 - P/PL/T/Situa tion Precautions: Aspiration Fall Language Spoken: Jamaican Handoff to Nursing Staff: Bed Alarm peoplesoft functional analyst Baldwin Within Reach Family Present Bed in Lowest Position Handoff to Nurse Rehabilitation Potential: Guarded Therapist recommended discharge needs: PostAcut e Speech Specific Discharge Plan: Post Acute ST S ervic Document ST Charges: [place] Comp [address] If this is the patient's last treatment, this e ntry serves as the discharge summary: Y Time Started: 1352 Time Finished: 141 Helen [place] e(min): 0:20 Completed by: Betzaida [...] SWALLOW STRATEGIES. ST SPOKE WITH NURSE OC JALLOH FINDINGS AT BEDSIDE. ST TO F/U CLOSELY [...] PO DAILY 2 12/28/21 Strength: 30 MG CAP. 226 228 traZODone (DESYREL) 50 MG PO BEDTIME 12/28/21 12/28/21 Strength: 50 MG TAB 227 228 GABAPENTIN (NEURONTIN) 12/27/21 12/27/21 Strength: 600 MG TAB 2036 2039 tiZANidine (ZANAFLEX) 2 MG PO 12/27/21 12/27/21 Strength: 2 MG TAB Q6H PRN PRN 2038 2039 ALLERGIC REACTION DULoxetine (CYMBALTA) 30 MG PO DAILY 2 12/27/21 Strength: 30 MG CAP. [address] 40 MG PO [...] Admin Enoxaparin Sodium 40 MG Q24H 12/27 2300 AC 12/08 5 (lovENOX) SUBQ 01/26 Cardiovascular Drugs Sig/Leigh Start time Last Medication Dose Route Stop Time Status Admin Atorvastatin Calcium 40 MG 2100 12/31 2100 AC 0 12/31 (LIPITOR) PO 01/30 Atorvastatin Calcium 40 MG 2100 12/30 2100 DC (LIPITOR) FEED-TUBE 01/29 2059 Hydralazine HCl 10 MG Q6H PRN PRN 12/27 2300 AC 12/27 (APRESOLINE) IV 01/26 2259 231 Central Nervous System Agents Sig/Leigh Start time Last Medication Dose Route Stop Time Status Admin Aspirin 81 MG DAILY 01/01 0900 AC (ASPIRIN) PO 01/31 0859 Hydrocodone Bitart/ 1 TAB Q6H PRN PRN 12/31 210 0 AC 12/31 Acetaminophen PO 01/05 (NORCO 5/325) Trazodone HCl 50 MG BEDTIME 12/31 2100 AC 12/31 (DESYREL) PO 01/30 Aspirin 81 MG DAILY 12/31 0900 DC (ASPIRIN) FEED-TUBE 01/30 0859 Hydrocodone Bitart/ 1 TAB Q6H PRN PRN 12/30 171 5 DC Acetaminophen FEED-TUBE 01/04 1714 (NORCO 5/325) Acetaminophen 650 MG Q4H PRN PRN 12/28 1545 AC 12/29 (TYLENOL) RECTAL 01/27 154 212 Hydromorphone HCl 0.5 MG Q4H PRN 12/28 1545 AC (DILAUDID) IV 01/02 1544 Electrolytic, Caloric, And Ken Sig/Leigh Start time Last Medication Dose Route Stop Time Status Admin Potassium Chloride/ 1,000 ML .[id number] 12/27 230 0 AC 01/01 Dextrose/Sod Cl IV 01/26 2259 08 (D5 0.45%NS + KCl 20mEq 1,000mL) Gastrointestinal Drugs Sig/Leigh Start time Last Medication Dose Route Stop Time Status Admin Famotidine 20 MG Q12HR 12/29 2100 AC 01/01 (PEPCID) IV 01/28 2059 08 Ondansetron HCl 4 MG Q4H PRN PRN [...] Result Date Time Pulse Ox 96 01/01 07 B/P 150/70 01/01 0721 B/P Mean 0.0 01/01 07 O2 Delivery Room air 01/01 07 Temp 98.1 01/01 07 Pulse 66 01/01 0721 Resp 18 01/01 07 O2 Flow Rate 2 12/28 0800 PATIENT WEIGHT: Weight (lb): Weight (oz): Weight (kg): 82.500 General appearance: alert, awake HEENT: anicteric, mucosal membranes moist, scler a clear Neck: supple Cardiovascular: regular rate rhythm, S1/S2 Respiratory: aerating well, clear bilaterally Abdomen: bowel sounds present, non-distended, so ft, non-tender Skin: dry, intact, no rash Musculoskeletal - general: Musculoskeletal - general: joints normal, no at rophy Neuro/SUSTAINABLE LANDSCAPE ARCHITECT: abnormal speech, disoriented, left he miparesis, down [...] % (Auto) (14.0 - 32.0 %) 32.0 [place] % (Auto) (4.8 - 9.0 %) 10.3 H Eos % (Auto) (0.3 - 3.7 %) 1.0 Baso % (Auto) (0.0 - 2.0 %) 0.7 Neut # (Auto) (2.0 - 7.6 x10 3/uL) 5.90 Lymph # (Auto) (1.0 - 3.8 x10 3/uL) 3.39 [place] # (Auto) (0.1 - 0.8 x10 3/uL) [...] pt and her 2 sisters at the [facility]. She will benefit from IRF as DC plan. PT and family wanting her closer to home which is in [facility]. Discussed with the Case Adenike de la cruz about looking into closer IRFs. PT/OT and EDUCATIONAL MANAGER . Will follow and make further recommendations [facility] ed on rehab progress. Electronically Signed by Natalia Mahajan PA-C on at 1321 Addendum 1: 01/09/22 2011 by Natalia Mahajan PA-C Documentation of Current Medications in the [facility] Record : I attest that the foregoing medication list in [facility] medical record is true, accurate, and complete [...] Natalia Mahajan PA-C on at 2012 RPT #:[id number] END OF REPORT 2022-01-01 10:56:00-00:00 [facility]L [facility] Hospitalist Progress Note REPORT#:[id number] REPORT STATUS: Signed DATE:01/01/22 TIME: 1056 PATIENT: MIKKI TALLEY UNIT #: [id number] ROOM/BED: [place] [address] : 51 AGE: 71 SEX: F ATTEND: Joel Donald MD ADM AUTHOR: Joel Donald MD * ALL edits or amendments must be made on the [employer] document * Subjective Chief complaint: pt is [...] normal inspection, painless ran ge of motion Neuro/SUSTAINABLE LANDSCAPE ARCHITECT: alert, oriented X 3, CNII-XII intact Skin: dry, intact Results Radiology data: Laboratory Tests 01/01/22 0345: [Embedded Image Not Available] Current Medications Sig/Leigh Start time Last Medication Dose Route Stop Time Status Admin Aspirin 81 MG DAILY 01/01 900 AC PO 01/31 0859 Atorvastatin Calcium 40 MG 12/31 AC 0 12/31 PO 01/30 Hydrocodone Bitart/ 1 TAB Q6H PRN PRN 12/31 210 0 AC 12/31 Acetaminophen PO 01/05 Trazodone HCl 50 MG BEDTIME 12/31 2099 AC 12/31 PO 01/30 Aspirin 81 MG DAILY 12/31 899 DC FEED-TUBE 01/30 0859 Atorvastatin Calcium 40 MG 12/30 DC FEED-TUBE 01/29 2059 Hydrocodone Bitart/ 1 TAB Q6H PRN PRN 12/30 171 5 DC Acetaminophen FEED-TUBE 01/04 1714 Famotidine 20 MG Q12HR 12/29 2099 AC 01/01 IV 01/28 2059 08 Acetaminophen 650 MG Q4H PRN PRN 12/28 1545 AC 12/29 RECTAL 01/27 1544 2122 Hydromorphone HCl 0.5 MG Q4H PRN 12/28 1545 AC IV 01/02 1544 Nicotine 21 MG DAILY 12/28 0615 CKD 01/01 TRANSDERM 01/27 0614 0838 Enoxaparin Sodium 40 MG Q24H 12/27 230 AC 12/08 5 SUBQ 01/26 2259 2224 Hydralazine HCl 10 MG Q6H PRN PRN 12/27 2300 A C 12/27 IV 01/26 2259 2318 Ondansetron HCl 4 MG Q4H PRN PRN 12/27 2300 AC 12/30 IV 01/26 2259 1532 Potassium Chloride/ 1,000 ML .[id number] 12/27 230 0 AC 01/01 Dextrose/Sod Cl IV 01/26 2259 0846 Laboratory Tests: 01/01 0345 Chemistry Sodium (134 [...] % (Auto) (14.0 - 32.0 %) 32.0 [place] % (Auto) (4.8 - 9.0 %) 10.3 H Eos % (Auto) (0.3 - 3.7 %) 1.0 Baso % (Auto) (0.0 - 2.0 %) 0.7 Neut # (Auto) (2.0 - 7.6 x10 3/uL) 5.90 Lymph # (Auto) (1.0 - 3.8 x10 3/uL) 3.39 [place] # (Auto) (0.1 - 0.8 x10 3/uL) [...] see. Leukocytosis no fever seen continue to mohitor 01/01- resolved check labs in am 01/01- to rehab when bed available after KAI rina y. Electronically Signed by Joel Donald MD on 12/08 09/27 at 1059 RPT #:[id number] END OF REPORT 2021-12-31 23:25:00-00:00 [facility]L [facility] Hospitalist Progress Note REPORT#:[id number] REPORT STATUS: Signed DATE:12/31/21 TIME: 2324 PATIENT: MIKKI TALLEY UNIT #: [id number] ROOM/BED: [place] [address] : 52 AGE: 71 SEX: F ATTEND: Jose Buitrago MD ADM AUTHOR: Camila Buitrago MD * ALL edits or amendments must be made on the [employer]/computer document * Subjective Chief complaint: no acute [...] 12/31 0401 80 16 106/69 80 95 12/31 0300 58 92 12/31 0204 161/74 12/31 [...] 0.45%NS + KCl 20mEq 1,000mL) 1,000 ML .[id number] IV Physical Exam General appearance: no acute distress Head/Eyes: atraumatic, clear cornea, EOMI, PERRL A Neck: supple/no meningismus Cardiovascular: normal heart sounds, reg ular rate rhythm, no gallop, no murmur , no rub Respiratory: aerating well, clear to auscultatio n Abdomen: non-tender, normal bowel sounds, soft, no distention Extremities: no clubbing, no cyanosis, no edema Musculoskeletal: normal inspection, painless ran ge of motion Neuro/SUSTAINABLE LANDSCAPE ARCHITECT: alert, oriented X 3, CNII-XII intact Skin: [...] MD on 0 12/31/21 at 2327 RPT #:[id number] END OF REPORT 2021-12-31 00:02:00-00:00 [facility]L [facility] Hospitalist Progress Note REPORT#:[id number] REPORT STATUS: Signed DATE:12/31/21 TIME: 1 PATIENT: MIKKI TALLEY UNIT #: [id number] ROOM/BED: [place] [address] : 51 AGE: 71 SEX: F ATTEND: Cj Irizarry MD ADM AUTHOR: Camila Buitrago MD * ALL edits or amendments must be made on the [employer]/computer document * Subjective Chief complaint: late entry [...] 0.45%NS + KCl 20mEq 1,000mL) 1,000 ML .[id number] IV Physical Exam General appearance: no acute distress Head/Eyes: atraumatic, clear cornea, EOMI, PERRL A Neck: supple/no meningismus Cardiovascular: normal heart sounds, reg ular rate rhythm, no gallop, no murmur , no rub Respiratory: aerating well, clear to auscultatio n Abdomen: non-tender, normal bowel sounds, soft, no distention Extremities: no clubbing, no cyanosis, no edema Musculoskeletal: normal inspection, painless ran ge of motion Neuro/SUSTAINABLE LANDSCAPE ARCHITECT: alert, oriented X 3, CNII-XII intact Skin: dry, intact Results Findings/Data: Laboratory Tests 12/30 05 Chemistry Sodium (134 - 147 mEq/L) 140 [...] % (Auto) (14.0 - 32.0 %) 23.1 [place] % (Auto) (4.8 - 9.0 %) 12.0 H Eos % (Auto) (0.3 - 3.7 %) 0.2 L Baso % (Auto) (0.0 - 2.0 %) 0.4 Neut # (Auto) (2.0 - 7.6 x10 3/uL) 5.90 Lymph # (Auto) (1.0 - 3.8 x10 3/uL) 2.13 [place] # (Auto) (0.1 - 0.8 x10 3/uL) [...] MD on 0 12/31/21 at 0953 RPT #:[id number] END OF REPORT 2021-12-30 17:24:00-00:00 [facility] Cardiology Consultation REPORT#:[id number] REPORT STATUS: Signed DATE:12/30/21 TIME: 1723 PATIENT: MIKKI TALLEY UNIT #: [id number] ROOM/BED: [place] [address] : 52 AGE: 72 SEX: F ATTEND: Joel Donald MD ADM AUTHOR: Phong Rivers MD * ALL edits or amendments must be made on the el [employer]/computer document * History - Adult longitudinal Past [...] Phong Rivers MD on at 1258 RPT #:[id number] END OF REPORT 2021-12-30 17:23:00-00:00 [facility] ([facility]) Clinical Note REPORT#:[id number] REPORT STATUS: Signed DATE:12/30/21 TIME: 1722 PATIENT: MIKKI TALLEY UNIT #: [id number] ROOM/BED: [place] [address] : 52 AGE: 71 SEX: F ATTEND: Cj Irizarry MD ADM AUTHOR: Phong Rivers MD * ALL edits or amendments must be made on the el [employer]computer document * Clinical Note Note: Saturday Electronically Signed by Phong Rivers MD on at 1723 RPT #:[id number] END OF REPORT 2021-12-29 15:22:00-00:00 [facility] ([facility]) Hospitalist Progress Note REPORT#:[id number] REPORT STATUS: Signed DATE:12/29/21 TIME: 1521 PATIENT: MIKKI TALLEY UNIT #: [id number] ROOM/BED: [place] [address] : 52 AGE: 71 SEX: F ATTEND: Cj Irizarry MD ADM AUTHOR: Camila Buitrago MD * ALL edits or amendments must be made on the el [employer]computer document * Subjective Chief complaint: She is [...] (TYLENOL) 650 MG Q4H PRN PRN PO ( DC) Enoxaparin Sodium (lovENOX) 40 MG Q24H SUBQ Hydralazine HCl (APRESOLINE) 10 MG Q6H PRN PRN I V Hydrocodone Bitart/Acetaminophen (NORCO 5/325) 1 TAB Q6H PRN PRN PO Ondansetron HCl (ZOFRAN) 4 MG Q4H PRN PRN IV Potassium Chloride/Dextrose/Sod Cl (D5 0.45%NS + KCl 20mEq 1,000mL) 1,000 ML .[id number] IV Acetaminophen (TYLENOL) 650 MG Q4H PRN [...] normal inspection, painless ran ge of motion Neuro/SUSTAINABLE LANDSCAPE ARCHITECT: alert, oriented X 3, CNII-XII intact Skin: [...] % (Auto) (14.0 - 32.0 %) 18.4 [place] % (Auto) (4.8 - 9.0 %) 9.0 Eos % (Auto) (0.3 - 3.7 %) 0.1 L Baso % (Auto) (0.0 - 2.0 %) 0.3 Neut # (Auto) (2.0 - 7.6 x10 3/uL) 7.91 H Lymph # (Auto) (1.0 - 3.8 x10 3/uL) 2.03 [place] # (Auto) (0.1 - 0.8 x10 3/uL) [...] # (Man) (0.0 - 0.1 x10 3/uL) 0. 00 Microbiology Date/Time Procedure - Status Source Growth 12/28 2199 MRSA DNA Surveillance Screen - COMP NASAL Diagnosis, Assessment Plan Free Text DxA P Notes Free text DxA P notes: Right parietal lobe stroke Neurology seen PT/OT/ST on aspirin/lipitor 40mg po qhs LDL 58.4 failed swallow test if not any better, may need a NG tube echo negative Leukocytosis no fever seen continue to mohitor check labs in am patient more of a SNF candidate than IRF at this time. Electronically Signed by Camila Buitrago MD on 0 12/29/21 at 1525 RPT #:[id number] END OF REPORT 2021-12-29 10:51:00-00:00 [facility] ([facility]) Neurology Progress Note REPORT#:[id number] REPORT STATUS: Signed DATE:12/29/21 TIME: 105 PATIENT: MIKKI TALLEY UNIT #: [id number] ROOM/BED: [place] [address] : 51 AGE: 71 SEX: F ATTEND: Cj Irizarry MD ADM AUTHOR: Adriana Sexton * ALL edits or amendments must be made on the [employer]/computer document * Adriana Sexton 12/29/21 1051: Subjective [...] HCl (APRESOLINE) 10 MG Q6H PRN PRN IV Hydrocodone Bitart/Acetaminophen (NORCO 5/325) 1 TAB Q6H PRN PRN PO Ondansetron HCl (ZOFRAN) 4 MG Q4H PRN PRN IV Potassium Chloride/Dextrose/Sod Cl (D5 0.45%NS + KCl 20mEq 1,000mL) 1,000 ML .[id number] IV Acetaminophen (TYLENOL) 650 MG Q4H PRN [...] a 71-year-old female with a past [facility] history of HTN, GERD, chronic pain, [...] education and prevention counseling -PT/OT/ST eval -Consult Sales Management Intern and Case Manageme nt to help [...] Exam and Plan of Care. Adriana Sexton APRN-METAL HANGING HELPER for Gamaliel Melchor MD [facility]ist. Gamaliel Melchor 12/29/21 1420: Attestations [...] above. ,Gamaliel Melchor MD at 1421 at 4193 RPT #:[id number] END OF REPORT 2021-12-28 23:22:00-00:00 [facility] Hospitalist Progress Note REPORT#:[id number] REPORT STATUS: Signed DATE:12/28/21 TIME: 2321 PATIENT: MIKKI TALLEY UNIT #: [id number] ROOM/BED: [place] [address] : 51 AGE: 71 SEX: F ATTEND: Cj Irizarry MD ADM AUTHOR: Camila Buitrago MD * ALL edits or amendments must be made on the [employer]/computer document * Subjective Chief complaint: Acute Right parietal lobe stroke Objective General VS/I O: Vital Signs: Date Time Temp Pulse Resp B/P B/P Pulse O2 O2 F low FiO2 Mean Ox Delivery Rate 12/28 1616 75 161/74 107 95 12/28 [...] 0.45%NS + KCl 20mEq 1,000mL) 1,000 ML .[id number] IV Acetaminophen (TYLENOL) 650 MG Q4H PRN [...] normal inspection, painless ran ge of motion Neuro/SUSTAINABLE LANDSCAPE ARCHITECT: alert, oriented X 3, CNII-XII intact Skin: [...] (Auto) (14.0 - 32.0 %) 11.7 L [place] % (Auto) (4.8 - 9.0 %) 9.1 H Eos % (Auto) (0.3 - 3.7 %) 0.0 L Baso % (Auto) (0.0 - 2.0 %) 0.2 Neut # (Auto) (2.0 - 7.6 x10 3/uL) 10.33 H Lymph # (Auto) (1.0 - 3.8 x10 3/uL) 1.54 [place] # (Auto) (0.1 - 0.8 x10 3/uL) 1.20 H Eos # (Auto) (0.0 - 0.2 x10 3/uL) 0.00 Baso # (Auto) (0.0 - 0.2 x10 3/uL) 0.03 Abs Immat Gran (auto) (0.00 - 0.03 x10 3/uL) 0 .06 H Add Manual Diff NO Immature Gran [...] Camila Buitrago MD on 0 12/28/21 at 0098 RPT #:[id number] END OF REPORT 2021-12-28 17:51:00-00:00 [id number] [place] [id number] PATIENT NAME: MIKKI TALLEY ADMIT DATE: ACCOUNT NO: [id number] ROOM NO: [id number] AGE: 71 REPORT TYPE: eECHOCARDIOGRAM REPORT SEX: F ADMITTING PHYSICIAN:Cj Irizarry MD ATTENDING PHYSICIAN:Cj Irizarry MD *[address] [address] Transthoracic Echocardiogram Patient: Mikki Talley Study Date: 12/28/2021 BP: Location: [facility] URN: [id number] 2003 : 1950 Age: 71 Height: 64 in / 162.6 cm Gender: F Weight: 181 lb / 82.3 kg BMI/BSA: 31.1 kg/m 2 / 1.96 m 2 *Ordering Physician: * Cj Irizarry *Interpreting Physician: * Breezy Manzo MD *Rotating Field Assembler: * Landy Lamas [facility] Indications: Acute stroke. Study data: Transthoracic echocardiogram. [...] trileaflet. There is no evidence of stenosis. T here is no regurgitation. Mitral valve: The valve [...] cm 2 --------- Pulmonic valve Value Ref [place] v, ED 0.87 m/sec --------- Tricuspid valve [...] 1751 PATIENT NAME: MIKKI TALLEY 20042021-12-28 09:49:00-00:00 [facility] Neurology Consultation Note REPORT#:[id number] REPORT STATUS: Signed DATE:12/28/21 TIME: 948 PATIENT: MIKKI TALLEY UNIT #: [id number] ROOM/BED: [place] [address] : 51 AGE: 71 SEX: F ATTEND: Cj Irizarry MD ADM AUTHOR: Adriana Sexton APRNNP * ALL edits or amendments must be made on the [employer]/computer document * Adriana Sexton 12/28/21 0949: History [...] OSH for acute right MCA strok e. Patient [...] Result Date Time Pulse Ox 94 12/28 08 B/P 146/72 12/28 0805 B/P Mean 0.0 12/28 08 O2 Delivery Room air 12/28 08 Temp 98.1 12/28 08 Pulse 78 12/28 08 Resp 20 12/28 08 O2 Flow Rate 2 12/28 0800 PATIENT [...] 0.45%NS + KCl 20mEq 1,000mL) 1,000 ML .[id number] IV Fentanyl Citrate (SUBLIMAZE) 100 MCG X1ED [...] education and prevention counseling -PT/OT/ST eval -Consult Sales Management Intern and Case Manageme nt to help [...] Exam and Plan of Care. Adriana Sexton APRN-METAL HANGING HELPER for Gamaliel Melchor MD [facility]ist. Gamaliel Melchor 12/28/21 1442: Attestations [...] above. ,Gamaliel Melchor MD at 1443 at 1638 RPT #:[id number] END OF REPORT 2021-12-27 22:30:00-00:00 [id number] [place] [address] PATIENT NAME: MIKKI TALLEY ADMIT DATE: 2 ACCOUNT NO: [id number] ROOM NO: [id number] AGE: 72 REPORT TYPE: HISTORY AND PHYSICAL SEX: F ADMITTING PHYSICIAN:Joel Donald MD ATTENDING PHYSICIAN:Joel Donald MD ADMISSION DATE: 12/27/2021 21:50:00 CHIEF COMPLAINT: Left-sided weakness, who was tr ansferred from [place], [place] for acute stroke. HISTORY OF PRESENT ILLNESS: This is a 71 -year-old white female with history of obesity, chronic low back pa in with back surgery in 2019, osteoporosis, tobacco abuse, essential hypertensio n and urinary incontinence. According to her sister who does not live with her, but other sister is the younger sister named, Carlos Eduardo, who has the power of city attorney and lives with the patient, she [...] and had a CAT scan of the ead that showed a right MCA stroke and transferred here for evaluation. Ther e is no report of fever, chills, cough, shortness of breath, chest pain o r slurred speech. REVIEW OF SYSTEMS: A 12-point review of systems per her sister were reviewed and negative. PAST SURGICAL HISTORY: Include back surgery 2 ye ars ago in 2019. MEDICATIONS: Include Neurontin 600, Zanaflex, Cy mbalta, Protonix and aspirin. ALLERGIES: MORPHINE AND LYRICA. [...] 1 year and her used to have [employer]. She is living with her youngest sister named, Carlos Eduardo, who has power of city attorney. She does not h ave living [...] Date Transcribed: 12/28/2021 00:57:02 PMV/FABRICIO/HELLEN Receipt ID: [id number] CC: Giovani Melchor Authenticated by Cj Irizarry MD On 01/05/2022 05:04:22 PM Electronically Signed by Cj Irizarry MD on 12/09 at 0504 PATIENT NAME: MIKKI TALLEY 20042021-12-27 20:03:00-00:00 [facility] REPORT#:[id number] REPORT STATUS: Signed DATE:12/27/21 TIME: 2002 PATIENT: MIKKI TALLEY UNIT #: [id number] ROOM/BED: [place] [address] AGE: 71 SEX: F PCP PHYS: Gunner Marcos MD SERVICE AUTHOR: Marcio Luke MD * ALL edits or amendments must be made on the el [employer]/computer document * HPI-Stroke/CVA Free Text HPI Notes Free Text HPI Notes 71 yo female with history of chronic pain, GERD, 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 ASSESSMENT: ASPECTS ([place] Stroke Program Early CT Score) is 9. [...] is no detectable patent lumen. Impression By: SoumyaJBCurtis Dinero D.O. CAT SCAN - CT ANGIO [...] is no detectable patent lumen. Impression By: SoumyaJBCurtis Dinero D.O. RADIOLOGY - XR CHEST 1 [...] MDM Notes 71-year-old female transferred from outside [facility] with CVA with left upper extremity weakness [...] Hospital? No Administered IV Thrombolytic? No, exclusion keyana baez Neurologist Contacted IV thrombolytic not recom Exclusion Criteria LKW > 4.5 hrs of Unknown ED Course Medication(s) Ordered Medication(s) Ordered: Central Nervous System Agents Sig/Leigh Start time Last Medication Dose Route Stop Time Status Admin Acetaminophen 650 MG Q4H PRN PRN 12/270 AC PO 12/28 2048 Diagnostic Agents Sig/Leigh Start time Last Medication Dose Route Stop Time Status Admin Iopamidol 100 ML .STK-MED ONE 12/27 2010 DC IV 12/27 Electrolytic, Caloric, And Ken Sig/Leigh Start time Last Medication Dose Route Stop Time Status Admin Sodium Chloride 1,000 ML .Q10H 12/270 AC 0 12/27 IV 12/28 2048 2247 Gastrointestinal Drugs Sig/Leigh Start time Last Medication Dose Route Stop Time Status Admin Ondansetron HCl 4 MG Q6H PRN PRN 12/270 AC 12/27 IV 12/28 2048 2248 Patient [...] communicated with the staff or medical p racangelaer taking over this patient's care. Electronically Signed by Marcio Luke MD on at 0249 RPT #:[id number] END OF REPORT
[2022-10-15 17:21] LABS: Absolute Lymphocytes (CBC) 3.2 K/uL (0.7-4.9); Hematocrit 40.1 % (36.0-45.0); Lymphocytes % 36.5 % (15.3-44.8); MCV 92.2 fL (80-100); MPV 6.7 fL (7.6-11.3); RBC Red Blood Cell Count 4.35 M/uL (3.86-4.86)
--- NOTE | 2022-10-15 17:24 | RAD REPORT ---
EXAM DESCRIPTION: RAD - Chest Pa And Lat (2 Views) - 10/15/2022 5:17 pm CLINICAL HISTORY: COUGH COMPARISON: Chest Single View dated 09/24/2022 FINDINGS: Lines: None. Lungs: No evidence of edema or pneumonia. Linear scarring at the left lung base. Pleural: No significant pleural effusions or pneumothorax. Cardiac: The heart size is within normal limits. Mediastinum: Within normal limits. Bones: No acute fractures. Lower thoracic and lumbar fusion. Other: None IMPRESSION: No acute cardiopulmonary disease.
[2022-10-15 17:34] LABS: Albumin 3.7 g/dL (3.4-5.0); Magnesium 2.1 mg/dL (1.6-2.4); Potassium 4.2 mEq/L (3.5-5.1)
[2022-10-15 17:47] LABS: Bilirubin Direct 0.1 mg/dL (0-0.2); Bilirubin Indirect, Calculated 0.2 mg/dL (0.2-0.8); Bilirubin Total 0.3 mg/dL (0.2-1.0); Protein, Total 7.6 g/dL (6.4-8.2); Troponin High Sensitivity 3.9 pg/mL (<58.9)
--- NOTE | 2022-10-15 18:00 | ER ---
Nurse's Notes [facility] Name: Mikki Nobles Age: 72 yrs Sex: Female : 1950 Arrival Date: 10/15/2022 Time: 16:35 Bed 7 Private MD: Diagnosis: Dysphagia Presentation: 10/15 16:42 Chief complaint: Patient states: She was at Dr. Marroquin's office and had a "choking cm10 episode". Pt states that this happens occasionally. Pt states that she was choking on her own saliva. Pt was sent over to be checked out. Coronavirus screen: Vaccine status: Patient reports receiving the 2nd dose of the covid vaccine. Client denies travel out of the [place] in the last 14 days. Ebola Screen: Patient denies travel to an Ebola-affected area in the 21 days before illness onset. No symptoms or risks identified at this time. Initial Sepsis Screen: Does the patient meet any 2 criteria? No. Patient's initial sepsis screen is negative. Does the patient have a suspected source of infection? No. Patient's initial sepsis screen is negative. Risk Assessment: Do you want to hurt yourself or someone else? Patient reports no desire to harm self or others. Onset of symptoms was October 15, 2022. 16:42 Method Of Arrival: Ambulatory cm10 16:42 Acuity: CHRISTEL 3 cm10 Triage Assessment: 16:45 General: Appears in no apparent distress. comfortable, Behavior is calm, cooperative. cm10 Pain: Denies pain. Neuro: No deficits noted. Level of Consciousness is awake, alert, Oriented to person, place, time, situation. Cardiovascular: No deficits noted. Respiratory: No deficits noted. Airway is patent Respiratory effort is even, unlabored, Respiratory pattern is regular, symmetrical. Historical: - Allergies: 16:44 Lyrica; cm10 16:44 Morphine; cm10 - PMHx: 16:44 CVA; Osteoporosis; Hypertensive disorder; Hypercholesterolemia; cm10 - PSHx: 16:44 Ankle; back; cataracts; hysterectomy; Tonsillectomy; cm10 - Immunization history:: Adult Immunizations unknown. - Social history:: Smoking status: Patient reports the use of cigarette tobacco products, smokes one pack cigarettes per day. Screenin:13 [facility] ED Fall Risk Assessment (Adult) History of falling in the last 3 months, ld1 including since admission No falls in past 3 months (0 pts). Abuse screen: Denies threats or abuse. Denies injuries from another. Nutritional screening: No deficits noted. Tuberculosis screening: No symptoms or risk factors identified. Assessment: 17:13 General: Appears in no apparent distress. comfortable, Behavior is calm, cooperative, ld1 appropriate for age. Pain: Denies pain. Neuro: Level of Consciousness is awake, alert, obeys commands, Oriented to person, place, time, situation. Cardiovascular: Capillary refill < 3 seconds Patient's skin is warm and dry. Rhythm is sinus rhythm. Respiratory: Airway is patent Respiratory effort is even, unlabored. GI: Abdomen is flat, non-distended. : No signs and/or symptoms were reported regarding the genitourinary system. EENT: No signs and/or symptoms were reported regarding the EENT system. Derm: No signs and/or symptoms reported regarding the dermatologic system. Musculoskeletal: No signs and/or symptoms reported regarding the musculoskeletal system. 18:22 Reassessment: Patient appears in no apparent distress at this time. No changes from ld1 previously documented assessment. Patient and/or family updated on plan of care and expected duration. Pain level reassessed. Patient is alert, oriented x 3, equal unlabored respirations, skin warm/dry/pink. Vital Signs: 16:42 BP 110 / 69; Pulse 92; Resp 16 S; Temp 97.9(TE); Pulse Ox 96% on R/A; Weight 82.55 kg; cm10 Height 5 ft. 6 in. ; Pain 0/10; 17:13 BP 111 / 71; Pulse 93; Resp 11; Pulse Ox 93% on R/A; ld1 16:42 Body Mass Index 29.37 (82.55 kg, 167.64 cm) cm10 16:42 Pain Scale: Adult cm10 ED Course: 16:37 Patient arrived in ED. mr 16:44 Triage completed. cm10 16:45 Gloria Tate PA-C is PHCP. sb4 16:45 Kishore Arias MD is Attending Physician. sb4 16:46 Arm band placed on Patient placed in an exam room, on a stretcher. cm10 17:00 Chantel Morgan RN is Primary Nurse. ld1 17:13 Patient has correct armband on for positive identification. Placed in gown. Bed in low ld1 position. Call light in reach. Side rails up X2. ekg monitor tech on. Pulse ox on. NIBP on. Door closed. Noise minimized. Warm blanket given. 17:13 No provider procedures requiring assistance completed. Inserted saline lock: 20 gauge ld1 in right antecubital area, using aseptic technique. Blood collected. 17:13 Inserted. ld1 17:18 XRAY Chest Pa And Lat (2 Views) In Process Unspecified. EDMS 17:58 Franco Jack MD is Referral Physician. sb4 18:22 IV discontinued, intact, bleeding controlled, No redness/swelling at site. ld1 Administered Medications: No medications were administered Medication: 17:13 VIS not applicable for this client. ld1 Outcome: 17:58 Discharge ordered by . sb4 18:22 Discharged to home ambulatory. ld1 18:22 Condition: stable 18:22 Discharge instructions given to patient, Instructed on discharge instructions, follow up and referral plans. Demonstrated understanding of instructions, follow-up care. 18:22 Patient left the ED. ld1 Signatures: Dispatcher [employer] [facility] Cheryl KaplanChantel, RN RN ld1 Gloria Tate, PA-C PA-C sb4 Michelle Talbert, RN RN cm10 Corrections: (The following items were deleted from the chart) 16:45 16:42 BP 110 / 96; Pulse 92bpm; Resp 16bpm; Spontaneous; Pulse Ox 96% RA; Temp 97.9F cm10 Temporal; 82.55 kg; Height 5 ft. 6 in.; BMI: 29.3; Pain 0/10, Adult; cm10
--- NOTE | 2022-10-15 18:00 | EDPHYS ---
Physician Documentation [facility] Name: Mikki Nobles Age: 72 yrs Sex: Female : 1950 Arrival Date: 10/15/2022 Time: 16:35 Bed 7 Private MD: ED Physician Kishore Arias HPI: 10/15 17:10 This 72 yrs old Female presents to ER via Ambulatory with complaints of Choked/Choking. sb4 17:10 72 year old female with history of CVA, hypertension, hyperlipidemia, RA, fibromyalgia sb4 sent here from Dr. Marroquin's office for evaluation. She was at his office for routine follow up when she started experiencing a choking episode. She states she has been experiencing these periodically, but they have gradually worsened. She states she feeling like she cannot breathe/catch her breath when they occur. She does report dysphagia as a result of her CVA. She has had an EGD previously. Historical: - Allergies: 16:44 Lyrica; cm10 16:44 Morphine; cm10 - PMHx: 16:44 CVA; Osteoporosis; Hypertensive disorder; Hypercholesterolemia; cm10 - PSHx: 16:44 Ankle; back; cataracts; hysterectomy; Tonsillectomy; cm10 - Immunization history:: Adult Immunizations unknown. - Social history:: Smoking status: Patient reports the use of cigarette tobacco products, smokes one pack cigarettes per day. ROS: 17:10 Constitutional: Negative for fever, chills, and weight loss, Eyes: Negative for injury, sb4 pain, redness, and discharge, Back: Negative for injury and pain, : Negative for injury, bleeding, discharge, and swelling, MS/Extremity: Negative for injury and deformity, Skin: Negative for injury, rash, and discoloration. 17:10 ENT: Negative for injury, pain, and discharge. 17:10 Respiratory: Positive for cough, "smoker's cough", Negative for dyspnea on exertion, hemoptysis, orthopnea. 17:10 Abdomen/GI: Positive for 17:10 Abdomen/GI: Positive for dysphagia, Negative for abdominal pain, nausea, vomiting, and diarrhea. 17:10 All other systems are negative. Exam: 17:10 Constitutional: This is a well developed, well nourished patient who is awake, alert, sb4 and in no acute distress. Head/Face: Normocephalic, atraumatic. Eyes: Extra-ocular motions intact. Periorbital areas with no swelling, redness, or edema. Cardiovascular: Regular rate and rhythm with a normal S1 and S2. Abdomen/GI: Soft, non-tender, no distension. Back: No spinal tenderness. No costovertebral tenderness. Full range of motion. Skin: Warm, dry with normal turgor. Normal color with no rashes, no lesions, and no evidence of cellulitis. MS/ Extremity: Pulses equal, no cyanosis. Neurovascular intact. Full, normal range of motion. Neuro: Awake and alert, GCS 15, oriented to person, place, time, and situation. Cranial nerves II-XII grossly intact. Motor strength 5/5 in all extremities. Sensory grossly intact. Cerebellar exam normal. Normal gait. 17:10 Respiratory: the patient does not display signs of respiratory distress, Respirations: normal, Breath sounds: rhonchi, are heard in the left posterior upper lobe, Respiratory rate: 11 Vital Signs: 16:42 BP 110 / 69; Pulse 92; Resp 16 S; Temp 97.9(TE); Pulse Ox 96% on R/A; Weight 82.55 kg; cm10 Height 5 ft. 6 in. ; Pain 0/10; 17:13 BP 111 / 71; Pulse 93; Resp 11; Pulse Ox 93% on R/A; ld1 16:42 Body Mass Index 29.37 (82.55 kg, 167.64 cm) cm10 16:42 Pain Scale: Adult cm10 MDM: 16:45 Patient medically screened. sb4 17:17 Differential diagnosis: aspiration pneumonia, esophageal obstruction, bronchitis, COPD sb4 exacerbation, dysphagia. 17:56 Data reviewed: vital signs, nurses notes, lab test result(s), radiologic studies, and sb4 as a result, I will discharge patient. Consideration of Admission/Observation Escalation of care including admission/observation considered. Test considered but Not performed: CT: CT chest not indicated, negative CXR. Care significantly affected by the following chronic conditions: Hypertension. Counseling: I had a detailed discussion with the patient and/or guardian regarding: the historical points, exam findings, and any diagnostic results supporting the discharge/admit diagnosis, the need for outpatient follow up, a veneer sorter. 10/15 16:58 Order name: BMP; Complete Time: 17:49 sb4 10/15 16:58 Order name: CBC with Diff; Complete Time: 17:42 sb4 10/15 16:58 Order name: Hepatic Function; Complete Time: 17:49 sb4 10/15 16:58 Order name: Lipase; Complete Time: 17:49 sb4 10/15 16:58 Order name: Magnesium; Complete Time: 17:49 sb4 10/15 16:58 Order name: NT PRO-BNP; Complete Time: 17:49 sb4 10/15 16:58 Order name: Troponin HS; Complete Time: 17:49 sb4 10/15 16:58 Order name: XRAY Chest Pa And Lat (2 Views); Complete Time: 17:26 sb4 10/15 16:58 Order name: EKG; Complete Time: 16:59 sb4 10/15 16:58 Order name: Cardiac monitoring; Complete Time: 17:01 sb4 10/15 16:58 Order name: EKG - Nurse/Tech; Complete Time: 17:35 sb4 10/15 16:58 Order name: IV Saline Lock; Complete Time: 17:13 sb4 10/15 16:58 Order name: Labs collected and sent; Complete Time: 17:13 sb4 10/15 16:58 Order name: O2 Per Protocol; Complete Time: 17:01 sb4 10/15 16:58 Order name: O2 Sat Monitoring; Complete Time: 17:01 sb4 EC:36 Rate is 80 beats/min. Rhythm is regular, Sinus arrythmia. QRS [place] is Normal. NC sb4 interval is normal at 166 msec. QRS interval is normal at 84 msec. QT interval is normal at 386 msec. Clinical impression: Normal ECG. Interpreted by me. Reviewed by me. Administered Medications: No medications were administered Disposition Summary: 10/15/22 17:58 Discharge Ordered Location: Home sb4 Condition: Stable sb4 Diagnosis - Dysphagia sb4 Followup: sb4 - With: Franco Jack MD - When: 2 - 3 days - Reason: Further diagnostic work-up Discharge Instructions: - Discharge Summary Sheet sb4 - Choking, Adult sb4 - Dysphagia sb4 Forms: - Medication Reconciliation Form sb4 - Thank You Letter sb4 - Antibiotic Education sb4 - Prescription Opioid Use sb4 - Patient Portal [email or web address].htm sb4 Signatures: Dispatcher [employer] EDMS Brown, Gloria, MAVIS GAMBLE sb4 Michelle Talbert, RN RN cm10
[2022-10-15 19:25] VITALS: TEMP 97.9
[2022-10-15 19:27] VITALS: BP 111/71; O2SAT 93
--- NOTE | 2022-10-16 20:24 | EKG ---
Test Date: 2022-10-15 Test Time: 17:34:18 Pharmacy Customer Care Specialist: Ashley PLAZA MEASUREMENT RESULTS: Intervals: Rate: 80 DE: 166 QRSD: 84 QT: 386 QTc: 445 [place]: P: 60 DE: 166 QRS: 42 T: 70 INTERPRETIVE STATEMENTS: Sinus rhythm with marked sinus arrhythmia Otherwise normal ECG Compared to ECG 09/24/2022 16:34:10 Myocardial infarct finding no longer present Electronically Signed On 10-16-22 20:21:50 CDT by Hesham Knowles
== END 2022-10-15 18:22 | disposition home or self-care (01) ==
LOC: ER 16:35
DX: R13.10 Dysphagia, unspecified (principal); I10 Essential (primary) hypertension; F17.210 Nicotine dependence, cigarettes, uncomplicated; Z86.73 Personal history of transient ischemic attack (TIA), and cerebral infarction without residual deficits; Z88.5 Allergy status to narcotic agent; Z88.8 Allergy status to other drugs, medicaments and biological substances
CPT/HCPCS: 36415; 71046; 80048; 80076; 83690; 83735; 83880; 84484; 85025; 93005; 99284

== ENCOUNTER 2024-03-09 07:42 | Day surgery (SDC) | payer OTHER, BC ==
[2024-03-04 14:34] LABS: Absolute Basophils 0.1 K/uL (0-0.5); Absolute Eosinophils 0.2 K/uL (0-0.5); Absolute Monocytes 0.9 K/uL (0.1-1.3); Absolute Neutrophil 5.5 K/uL (1.8-8.0); Eosinophils % 2.8 % (0-4.4); Hematocrit 38.5 % (36.0-45.0); Hemoglobin 12.9 g/dL (12.0-15.0); Lymphocytes % 22.5 % (15.3-44.8); MCHC 33.6 g/dL (32.0-36.0); MCV 92.3 fL (80-100); MPV 6.6 fL (7.6-11.3); Neutrophils % 63.7 % (41.7-73.7); Platelets 380 thou/uL (152-406); RBC Red Blood Cell Count 4.17 M/uL (3.86-4.86); Red Cell Distribution Width 14.9 % (12.1-15.2)
[2024-03-04 14:38] LABS: PT Prothrombin Time 11.8 SECONDS (9.4-12.5); Protime INR 1.06
[2024-03-04 14:51] LABS: Anion Gap 12.4 mEq/L (5.0-15.0); Potassium 3.4 mEq/L (3.5-5.1)
[2024-03-09] MEDS ORDERED: FENTANYL CITR 100 MCG/2 ML ONE (08:00)
[2024-03-09] MEDS ORDERED: propofoL 200 MG/20 ML VIAL IV ONE (08:00)
[2024-03-09] MEDS ORDERED: LIDOCAINE 2% MPF 5 ML VIAL ONE (08:00)
[2024-03-09] MEDS ORDERED: ONDANSETRON 4 MG/2 ML VIAL ONE (08:00)
[2024-03-09] MEDS ORDERED: MIDAZOLAM HCL 2 MG/2 ML INJ ONE (08:01)
[2024-03-09] MEDS ORDERED: Ringers Lactate 1,000 ML IV ONE (08:12)
[2024-03-09] MEDS: CEFAZOLIN SODIUM 1 GM/VIAL ONE (09:20)
[2024-03-09] MEDS ORDERED: COLLAGENASE 30 GM OINTMENT TOP ONE (09:35)
--- NOTE | 2024-03-09 09:43 | P.BOP ---
Preoperative diagnosis: Necrotic infected left dorsal wound wound Postoperative diagnosis: same Primary procedure: Excisional debridment deep subQ of 4x3x0.5cm Secondary procedure: Necrotic infected left dorsal wound wound Estimated blood loss: <10cc Specimen: tissue ulcer Findings: as above Anesthesia: General Complications: None Transferred to: Recovery Room Condition: Good
--- NOTE | 2024-03-09 10:23 | EKG ---
Test Date: 2024-03-04 Test Time: 15:07:58 Tapper Balance Wheel Screw Hole: MEASUREMENT RESULTS: Intervals: Rate: 84 ID: [id number] QRSD: 88 QT: 408 QTc: 482 [place]: P: 43 ID: [id number] QRS: 8 T: 18 INTERPRETIVE STATEMENTS: Normal sinus rhythm Minimal voltage criteria for LVH, may be normal variant Inferior infarct, age undetermined Anterior infarct, age undetermined Abnormal ECG Compared to ECG 10/15/2022 17:34:18 Left ventricular hypertrophy now present Myocardial infarct finding now present Sinus arrhythmia no longer present Electronically Signed On 03-09-24 10:22:07 MECHANICAL FACILITIES TECHNICIAN by Bryan Pantoja
[2024-03-09 11:21] VITALS: O2SAT 93
[2024-03-09 11:28] VITALS: BP 103/70; TEMP 97
== END 2024-03-09 11:25 | disposition home or self-care (01) ==
LOC: OR 07:42
PROVIDERS: ATTEND Surgery
PROC: 0JBK0ZZ Excision of Left Hand Subcutaneous Tissue and Fascia, Open Approach (ICD-10-PCS; principal; 2024-03-09 09:10)
DX: S61.402A Unspecified open wound of left hand, initial encounter (principal); L03.114 Cellulitis of left upper limb; L08.9 Local infection of the skin and subcutaneous tissue, unspecified; W55.03XA Scratched by cat, initial encounter; I10 Essential (primary) hypertension; F41.9 Anxiety disorder, unspecified; E78.00 Pure hypercholesterolemia, unspecified; G47.33 Obstructive sleep apnea (adult) (pediatric); Z86.73 Personal history of transient ischemic attack (TIA), and cerebral infarction without residual deficits
CPT/HCPCS: 11042; 93005; 87070; 85025; 80048; 36415; 87205; 85610; 88304; 85730; 87075; J3590; J2704; J2003; J2250; J3010; J2405; J7120; J0690